=== PATIENT | male | born 1935 | race Caucasian/White ===

== ENCOUNTER 2022-02-16 07:26 | Day surgery (SDC) | payer MEDICARE, BC, SELFPAY ==
--- NOTE | 2022-02-16 07:55 | SUR.PREOP ---
HOme COVID test negative.
--- NOTE | 2022-02-16 07:55 | SUR.PREOP ---
The eye drops brought by the patient (Ketorolac and Prednisolone) are examined and I have determined they are labeled by the patient's pharmacy for this patient as prescribed by the surgeon. The bottles are intact, recently obtained and appear to be correct.
[2022-02-16] MEDS: TETRACAINE 0.5% OPHTH 1 DROP EYE-LEFT ×2 (07:57→08:04)
[2022-02-16 08:01] VITALS: BMI 24.5
[2022-02-16] MEDS: KETOROLAC OPHTH 0.5% 1 DROP EYE-LEFT ×3 (08:02→08:16)
[2022-02-16 08:10] VITALS: BP 129/87; PULSE 57; RESP 16; TEMP 36.1; O2SAT 95
[2022-02-16] MEDS: SODIUM CHLORIDE 0.9 % (FLUSH) 10 ML SYRINGE IVF (08:21)
[2022-02-16] MEDS: TETRACAINE 0.5% OPHTH 2 DROP EYE-LEFT (08:39)
[2022-02-16] MEDS: BALANCED SALT IRRIG SOLN 15 ML EYE-LEFT (08:44)
--- NOTE | 2022-02-16 08:48 | W.ANESCHARGE ---
Anesthesia Charges Start Date/Time Anesthesia Start Date: 02/16/22 Anesthesia Start Time: 08:36 Stop Date/Time Anesthesia Stop Date: 02/16/22 Anesthesia Stop Time: 09:09 Summary Emergency: No Extremes of Age: Over 70-CPT 58064
--- NOTE | 2022-02-16 09:13 | W.PM.OPTPROC ---
Procedure Note Date of procedure: 02/16/22 Will [facility] bill your pro fee for this procedure?: Yes Procedure Description: SURGEON: Betina Robertson MD PREOPERATIVE DIAGNOSIS: Nuclear sclerotic cataract, left eye. POSTOPERATIVE DIAGNOSIS: Nuclear sclerotic cataract, left eye. NAME OF OPERATION: Phacoemulsification of cataract with posterior chamber intraocular lens implantation in the left eye. ANESTHESIA: Topical. ESTIMATED BLOOD LOSS: Less than 2 cc. COMPLICATIONS: None. PATHOLOGY SPECIMEN: None. INDICATIONS: See consult note for details. The risks, benefits and alternatives of the procedure were explained to the patient, who elected to proceed and signed informed consent to do so. PROCEDURE: The patient was brought to the pre-holding area where the left eye was identified as the operative eye. I placed my initials above this eye. The patient received eye drops consisting of 0.5% tetracaine, 1% tropicamide, 10% phenylephrine, and 0.5% ketorolac. The patient was then brought to the operating room where the left eye was again identified as the operative eye. The eye was prepped with Betadine and draped in the usual sterile ophthalmic fashion. A #15 super-sharp blade was used to create a paracentesis site. 1% non-preserved intracameral lidocaine was injected into the anterior chamber. Endocoat was injected into the anterior chamber. A 2.4 mm keratome was used to create a three-plane self-sealing incision 1 mm anterior to the temporal limbus. A cystotome was used to create an anterior capsular leaflet. The Utrata forceps were used to extend this to form a continuous curvilinear capsulorrhexis. Hydrodissection was performed. The cataract was removed with phacoemulsification using the [id number] technique. The irrigation and aspiration tip was used to remove the remaining cortex. Healon was injected into the capsular bag. An VIKA ZCB00 intraocular lens of 19.0 diopters was injected into the capsular bag. The irrigation and aspiration tip was used to remove the remaining viscoelastic. Balanced salt solution on a cannula was used to hydrate the wound, and the wound was found to be watertight. The pupil was noted to be round. DISPOSITION: The patient was taken to the recovery room and discharged to home in stable condition. The patient was instructed to call me or go to the emergency department with any sudden change, including dramatic loss of vision, severe pain in the eye or eyebrow region, nausea, or vomiting. The patient will follow up in the clinic tomorrow morning. Surgeon: Betina Robertson MD
[2022-02-16 09:16] VITALS: BP 135/86; PULSE 49; RESP 16; TEMP 36.6; O2SAT 97
--- NOTE | 2022-02-16 09:21 | SUR.PHASEII ---
The eye drops brought by the patient (Ketorolac and Prednisolone and Ofloxacin) are examined and I have determined they are labeled by the patient's pharmacy for this patient as prescribed by the surgeon. The bottles are intact, recently obtained and appear to be correct.
== END 2022-02-16 09:33 | disposition home or self-care (01) ==
PROVIDERS: PCP Surgery; Visit Provider Ophthalmology
PROC: (CPT 66984; principal; 2022-02-16 07:30)
DX: H25.12 Age-related nuclear cataract, left eye (principal)
CPT/HCPCS: 66984; 00142; 99100; A9270; J2250; J3010; V2632

== ENCOUNTER 2022-04-10 11:11 | Observation (INO) | payer MEDICARE, BC, SELFPAY ==
[2022-04-10] VITALS (22 sets, daily range): BP systolic 104–200; BP diastolic 79–114; PULSE 60–139; RESP 16–20; TEMP 36.4–36.9; O2SAT 88–98; BMI 25.1
--- NOTE | 2022-04-10 11:23 | CRLHL7_ITS ---
For Patients: As a result of the Cures Act, medical imaging exams and procedure reports are released immediately into your electronic medical record. You may view this report before your referring provider. If you have questions, please contact your health care provider. HISTORY: Dizziness. TECHNIQUE: One view of the chest. COMPARISON: 02/23/2019. FINDINGS: Sternotomy. Cardiac size within normal limits. No pulmonary vascular congestion. No focal lung infiltrate. No pneumothorax or pleural effusion. There are degenerative changes of the spine and shoulders. IMPRESSION: No acute disease. Dictated by Herson Farley MD @ 04/10/2022 12:00:44 PM Dictated by: Herson Farley MD @ 04/10/2022 12:00:49 (Electronically Signed)
--- NOTE | 2022-04-10 11:25 | ED_ITS ---
HPI - General Adult General Time Seen by Provider: 11:25 Date Seen: 04/10/22 Chief complaint: Nausea/Vomiting Stated complaint: vomiting and dizzy w blood Time Seen by Provider: 04/10/22 11:12 Source: patient, family and RN notes reviewed Mode of arrival: wheelchair Limitations: no limitations History of Present Illness HPI narrative: Patient presents with his to the ER with dizziness that started while in faith. Started feeling dizzy or lightheaded and then had nausea with vomiting. There was some phlegm in the vomitus that had some reddish darker streaking. There was no claire matted emesis. Patient is on aspirin and Eliquis. He has a history of remote cardiac bypass and notes he has had 6 subsequent stents placed. He otherwise was fine prior to this event this morning. He is not having any abdominal pain with this. Had a normal bowel movement this morning. They are unaware of being exposed to anybody ill but have been out in public. They did go to a movie last night. No noted fevers. He has had no leila min cough or cold symptoms. He specifically denies any chest pain. Does have underlying atrial fibrillation which is the indication for his Eliquis use. Related Data Home Medications Medication Instructions Recorded Confirmed apixaban 2.5 mg tablet (Eliquis) 2.5 mg PO BID 02/15/22 04/10/22 aspirin 81 mg chewable tablet 81 mg PO DAILY 02/15/22 04/10/22 (Aspirin Childrens) atorvastatin 80 mg tablet 80 mg PO HS 02/15/22 04/10/22 donepezil 5 mg tablet 5 mg PO HS 02/15/22 04/10/22 isosorbide mononitrate 60 mg 60 mg PO DAILY 02/15/22 04/10/22 tablet,extended release 24 hr metoprolol succinate 50 mg 50 mg PO DAILY 02/15/22 04/10/22 tablet,extended release 24 hr Allergies Allergy/AdvReac Type Severity Reaction Status Date / Time niacin Allergy Rash and Verified 02/15/22 09:40 Itching Review of Systems Status of ROS: Reports: 10 or more systems reviewed and unremarkable except as noted in History and below [facility] Medical History ASHD (arteriosclerotic heart disease) Atrial fibrillation 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 Mixed hyperlipidemia Unspecified essential hypertension Surgical History History of coronary artery stent placement Social History Smoking Status: Never smoker How often do you have a drink containing alcohol: monthly or less How many standard drinks containing alcohol do you have on a typical day: 1 or 2 How often do you have six or more drinks on one occasion: Never AUDIT-C Alcohol total score: 1 Non-prescribed substance use: denies use Caffeine: Yes (pop) Exam Const: Vital Signs, click to edit/add: Vital Signs - 24 hr 04/10/22 11:20 04/10/22 12:11 04/10/22 12:30 Temperature 97.6 F Pulse Rate 97 98 Pulse Rate [Pulse Oximeter] 73 Respiratory Rate 18 Blood Pressure Blood Pressure [Le ft Upper Arm] 167/85 H Pulse Oximetry 97 96 96 Oxygen Delivery Me thod Room Air 04/10/22 12:32 04/10/22 12:33 04/10/22 13:00 Temperature Pulse Rate 93 90 132 H Pulse Rate [Pulse Oximeter] Respiratory Rate Blood Pressure 133/91 H Blood Pressure [Le ft Upper Arm] Pulse Oximetry 96 95 96 Oxygen Delivery Me thod 04/10/22 13:02 04/10/22 13:30 04/10/22 13:32 Temperature Pulse Rate 139 H 97 101 H Pulse Rate [Pulse Oximeter] Respiratory Rate Blood Pressure 200/114 H 116/96 H Blood Pressure [Le ft Upper Arm] Pulse Oximetry 95 96 96 Oxygen Delivery Me thod 04/10/22 13:33 04/10/22 14:00 04/10/22 14:02 Temperature Pulse Rate 102 H 93 100 Pulse Rate [Pulse Oximeter] Respiratory Rate Blood Pressure 104/85 Blood Pressure [Le ft Upper Arm] Pulse Oximetry 96 96 96 Oxygen Delivery Me thod 04/10/22 14:30 04/10/22 14:32 Temperature Pulse Rate 105 H 100 Pulse Rate [Pulse Oximeter] Respiratory Rate Blood Pressure 140/90 H Blood Pressure [Le ft Upper Arm] Pulse Oximetry 97 98 Oxygen Delivery Me thod Documenting provider has reviewed patient's vital signs: yes Common normals: no apparent distress, average body habitus, oriented x3, no limitations, healthy appearing and alert General appearance: cooperative, comfortable, well kempt, well developed and frail appearing Other: Did watch patient being wheeled back from triage, was hanging onto an emesis bag but at this time was pleasant alert. Seemed a bit overall pale to me but thought is coloration looked normal. HENMT: Common normals: normocephalic, head/scalp atraumatic, hearing grossly normal bilaterally, external ears normal, external nose normal, nasal mucous membranes and turbinates normal, moist oral mucous membranes and oropharynx normal Head and scalp: normocephalic and atraumatic Nose: external nose normal and nasal mucous membranes and turbinates normal External ear: external ears normal Eye: Common normals: PERRL, EOMs intact bilaterally (Note no nystagmus), conjunctivae normal and no scleral icterus Conjunctiva: conjunctiva(e) normal Pupil: PERRL Neck & C-Spine: Common normals: full ROM, no lymphadenopathy, supple, no meningeal signs, no JVD and thyroid normal Thyroid: thyroid normal Chest: Common normals: inspection of chest normal (Well-healed sternotomy scar noted) and palpation of chest normal Resp: Common normals: normal respiratory effort, no retractions, no use of accessory muscles and clear to auscultation bilaterally (Is able to sit up easily in bed to allow me to listen.) Effort & inspection: able to speak in complete sentences Auscultation: clear to auscultation bilaterally (Is able to sit up easily in bed to allow me to listen.) Cardio: Common normals: no JVD, regular rate, regular rhythm (Sounded quite regular when listening to him on arrival.), S1 normal heart sound, S2 normal heart sound, no gallops, no clicks and no murmurs Rate: regular rate Rhythm: regular rhythm (Sounded quite regular when listening to him on arrival.) Heart sounds: S1 normal and S2 normal GI: Common normals: Normal to inspection, nondistended, normoactive bowel sounds present, soft to palpation, non-tender, no hepatosplenomegaly, no masses and no bruits Palpation: soft and no hepatosplenomegaly Extremity: Common normals: normal to inspection, full ROM and normal capillary refill Other: No lower extremity edema, no calf tenderness. Neuro: [place] Coma Scale: document GCS findings [place] coma scale eye opening: Spontaneous (4) [place] coma scale verbal response: Orientated (5) [place] coma scale motor response: Obey commands (6) [place] coma scale total score: 15 Common normals: oriented x3, CN's II-XII intact bilaterally, moves all extremities, no focal motor deficits and no sensory deficits noted Sensorium/orientation: alert Meningeal signs: no meningeal signs Speech: speech normal Motor exam: strength 5/5 throughout, no pronator drift, no tremor noted, no asterixis and no fasciculations Psych: Appearance: well kempt Course Course Hospital Course: Patient will be on cardiac monitoring, pulse oximetry. We will stab lotion IV, obtained portable chest x-ray. Full complement of labs will be obtained, will be getting point of care troponin. He certainly could have underlying cardiac disease with ischemic disease, STEMI non STEMI and a.m. awaiting EKG. There is a current gastroenteritis that is plaguing the surrounding community and it could be the initial presentation of that as well. Will observe hemoglobin and watch closely, make sure this isn't a presentation of GI bleeding. Right now he has no abdominal pain. Infectious etiology, electrolyte issues/metabolic, cardiovascular, gastroenterology issues all are considerations. Will recheck patient shortly, did see him on arrival and will out nursing staff to obtain EKG, get initial monitoring and labs collected. Does not seem like this is vertiginous but would like to question the patient further on his symptoms. May need to consider some low-dose IV fluids and Zofran if need be. Reevaluation(s) Reevaluation #1: Nursing brought to an EKG to me obtained after I left the room. He did go up into atrial fibrillation with RVR, 121 beats per minute. I was just back in to talk to him. He is not feeling more dizzy, he is in AFib with RVR in the low 1 100s bouncing up to maybe 130. He is having no chest pain. His initial point of care troponin came back at 0.02. I will plan on doing a 90 minute to follow him a bit more closely. He indeed does not endorse vertiginous type symptoms. He and his to tell me that he was quite sweaty when he felt this dizziness or lightheadedness. He was sitting while it came on. He is not feeling worse at this time, indeed maybe a bit better. I am going to add in 2.5 mg IV metoprolol to see how he tolerates this and try to obtain a bit closer rate control. Time: 11:51 Reevaluation #2: Patient had naps and heart rate was down into the 80s. However, awoke and was feeling some more nausea. Is doing some dry heaving and spitting some saliva. When doing this, heart rate jumped back up to 130s per nursing staff. Will try just a small dose of IV Ativan 0.25 mg to help with nausea and vomiting control. Will do just another 2.5 mg IV metoprolol. His 90 minute troponin should be drawn shortly. Time: 13:05 Reevaluation #3: Patient was resting, woke easily. Heart rate was 106 to about 110 with atrial fibrillation on the monitor. He is feeling a bit better now after the Ativan. His troponin remains normal. My a leading hypothesis is that he is developing gastroenteritis which we have been seen in the surrounding community. I believe that this has triggered his atrial fibrillation. I will be talking to the hospitalist regarding admission. I do not feel at this time that he needs any abdominal imaging, he is having no abdominal pain, no pain on palpation. Time: 14:12 Consultations Consultation #1: Have reviewed the case with Dr. Seay. He agrees with acceptance and will take over management of this patient. Time: 14:47 Vital Signs Vital signs: Initial Vital Signs Temperature 97.6 F 04/10/22 11:20 Temperature Source Oral 04/10/22 11:20 Pulse Rate 73 04/10/22 11:20 Respiratory Rate 18 04/10/22 11:20 Blood Pressure 167/85 H 04/10/22 11:20 Blood Pressure Mean 112 04/10/22 11:20 Blood Pressure Position Supine 04/10/22 11:20 Pulse Oximetry 97 04/10/22 11:20 Oxygen Delivery Method 04/10/22 11:20 Vital Signs Temperature 97.6 F 04/10/22 11:20 Pulse Rate 73 04/10/22 11:20 Respiratory Rate 18 04/10/22 11:20 Blood Pressure 167/85 H 04/10/22 11:20 Pulse Oximetry 97 04/10/22 11:20 Oxygen Delivery Method 04/10/22 11:20 Temperature 97.6 F 04/10/22 11:20 Pulse Rate 100 04/10/22 14:32 Respiratory Rate 18 04/10/22 11:20 Blood Pressure 140/90 H 04/10/22 14:32 Pulse Oximetry 98 04/10/22 14:32 Oxygen Delivery Method 04/10/22 11:20 Medical Decision Making Lab Data Lab results reviewed: Yes I reviewed the patient's lab results Labs: Lab Results 04/10/22 04/10/22 04/10/22 Range/Units 11:30 11:30 11:30 WBC 25.19 H* (4.50-11.00) K/uL RBC 4.93 (4.30-5.90) m/uL Hgb 14.3 (13.5-17.5) gm/dL Hct 43.8 (37.0-53.0) % MCV 89 (80-100) fL MCH 29 (26-34) pg MCHC 33 (32-36) gm/dL RDW Coeff of Joyce 14.1 (11.5-15.5) % Plt Count 122 L (140-440) K/uL Neut % (Auto) 29.3 L (42.0-72.0) % Lymph % (Auto) 66.6 H (20-44) % Castro % (Auto) 3.2 (0.0-11.0) % Eos % (Auto) 0.7 (0.0-7.0) % Baso % (Auto) 0.0 (0.0-3.0) % Neut # (Auto) 7.40 H (1.7-7.0) K/uL Lymph # (Auto) 16.80 H (0.90-2.90) K/uL Castro # (Auto) 0.80 (0.00-0.90) K/UL Eos # (Auto) 0.20 (0.00-0.50) K/uL Baso # (Auto) 0.00 (0.00-0.30) K/uL Diff Slide Review Acceptable Review (Acceptable) Sodium 140 (135-149) mmol/L Potassium 4.3 (3.6-5.1) mmol/L Chloride 107 (96-114) mmol/L Carbon Dioxide 25 (20-32) mmol/L BUN 16 (7-30) mg/dL Creatinine 1.0 (0.5-1.5) mg/dL Estimated Creat Clear 56.48 Estimated GFR 73 ml/min Glucose 134 H (60-115) mg/dL Lactate 2.0 H (0.5-1.9) mmol/L Calcium 9.1 (8.4-10.6) mg/dL Magnesium 2.1 (1.5-2.6) mg/dL Total Bilirubin 1.8 H (0.1-1.5) mg/dL AST 33 (12-35) U/L ALT 25 (4-50) U/L Alkaline Phosphatase 68 (40-150) U/L C-Reactive Protein < 0.5 L (0.5-1.0) mg/dL NT-Pro-B Natriuret Pep 479 pg/mL Total Protein 6.7 (6.0-8.3) g/dL Albumin 4.2 (3.3-5.0) g/dL Lipase 108 (23-300) U/L SARS-CoV-2 (PCR) (Negative) Influenza Type A (PCR) (Negative) Influenza Type B (PCR) (Negative) RSV (PCR) (Negative) POC Troponin I (0.01-0.04) ng/ml 04/10/22 04/10/22 04/10/22 Range/Units 11:30 11:40 13:09 WBC (4.50-11.00) K/uL RBC (4.30-5.90) m/uL Hgb (13.5-17.5) gm/dL Hct (37.0-53.0) % MCV (80-100) fL MCH (26-34) pg MCHC (32-36) gm/dL RDW Coeff of Joyce (11.5-15.5) % Plt Count (140-440) K/uL Neut % (Auto) (42.0-72.0) % Lymph % (Auto) (20-44) % Castro % (Auto) (0.0-11.0) % Eos % (Auto) (0.0-7.0) % Baso % (Auto) (0.0-3.0) % Neut # (Auto) (1.7-7.0) K/uL Lymph # (Auto) (0.90-2.90) K/uL Castro # (Auto) (0.00-0.90) K/UL Eos # (Auto) (0.00-0.50) K/uL Baso # (Auto) (0.00-0.30) K/uL Diff Slide Review (Acceptable) Sodium (135-149) mmol/L Potassium (3.6-5.1) mmol/L Chloride (96-114) mmol/L Carbon Dioxide (20-32) mmol/L BUN (7-30) mg/dL Creatinine (0.5-1.5) mg/dL Estimated Creat Clear Estimated GFR ml/min Glucose (60-115) mg/dL Lactate (0.5-1.9) mmol/L Calcium (8.4-10.6) mg/dL Magnesium (1.5-2.6) mg/dL Total Bilirubin (0.1-1.5) mg/dL AST (12-35) U/L ALT (4-50) U/L Alkaline Phosphatase (40-150) U/L C-Reactive Protein (0.5-1.0) mg/dL NT-Pro-B Natriuret Pep pg/mL Total Protein (6.0-8.3) g/dL Albumin (3.3-5.0) g/dL Lipase (23-300) U/L SARS-CoV-2 (PCR) Negative SARS-CoV-2 (Negative) Influenza Type A (PCR) Negative PCR FLU A (Negative) Influenza Type B (PCR) Negative PCR FLU B (Negative) RSV (PCR) Negative PCR RSV (Negative) POC Troponin I 0.02 0.01 (0.01-0.04) ng/ml Imaging Data Chest x-ray: Attestation: I have reviewed the pertinent imaging results. My impression: I see no acute pathology on my preliminary read. Radiologist's impression: Patient: [facility] Facility:?[facility] Patient ID:?[id number] Site Patient ID:?[id number]. Site :?[id number] Study:?XRay Chest PORTABLE-04/10/2022 11:45:54 AM Ordering Physician:Garfield Flores Final Report: HISTORY: Dizziness. TECHNIQUE: One view of the chest. COMPARISON: 02/23/2019. FINDINGS: Sternotomy. Cardiac size within normal limits. No pulmonary vascular congestion. No focal lung infiltrate. No pneumothorax or pleural effusion. There are degenerative changes of the spine and shoulders. IMPRESSION: No acute disease. Dictated by Herson Farley MD @ 04/10/2022 12:00:44 PM Dictated by: Herson Farley MD @ 04/10/2022 12:00:49 (Electronic Signature) ECG Data Attestation: I personally reviewed and interpreted this ECG as follows: (Atrial fibrillation with rapid ventricular response, 121 beats per minute. Right bundle branch block, ST segment depression in the lateral distribution, inferior leads as well. QT corrected 559 milliseconds.) Critical Care Time Critical Care Time Critical Care Time: No Discharge Plan Discharge Clinical Impression: Dizziness, Nausea & vomiting, Atrial fibrillation with rapid ventricular response Patient Disposition: Admitted As Inpatient Condition: Stable
[2022-04-10 11:36] LABS: Eosinophils Percent Auto 0.7 % (0.0-7.0); Hematocrit 43.8 % (37.0-53.0); Hemoglobin* 14.3 gm/dL (13.5-17.5); Immature Granulocytes Pct Auto 0.2 %; Lymphocytes Percent Auto 66.6 % (20-44); Mean Corpuscular HGB Conc 33 gm/dL (32-36); Mean Corpuscular Hemoglobin 29 pg (26-34); Mean Corpuscular Volume 89 fL (80-100); Monocytes Percent Auto 3.2 % (0.0-11.0); Neutrophils Percent Auto 29.3 % (42.0-72.0); Platelet Count* 122 K/uL (140-440); RDW Coefficient of Variation % 14.1 % (11.5-15.5); Red Blood Count 4.93 m/uL (4.30-5.90)
[2022-04-10 11:51] LABS: Albumin* 4.2 g/dL (3.3-5.0); Chloride* 107 mmol/L (96-114); Sodium* 140 mmol/L (135-149)
[2022-04-10 11:52] LABS: Potassium* 4.3 mmol/L (3.6-5.1)
[2022-04-10 11:54] LABS: Carbon Dioxide* 25 mmol/L (20-32); Est. Creatinine Clearance* 56.48; Estimated Glomerular Filt Rate 73 ml/min
[2022-04-10 11:55] LABS: Alanine Aminotransferase* 25 U/L (4-50); Alkaline Phosphatase* 68 U/L (40-150); Aspartate Amino Transferase* 33 U/L (12-35); Bilirubin Total* 1.8 mg/dL (0.1-1.5); Blood Urea Nitrogen* 16 mg/dL (7-30); Calcium* 9.1 mg/dL (8.4-10.6); Glucose* 134 mg/dL (60-115); Lipase* 108 U/L (23-300); Magnesium* 2.1 mg/dL (1.5-2.6); Total Protein* 6.7 g/dL (6.0-8.3)
--- NOTE | 2022-04-10 11:55 | PC.NURSE ---
critical WBC 25,[address] Li
[2022-04-10 11:56] LABS: Slide Review Reflex Yes; White Blood Count* 25.19 K/uL (4.50-11.00)
[2022-04-10 11:57] LABS: Slide Review Acceptable Review (Acceptable)
[2022-04-10] MEDS: ONDANSETRON 2 MG/ML inj 4 MG IVP (12:01)
[2022-04-10] MEDS: 0.9 % SODIUM CHLORIDE 250 ml 250 ML IV ×2 (12:02→14:27)
[2022-04-10] MEDS: PANTOPRAZOLE SODIUM 40 MG INJ IVP (12:02)
[2022-04-10 12:04] LABS: Troponin, Point-of-Care* 0.02 ng/ml (0.01-0.04)
[2022-04-10 12:05] LABS: C Reactive Protein* < 0.5 mg/dL (0.5-1.0); NT Pro B Type NatriureticPept* 479 pg/mL
[2022-04-10] MEDS: METOPROLOL TARTRATE 1 MG/ML inj 2.5 MG IVP ×2 (12:06→13:24)
[2022-04-10 12:23] LABS: PCR FLU A Negative PCR FLU A (Negative); PCR FLU B Negative PCR FLU B (Negative); PCR RSV Negative PCR RSV (Negative)
[2022-04-10 12:29] LABS: SARS PCR* Negative SARS-CoV-2 (Negative)
[2022-04-10] MEDS: LORazepam 2 MG/ML inj 0.25 MG IVP (13:24)
[2022-04-10 13:31] LABS: Troponin, Point-of-Care* 0.01 ng/ml (0.01-0.04)
[2022-04-10] MEDS: METOPROLOL TARTRATE 25 MG TABLET 12.5 MG PO (14:27)
--- NOTE | 2022-04-10 15:06 | ED.NURSE ---
report given, pt will transfer to room 280 on heart monitor
--- NOTE | 2022-04-10 15:57 | PM.IMHP1 ---
Hospitalist- H&P: HPI History of Present Illness Date Seen: 04/10/22 Chief complaint: vomiting and dizzy w blood Narrative: Reddy Gilbert is a 86 year old male admitted through the emergency department after becoming ill in gnosticism this morning. He reports feeling well when he got up this morning. He was well until during that her service when he became diaphoretic and sweaty. As he left the gnosticism began vomiting and has had multiple emesis. He did not notice that there was blood in the emesis but his said that the emesis looked red. She is not aware of him eating any red food. He has had no diarrhea. He had a normal colored and normal consistency stool this morning. He is having no abdominal pain or chest pain. Because of the persistent vomiting she brought him to the emergency room. He has had no exposures to anybody else who has been ill in a similar fashion. He is not in any foods that he thinks may be contaminated. No recent travel. He is unaware of previous gastrointestinal illness. No previous gastrointestinal surgery. He probably had a ureteral stent placed 21 years ago possibly for an obstructing stone. He is not having any new urinary symptoms. He is anticoagulated with Eliquis and aspirin for coronary disease and atrial fibrillation. Last dose of Eliquis was this morning. Review of Systems Narrative: He reports no symptoms of illness other than his vomiting. Specifically denies headache, visual disturbance, dizziness, cold or sore throat. No trouble swallowing. No chest pain or dyspnea. He is not aware of palpitations. He does have AFib with RVR but is unaware of his heart racing at this time. Nausea and vomiting this morning as above. No abdominal pain. He does have urinary frequency and urgency which is old. Complete review of systems is otherwise unremarkable. [facility] Medical History (Updated 04/10/22 @ 22:46 by Sam Seay MD) ASHD (arteriosclerotic heart disease) Atrial fibrillation Chronic anticoagulation 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 Dementia Mixed hyperlipidemia Unspecified essential hypertension Surgical History (Updated 04/10/22 @ 16:04 by Sam Seay MD) History of coronary artery stent placement History of ureter stent Family History (Updated 04/10/22 @ 16:05 by Sam Seay MD) Brother Diabetes Heart disease High blood pressure High cholesterol Mother Stroke Father Stroke Social History Highest level of school completed/degree received: high school graduate Smoking Status: Never smoker How often do you have a drink containing alcohol: monthly or less How many standard drinks containing alcohol do you have on a typical day: 1 or 2 How often do you have six or more drinks on one occasion: Never AUDIT-C Alcohol total score: 1 Non-prescribed substance use: denies use Caffeine: Yes (pop) service: No Meds Home Medications and Allergies Home Medications Medication Instructions Recorded Confirmed Type apixaban 2.5 mg tablet (Eliquis) 2.5 mg PO BID 02/15/22 04/10/22 History aspirin 81 mg chewable tablet 81 mg PO DAILY 02/15/22 04/10/22 History (Aspirin Childrens) atorvastatin 80 mg tablet 80 mg PO HS 02/15/22 04/10/22 History donepezil 5 mg tablet 5 mg PO HS 02/15/22 04/10/22 History isosorbide mononitrate 60 mg 60 mg PO DAILY 02/15/22 04/10/22 History tablet,extended release 24 hr metoprolol succinate 50 mg 50 mg PO DAILY 02/15/22 04/10/22 History tablet,extended release 24 hr Allergies Allergy/AdvReac Type Severity Reaction Status Date / Time niacin Allergy Rash and Verified 02/15/22 09:40 Itching Exam Narrative: Exam Narrative: He is alert and appears in no distress. He gives his own history with corroboration by his . Head is without trauma. Eyes are normal. Pupils are equal round reactive to light. Oropharynx with dry mucous membranes. Otherwise normal. Neck is supple without mass or adenopathy. No tenderness. Respirations are clear to auscultation. Cardiovascular: S1, S2, irregular tachycardia. No murmur gallop or rub. Abdomen: Bowel sounds active. Abdomen is soft without tenderness or mass. No peritonitis. External genitalia normal. Extremities are somewhat cool to touch. He has absent pedal pulses in his feet. He has a sore left middle toe with some chronic deformity but no open ulceration or erythema. He moves both his lower extremities fairly well. Const: Vital Signs, click to edit/add: Vital Signs - 24 hr 04/10/22 11:20 04/10/22 12:11 04/10/22 12:30 Temperature 97.6 F Pulse Rate 97 98 Pulse Rate [Pulse Oximeter] 73 Respiratory Rate 18 Blood Pressure Blood Pressure [Le ft Upper Arm] 167/85 H Pulse Oximetry 97 96 96 Oxygen Delivery Me thod Room Air 04/10/22 12:32 04/10/22 12:33 04/10/22 13:00 Temperature Pulse Rate 93 90 132 H Pulse Rate [Pulse Oximeter] Respiratory Rate Blood Pressure 133/91 H Blood Pressure [Le ft Upper Arm] Pulse Oximetry 96 95 96 Oxygen Delivery Me thod 04/10/22 13:02 04/10/22 13:30 04/10/22 13:32 Temperature Pulse Rate 139 H 97 101 H Pulse Rate [Pulse Oximeter] Respiratory Rate Blood Pressure 200/114 H 116/96 H Blood Pressure [Le ft Upper Arm] Pulse Oximetry 95 96 96 Oxygen Delivery Me thod 04/10/22 13:33 04/10/22 14:00 04/10/22 14:02 Temperature Pulse Rate 102 H 93 100 Pulse Rate [Pulse Oximeter] Respiratory Rate Blood Pressure 104/85 Blood Pressure [Le ft Upper Arm] Pulse Oximetry 96 96 96 Oxygen Delivery Me thod 04/10/22 14:30 04/10/22 14:32 04/10/22 14:33 Temperature Pulse Rate 105 H 100 110 H Pulse Rate [Pulse Oximeter] Respiratory Rate Blood Pressure 140/90 H Blood Pressure [Le ft Upper Arm] Pulse Oximetry 97 98 96 Oxygen Delivery Me thod 04/10/22 15:00 04/10/22 15:01 Temperature Pulse Rate 131 H 94 Pulse Rate [Pulse Oximeter] Respiratory Rate Blood Pressure 135/100 H Blood Pressure [Le ft Upper Arm] Pulse Oximetry 88 94 Oxygen Delivery Me thod Documenting provider has reviewed patient's vital signs: yes Hospitalist - H&P: Result Labs Labs: Short CBC 04/10/22 Range/Units 11:30 WBC 25.19 H* (4.50-11.00) K/uL Hgb 14.3 (13.5-17.5) gm/dL Hct 43.8 (37.0-53.0) % Plt Count 122 L (140-440) K/uL BMP 04/10/22 11:30 Sodium 140 Potassium 4.3 Chloride 107 Carbon Dioxide 25 BUN 16 Creatinine 1.0 Glucose 134 H Calcium 9.1 Liver Function 04/10/22 Range/Units 11:30 Total Bilirubin 1.8 H (0.1-1.5) mg/dL AST 33 (12-35) U/L ALT 25 (4-50) U/L Alkaline Phosphatase 68 (40-150) U/L Albumin 4.2 (3.3-5.0) g/dL Assessment and Plan Assessment and plan (1) Nausea & vomiting: Problem comment: Acute onset this morning of fairly severe symptoms. Now appears better. Cause is unclear. May be self-limited illness or assign of up more serious underlying problem. Evaluate and monitor overnight in the hospital for serious complications and recurrent symptoms. Allow clear liquid diet but make NPO if ongoing problems indicating need for endoscopy Status: Acute (2) Hematemesis of unknown cause: Problem comment: Likely had some blood in his emesis. Watch serial hemoglobins and vital signs. Upper endoscopy if continued to have symptoms. Start PPI Status: Suspected (3) Atrial fibrillation with rapid ventricular response: Problem comment: Atrial fibrillation with RVR may be due to his acute illness versus poor controlled heart rate. Will give additional metoprolol now and watch his volume status and vital signs. Status: Acute (4) Chronic anticoagulation: Problem comment: On Eliquis and aspirin. Hold these pending monitoring for GI bleeding Status: Acute (5) Chronic lymphoid leukemia: Problem comment: likely cause of elevated lymphocytes Status: Acute Plan Patient be admitted to the hospital for monitoring for bleeding, recurrent vomiting, abnormal vital signs including atrial fibrillation with RVR. Further evaluation management depending on his clinical course. Total time spent today is 75 minutes, 50 minutes in coordination care discussing with patient ongoing evaluation management vomiting, bleeding, atrial fibrillation with rapid ventricular response and anticoagulation
[2022-04-10] MEDS: OMEPRAZOLE 20 MG CAPSULE DR 40 MG PO (16:40)
[2022-04-10] MEDS: METOPROLOL TARTRATE 25 MG TABLET PO (16:40)
[2022-04-10] MEDS: ATORVASTATIN CALCIUM 40 MG TABLET 80 MG PO (20:37)
[2022-04-10] MEDS: SODIUM CHLORIDE 0.9 % (FLUSH) 10 ML SYRINGE 5 ML IVF (20:37)
[2022-04-10] MEDS: DONEPEZIL 5 MG TABLET PO (20:37)
--- NOTE | 2022-04-10 21:45 | PC.NURSE ---
Nursing Care Hours: [id number] Pt this shift calm and cooperative with cares. Alert and oriented with known hx of dementia. Ambulated with minimal 1 assist. pt states feeling dizzy and upon standing needs to get my equilibrium straight. Void and sm BM on arrival, nothing abnormal noted. VSS. Denies N/V at this time.
[2022-04-10 21:56] LABS: Basophils Percent Auto 0.1 % (0.0-3.0); Eosinophils Percent Auto 0.2 % (0.0-7.0); Hematocrit 40.9 % (37.0-53.0); Hemoglobin* 13.4 gm/dL (13.5-17.5); Immature Granulocytes Pct Auto 0.2 %; Lymphocytes Percent Auto 60.1 % (20-44); Mean Corpuscular HGB Conc 33 gm/dL (32-36); Mean Corpuscular Hemoglobin 29 pg (26-34); Mean Corpuscular Volume 89 fL (80-100); Monocytes Percent Auto 4.6 % (0.0-11.0); Neutrophils Percent Auto 34.8 % (42.0-72.0); Platelet Count* 131 K/uL (140-440); RDW Coefficient of Variation % 14.1 % (11.5-15.5); Red Blood Count 4.59 m/uL (4.30-5.90); White Blood Count* 19.31 K/uL (4.50-11.00)
[2022-04-10 21:57] LABS: Slide Review Reflex No
[2022-04-10 22:23] LABS: Troponin I* < 0.01 ng/mL (0.01-0.04)
[2022-04-11 02:59] VITALS: BP 115/67; PULSE 58; RESP 16; TEMP 36.4; O2SAT 96
--- NOTE | 2022-04-11 03:18 | PC.NURSE ---
Pt reporting zero pain this night. No N/V. VSS, Up Ind in room and voiding. Stable on feet. Reports zero dizziness.
[2022-04-11] MEDS: OMEPRAZOLE 20 MG CAPSULE DR 40 MG PO (06:13)
[2022-04-11 07:18] VITALS: PULSE 60
[2022-04-11 07:30] VITALS: BP 131/68; PULSE 56; RESP 18; TEMP 37; O2SAT 97
[2022-04-11 07:49] LABS: Basophils Percent Auto 0.1 % (0.0-3.0); Eosinophils Percent Auto 0.7 % (0.0-7.0); Hematocrit 43.7 % (37.0-53.0); Hemoglobin* 14.1 gm/dL (13.5-17.5); Immature Granulocytes Pct Auto 0.1 %; Lymphocytes Percent Auto 67.5 % (20-44); Mean Corpuscular HGB Conc 32 gm/dL (32-36); Mean Corpuscular Hemoglobin 29 pg (26-34); Mean Corpuscular Volume 90 fL (80-100); Neutrophils Percent Auto 27.6 % (42.0-72.0); Platelet Count* 126 K/uL (140-440); RDW Coefficient of Variation % 14.4 % (11.5-15.5); Red Blood Count 4.86 m/uL (4.30-5.90); White Blood Count* 20.21 K/uL (4.50-11.00)
[2022-04-11 08:09] LABS: Slide Review Reflex No
[2022-04-11 08:17] LABS: Chloride* 105 mmol/L (96-114); Sodium* 140 mmol/L (135-149)
[2022-04-11 08:20] LABS: Creatinine* 1.1 mg/dL (0.5-1.5); Est. Creatinine Clearance* 51.34; Estimated Glomerular Filt Rate 65 ml/min
[2022-04-11 08:21] LABS: Blood Urea Nitrogen* 15 mg/dL (7-30); Calcium* 9.1 mg/dL (8.4-10.6); Carbon Dioxide* 30 mmol/L (20-32); Glucose* 99 mg/dL (60-115)
[2022-04-11 08:24] LABS: C Reactive Protein* 1.1 mg/dL (0.5-1.0)
[2022-04-11] MEDS: METOPROLOL SUCCINATE (XL) 50 MG TAB PO (08:28)
[2022-04-11] MEDS: ISOSORBIDE MONONITRATE ER 30 MG TAB 60 MG PO (08:29)
--- NOTE | 2022-04-11 11:05 | PC.NURSE ---
Pt eval by Dr. Mairno and myself. UAL. Pt denies nausea or any pain. Tele indicates a-fib with borderline BBB. Labs reviewed. No dysphagia with meds. Pt and verbalized understanding of home meds, new RX, bland diet, EGD on and symptoms to report urgently to physician. Pt discharged via WC to own home with personal belongings and [facility] as transportation.
--- NOTE | 2022-04-11 12:27 | P.DS_ITS ---
DS: Providers Provider Date Seen: 04/11/22 Date of admission: 04/10/22 15:10 Primary care physician: Mckinley Cheema MD Admitting Clinician: Sam Seay MD Consults: 04/10/22 21:43 Consult to Physical Therapy [CONS] Routine Comment: Reason(s) for PT Consult:: Unstable Gait Any Restrictions?:: No Restrictions Attending Physician on discharge: Oliva Marino MD DS: Diagnosis Discharge Diagnosis (1) Nausea & vomiting: Status: Acute Problem details: - acute onset on Monday, 04/10, self-resolved - no further nausea and vomiting during stay, advanced diet without difficulty (2) Hematemesis of unknown cause: Status: Suspected Problem details: - concern blood in his emesis, noted by - serial hemoglobins remained stable, vital signs remained stable - patient will d/c home on PPI, holding anticoagulation until outpatient EGD (scheduled for later this wk; will have been off Eliquis for 3 days prior to procedure) (3) Atrial fibrillation with rapid ventricular response: Status: Acute Problem details: - noted to have RVR in the emergency department, given extra dose of metoprolol and no recurrence noted - telemetry reassuring, troponin negative (4) Chronic anticoagulation: Status: Acute Problem details: - on Eliquis and aspirin for history of atrial fibrillation, held during stay and on discharge (5) Chronic lymphoid leukemia: Status: Acute Problem details: - chronic, stable; likely cause of elevated lymphocytes DS: Summary Hospital Course Hospital Course: 86-year-old male with history of AFib, admitted to the hospital after 1 episode of nausea and vomiting during mu-ism service Monday morning. He had no recurrence of his GI symptoms, no chest pain. Troponin negative x3. Noted to have an episode of RVR early during hospital stay; resolved after an extra dose of metoprolol and no recurrence noted on telemetry. Patient felt significantly better on hospital day 1, advanced diet and requesting discharge home. He lives with his , will have an outpatient EGD later this week, follow-up bland diet and continue to hold anticoagulation in the meantime. Strict return precautions discussed, patient and verbalized understanding. Status at Discharge Functional status at discharge: independent ambulation Overall status at discharge: patient is back to baseline Time Spent with Patient Time attestation: Total time spent providing and/or coordinating discharge services: Time spent: Greater than 30 minutes Specific discharge activities: Medication reconciliation, Education, EGD scheduling Exam Narrative: Exam Narrative: GEN: Alert and oriented, sitting comfortably in bedside chair and answering questions appropriately HEENT: Normal external ears, EOMIs bilaterally, no concerning pallor CV: Irregular rhythm with rate in the 60s, no concerning murmurs, rubs, or gallops R: LCTA bilaterally without concerning wheezing, rales, or rhonchi Ab: Soft, nontender, no concerning masses Skin: No concerning skin lesions or rashes on exposed skin Neuro: Nonfocal Psych: Appropriate Const: Vital Signs, click to edit/add: Vital Signs - 24 hr 04/10/22 12:30 04/10/22 12:32 04/10/22 12:33 Temperature Pulse Rate 98 93 90 Pulse Rate [Left P ulse Oximeter] Respiratory Rate Blood Pressure 133/91 H Blood Pressure [Ri ght Arm] Pulse Oximetry 96 96 95 Oxygen Delivery Me thod 04/10/22 13:00 04/10/22 13:02 04/10/22 13:30 Temperature Pulse Rate 132 H 139 H 97 Pulse Rate [Left P ulse Oximeter] Respiratory Rate Blood Pressure 200/114 H Blood Pressure [Ri ght Arm] Pulse Oximetry 96 95 96 Oxygen Delivery Me thod 04/10/22 13:32 04/10/22 13:33 04/10/22 14:00 Temperature Pulse Rate 101 H 102 H 93 Pulse Rate [Left P ulse Oximeter] Respiratory Rate Blood Pressure 116/96 H Blood Pressure [Ri ght Arm] Pulse Oximetry 96 96 96 Oxygen Delivery Me thod 04/10/22 14:02 04/10/22 14:30 04/10/22 14:32 Temperature Pulse Rate 100 105 H 100 Pulse Rate [Left P ulse Oximeter] Respiratory Rate Blood Pressure 104/85 140/90 H Blood Pressure [Ri ght Arm] Pulse Oximetry 96 97 98 Oxygen Delivery Me thod 04/10/22 14:33 04/10/22 15:00 04/10/22 15:01 Temperature Pulse Rate 110 H 131 H 94 Pulse Rate [Left P ulse Oximeter] Respiratory Rate Blood Pressure 135/100 H Blood Pressure [Ri ght Arm] Pulse Oximetry 96 88 94 Oxygen Delivery Me thod 04/10/22 19:42 04/10/22 19:56 04/10/22 15:32 Temperature 97.6 F 97.6 F Pulse Rate 73 Pulse Rate [Left P ulse Oximeter] 94 Respiratory Rate 16 20 Blood Pressure Blood Pressure [Ri ght Arm] 124/82 129/97 H Pulse Oximetry 98 92 Oxygen Delivery Me thod Room Air Room Air 04/10/22 15:32 04/10/22 22:43 04/10/22 22:44 Temperature 98.4 F Pulse Rate Pulse Rate [Left P ulse Oximeter] 60 60 Respiratory Rate 16 16 Blood Pressure Blood Pressure [Ri ght Arm] 118/79 Pulse Oximetry 92 96 Oxygen Delivery Me thod Room Air Room Air 04/11/22 02:59 04/11/22 07:18 04/11/22 07:30 Temperature 97.5 F L 98.6 F Pulse Rate 60 Pulse Rate [Left P ulse Oximeter] 58 L 56 L Respiratory Rate 16 18 Blood Pressure Blood Pressure [Ri ght Arm] 115/67 131/68 Pulse Oximetry 96 97 Oxygen Delivery Me thod Room Air Room Air DS: Data Data Completed and Pending Labs on day of discharge: Labs from last 24 hours 04/11/22 04/11/22 04/10/22 07:26 07:26 21:45 WBC 20.21 H RBC 4.86 Hgb 14.1 Hct 43.7 MCV 90 MCH 29 MCHC 32 RDW Coeff of Joyce 14.4 Plt Count 126 L Neut % (Auto) 27.6 L Lymph % (Auto) 67.5 H [place] % (Auto) 4.0 Eos % (Auto) 0.7 Baso % (Auto) 0.1 Neut # (Auto) 5.60 Lymph # (Auto) 13.60 H [place] # (Auto) 0.80 Eos # (Auto) 0.10 Baso # (Auto) 0.00 Sodium 140 Potassium 4.0 Chloride 105 Carbon Dioxide 30 BUN 15 Creatinine 1.1 Estimated Creat Clear 51.34 Estimated GFR 65 Glucose 99 Calcium 9.1 Troponin I < 0.01 L C-Reactive Protein 1.1 H SARS-CoV-2 (PCR) Influenza Type A (PCR) Influenza Type B (PCR) RSV (PCR) POC Troponin I 04/10/22 04/10/22 04/10/22 21:45 13:09 11:40 WBC 19.31 H RBC 4.59 Hgb 13.4 L Hct 40.9 MCV 89 MCH 29 MCHC 33 RDW Coeff of Joyce 14.1 Plt Count 131 L Neut % (Auto) 34.8 L Lymph % (Auto) 60.1 H [place] % (Auto) 4.6 Eos % (Auto) 0.2 Baso % (Auto) 0.1 Neut # (Auto) 6.70 Lymph # (Auto) 11.60 H [place] # (Auto) 0.90 Eos # (Auto) 0.00 Baso # (Auto) 0.00 Sodium Potassium Chloride Carbon Dioxide BUN Creatinine Estimated Creat Clear Estimated GFR Glucose Calcium Troponin I C-Reactive Protein SARS-CoV-2 (PCR) Negative SARS-CoV-2 Influenza Type A (PCR) Negative PCR FLU A Influenza Type B (PCR) Negative PCR FLU B RSV (PCR) Negative PCR RSV POC Troponin I 0.01 Discharge Plan Discharge Disposition: Home, Self-Care Date of Admission: 04/10/22 15:10 Attending Provider on Discharge: Oliva Marino Primary Care Provider: Mckinley Cheema Condition: Stable Anticipated Discharge Date/Time: 04/11/22 09:27 Discharge Medications: New omeprazole 20 mg Capsule,Delayed Release(Dr/Ec) 40 mg PO DAILY@0700 Qty: 20 0RF Rx Instructions: take every morning until EGD (Endoscopy) Continued atorvastatin 80 mg tablet 80 mg PO HS Label Comments: Take 1 Tablet (80 mg) by mouth at bedtime. donepezil 5 mg tablet 5 mg PO HS isosorbide mononitrate 60 mg tablet extended release 24 hr 60 mg PO DAILY metoprolol succinate 50 mg tablet extended release 24 hr 50 mg PO DAILY Label Comments: Take 1 Tablet (50 mg) by mouth once daily. Held Eliquis 2.5 mg tablet 2.5 mg PO BID Hold Instructions: Resume on 04/15/22. You can restart your Aspirin and Eliquis after your Endoscopy (EGD) Label Comments: TAKE ONE TABLET BY MOUTH TWICE DAILY aspirin [Aspirin Childrens] 81 mg tablet,chewable 81 mg PO DAILY Hold Instructions: Resume on 04/15/22. You can restart your Aspirin and Eliquis after your Endoscopy (EGD) Discharge Orders: Discharge Order (Routine); Ordered 04/11/22 Ordered By: Olvia Marino Patient Education: Omeprazole (By mouth), Acute Nausea and Vomiting (DC), Upper Endoscopy (GEN) Additional Instructions: Take Omeprazole daily until your Endoscopy (scope) - this is over the counter, but I sent a prescription to [facility] in case your insurance will cover it. Pickerel diet this week. HOLD Aspirin and Eliquis until your procedure. See one of Dr. Cheema's partners in followup to discuss medications after your Endoscopy. You must return to ED with any worsening or new symptoms. Activity Level: No strenuous activity Discharge Diet: Regular Follow Up Appointments: [facility] [Other] - 04/14/22 (You will receive a phone call from the hospital with a time for you EGD on ) Lidya Cardenas MD [Staff Physician] - (Outpatient EGD , 04/14) Mckinley Cheema MD [Primary Care Provider] - 04/15/22 11:15 am ( To go over EGD results and discuss anticoagulation going forward.) Forms: [email or web address] Info Instructions
== END 2022-04-11 11:00 | disposition home or self-care (01) ==
LOC: ED 14:49 → MEDSURG 15:13
PROVIDERS: Admitting Provider Family Medicine; Emergency Provider Family Medicine; PCP Surgery; Visit Provider Family Medicine
DX: I48.91 Unspecified atrial fibrillation (principal); C91.10 Chronic lymphocytic leukemia of B-cell type not having achieved remission; Z79.01 Long term (current) use of anticoagulants; Z79.82 Long term (current) use of aspirin; I25.10 Atherosclerotic heart disease of native coronary artery without angina pectoris; Z95.1 Presence of aortocoronary bypass graft; Z95.5 Presence of coronary angioplasty implant and graft; I45.10 Unspecified right bundle-branch block; R11.0 Nausea; R35.0 Frequency of micturition; R39.15 Urgency of urination; I10 Essential (primary) hypertension
CPT/HCPCS: 36415; 71045; 80048; 80053; 83605; 83690; 83735; 83880; 84484; 85025; 86140; 87502; 87634; 87635; 93005; 94761; 96361; 96374; 96375; 97116; 97161; 99284; 99285; G0378; A9270; C9113; J2060; J2405; J7050

== ENCOUNTER 2022-04-14 07:36 | Outpatient (CLI) | payer MEDICARE, BC, SELFPAY ==
--- NOTE | 2022-04-14 08:30 | W.ANESCHARGE ---
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
--- NOTE | 2022-04-14 09:21 | W.ANESCHARGE ---
Anesthesia Charges Start Date/Time Anesthesia Start Date: 04/14/22 Anesthesia Start Time: 08:08 Stop Date/Time Anesthesia Stop Date: 04/14/22 Anesthesia Stop Time: 08:30 Summary Extremes of Age - Over 70 or under 1: MDA
== END 2022-04-14 07:37 | disposition home or self-care (01) ==
LOC: OP CLINIC 07:38
PROVIDERS: PCP Surgery; Visit Provider Surgery
DX: K92.2 Gastrointestinal hemorrhage, unspecified (principal); K31.89 Other diseases of stomach and duodenum
CPT/HCPCS: 00731; 43239; 88305; 99100; J2704

== ENCOUNTER 2022-08-03 23:56 | Emergency (ER) | payer MEDICARE, BC, SELFPAY ==
[2022-08-04] VITALS (7 sets, daily range): BP systolic 149–179; BP diastolic 84–99; PULSE 63–68; RESP 16–18; TEMP 36.7–36.8; O2SAT 94–99; BMI 25.8
--- NOTE | 2022-08-04 00:27 | CRLHL7_ITS ---
For Patients: As a result of the Century Cures Act, medical imaging exams and procedure reports are released immediately into your electronic medical record. You may view this report before your referring provider. If you have questions, please contact your health care provider. INDICATION: Chest pain. TECHNIQUE: Chest 2 views. COMPARISON: 04/10/2022. FINDINGS: Cardiovascular and mediastinum: Heart size and vasculature are normal in caliber and appearance. Postsurgical changes of CABG. Lungs and pleural spaces: Minimal left basilar hazy opacities. No focal consolidation. No pleural effusions or pneumothorax. Bones and soft tissues: No significant findings. IMPRESSION: Minimal left basilar hazy opacities, favored to represent atelectasis. Otherwise no acute pulmonary process. Dictated by Fredy Prakash MD @ 08/04/2022 1:04:48 AM (Electronically Signed)
[2022-08-04 00:36] LABS: Troponin, Point-of-Care* 0.01 ng/ml (0.01-0.04)
--- NOTE | 2022-08-04 00:37 | ED_ITS ---
HPI - General Adult General Chief complaint: Chest Pain Stated complaint: Heart Attack Time Seen by Provider: 08/03/22 23:59 Source: patient and family Mode of arrival: ambulatory History of Present Illness HPI narrative: 87-year-old male with known history of dementia presents to the emergency department with 2 hours of chest pain. Notable history of coronary artery disease, bypass surgery 27 years ago and stents last placed about 3 years ago. Patient reports that the chest pain is located in the lower anterior chest, radiates to both arms. Not accompanied by shortness of breath, dizziness, lightheadedness, cough or fever. Pain is achy, was constant, nonexertional. No injury or trauma. He thinks it may be related to heartburn but was unsure. Review of the records looks as though he stopped his proton pump inhibitor about 3 weeks ago, there rationale is unclear. It looks as though he has been prescribed nitroglycerin in the past but did not try any tonight. His symptoms improved on the way to the emergency department and is very mild at this time. He does not have symptoms often but does not really have the ability to tell me any type of chronicity or frequency. He is very off on telling me dates and duration of things and family has to help fill this in. They have not noticed any abnormal behavior, appetite has been good. No nausea or vomiting. Did not try any home interventions prior to coming to the ED. no palpitations, racing heart. We can see some records through align a, I cannot see the actual picture of the EKG but it is described in medical decision making as below. He is on aspirin, statin and a beta-latha already. Has taken these today. Past medical history notable for coronary artery disease and GERD. Home medications are atorvastatin, metoprolol, aspirin, isosorbide, Aricept, aspirin and Eliquis for history of AFib. Denies any prior GI surgeries. Nonsmoker, still lives independently and has good family involvement. ROS is notable only for the chest symptoms as above, otherwise denies times 12 systems. Related Data Home Medications Medication Instructions Recorded Confirmed apixaban 2.5 mg tablet (Eliquis) 2.5 mg PO BID 02/15/22 08/04/22 aspirin 81 mg chewable tablet 81 mg PO DAILY 02/15/22 08/04/22 (Aspirin Childrens) atorvastatin 80 mg tablet 80 mg PO HS 02/15/22 08/04/22 donepezil 5 mg tablet 5 mg PO HS 02/15/22 08/04/22 isosorbide mononitrate 60 mg 60 mg PO DAILY 02/15/22 08/04/22 tablet,extended release 24 hr metoprolol succinate 50 mg 50 mg PO DAILY 02/15/22 08/04/22 tablet,extended release 24 hr Previous Rx's Medication Instructions Recorded omeprazole 20 mg capsule,delayed 40 mg (2 x 20 mg) PO DAILY@0700 04/11/22 release #20 caps Allergies Allergy/AdvReac Type Severity Reaction Status Date / Time niacin Allergy Mild Rash and Verified 08/04/22 00:13 Itching [facility] Medical History (Updated 08/04/22 @ 01:11 by Rosanne Rubio MD) Osteoarthritis ?M19.90 - Unspecified osteoarthritis, unspecified site (ICD-10) Coronary atherosclerosis of [place] coronary vessel ?I25.10 - Atherosclerotic heart disease of [place] coronary artery without angina pectoris (ICD-10) Acute pericarditis ?I30.9 - Acute pericarditis, unspecified (ICD-10) Dementia ?F03.90 - Unspecified dementia, unspecified severity, without behavioral disturbance, psychotic disturbance, mood disturbance, and anxiety (ICD-10) Chronic anticoagulation ?Z79.01 - nursing home (current) use of anticoagulants (ICD-10) Coronary artery disease involving coronary bypass graft ?I25.810 - Atherosclerosis of coronary artery bypass graft(s) without angina pectoris (ICD-10) Mixed hyperlipidemia ?E78.2 - Mixed hyperlipidemia (ICD-10) Atrial fibrillation ?I48.91 - Unspecified atrial fibrillation (ICD-10) Chronic lymphoid leukemia ?C91.10 - Chronic lymphocytic leukemia of B-cell type not having achieved remission (ICD-10) Unspecified essential hypertension ?I10 - Essential (primary) hypertension (ICD-10) ASHD (arteriosclerotic heart disease) ?I25.10 - Atherosclerotic heart disease of [place] coronary artery without angina pectoris (ICD-10) Surgical History (Updated 08/04/22 @ 00:55 by Thomas Zamudio RN) History of colonoscopy ?Z98.890 - Other specified postprocedural states (ICD-10) History of coronary artery bypass graft ?Z95.1 - Presence of aortocoronary bypass graft (ICD-10) History of vitrectomy ?Z98.890 - Other specified postprocedural states (ICD-10) History of ureter stent History of coronary artery stent placement ?Z95.5 - Presence of coronary angioplasty implant and graft (ICD-10) Family History Brother Diabetes Heart disease High blood pressure High cholesterol Mother Stroke Father Stroke Social History Highest level of school completed/degree received: high school graduate Smoking Status: Never smoker How often do you have a drink containing alcohol: monthly or less How many standard drinks containing alcohol do you have on a typical day: 1 or 2 How often do you have six or more drinks on one occasion: Never AUDIT-C Alcohol total score: 1 Non-prescribed substance use: denies use Caffeine: Yes (pop) service: No Exam Const: Vital Signs, click to edit/add: Vital Signs - 24 hr 08/04/22 00:05 08/04/22 00:09 08/04/22 00:45 Temperature 98.0 F Pulse Rate 68 65 Pulse Rate [Right Pulse Oximeter] 63 Respiratory Rate 16 18 16 Blood Pressure 179/99 H 167/89 H Blood Pressure [Ri ght Upper Arm] 179/99 H Pulse Oximetry 96 99 94 Oxygen Delivery Me thod Room Air 08/04/22 01:02 Temperature Pulse Rate 63 Pulse Rate [Right Pulse Oximeter] Respiratory Rate 16 Blood Pressure 149/84 H Blood Pressure [Ri ght Upper Arm] Pulse Oximetry 97 Oxygen Delivery Me thod Documenting provider has reviewed patient's vital signs: yes Common normals: no apparent distress and alert General appearance: cooperative, comfortable and well kempt Orientation/consciousness: Yes awake HENMT: Common normals: normocephalic Head and scalp: normocephalic Face and sinus: normal facial exam Mouth: oral and palatal mucosa normal Eye: Common normals: conjunctivae normal General eye: normal appearance of both eyes Conjunctiva: conjunctiva(e) normal Neck & C-Spine: Common normals: full ROM and no lymphadenopathy Chest: Common normals: inspection of chest normal Resp: Common normals: normal respiratory effort, no use of accessory muscles and clear to auscultation bilaterally Effort & inspection: able to speak in complete sentences Auscultation: clear to auscultation bilaterally Cardio: Common normals: regular rate, regular rhythm, S1 normal heart sound and S2 normal heart sound Rate: regular rate Rhythm: regular rhythm Heart sounds: S1 normal and S2 normal Other: Slight early systolic murmur, 2/6 with no radiation GI: Common normals: Normal to inspection, nondistended, normoactive bowel sounds present, soft to palpation, non-tender and no masses Palpation: soft Extremity: Common normals: normal to inspection, normal capillary refill and no pedal edema Neuro: Sensorium/orientation: awake and alert Speech: speech normal Motor exam: strength 5/5 throughout, no tremor noted and no movement abnormalities noted Psych: Appearance: well kempt Mood and affect: euthymic mood Other: Mild memory impairment. Insight and judgment seem fairly good for age. Skin: Common normals: no rashes or lesions noted General skin exam: no rashes or lesions noted Course Course Hospital Course: Chest pain of 2 hours duration, now mostly resolved. Suspect GI origin, as does he. Recommended basic cardiac workup including troponins, EKG, chest x-ray. Will repeat troponin at 90 minutes as well. Trial of famotidine and Maalox. Re-evaluate, will be monitored on case monitor. Reevaluation(s) Time of Reevaluation #1: 01:32 Reevaluation #1: Patient reports chest pain has resolved. Does seem to think that the Maalox and famotidine helped. No changes on case monitor. Remainder of labs are reviewed and normal. 2nd troponin is running, suspect that this will also be negative. Reviewed plan of care with family. If these events continue to happen, would recommend nightly famotidine. They will be provided with written instructions, all questions answered. Reviewed alarm symptoms. Okay to try Maalox at home for similar type of pain, nonexertional, not accompanied by shortness of breath, no insidious onset. If it improves within tender 15 minutes, you do not need to seek evaluation. If you do find that you need the medication more than once weekly, I would start the famotidine every night. Continue all other medications exactly as prescribed. Follow-up with primary care if plan above fails to alleviate symptoms. He and family verbalized understanding and agreement. Time of Reevaluation #2: 01:55 Reevaluation #2: Repeat trop 0.03, remains asymptomatic, recommend discharge Vital Signs Vital signs: Initial Vital Signs Pulse Rate 68 08/04/22 00:05 Respiratory Rate 16 08/04/22 00:05 Respiratory Effort Normal, Spontaneous, Non-Labored 08/04/22 00:05 Respiratory Depth Normal 08/04/22 00:05 Blood Pressure 179/99 H 08/04/22 00:05 Blood Pressure Mean 125 H 08/04/22 00:05 Pulse Oximetry 96 08/04/22 00:05 Vital Signs Pulse Rate 68 08/04/22 00:05 Respiratory Rate 16 08/04/22 00:05 Blood Pressure 179/99 H 08/04/22 00:05 Pulse Oximetry 96 08/04/22 00:05 Temperature 98.0 F 08/04/22 00:09 Pulse Rate 63 08/04/22 01:02 Respiratory Rate 16 08/04/22 01:02 Blood Pressure 149/84 H 08/04/22 01:02 Pulse Oximetry 97 08/04/22 01:02 Oxygen Delivery Method Room Air 08/04/22 00:09 Medical Decision Making MDM Narrative Medical decision making narrative: Differential diagnosis includes acute coronary syndrome, PE, pneumonia, GERD, aortic aneurysm, asthma, musculoskeletal etiology cover compression fracture, among others. Lab Data Lab results reviewed: Yes I reviewed the patient's lab results Lab results narrative: Leukocytosis is chronic, history of CLL Labs: Lab Results 08/04/22 08/04/22 08/04/22 Range/Units 00:05 00:27 01:45 WBC 15.35 H (4.50-11.00) K/uL RBC 4.97 (4.30-5.90) m/uL Hgb 13.9 (13.5-17.5) gm/dL Hct 43.9 (37.0-53.0) % MCV 88 (80-100) fL MCH 28 (26-34) pg MCHC 32 (32-36) gm/dL RDW Coeff of Joyce 14.4 (11.5-15.5) % Plt Count 144 (140-440) K/uL Neut % (Auto) 29.7 L (42.0-72.0) % Lymph % (Auto) 63.6 H (20-44) % [place] % (Auto) 5.0 (0.0-11.0) % Eos % (Auto) 1.4 (0.0-7.0) % Baso % (Auto) 0.1 (0.0-3.0) % Neut # (Auto) 4.60 (1.7-7.0) K/uL Lymph # (Auto) 9.80 H (0.90-2.90) K/uL [place] # (Auto) 0.80 (0.00-0.90) K/UL Eos # (Auto) 0.20 (0.00-0.50) K/uL Baso # (Auto) 0.00 (0.00-0.30) K/uL Troponin I < 0.01 L (0.01-0.04) ng/mL NT-Pro-B Natriuret Pep 288 pg/mL POC Troponin I 0.01 0.03 (0.01-0.04) ng/ml Imaging Data Chest x-ray: Attestation: I have reviewed the pertinent imaging results. My impression: Normal chest x-ray for age Radiologist's impression: IMPRESSION: Minimal left basilar hazy opacities, favored to represent atelectasis. Otherwise no acute pulmonary process ECG Data Attestation: I personally reviewed and interpreted this ECG as follows: Prior ECG tracings: not available for review (I have the written interpretation of his prior EKGs but cannot view the image through align a.) Interpretation: A rhythm appears to be sinus, rate is 74. There are several PVCs which do impair interpretation. There is a right bundle branch block which is also listed in prior interpretations. It is difficult to tell if there is any obvious ischemia. [place] is slightly leftward deviated Discharge Plan Discharge Clinical Impression: Chest pain, non-cardiac Patient Disposition: Home w/ Parent or Adult Condition: Improved Instructions: Chest Pain (DC) Additional Instructions: I am thankful that the pain is improving. I think it may be related to stomach acid. There are no signs of any complications with the heart, lungs or other vital organs today. It looks as though you have previously been on a stomach acid medicine that was stopped last month. This could be the reason why you are having this pain, but I am not sure. If you continue to have episodes, you should consider restarting that or a similar medication. My recommendation is for [id number] famotidine. Famotidine does interact better with your other long-term medications. I would recommend 20 mg at bedtime. This can be taken on an as-needed or every day basis depending on your needs. If you have similar pain to this again, it is okay to try a dose of Maalox or other antacid medication. If this improves her symptoms, I would not be overly concerned. If her chest pain is accompanied by shortness of breath, is exertional or severe, you should come back to the emergency department. Activity Level: No Restrictions Discharge Diet: Regular Prescriptions: No Action Eliquis 2.5 mg tablet 2.5 mg PO BID Hold Instructions: Resume on 04/15/22. You can restart your Aspirin and Eliquis after your Endoscopy (EGD) Patient Comments: TAKE ONE TABLET BY MOUTH TWICE DAILY aspirin [Aspirin Childrens] 81 mg tablet,chewable 81 mg PO DAILY Hold Instructions: Resume on 04/15/22. You can restart your Aspirin and Eliquis after your Endoscopy (EGD) atorvastatin 80 mg tablet 80 mg PO HS Patient Comments: Take 1 Tablet (80 mg) by mouth at bedtime. donepezil 5 mg tablet 5 mg PO HS isosorbide mononitrate 60 mg tablet extended release 24 hr 60 mg PO DAILY metoprolol succinate 50 mg tablet extended release 24 hr 50 mg PO DAILY Patient Comments: Take 1 Tablet (50 mg) by mouth once daily. omeprazole 20 mg Capsule,Delayed Release(Dr/Ec) 40 mg PO DAILY@0700 Qty: 20 0RF Rx Instructions: take every morning until EGD (Endoscopy) Follow Up/Referrals: Mckinley Cheema MD [Primary Care Provider] - Stand Alone Forms: [facility] Info Instructions
[2022-08-04] MEDS: MAG HYDROX/ALUMINUM HYD/SIMETH 30 ML ORAL.SUSP 15 ML PO (00:40)
[2022-08-04] MEDS: FAMOTIDINE 20 MG TABLET PO (00:40)
[2022-08-04 00:44] LABS: Hematocrit 43.9 % (37.0-53.0); Hemoglobin* 13.9 gm/dL (13.5-17.5); Lymphocytes Percent Auto 63.6 % (20-44); Mean Corpuscular HGB Conc 32 gm/dL (32-36); Mean Corpuscular Hemoglobin 28 pg (26-34); Mean Corpuscular Volume 88 fL (80-100); Neutrophils Percent Auto 29.7 % (42.0-72.0); Platelet Count* 144 K/uL (140-440); RDW Coefficient of Variation % 14.4 % (11.5-15.5); Red Blood Count 4.97 m/uL (4.30-5.90); White Blood Count* 15.35 K/uL (4.50-11.00)
[2022-08-04 00:45] LABS: Basophils Percent Auto 0.1 % (0.0-3.0); Eosinophils Percent Auto 1.4 % (0.0-7.0); Immature Granulocytes Pct Auto 0.2 %
[2022-08-04 00:47] LABS: Slide Review Reflex No
[2022-08-04 00:51] LABS: NT Pro B Type NatriureticPept* 288 pg/mL; Troponin I* < 0.01 ng/mL (0.01-0.04)
[2022-08-04 01:54] LABS: Troponin, Point-of-Care* 0.03 ng/ml (0.01-0.04)
== END 2022-08-04 02:04 | disposition home or self-care (01) ==
PROVIDERS: Emergency Provider Family Medicine; PCP Surgery
DX: R07.9 Chest pain, unspecified (principal)
CPT/HCPCS: 36415; 71046; 83880; 84484; 85025; 93005; 99284; A9270

== ENCOUNTER 2022-08-04 07:19 | Emergency (ER) | payer MEDICARE, BC, SELFPAY ==
[2022-08-04] VITALS (10 sets, daily range): BP systolic 118–149; BP diastolic 71–105; PULSE 59–62; RESP 20; TEMP 36.3; O2SAT 96–99; BMI 24.4
--- NOTE | 2022-08-04 08:06 | ED_ITS ---
HPI - General Adult General Chief complaint: Chest Pain <Rosanne Rubio MD - Last Filed: 08/12/22 00:00> Stated complaint: chest pains <Rosanne Rubio MD - Last Filed: 08/12/22 00:00> Time Seen by Provider: 08/04/22 07:46 <Rosanne Rubio MD - Last Filed: 08/12/22 00:00> Source: patient and family <Rosanne Rubio MD - Last Filed: 08/12/22 00:00> Mode of arrival: ambulatory <Rosanne uRbio MD - Last Filed: 08/12/22 00:00> Limitations: no limitations <Rosanne Rubio MD - Last Filed: 08/12/22 00:00> History of Present Illness HPI narrative: 87-year-old male presents to the emergency department for the 2nd time in 24 hours for evaluation of chest pain. He is not able to describe it very well with his underlying dementia. Pain radiates a little bit to both arms. There is no shortness of breath, dizziness. No new trauma or injury. Last night, he was given Maalox and Pepcid with reported significant improvement in his symptoms. No fever, no cough. He does report a little bit of mild nausea as well. No vomiting. No abdominal pain. He is accompanied by his and daughter again this morning. Chest pain is nonexertional, constant, happens at rest. His reports he was able to sleep for few hours after going home but awoke this morning at around 6:00 a.m., complaining that he was still having chest pain. To her he rated the pain is a 6/10, after it was only a 1/10 after leaving the ED overnight. He did not try any interventions at home prior to coming to the ED. denies anxiety. Past medical history is notable for coronary artery disease. 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 He has had multiple stents, last was 3 years ago. Family reports good compliance with his statin, aspirin, Eliquis and long-acting nitrate. It sounds as though he had previously been on omeprazole but it was discontinued about a month ago. It looks like he has had an outpatient GI workup as well. No other significant changes from yesterday. ROS is notable for the chest symptoms as above, otherwise denies times 12 systems. <Rosanne Rubio MD - Last Filed: 08/12/22 00:00> Related Data Home medications: Home Medications Medication Instructions Recorded Confirmed apixaban 2.5 mg tablet (Eliquis) 2.5 mg PO BID 02/15/22 08/04/22 aspirin 81 mg chewable tablet 81 mg PO DAILY 02/15/22 08/04/22 (Aspirin Childrens) atorvastatin 80 mg tablet 80 mg PO HS 02/15/22 08/04/22 donepezil 5 mg tablet 5 mg PO HS 02/15/22 08/04/22 isosorbide mononitrate 60 mg 60 mg PO DAILY 02/15/22 08/04/22 tablet,extended release 24 hr metoprolol succinate 50 mg 50 mg PO DAILY 02/15/22 08/04/22 tablet,extended release 24 hr Previous Rx's Medication Instructions Recorded omeprazole 20 mg capsule,delayed 40 mg (2 x 20 mg) PO DAILY@0700 04/11/22 release #20 caps <Rosanne Rubio MD - Last Filed: 08/12/22 00:00> Allergies/adverse reactions: Allergies Allergy/AdvReac Type Severity Reaction Status Date / Time niacin Allergy Mild Rash and Verified 08/04/22 00:13 Itching <Rosanne Rubio MD - Last Filed: 08/12/22 00:00> [facility] Medical History: Medical History (Updated 08/04/22 @ 09:05 by Spencer Hernandez MD) Osteoarthritis ?M19.90 - Unspecified osteoarthritis, unspecified site (ICD-10) Coronary atherosclerosis of [place] coronary vessel ?I25.10 - Atherosclerotic heart disease of [place] coronary artery without angina pectoris (ICD-10) Acute pericarditis ?I30.9 - Acute pericarditis, unspecified (ICD-10) Dementia ?F03.90 - Unspecified dementia, unspecified severity, without behavioral disturbance, psychotic disturbance, mood disturbance, and anxiety (ICD-10) Chronic anticoagulation ?Z79.01 - salvage determiner (current) use of anticoagulants (ICD-10) Coronary artery disease involving coronary bypass graft ?I25.810 - Atherosclerosis of coronary artery bypass graft(s) without angina pectoris (ICD-10) Mixed hyperlipidemia ?E78.2 - Mixed hyperlipidemia (ICD-10) Atrial fibrillation ?I48.91 - Unspecified atrial fibrillation (ICD-10) Chronic lymphoid leukemia ?C91.10 - Chronic lymphocytic leukemia of B-cell type not having achieved remission (ICD-10) Unspecified essential hypertension ?I10 - Essential (primary) hypertension (ICD-10) ASHD (arteriosclerotic heart disease) ?I25.10 - Atherosclerotic heart disease of [place] coronary artery without angina pectoris (ICD-10) <Rosanne Rubio MD - Last Filed: 08/12/22 00:00> Surgical History: Surgical History (Updated 08/04/22 @ 00:55 by Thomas Zamudio RN) History of colonoscopy ?Z98.890 - Other specified postprocedural states (ICD-10) History of coronary artery bypass graft ?Z95.1 - Presence of aortocoronary bypass graft (ICD-10) History of vitrectomy ?Z98.890 - Other specified postprocedural states (ICD-10) History of ureter stent History of coronary artery stent placement ?Z95.5 - Presence of coronary angioplasty implant and graft (ICD-10) <Rosanne Rubio MD - Last Filed: 08/12/22 00:00> Family History: Family History Brother Diabetes Heart disease High blood pressure High cholesterol Mother Stroke Father Stroke <Rosanne Rubio MD - Last Filed: 08/12/22 00:00> Social History: Social History Highest level of school completed/degree received: high school graduate Smoking Status: Never smoker Do you use any of these nicotine containing products: None Second hand tobacco smoke exposure: No How often do you have a drink containing alcohol: monthly or less How many standard drinks containing alcohol do you have on a typical day: 1 or 2 How often do you have six or more drinks on one occasion: Never AUDIT-C Alcohol total score: 1 Non-prescribed substance use: denies use Caffeine: Yes (pop) service: No <Rosanne Rubio MD - Last Filed: 08/12/22 00:00> Exam Const: Vital Signs, click to edit/add: Vital Signs - 24 hr 08/04/22 07:28 08/04/22 08:11 08/04/22 08:24 Temperature 97.4 F L Pulse Rate 59 L 62 Pulse Rate [Pulse Oximeter] 62 Respiratory Rate 20 Blood Pressure 126/77 Blood Pressure [Le ft Upper Arm] 137/80 Pulse Oximetry 96 97 96 Oxygen Delivery Me thod Room Air <Rosanne Rubio MD - Last Filed: 08/12/22 00:00> Vital Signs, click to edit/add: Vital Signs - 24 hr 08/04/22 07:28 08/04/22 08:11 08/04/22 08:24 Temperature 97.4 F L Pulse Rate 59 L 62 Pulse Rate [Pulse Oximeter] 62 Respiratory Rate 20 Blood Pressure 126/77 Blood Pressure [Le ft Upper Arm] 137/80 Pulse Oximetry 96 97 96 Oxygen Delivery Me thod Room Air <Spencer Hernandez MD - Last Filed: 08/04/22 09:05> Documenting provider has reviewed patient's vital signs: yes <Rosanne Rubio MD - Last Filed: 08/12/22 00:00> Common normals: no apparent distress <Rosanne Rubio MD - Last Filed: 08/12/22 00:00> General appearance: cooperative, comfortable and well kempt <Rosanne Rubio MD - Last Filed: 08/12/22 00:00> Other: Moderate historian but calm and friendly. Cooperative with exam. <Rosanne Rubio MD - Last Filed: 08/12/22 00:00> HENMT: Common normals: normocephalic <Rosanne Ruboi MD - Last Filed: 08/12/22 00:00> Head and scalp: normocephalic <Rosanne Rubio MD - Last Filed: 08/12/22 00:00> Mouth: oral and palatal mucosa normal <MD Enmanuel Soto Last Filed: 08/12/22 00:00> Throat: posterior oropharynx normal <Rosanne Rubio MD - Last Filed: 08/12/22 00:00> Eye: Common normals: conjunctivae normal <MD Enmanuel Soto Last Filed: 08/12/22 00:00> General eye: normal appearance of both eyes <MD Enmanuel Soto Last Filed: 08/12/22 00:00> Conjunctiva: conjunctiva(e) normal <MD Enmanuel Soto Last Filed: 08/12/22 00:00> Neck & C-Spine: Common normals: full ROM and no lymphadenopathy <MD Enmanuel Soto Last Filed: 08/12/22 00:00> Chest: Common normals: inspection of chest normal and palpation of chest normal (No tenderness to palpation of the sternocostal joints) <MD Enmanuel Soto Last Filed: 08/12/22 00:00> Resp: Common normals: normal respiratory effort, no use of accessory muscles and clear to auscultation bilaterally <MD Enmanuel Soto Last Filed: 08/12/22 00:00> Effort & inspection: able to speak in complete sentences <MD Enmanuel Soto Last Filed: 08/12/22 00:00> Auscultation: clear to auscultation bilaterally <MD Enmanuel Soto Last Filed: 08/12/22 00:00> Cardio: Common normals: regular rate, regular rhythm, S1 normal heart sound, S2 normal heart sound, no murmurs and peripheral pulses 2+ throughout <MD Enmanuel Soto Last Filed: 08/12/22 00:00> Rate: regular rate <MD Enmanuel Stoo Last Filed: 08/12/22 00:00> Rhythm: regular rhythm <MD Enmanuel Soto Last Filed: 08/12/22 00:00> Heart sounds: S1 normal and S2 normal <MD Enmanuel Soto Last Filed: 08/12/22 00:00> Peripheral pulses: pulses 2+ throughout <MD Enmanuel Soto Last Filed: 08/12/22 00:00> GI: Common normals: Normal to inspection, nondistended, normoactive bowel sounds present, soft to palpation, no hepatosplenomegaly and no masses <Rosanne Rubio MD - Last Filed: 08/12/22 00:00> Inspection: normal to inspection <MD Enmanuel Soto Last Filed: 08/12/22 00:00> Palpation: soft and no hepatosplenomegaly <Rosanne Rubio MD - Last Filed: 08/12/22 00:00> Other: Mild tenderness to epigastrium only, stable from yesterday. Certainly no rebo und tenderness or guarding. No right upper quadrant tenderness. <Rosanne Rubio MD - Last Filed: 08/12/22 00:00> Extremity: Common normals: normal to inspection and no pedal edema <Rosanne Rubio MD - Last Filed: 08/12/22 00:00> Neuro: Speech: speech normal <Rosanne Rubio MD - Last Filed: 08/12/22 00:00> Motor exam: no movement abnormalities noted <Rosanne Rubio MD - Last Filed: 08/12/22 00:00> Psych: Common normals: mental status grossly normal, thought process normal, cooperative and affect normal <Rosanne Rubio MD - Last Filed: 08/12/22 00:00> Appearance: well kempt <Rosanne Rubio MD - Last Filed: 08/12/22 00:00> Thought process: normal thought process <MD Enmanuel Soto Last Filed: 08/12/22 00:00> Insight: fair <MD Enmanuel Soto Last Filed: 08/12/22 00:00> Judgement: fair <MD Enmanuel Soto Last Filed: 08/12/22 00:00> Skin: Common normals: no rashes or lesions noted <MD Enmanuel Soto Last Filed: 08/12/22 00:00> General skin exam: no rashes or lesions noted <MD Enmanuel Soto Last Filed: 08/12/22 00:00> Course Course Hospital Course: Patient high risk for coronary artery disease based on past history. Vital signs are stable. Recommend repeat EKG, repeat cardiac enzymes. Chest x- ray, electrolytes, CBC, BNP all reviewed from yesterday, reassuring. He did get initial improvement after Maalox. Recommended trying the Maalox and omeprazole again. If this does not improve his symptoms, would recommend a trial of nitroglycerin. May benefit from restarting a PPI verses cardiology consult. Will be handing over care to my in coming day shift partner. <Rosanne Rubio MD - Last Filed: 08/12/22 00:00> Vital Signs Vital signs: Initial Vital Signs Temperature 97.4 F L 08/04/22 07:28 Temperature Source Temporal Artery Scan 08/04/22 07:28 Pulse Rate 62 08/04/22 07:28 Pulse Rhythm Regular 08/04/22 07:28 Respiratory Rate 20 08/04/22 07:28 Blood Pressure 137/80 08/04/22 07:28 Blood Pressure Mean 99 08/04/22 07:28 Blood Pressure Position Supine 08/04/22 07:28 Pulse Oximetry 96 08/04/22 07:28 Oxygen Delivery Method Room Air 08/04/22 07:28 Vital Signs Temperature 97.4 F L 08/04/22 07:28 Pulse Rate 62 08/04/22 07:28 Respiratory Rate 20 08/04/22 07:28 Blood Pressure 137/80 08/04/22 07:28 Pulse Oximetry 96 08/04/22 07:28 Oxygen Delivery Method Room Air 08/04/22 07:28 Temperature 97.4 F L 08/04/22 07:28 Pulse Rate 61 08/04/22 09:01 Respiratory Rate 20 08/04/22 07:28 Blood Pressure 149/105 H 08/04/22 09:33 Pulse Oximetry 97 08/04/22 09:01 Oxygen Delivery Method Room Air 08/04/22 07:28 <Rosanne Rubio MD - Last Filed: 08/12/22 00:00> Initial Vital Signs Temperature 97.4 F L 08/04/22 07:28 Temperature Source Temporal Artery Scan 08/04/22 07:28 Pulse Rate 62 08/04/22 07:28 Pulse Rhythm Regular 08/04/22 07:28 Respiratory Rate 20 08/04/22 07:28 Blood Pressure 137/80 08/04/22 07:28 Blood Pressure Mean 99 08/04/22 07:28 Blood Pressure Position Supine 08/04/22 07:28 Pulse Oximetry 96 08/04/22 07:28 Oxygen Delivery Method Room Air 08/04/22 07:28 Vital Signs Temperature 97.4 F L 08/04/22 07:28 Pulse Rate 62 08/04/22 07:28 Respiratory Rate 20 08/04/22 07:28 Blood Pressure 137/80 08/04/22 07:28 Pulse Oximetry 96 08/04/22 07:28 Oxygen Delivery Method Room Air 08/04/22 07:28 Temperature 97.4 F L 08/04/22 07:28 Pulse Rate 61 08/04/22 09:01 Respiratory Rate 20 08/04/22 07:28 Blood Pressure 149/105 H 08/04/22 09:33 Pulse Oximetry 97 08/04/22 09:01 Oxygen Delivery Method Room Air 08/04/22 07:28 <Spencer Hernandez MD - Last Filed: 08/04/22 09:05> Medical Decision Making MDM Narrative Medical decision making narrative: Patient is an 87-year-old gentleman who presents with recurrence of his epigastric pain. He has been here last night and rule out for myocardial infarction. Today is troponin is 0.41. I did call and discuss case with Cardiology. Patient is on Eliquis and baby aspirin. He is on metoprolol. Cardiology's in agreement that the patient to be transferred for catheterization. They recommended no intervention at this time as we await the 4-8 hour delay to get him to [facility]. Patient is currently asymptomatic will be transferred via ALS ambulance. <Spencer Hernandez MD - Last Filed: 08/04/22 09:05> Differential Diagnosis Differential Diagnosis: Unstable angina acute myocardial infarction dyspepsia abdominal pain aaa <Spencer Hernandez MD - Last Filed: 08/04/22 09:05> Lab Data Labs: Lab Results 08/04/22 08/04/22 Range/Units 08:00 10:02 Sodium 137 (135-149) mmol/L Potassium 4.3 (3.6-5.1) mmol/L Chloride 105 (96-114) mmol/L Carbon Dioxide 25 (20-32) mmol/L BUN 14 (7-30) mg/dL Creatinine 1.0 (0.5-1.5) mg/dL Estimated Creat Clear 57.12 Estimated GFR 73 ml/min Glucose 109 (60-115) mg/dL Calcium 9.0 (8.4-10.6) mg/dL Troponin I 0.49 H* (0.01-0.04) ng/mL POC Troponin I 0.41 H (0.01-0.04) ng/ml <Rosanne Rubio MD - Last Filed: 08/12/22 00:00> Lab Results 08/04/22 08/04/22 Range/Units 08:00 10:02 Sodium 137 (135-149) mmol/L Potassium 4.3 (3.6-5.1) mmol/L Chloride 105 (96-114) mmol/L Carbon Dioxide 25 (20-32) mmol/L BUN 14 (7-30) mg/dL Creatinine 1.0 (0.5-1.5) mg/dL Estimated Creat Clear 57.12 Estimated GFR 73 ml/min Glucose 109 (60-115) mg/dL Calcium 9.0 (8.4-10.6) mg/dL Troponin I 0.49 H* (0.01-0.04) ng/mL POC Troponin I 0.41 H (0.01-0.04) ng/ml <Spencer Hernandez MD - Last Filed: 08/04/22 09:05> ECG Data Attestation: I personally reviewed and interpreted this ECG as follows: <Rosanne Rubio MD - Last Filed: 08/12/22 00:00> Prior ECG tracings: available for review (Comparison earlier today and took April 07) <Rosanne Rubio MD - Last Filed: 08/12/22 00:00> Interpretation: Normal sinus rhythm, previously seen PVCs have disappeared. The right bundle branch block is stable, the lateral and inferior lead changes and T-wave abnormalities are stable from earlier EKG as well. Do not believe there is any acute ischemia. Slightly leftward axis. <Rosanne Rubio MD - Last Filed: 08/12/22 00:00> Discharge Plan Discharge Clinical Impression: Non-ST elevated myocardial infarction (non-STEMI) <Rosanne Rubio MD - Last Filed: 08/12/22 00:00> Patient Disposition: Xfer [facility] <Rosanne Rubio MD - Last Filed: 08/12/22 00:00> Discharge Location: [facility] <Rosanne Rubio MD - Last Filed: 08/12/22 00:00> Condition: Stable <Rosanne Rubio MD - Last Filed: 08/12/22 00:00> Activity Level: Other <Rosanne Rubio MD - Last Filed: 08/12/22 00:00> Other <Spencer Hernandez MD - Last Filed: 08/04/22 09:05> Discharge Diet: Other <Rosanne Rubio MD - Last Filed: 08/12/22 00:00> Other <Spencer Hernandez MD - Last Filed: 08/04/22 09:05> Prescriptions: No Action Eliquis 2.5 mg tablet 2.5 mg PO BID Hold Instructions: Resume on 04/15/22. You can restart your Aspirin and Eliquis after your Endoscopy (EGD) Patient Comments: TAKE ONE TABLET BY MOUTH TWICE DAILY aspirin [Aspirin Childrens] 81 mg tablet,chewable 81 mg PO DAILY Hold Instructions: Resume on 04/15/22. You can restart your Aspirin and Eliquis after your Endoscopy (EGD) atorvastatin 80 mg tablet 80 mg PO HS Patient Comments: Take 1 Tablet (80 mg) by mouth at bedtime. donepezil 5 mg tablet 5 mg PO HS isosorbide mononitrate 60 mg tablet extended release 24 hr 60 mg PO DAILY metoprolol succinate 50 mg tablet extended release 24 hr 50 mg PO DAILY Patient Comments: Take 1 Tablet (50 mg) by mouth once daily. omeprazole 20 mg Capsule,Delayed Release(Dr/Ec) 40 mg PO DAILY@0700 Qty: 20 0RF Rx Instructions: take every morning until EGD (Endoscopy) <Rosanne Rubio MD - Last Filed: 08/12/22 00:00> Stand Alone Forms: [facility] Info Instructions <Rosanne Rubio MD - Last Filed: 08/12/22 00:00>
--- NOTE | 2022-08-04 08:18 | ED.NURSE ---
dr cortés and dr lawrence aware of trop of 0.41.
[2022-08-04 08:22] LABS: Troponin, Point-of-Care* 0.41 ng/ml (0.01-0.04)
[2022-08-04 08:43] LABS: Troponin I* 0.49 ng/mL (0.01-0.04)
--- NOTE | 2022-08-04 09:42 | ED.NURSE ---
report was given to [facility] nurse. will take pt to [id number]. they want a call when he leaves. dispatch was called.
[2022-08-04 16:18] LABS: Chloride* 105 mmol/L (96-114)
[2022-08-04 16:19] LABS: Potassium* 4.3 mmol/L (3.6-5.1); Sodium* 137 mmol/L (135-149)
[2022-08-04 16:22] LABS: Blood Urea Nitrogen* 14 mg/dL (7-30); Carbon Dioxide* 25 mmol/L (20-32); Est. Creatinine Clearance* 57.12; Estimated Glomerular Filt Rate 73 ml/min; Glucose* 109 mg/dL (60-115)
== END 2022-08-04 10:05 | disposition short-term general hospital (02) ==
PROVIDERS: Internal Medicine; Emergency Provider Family Medicine; PCP Surgery
DX: I21.4 Non-ST elevation (NSTEMI) myocardial infarction (principal)
CPT/HCPCS: 36415; 71046; 80048; 83880; 84484; 85025; 93005; 94761; 99283; 99284; 99285; A9270

== ENCOUNTER 2022-08-04 09:57 | Outpatient (CLI) | payer MEDICARE, BC, SELFPAY | END 2022-08-04 09:58 | disposition home or self-care (01) | LOC: AMB 08-05 06:42 | PROVIDERS: PCP Surgery; Visit Provider Internal Medicine | DX: R07.89 Other chest pain (principal) | CPT/HCPCS: A0425; A0427; A0428 ==

== ENCOUNTER 2023-04-18 00:46 | Emergency (ER) | payer MEDICARE, BC, SELFPAY ==
[2023-04-18 00:52] VITALS: BP 136/71; PULSE 66; RESP 16; TEMP 36.4; O2SAT 94; BMI 25.5
--- NOTE | 2023-04-18 01:44 | ED.GENADULT ---
HPI - General Adult General Chief complaint: Epistaxis/Nosebleed Stated complaint: Bloody Nose Time Seen by Provider: 04/18/23 00:58 Source: patient and family Mode of arrival: ambulatory History of Present Illness HPI narrative: 87-year-old male anticoagulated on both Eliquis and Plavix for coronary artery disease and AFib presents to the emergency department for nose bleed. This started about an hour prior to arrival. Initially started as a trickle, became more brisk. No dizziness, no lightheadedness, no vomiting. No bloody stool. No recent changes in his anticoagulation. Reports that he did slip in the driveway, falling on his butt yesterday but has not hit his head, no facial trauma. No fevers or recent illness. No recent changes to medication. Did not try applying pressure or any other treatments prior to coming to the ED. has had nose bleeds in the past but it has been a couple of years. Review of his chart shows that he has had a GI bleed within the last couple of years as well. Past medical history notable for significant coronary artery disease, dementia, AFib, prior GI bleed. Medications reviewed, consistent with his report. Allergy to niacin causing a rash and itching. Nonsmoker with no pertinent travel. Does live independently with spouse but has family very close by. Son arrived shortly after patient presentation as well. Related Data Home Medications Medication Instructions Recorded Confirmed apixaban 2.5 mg tablet (Eliquis) 2.5 mg PO BID 02/15/22 04/18/23 atorvastatin 80 mg tablet 80 mg PO HS 02/15/22 04/18/23 donepezil 5 mg tablet 5 mg PO 02/15/22 04/18/23 isosorbide mononitrate 60 mg 60 mg PO DAILY 02/15/22 08/04/22 tablet,extended release 24 hr metoprolol succinate 50 mg 50 mg PO DAILY 02/15/22 04/18/23 tablet,extended release 24 hr clopidogrel 75 mg tablet 75 mg PO REPLACED BY [facility] 04/18/23 04/18/23 ezetimibe 10 mg tablet 10 mg PO DAILY 04/18/23 04/18/23 isosorbide mononitrate 30 mg 30 mg PO DAILY 04/18/23 04/18/23 tablet,extended release 24 hr ranolazine 500 mg tablet,extended 500 mg PO BID 04/18/23 04/18/23 release,12 hr Previous Rx's Medication Instructions Recorded omeprazole 20 mg capsule,delayed 40 mg (2 x 20 mg) PO DAILY@0700 04/11/22 release #20 caps Allergies Allergy/AdvReac Type Severity Reaction Status Date / Time niacin Allergy Mild Rash and Verified 04/18/23 00:56 Itching [facility] Medical History Osteoarthritis ?M19.90 - Unspecified osteoarthritis, unspecified site (ICD-10) Coronary atherosclerosis of [place] coronary vessel ?I25.10 - Atherosclerotic heart disease of [place] coronary artery without angina pectoris (ICD-10) Acute pericarditis ?I30.9 - Acute pericarditis, unspecified (ICD-10) Dementia ?F03.90 - Unspecified dementia, unspecified severity, without behavioral disturbance, psychotic disturbance, mood disturbance, and anxiety (ICD-10) Chronic anticoagulation ?Z79.01 - intermission coordinator (current) use of anticoagulants (ICD-10) Coronary artery disease involving coronary bypass graft ?I25.810 - Atherosclerosis of coronary artery bypass graft(s) without angina pectoris (ICD-10) Mixed hyperlipidemia ?E78.2 - Mixed hyperlipidemia (ICD-10) Atrial fibrillation ?I48.91 - Unspecified atrial fibrillation (ICD-10) Chronic lymphoid leukemia ?C91.10 - Chronic lymphocytic leukemia of B-cell type not having achieved remission (ICD-10) Unspecified essential hypertension ?I10 - Essential (primary) hypertension (ICD-10) ASHD (arteriosclerotic heart disease) ?I25.10 - Atherosclerotic heart disease of [place] coronary artery without angina pectoris (ICD-10) Surgical History History of colonoscopy ?Z98.890 - Other specified postprocedural states (ICD-10) History of coronary artery bypass graft ?Z95.1 - Presence of aortocoronary bypass graft (ICD-10) History of vitrectomy ?Z98.890 - Other specified postprocedural states (ICD-10) History of ureter stent History of coronary artery stent placement ?Z95.5 - Presence of coronary angioplasty implant and graft (ICD-10) Family History Brother Diabetes Heart disease High blood pressure High cholesterol Mother Stroke Father Stroke Social History Highest level of school completed/degree received: high school graduate Smoking Status: Never smoker Do you use any of these nicotine containing products: None Second hand tobacco smoke exposure: No How often do you have a drink containing alcohol: monthly or less How many standard drinks containing alcohol do you have on a typical day: 1 or 2 How often do you have six or more drinks on one occasion: Never AUDIT-C Alcohol total score: 1 Non-prescribed substance use: denies use Caffeine: Yes (pop) service: No Exam Const: Vital Signs, click to edit/add: Vital Signs - 24 hr 04/18/23 00:52 Temperature 97.5 F L Pulse Rate [Pulse Oximeter] 66 Respiratory Rate 16 Blood Pressure [Ri ght Upper Arm] 136/71 Pulse Oximetry 94 Oxygen Delivery Me thod Room Air Documenting provider has reviewed patient's vital signs: yes Other: Friendly and cooperative with mild memory impairment evident. HENMT: Common normals: normocephalic Head and scalp: normocephalic Other: No signs of facial trauma. Normal extraocular movements. Blood clot hanging down from right nostril. Left nares examined 1st with no signs of bleeding. Clot is gently wiped away from the external Hunter revealing a fairly large area, looks about 8-10 mm in size of bleeding in the anterior nasal septum consistent with typical area. No signs of posterior bleeding. Turbinates and remainder of nose do appear normal. Oropharynx with acyanotic lips, moist membranes, no heavy bleeding down the back of the throat. Nasal clamp had been applied in triage and had been in place for about 20 minutes prior to my examination. Eye: Common normals: conjunctivae normal General eye: normal appearance of both eyes Conjunctiva: conjunctiva(e) normal Neck & C-Spine: Common normals: no lymphadenopathy General: normal visual inspection Resp: Common normals: normal respiratory effort Effort & inspection: able to speak in complete sentences Cardio: Other: Irregular with 2/6 systolic murmur. Psych: Common normals: speech normal Activity/motor behavior: appropriate eye contact Speech: normal speech Insight: fair Judgement: fair Skin: Common normals: no rashes or lesions noted General skin exam: no rashes or lesions noted Course Course ED Course: Patient still having signs of persistent bleeding on dual anticoagulation, even after nasal clamping. The area of bleeding does look a little too wide for me to cauterize safely at his age. Recommended nasal packing balloon. He was agreeable to this. Smaller size balloon was placed and inflated with good control of bleeding. Repeat examination 10 minutes later shows no persistent bleeding. Patient was given a ?road test? and has no signs of dizziness, hypotension or severe weakness. He is discharged home with family. He is given a nasal clamp to have on hand if his bleeding does restart. At this time, he may continue his anticoagulants but it should continue to be re-evaluated every 6 months or so by his primary care provider. I did discuss nasal cease, and other [id number] products that may be helpful. I do not think that the patient could self manage this but family purchasing some to have on hand at the patient's home to administer with the nasal clamp is certainly something that seems to be in the family skill set. Use of this was discussed. Alarm symptoms reviewed that would warrant ED presentation including repeat bleeding, bleeding that cannot be controlled at 20 minutes with nasal clamping or any severe bleeding. They verbalized understanding and agreement and have no further questions. Referral is placed for ear nose and throat provider in 1-2 days for packing removal. Vital Signs Vital signs: Initial Vital Signs Temperature 97.5 F L 04/18/23 00:52 Temperature Source Temporal Artery Scan 04/18/23 00:52 Pulse Rate 66 04/18/23 00:52 Pulse Rhythm Regular 04/18/23 00:52 Pulse Strength 3+ Normal 04/18/23 00:52 Respiratory Rate 16 04/18/23 00:52 Blood Pressure 136/71 04/18/23 00:52 Blood Pressure Mean 92 04/18/23 00:52 Blood Pressure Position Sitting 04/18/23 00:52 Pulse Oximetry 94 04/18/23 00:52 Oxygen Delivery Method Room Air 04/18/23 00:52 Vital Signs Temperature 97.5 F L 04/18/23 00:52 Pulse Rate 66 04/18/23 00:52 Respiratory Rate 16 04/18/23 00:52 Blood Pressure 136/71 04/18/23 00:52 Pulse Oximetry 94 04/18/23 00:52 Oxygen Delivery Method Room Air 04/18/23 00:52 Temperature 97.5 F L 04/18/23 00:52 Pulse Rate 66 04/18/23 00:52 Respiratory Rate 16 04/18/23 00:52 Blood Pressure 136/71 04/18/23 00:52 Pulse Oximetry 94 04/18/23 00:52 Oxygen Delivery Method Room Air 04/18/23 00:52 Discharge Plan Discharge Clinical Impression: Epistaxis Patient Disposition: Home w/ Parent or Adult Condition: Improved Instructions: Nosebleed (ED) Additional Instructions: As we discussed, the area of bleeding inside her right nostril was a little too big for me to cauterize. Because of this, I have placed a nasal balloon. This will stay in for 1-2 days. The nose specialist will call you later today to schedule an appointment for removal of the packing and reexamination. If you have not heard anything from them by 2:00 p.m., please call back to the emergency department. That balloon will stay in your nose. It is common for the face to swell, the eye to water and for the nose to run. The runny nose may appear a little bloody just from washing out the previous blood. If you have severe bleeding around the nasal balloon, please come back to the emergency room. It is okay to eat and drink normally with the balloon in place. It can be a bit uncomfortable. It is okay for you to use Tylenol 650 mg every 4-6 hours as needed with a max of 3000 mg per day. Continue taking your blood thinners as prescribed for now. Based on your history, it looks as though you have had a stomach bleed and now a pretty brisk nose bleed while on your blood thinners. The decision to continue versus stop those is a very complicated 1 that I will defer to your primary care provider. Activity Level: Activity as Tolerated Discharge Diet: Regular Prescriptions: No Action Eliquis 2.5 mg tablet 2.5 mg PO BID Hold Instructions: Resume on 04/15/22. You can restart your Aspirin and Eliquis after your Endoscopy (EGD) Patient Comments: TAKE ONE TABLET BY MOUTH TWICE DAILY atorvastatin 80 mg tablet 80 mg PO HS Patient Comments: Take 1 Tablet (80 mg) by mouth at bedtime. donepezil 5 mg tablet 5 mg PO HS isosorbide mononitrate 60 mg tablet extended release 24 hr 60 mg PO DAILY metoprolol succinate 50 mg tablet extended release 24 hr 50 mg PO DAILY Patient Comments: Take 1 Tablet (50 mg) by mouth once daily. omeprazole 20 mg Capsule,Delayed Release(Dr/Ec) 40 mg PO DAILY@0700 Qty: 20 0RF Rx Instructions: take every morning until EGD (Endoscopy) isosorbide mononitrate 30 mg tablet extended release 24 hr 30 mg PO DAILY clopidogrel 75 mg tablet 75 mg PO QAM ezetimibe 10 mg tablet 10 mg PO DAILY ranolazine 500 mg tablet extended release 12 hr 500 mg PO BID Follow Up/Referrals: Mckinley Cheema MD [Primary Care Provider] - Juliocesar Ramos MD [Staff Physician] - 2 Days (1-2 days for nasal packing removal) Stand Alone Forms: [facility] Info Instructions
[2023-04-18 01:51] VITALS: BP 124/76; BP 136/71; PULSE 62; PULSE 66; RESP 16; TEMP 36.4; O2SAT 94
== END 2023-04-18 01:56 | disposition home or self-care (01) ==
PROVIDERS: Emergency Provider Family Medicine; PCP Surgery
DX: R04.0 Epistaxis (principal)
CPT/HCPCS: 30901; 99283

== ENCOUNTER 2023-04-19 08:16 | Emergency (ER) | payer MEDICARE, BC, SELFPAY | END 2023-04-19 08:43 | disposition left against medical advice (07) | PROVIDERS: Emergency Provider Student in an Organized Health Care Education/Training Program; PCP Surgery | DX: Z53.21 Procedure and treatment not carried out due to patient leaving prior to being seen by health care provider (principal) ==

== ENCOUNTER 2023-08-30 13:48 | Emergency (ER) | payer MEDICARE, BC, SELFPAY ==
[2023-08-30 13:55] VITALS: BP 120/69; PULSE 59; RESP 18; TEMP 36.1; O2SAT 95; BMI 22.3
--- NOTE | 2023-08-30 15:11 | ED.GENADULT ---
HPI - General Adult General Chief complaint: Skin/Abscess/Foreign Body Stated complaint: Scratched face-wont stop bleeding, blood thinners Time Seen by Provider: 08/30/23 13:52 History of Present Illness HPI narrative: Patient is 80 year white male who has a history of AFib, and non ST-elevation [place] for which she is on Plavix. He is also on Eliquis. He scratched himself couple days ago and has been bleeding ever since it will stop on his right cheek. It is a small area pinhead size. But despite pressure and gauze it has not stopped. They present to the ER for evaluation. Related Data Home Medications ?Medication ?Instructions ?Recorded ?Confirmed apixaban 2.5 mg tablet (Eliquis) 2.5 mg PO BID 02/15/22 04/19/23 atorvastatin 80 mg tablet 80 mg PO HS 02/15/22 04/19/23 donepezil 5 mg tablet 5 mg PO HS 02/15/22 04/19/23 isosorbide mononitrate 60 mg 60 mg PO DAILY 02/15/22 04/19/23 tablet,extended release 24 hr metoprolol succinate 50 mg 50 mg PO DAILY 02/15/22 04/19/23 tablet,extended release 24 hr clopidogrel 75 mg tablet 75 mg PO QAM 04/18/23 04/19/23 ezetimibe 10 mg tablet 10 mg PO DAILY 04/18/23 04/19/23 isosorbide mononitrate 30 mg 30 mg PO DAILY 04/18/23 04/19/23 tablet,extended release 24 hr ranolazine 500 mg tablet,extended 500 mg PO BID 04/18/23 04/19/23 release,12 hr Previous Rx's ?Medication ?Instructions ?Recorded omeprazole 20 mg capsule,delayed 40 mg (2 x 20 mg) PO DAILY@0700 04/11/22 release #20 caps Allergies Allergy/AdvReac Type Severity Reaction Status Date / Time niacin Allergy Mild Rash and Verified 04/19/23 10:03 Itching Review of Systems Status of ROS: Reports: 6 or more systems reviewed and unremarkable except as noted in History and below [facility] Medical History Osteoarthritis ?M19.90 - Unspecified osteoarthritis, unspecified site (ICD-10) Coronary atherosclerosis of [place] coronary vessel ?I25.10 - Atherosclerotic heart disease of [place] coronary artery without angina pectoris (ICD-10) Acute pericarditis ?I30.9 - Acute pericarditis, unspecified (ICD-10) Dementia ?F03.90 - Unspecified dementia, unspecified severity, without behavioral disturbance, psychotic disturbance, mood disturbance, and anxiety (ICD-10) Chronic anticoagulation ?Z79.01 - residential (current) use of anticoagulants (ICD-10) Coronary artery disease involving coronary bypass graft ?I25.810 - Atherosclerosis of coronary artery bypass graft(s) without angina pectoris (ICD-10) Mixed hyperlipidemia ?E78.2 - Mixed hyperlipidemia (ICD-10) Atrial fibrillation ?I48.91 - Unspecified atrial fibrillation (ICD-10) Chronic lymphoid leukemia ?C91.10 - Chronic lymphocytic leukemia of B-cell type not having achieved remission (ICD-10) Unspecified essential hypertension ?I10 - Essential (primary) hypertension (ICD-10) ASHD (arteriosclerotic heart disease) ?I25.10 - Atherosclerotic heart disease of [place] coronary artery without angina pectoris (ICD-10) Surgical History History of colonoscopy ?Z98.890 - Other specified postprocedural states (ICD-10) History of coronary artery bypass graft ?Z95.1 - Presence of aortocoronary bypass graft (ICD-10) History of vitrectomy ?Z98.890 - Other specified postprocedural states (ICD-10) History of ureter stent History of coronary artery stent placement ?Z95.5 - Presence of coronary angioplasty implant and graft (ICD-10) Family History Brother Diabetes Heart disease High blood pressure High cholesterol Mother Stroke Father Stroke Social History Highest level of school completed/degree received: high school graduate Smoking Status: Never smoker Do you use any of these nicotine containing products: None Second hand tobacco smoke exposure: No How often do you have a drink containing alcohol: monthly or less How many standard drinks containing alcohol do you have on a typical day: 1 or 2 How often do you have six or more drinks on one occasion: Never AUDIT-C Alcohol total score: 1 Non-prescribed substance use: denies use Caffeine: Yes (pop) service: No Exam Narrative: Exam Narrative: Objective vital signs look largely unremarkable He has got a right cheek maxillary area that shows a 2 mm cut that is bleeding, despite pressure it continues to bleed. No other abnormalities of the face noted. Const: Vital Signs, click to edit/add: Vital Signs - 24 hr 08/30/23 13:55 Temperature 97.0 F L Pulse Rate [Pulse Oximeter] 59 L Respiratory Rate 18 Blood Pressure [Ri ght Upper Arm] 120/69 Pulse Oximetry 95 Oxygen Delivery Me thod Room Air Course Vital Signs Vital signs: Initial Vital Signs Temperature 97.0 F L 08/30/23 13:55 Temperature Source Temporal Artery Scan 08/30/23 13:55 Pulse Rate 59 L 08/30/23 13:55 Pulse Rhythm Regular 08/30/23 13:55 Respiratory Rate 18 08/30/23 13:55 Blood Pressure 120/69 08/30/23 13:55 Blood Pressure Mean 86 08/30/23 13:55 Blood Pressure Position Sitting 08/30/23 13:55 Pulse Oximetry 95 08/30/23 13:55 Oxygen Delivery Method Room Air 08/30/23 13:55 Vital Signs Temperature 97.0 F L 08/30/23 13:55 Pulse Rate 59 L 08/30/23 13:55 Respiratory Rate 18 08/30/23 13:55 Blood Pressure 120/69 08/30/23 13:55 Pulse Oximetry 95 08/30/23 13:55 Oxygen Delivery Method Room Air 08/30/23 13:55 Temperature 97.0 F L 08/30/23 13:55 Pulse Rate 59 L 08/30/23 13:55 Respiratory Rate 18 08/30/23 13:55 Blood Pressure 120/69 08/30/23 13:55 Pulse Oximetry 95 08/30/23 13:55 Oxygen Delivery Method Room Air 08/30/23 13:55 Medical Decision Making MDM Narrative Medical decision making narrative: [age] year rim white male on Plavix and on Eliquis, albeit a lower dose of Eliquis. He continues to bleed from a facial cut that is quite small. After informed consent, sterile scrub was used and IA did 3 affluent sutures with good skin edge approximation and he did not have any oozing at that time. [place]ork safety sake I put surgery foam over it and then gauze over it and then a firm pressure dressing. Will watch the patient in the ER for period of time make sure does not bleed through this. I also think would be reasonable for him to hold his Eliquis for 2 days continue the Plavix, as he does have bleeding and I think we really need this to stop. I suspect he is on the LL Eliquis for the AFib. I think a short course of stopping this would be reasonable, and have a higher benefit risk ratio. He should get his sutures out in about a week. Will keep the pressure dressing on for 48 hours. Will watch in the ER for period of time make sure does not bleed through. Discharge Plan Discharge Clinical Impression: Dementia, Anticoagulation excessive, Face lacerations Patient Disposition: Home w/ Parent or Adult Condition: Improved Additional Instructions: Keep the dressing on for 2 days, then may take it off and cover with a bandage, suture removal in 7 days, watch for redness or infection. Would recommend use hold your Eliquis for 2 days and then restart twice a day as you are now. Continue the Plavix. Activity Level: Light activity Discharge Diet: Low Fat/Low Cholesterol Prescriptions: No Action Eliquis 2.5 mg tablet 2.5 mg PO BID Hold Instructions: Resume on 04/15/22. You can restart your Aspirin and Eliquis after your Endoscopy (EGD) Patient Comments: TAKE ONE TABLET BY MOUTH TWICE DAILY atorvastatin 80 mg tablet 80 mg PO HS Patient Comments: Take 1 Tablet (80 mg) by mouth at bedtime. donepezil 5 mg tablet 5 mg PO HS isosorbide mononitrate 60 mg tablet extended release 24 hr 60 mg PO DAILY metoprolol succinate 50 mg tablet extended release 24 hr 50 mg PO DAILY Patient Comments: Take 1 Tablet (50 mg) by mouth once daily. omeprazole 20 mg Capsule,Delayed Release(Dr/Ec) 40 mg PO DAILY@0700 Qty: 20 0RF Rx Instructions: take every morning until EGD (Endoscopy) isosorbide mononitrate 30 mg tablet extended release 24 hr 30 mg PO DAILY clopidogrel 75 mg tablet 75 mg PO QAM ezetimibe 10 mg tablet 10 mg PO DAILY ranolazine 500 mg tablet extended release 12 hr 500 mg PO BID Follow Up/Referrals: Mckinley Cheema MD [Primary Care Provider] - Stand Alone Forms: [facility] Info Instructions
--- OUTSIDE RECORDS SUMMARY | 2023-08-30 15:26 | XMS_ITS | Clinical Summary ---
Author Organization [facility] Address [place], [place] [address] Care Team Providers Care Security Strategist Name Role Phone Margaret Jung MD Unavailable + Lucio Duggan MD Unavailable [phone] Meño Marshall Unavailable Unavailable Narinder Wen MD Unavailable Rubi vailable Meño Hendricks Unavailable [phone] Mckinley Cheema MD Primary Care Provider [phone] Allergies Active Allergy Reactions Criticality Noted Date Comments Niacin Rash,Itching 06/01/2009 Large doses. Tolerates 500mg Medications Medication Sig Dispensed Refills Start Date End Date Status nitroglycerin (NITROSTAT) 0.4 mg sublingual tabletIndications:Ches t pain, unspecified type,NSTEMI (non-ST elevated myocardial infarction) (HC),ASHD (arteriosclerotic heart disease),Hx of CABG Place 1 Tablet (0.4 mg) under the tongue every 5 minutes if needed for Chest Pain. 25 Tablet 1 08/08/2022 Active isosorbide mononitrate (IMDUR) 30 mg extended release tablet 24 HourIndications:NSTEMI (non-ST elevated myocardial infarction) (HC) Take 1 Tablet (30 mg) by mouth once daily. 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 90 Tablet 3 11/09/2022 Active atorvastatin (LIPITOR) 80 mg tabletIndications:Athe rosclerosis of [place] coronary artery of [place] heart with angina pectoris (HC) Take 1 Tablet (80 mg) by mouth at bedtime. 90 Tablet 3 11/09/2022 Active apixaban (ELIQUIS) 2.5 mg tabletIndications:Paro xysmal atrial fibrillation (HC) Take 1 Tablet (2.5 mg) by mouth two times daily. 180 Tablet 3 12/08/2022 Active ezetimibe (ZETIA) 10 mg tabletIndications:NSTE NE (non-ST elevated myocardial infarction) (HC),ASHD (arteriosclerotic heart disease),Hx of CABG,Mixed hyperlipidemia Take 1 Tablet (10 mg) by mouth once daily. 90 Tablet 3 12/08/2022 Active metoprolol succinate (TOPROL XL) 50 mg sustained-release tabletIndications:Hype rtension, unspecified type Take 1 Tablet (50 mg) by mouth once daily. 90 Tablet 3 12/08/2022 Active ranolazine (RANEXA) 500 mg Controlled-Release tabletIndications:NSTE NE (non-ST elevated myocardial infarction) (HC),ASHD (arteriosclerotic heart disease),Hx of CABG,Chest pain, unspecified type TAKE ONE TABLET BY MOUTH TWICE DAILY 180 Tablet 07/01/2023 Active clopidogreL (PLAVIX) 75 mg tabletIndications:Ches t pain, unspecified type,NSTEMI (non-ST elevated myocardial infarction) (HC),ASHD (arteriosclerotic heart disease),Hx of CABG TAKE ONE TABLET BY MOUTH IN THE MORNING 90 Tablet 07/28/2023 Active Active Problems Problem Noted Date Diagnosed Date Dementia 08/04/2022 NSTEMI (non-ST elevated myocardial infarction) 0 08/04/2022 Mild dementia without behavi oral disturbance, psychotic disturbance, mood disturbance, or anxiety 07/08/2022 Mixed hyperlipidemia 07/30/2019 Hyperbilirubinemia 06/25/2019 Atrial fibrillation 08/16/2018 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 ACP (advance care planning) 03/25/2011 Overview: Patient has identified Health Care Agent(s): Yes Add Health Care Agents: Yes Health Care Agent(s): Primary Health Care Agent: Valerie Gilbert Relationship: Secondary Health Care Agent: Roddy Johnson Relationship: daughter [phone] cell Patient has Advance Care Plan Documents (Health Care Directive, POLST): Yes Advance Care Plan Documents: Health Care Directive Patient has identified Specific Treatment Preferences: Yes Specific Treatment Preferences: a.) Code Status: CPR/Attempt Resuscitation b.) Goals of Treatment: Limited Interventions and treat reversible conditions. Provide interventions aimed at treatment of new or reversible illness/injury or non-life threatening chronic conditions. Duration of invasive or uncomfortable interventions should generally be limited. Colon polyp 03/25/2011 Overview: colonoscopy 07/2006; recheck 5 yrs Colonoscopy 04/2011 normal repeat in 5 years Colonoscopy 08/2016 normal repeat in 5 years OA (osteoarthritis) of knee 11/22/2010 Impotence of organic origin 03/22/2010 Chronic lymphoid leukemia, w ithout mention of having achieved remission 04/16/2007 Overview: Per Dr Marshall: check CBC every 3 months 11/2007 Unspecified essential hypertension 04/26/2006 ASHD (arteriosclerotic heart disease) 06/11/1996 Overview: -CABG 06/11/[address] Albrecht Sequential SVBG to PDA and RCA, SVG to Diagonal and Ramus, and GARCIA to LAD -Stenting of SVBG to the RCA 12/2008 -Stress Myoview 11/17/2010 Medium sized partially reversible defect in the inferior wall EF 66% with mild inferior hypokinesis -Coronary CTA 12/16/2010 Occluded proximal LAD Severe proximal LAD Occluded LAD Widely patent GARCIA to LAD Widely patent SVBG to OM Severe stenosis at the distal most stenting portion of the SVBG to PLB -s/p PTCA and stenting in-stent stenosis of SVG to PLB 12/20/2010 -s/p PTCA and stenting to diag 12/20/2010 - 01/17/14 Cor angio: Patent GARCIA to LAD, The SVG to the diagonal has a 99% stenosis in proximal stent with RAMIRO 1 flow. The jump graft to the Ramus is known to be occluded The SVG to RCA is patent but has 80% restenosis in mid-stent and 70% restenosis in proximal stent. There is moderate diffuse disease distally; s/p BLAIR x 2 to SVG to RCA, BLAIR x 1 to SVG to D1 - Cor angio 07/11/18: BLAIR x1 to the left main, BLAIR x1 to the OM, and BLAIR x1 to the SVG to the intermediate branch. The prior brachytherapy site in the intermediate SVG was widely patent.?? - Cor angio 06/26/19: BLAIR x2 to aorta graft to RPDA Resolved Problems Problem Noted Date Diagnosed Date Resolved Date CLL (chronic lymphocytic leukemia) 08/04/2022 08/04/2022 Atherosclerosis of coronary artery 09/08/2020 12/07/2021 History of pseudohyperkalemia 06/25/2019 12/07/2021 Overview: See discharge summary from 07/10-07/12/18 Leukemia 08/16/2018 12/07/2021 Tachycardia 08/14/2018 12/07/2021 Chest pain 07/10/2018 12/07/2021 Hyperkalemia 07/10/2018 12/07/2021 Accelerating Exertional angina 07/09/2015 07/29/2016 Exertional angina 01/17/2014 12/07/2021 Insomnia, unspecified 03/25/20112021 Angina pectoris 12/20/2010 07/19/2012 Cardiovascular stress test abnormal 12/14/2010 12/20/2010 OA (osteoarthritis) of knee 11/22/2010 12/20/2010 Other seborrheic keratosis 12/10/2009 0 03/25/2013 Overview: Involves both ears. 03/18/2010 Knee pain, bilateral 06/01/2009 017 Overview: Suspect osteoarthritis - he reports XRays were done year a few years ago Left > right 08/02/2010 Left knee cortisone December 2012, May 2013, May 2014. Right knee: Euflexxa May 2013, Cortisone May 2014; significant improvement, not 100%. LFT's abnormal 03/03/2009 06/01/2009 Thrombocytopenia, unspecified 03/03/2009 11/10/2010 Overview: Noted 03/03/2009 Will review CBC every 2 months. Scrotal mass 12/29/2008 07/29/2016 Overview: Painless Nodular mass right > left Epididymis Special screening for malign ant neoplasm of prostate 03/26/2007 03/25/2013 Routine general medical exam ination at a health care facility 03/26/2007 12/20/2010 Overview: colonoscopy 07/2006 Recheck 5 yrs Other and unspecified hyperlipidemia 04/26/2006 12/07/2021 Encounters Date Type Department Care Team Description 08/30/2023 Telephone [facility] [address] [place] [address] Mckinley Cheema MD Laceration 07/26/2023 Refill [facility] [address] [place] [address] Mckinley Cheema MD Refill Request (Clopidogrel) 06/30/2023 Refill [facility] [address] [place] [address] Mckinley Cheema MD Refill Request (Ranolazine) from Last 3 Months Immunizations Name Administration Dates Next Due AMB INFLUENZA IIV3 (AGE 65+ YRS) PF (Flu Clinic Only) 11/23/2018,11/24/2017 Amb Influenza, Inact (High-d ose) (Flu Clinic Only) 12/06/2013 Amb Influenza, Inactivated A IIV4 (Age 65+ Years) Preserv Free 11/12/2019 COVID-19 Vaccine Spikevax (M oderna 50mcg/0.5mL) 12YO+ [id number] Formula PF 12/08/2022 COVID-19 vaccine ([employer] NTech 30mcg/0.3mL) 12YO+ BIVALENT PF, MDV 12/07/2021 COVID-19 vaccine ([employer]-Bio NTech 30mcg/0.3mL) PF, MDV 11/27/2020,04/18/2020,03/28/2020 Influenza, High-dose Inactivated 11/24/2015,1010/2014 Influenza, IIV3 (Age >=3 years) 11/02/19 13,11/16/2011,11/10/2010,2009,11/07/2008,12/05/2007,12/19/2006,1 Influenza, Inactivated AIIV4 (Age 65+ Years) Preserv Free 12/08/2022,11/05/2021,10/26/2020 Influenza, Inactivated IIV3 (Age 65+ Years) Preserv Free 11/01/2016 Pneumococcal Poly,23-Valent (Pneumovax) 12/05/2007 Pneumococcal conj 13-Valent (Prevnar 13) 02/02/2015 Td (Age >=7 Years) 11/24/2003 Tdap 03/25/2011 Zoster (Zostavax-ZVL, live) 04/13/2007 Family History Medical History Relation Name Comments Diabetes Brother Christian Heart Disease Brother Christian Hyperlipidemia Brother Christian Hypertension Brother Christian Arthritis Father Don Stroke Father Don Stroke Mother Alina Other Sister Valerie partial stroke: poor equilibium Alcohol/Drug No Family History Anesthesia Problem No Family History Blood Disease No Family History Cancer-breast No Family History Cancer-colon No Family History Cancer-prostate No Family History Psychiatric illness No Family History Seizures No Family History Thyroid Disease No Family History Relation Name Status Comments Brother Christian (Age 75) Father Dario (Age 79) Mother Alina (Age 89) Sister Valerie (Age 83) Social History Tobacco Use Types Packs/Day Years Used Date Smoking Tobacco: Never Smokeless Tobacco: Never Tobacco Cessation:Counseling Given: Yes Alcohol Use Standard Drinks/Week Comments Not Currently 0 (1 standard drink = 0.6 oz pur e alcohol) maybe one a month PHQ-2 Answer Date Recorded PHQ-2 TOTAL SCORE 0 12/08/2022 Social Connections Answer Date Recorded Frequency of Communication with Friends and Fami ly 0 12/08/2022 Financial Resource Strain Answer Date R ecorded Difficulty of Paying Living Expenses 3 12/08/2022 Difficulty of Paying Living Expenses Not on file 12/08/2022 Food Insecurity Answer Date Recorded Worried About Running Out of Food in the Last Ye ar 1 12/08/2022 Transportation Needs Answer Date Record ed Lack of Transportation (Medical) 1 12/08/2022 Housing Stability Answer Date Recorded Unable to Pay for Housing in the Last Year 1 12/08/2022 Sex and Gender Information Value Date Recorded Sex Assigned at Not on file Gender Identity Not on file Sexual Orientation Lesbian or [place] 10/08/2021 8: 11 PM CDT Obstetrics History Last Filed Vital Signs Vital Sign Reading Time Taken Comments Blood Pressure 127/76 04/25/2023 3:42 PM CDT Pulse 60 04/25/2023 3:42 PM CDT Temperature 36.3 ??C (97.4 ??F) 08/11/2022 10:28 AM C DT Respiratory Rate 18 08/08/2022 8:38 AM CDT Oxygen Saturation 97% 04/25/2023 3:42 PM CDT Inhaled Oxygen Concentration - - Weight 80.9 kg (178 lb 4.8 oz) 04/25/2023 3:42 P M CDT Height 173.2 cm (5' 8.19) 12/08/2022 9:06 AM CD T Body Mass Index 26.96 12/08/2022 9:06 AM CDT Plan of Treatment Health Maintenance Due Date Last Done Comments Zoster (shingles) series for age 50+ (1 of 2) 06/08/2007 04/13/2007 Tetanus booster 03/25/2021 03/25/2011, 11/24/2003 COVID-19 vaccine series ( season) 2023 12/08/2022, 12/07/2021, 06/02/2021, Additional history exists Influenza for age 65+ 10/15/2023 12/08/2022 , 11/05/2021, 10/26/2020, Additional history exists BMI (ht and wt on same day) for age 18+ 12/09/2023 12/08/2022, 09/29/2022, 12/07/2021, Additional history exists Medicare Wellness for age 65+ 12/09/2023, 12/07/2021, 11/27/2020, Additional history exists Depression screening for age 12+ 12/13/2023 12/12/2022, 12/08/2022, 12/07/2021, Additional history exists Tdap Completed 03/25/2011 Pneumococcal series for age 65+ Completed 5, 12/05/2007 Insurance Payer Benefit Plan / Group Subscriber ID Effective Dates Phone Address Type MEDICARE PART B - HB USE ONLY MEDICARE PART B HB ONLY [id number] [address] t ATTN: CLAIMS [address] [place] [address] MEDICARE PART A - HB USE ONLY MEDICARE PART A HB ONLY [id number] 2000-Presen t ATTN: CLAIMS [address] [place] [address] MEDICARE - PB USE ONLY MEDICARE PB ONLY [id number] 2000-Presen t ATTN: CLAIMS [address] [place] [address] BLUE CROSS BLUE [employer]OSS [facility] [id number] 2016-Presen t [address] [place] [address] Advance Directives Documents on File Type Date Recorded 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 Healthcare Directive 07/13/2011 10:15 AM H CD * Full Code (Latest Code Status on File) Date Activated Date Inactivated Comments 08/04/2022 12:19 PM 08/08/2022 3:49 PM Per [facility] are directive on file Question Answer Comments Code Status Discussion: Reviewed Preferences * Full Code Date Activated Date Inactivated Comments 06/24/2019 3:42 PM 06/27/2019 4:48 PM Question Answer Comments Code Status Discussion: Not Discussed * Full Code Date Activated Date Inactivated Comments 08/22/2018 1:25 PM 08/22/2018 5:28 PM * Full Code Date Activated Date Inactivated Comments 07/10/2018 9:36 AM 07/12/2018 2:56 PM * Full Code Date Activated Date Inactivated Comments 07/29/2015 8:26 AM 07/30/2015 12:14 PM Care Teams Security Strategist Relationship Specialty Start Date End Date Mckinley Cheema MD [address] [place] [address] PCP - General Family Practice 11/26/12 Margaret Jung MD [address] [place] [id number] Dermatology 01/13/11 Lucio Duggan MD [address] [place] [id number] Cardiovascular Disease 03/25/11 Meño Marshall [address] [place] [phone] Hematology and Oncology 03/25/11 Narinder Wen MD [address] [place] [id number] Cardiology Cardiovascular Disease 03/21/12 Meño Hendricks [address] [place] [id number] Cyber Systems Administrator 07/19/12
== END 2023-08-30 15:44 | disposition home or self-care (01) ==
LOC: ED 15:24
PROVIDERS: Emergency Provider Family Medicine; PCP Surgery
DX: S01.411A Laceration without foreign body of right cheek and temporomandibular area, initial encounter (principal); F03.90 Unspecified dementia, unspecified severity, without behavioral disturbance, psychotic disturbance, mood disturbance, and anxiety; Z79.01 Long term (current) use of anticoagulants
CPT/HCPCS: 12011; 99283; 99284

== ENCOUNTER 2023-10-08 20:31 | Emergency (ER) | payer MEDICARE, BC, SELFPAY ==
[2023-10-08 20:38] VITALS: BP 124/68; PULSE 66; RESP 16; TEMP 36.6; O2SAT 96
--- NOTE | 2023-10-08 21:29 | ED_ITS ---
HPI - General Adult General Chief complaint: Epistaxis/Nosebleed Stated complaint: Nose bleed Time Seen by Provider: 10/08/23 20:32 History of Present Illness HPI narrative: Patient is a pleasant 80 year white male who is on Eliquis for heart disease, he has had a nosebleed at the last nostril for the last couple of days. He has got a plug in it now and does CV bleeding through. He was picking his nose when this started. Related Data Home Medications ?Medication ?Instructions ?Recorded ?Confirmed apixaban 2.5 mg tablet (Eliquis) 2.5 mg PO BID 02/15/22 04/19/23 atorvastatin 80 mg tablet 80 mg PO HS 02/15/22 04/19/23 donepezil 5 mg tablet 5 mg PO HS 02/15/22 04/19/23 isosorbide mononitrate 60 mg 60 mg PO DAILY 02/15/22 04/19/23 tablet,extended release 24 hr metoprolol succinate 50 mg 50 mg PO DAILY 02/15/22 04/19/23 tablet,extended release 24 hr clopidogrel 75 mg tablet 75 mg PO QAM 04/18/23 04/19/23 ezetimibe 10 mg tablet 10 mg PO DAILY 04/18/23 04/19/23 isosorbide mononitrate 30 mg 30 mg PO DAILY 04/18/23 04/19/23 tablet,extended release 24 hr ranolazine 500 mg tablet,extended 500 mg PO BID 04/18/23 04/19/23 release,12 hr Previous Rx's ?Medication ?Instructions ?Recorded omeprazole 20 mg capsule,delayed 40 mg (2 x 20 mg) PO DAILY@0700 04/11/22 release #20 caps Allergies Allergy/AdvReac Type Severity Reaction Status Date / Time niacin Allergy Mild Rash and Verified 04/19/23 10:03 Itching Review of Systems Status of ROS: Reports: 6 or more systems reviewed and unremarkable except as noted in History and below [facility] Medical History Osteoarthritis ?M19.90 - Unspecified osteoarthritis, unspecified site (ICD-10) Coronary atherosclerosis of [place] coronary vessel ?I25.10 - Atherosclerotic heart disease of [place] coronary artery without angina pectoris (ICD-10) Acute pericarditis ?I30.9 - Acute pericarditis, unspecified (ICD-10) Dementia ?F03.90 - Unspecified dementia, unspecified severity, without behavioral disturbance, psychotic disturbance, mood disturbance, and anxiety (ICD-10) Chronic anticoagulation ?Z79.01 - lens matcher (current) use of anticoagulants (ICD-10) Coronary artery disease involving coronary bypass graft ?I25.810 - Atherosclerosis of coronary artery bypass graft(s) without angina pectoris (ICD-10) Mixed hyperlipidemia ?E78.2 - Mixed hyperlipidemia (ICD-10) Atrial fibrillation ?I48.91 - Unspecified atrial fibrillation (ICD-10) Chronic lymphoid leukemia ?C91.10 - Chronic lymphocytic leukemia of B-cell type not having achieved remission (ICD-10) Unspecified essential hypertension ?I10 - Essential (primary) hypertension (ICD-10) ASHD (arteriosclerotic heart disease) ?I25.10 - Atherosclerotic heart disease of [place] coronary artery without angina pectoris (ICD-10) Surgical History History of colonoscopy ?Z98.890 - Other specified postprocedural states (ICD-10) History of coronary artery bypass graft ?Z95.1 - Presence of aortocoronary bypass graft (ICD-10) History of vitrectomy ?Z98.890 - Other specified postprocedural states (ICD-10) History of ureter stent History of coronary artery stent placement ?Z95.5 - Presence of coronary angioplasty implant and graft (ICD-10) Family History Brother Diabetes Heart disease High blood pressure High cholesterol Mother Stroke Father Stroke Social History Highest level of school completed/degree received: high school graduate Smoking Status: Never smoker Do you use any of these nicotine containing products: None Second hand tobacco smoke exposure: No How often do you have a drink containing alcohol: monthly or less How many standard drinks containing alcohol do you have on a typical day: 1 or 2 How often do you have six or more drinks on one occasion: Never AUDIT-C Alcohol total score: 1 Non-prescribed substance use: denies use Caffeine: Yes (pop) service: No Exam Narrative: Exam Narrative: Objective: Vital signs as above His clinic's plug was removed from his left nostril is got very friable nasal mucosa on the septum on the left Procedure silver nitrate applied x3 in good hemostasis, he did still have a little bit oozing through the silver nitrate So a rhino rocket was placed with these in the left nostril. Rest of HEENT unremarkable He seemed to have no further bleeding noted he will be observed in the ED for a period of time. Const: Vital Signs, click to edit/add: Vital Signs - 24 hr 10/08/23 20:38 Temperature 98 F Pulse Rate [Right Radial] 66 Respiratory Rate 16 Blood Pressure [Ri ght Upper Arm] 124/68 Pulse Oximetry 96 Oxygen Delivery Me thod Room Air Course Vital Signs Vital signs: Initial Vital Signs Temperature 98 F 10/08/23 20:38 Temperature Source Temporal Artery Scan 10/08/23 20:38 Pulse Rate 66 10/08/23 20:38 Pulse Rhythm Regular 10/08/23 20:38 Respiratory Rate 16 10/08/23 20:38 Blood Pressure 124/68 10/08/23 20:38 Blood Pressure Mean 86 10/08/23 20:38 Pulse Oximetry 96 10/08/23 20:38 Oxygen Delivery Method Room Air 10/08/23 20:38 Vital Signs Temperature 98 F 10/08/23 20:38 Pulse Rate 66 10/08/23 20:38 Respiratory Rate 16 10/08/23 20:38 Blood Pressure 124/68 10/08/23 20:38 Pulse Oximetry 96 10/08/23 20:38 Oxygen Delivery Method Room Air 10/08/23 20:38 Temperature 98 F 10/08/23 20:38 Pulse Rate 66 10/08/23 20:38 Respiratory Rate 16 10/08/23 20:38 Blood Pressure 124/68 10/08/23 20:38 Pulse Oximetry 96 10/08/23 20:38 Oxygen Delivery Method Room Air 10/08/23 20:38 Medications Administered Medications: Discontinued Medications Generic Name Dose Route Start Last Admin Trade Name Freq PRN Reason Stop Dose Admin Cephalexin HCl 500 mg 10/08/23 21:30 10/08/23 22:07 Cephalexin 500 Mg Capsule PO 10/08/23 21:31 500 mg ONCE ONE Administration Medical Decision Making [facility] Narrative Medical decision making narrative: Left nasal epistaxis on Eliquis, the patient also has listed clopidogrel, would have him hold his Eliquis x1 dose and then restart. I think it be reasonable to start Keflex 500 q.i.d. x5 days, reflux check with regular doctor in 2 days for removal the pack. Light activity avoid nasal trauma. Any concerns or questions he should recheck. Discharge Plan Discharge Clinical Impression: Epistaxis Patient Disposition: Home w/ Parent or Adult Condition: Improved Instructions: Nosebleed (ED) Additional Instructions: Keflex 4 times a day for 5 days, get the pack removed in 2 days with primary care. Return to the ED sooner problems or concerns. Avoid nasal trauma picking or blowing. Activity Level: Light activity Discharge Diet: Regular Prescriptions: No Action Eliquis 2.5 mg tablet 2.5 mg PO BID Hold Instructions: Resume on 04/15/22. You can restart your Aspirin and Eliquis after your Endoscopy (EGD) Patient Comments: TAKE ONE TABLET BY MOUTH TWICE DAILY atorvastatin 80 mg tablet 80 mg PO HS Patient Comments: Take 1 Tablet (80 mg) by mouth at bedtime. donepezil 5 mg tablet 5 mg PO HS isosorbide mononitrate 60 mg tablet extended release 24 hr 60 mg PO DAILY metoprolol succinate 50 mg tablet extended release 24 hr 50 mg PO DAILY Patient Comments: Take 1 Tablet (50 mg) by mouth once daily. omeprazole 20 mg Capsule,Delayed Release(Dr/Ec) 40 mg PO DAILY@0700 Qty: 20 0RF Rx Instructions: take every morning until EGD (Endoscopy) isosorbide mononitrate 30 mg tablet extended release 24 hr 30 mg PO DAILY clopidogrel 75 mg tablet 75 mg PO QAM ezetimibe 10 mg tablet 10 mg PO DAILY ranolazine 500 mg tablet extended release 12 hr 500 mg PO BID Follow Up/Referrals: Mckinley Cheema MD [Primary Care Provider] - Stand Alone Forms: Traction Info Instructions
--- OUTSIDE RECORDS SUMMARY | 2023-10-08 21:39 | XMS_ITS | Clinical Summary ---
Author Organization [facility] Address [place], [place] [address] Care Team Providers Care Protohistorian Name Role Phone Margaret Jung MD Unavailable + Lucio Duggan MD Unavailable [phone] Meño Marshall Unavailable Unavailable Narinder Wen MD Unavailable Rubi vailable Meño Hendricks Unavailable [phone] Mckinley Cheema MD Primary Care Provider [phone] Allergies Active Allergy Reactions Criticality Noted Date Comments Niacin Rash,Itching 06/01/2009 Large doses. Tolerates 500mg Medications Medication Sig Dispensed Refills Start Date End Date Status nitroglycerin (NITROSTAT) 0.4 mg sublingual tabletIndications:Ch est pain, unspecified type,NSTEMI (non-ST elevated myocardial infarction) (HC),ASHD (arteriosclerotic heart disease),Hx of CABG Place 1 Tablet (0.4 mg) under the tongue every 5 minutes if needed for Chest Pain. 25 Tablet 1 08/08/2022 Active isosorbide mononitrate (IMDUR) 30 mg extended release tablet 24 HourIndications:NSTE AR (non-ST elevated myocardial infarction) (HC) Take 1 Tablet (30 mg) by mouth once daily. 90 Tablet 3 11/09/2022 Active donepeziL (ARICEPT) 5 mg tabletIndications:Mo derate dementia without behavioral disturbance (HC) Take 1 Tablet (5 mg) by mouth at bedtime. 90 Tablet 3 11/09/2022 Active atorvastatin (LIPITOR) 80 mg tabletIndications:At herosclerosis of [place] coronary artery of [place] heart with angina pectoris (HC) Take 1 Tablet (80 mg) by mouth at bedtime. 90 Tablet 3 11/09/2022 Active apixaban (ELIQUIS) 2.5 mg tabletIndications:Pa roxysmal atrial fibrillation (HC) Take 1 Tablet (2.5 mg) by mouth two times daily. 180 Tablet 3 12/08/2022 Active ezetimibe (ZETIA) 10 mg tabletIndications:NS BARON (non-ST elevated myocardial infarction) (HC),ASHD (arteriosclerotic heart disease),Hx of CABG,Mixed hyperlipidemia Take 1 Tablet (10 mg) by mouth once daily. 90 Tablet 3 12/08/2022 Active metoprolol succinate (TOPROL XL) 50 mg sustained-release tabletIndications:Hy pertension, unspecified type Take 1 Tablet (50 mg) by mouth once daily. 90 Tablet 3 12/08/2022 Active clopidogreL (PLAVIX) 75 mg tabletIndications:Ch est pain, unspecified type,NSTEMI (non-ST elevated myocardial infarction) (HC),ASHD (arteriosclerotic heart disease),Hx of CABG TAKE ONE TABLET BY MOUTH IN THE MORNING 90 Tablet 07/28/2023 Active ranolazine (RANEXA) 500 mg Controlled-Release tabletIndications:NS BARON (non-ST elevated myocardial infarction) (HC),ASHD (arteriosclerotic heart disease),Hx of CABG,Chest pain, unspecified type TAKE ONE TABLET BY MOUTH TWICE DAILY 180 Tablet 09/30/2023 Active ranolazine (RANEXA) 500 mg Controlled-Release tabletIndications:NS BARON (non-ST elevated myocardial infarction) (HC),ASHD (arteriosclerotic heart disease),Hx of CABG,Chest pain, unspecified type TAKE ONE TABLET BY MOUTH TWICE DAILY 180 Tablet 07/01/2023 4 Discontinued Active Problems Problem Noted Date Diagnosed Date [...] Health Care Agent: Roddy Johnson Relationship: daughter [phone] cell Patient has Advance Care Plan Documents [...] Encounters Date Type Department Care Team Description 09/27/2023 Refill [facility] [address] [place] [address] Mckinley Cheema MD Refill Request (Ranolazine) 09/06/2023 2:30 PM CDT Office Visit [facility] [address] [place] [address] VoteBakari merritt MD ER Follow up ([place], 08/30/23, scratch on face, would not stop bleeding) 09/06/2023 Travel 08/30/2023 Telephone [facility] [address] [place] [address] Mckinley Cheema MD Laceration 07/26/2023 Refill [facility] [address] [place] [address] Mckinley Cheema MD Refill Request (Clopidogrel) from Last 3 Months Immunizations Name Administration Dates Next Due AMB INFLUENZA IIV3 (AGE 65+ YRS) PF (Flu Clinic Only) 11/23/2018,11/24/2017 Amb Influenza, Inact (High-d ose) (Flu Clinic Only) 12/06/2013 Amb Influenza, Inactivated A IIV4 (Age 65+ Years) Preserv Free 11/12/2019 COVID-19 Vaccine Spikevax (M oderna 50mcg/0.5mL) 12YO+ [id number] Formula PF 12/08/2022 COVID-19 vaccine ([employer]-Bio NTech 30mcg/0.3mL) 12YO+ BIVALENT PF, MDV 12/07/2021 COVID-19 vaccine (Pfizer-Bio NTech 30mcg/0.3mL) PF, MDV 11/27/2020,04/18/2020,03/28/2020 Influenza, High-dose Inactivated 11/24/2015,10/2014 Influenza, IIV3 (Age >=3 years) 11/02/19 13,11/16/2011,11/10/2010,2009,11/07/2008,12/05/2007,12/19/2006,1 [...] Status Comments Brother Christian (Age 75) Father Don (Age 79) Mother Alina (Age 89) Sister [...] Sign Reading Time Taken Comments Blood Pressure 121/72 09/06/2023 2:29 PM CDT Pulse 56 09/06/2023 2:29 PM CDT Temperature 36.6 ??C (97.8 ??F) 09/06/2023 2:29 PM CD T Respiratory Rate 18 08/08/2022 8:38 AM CDT Oxygen Saturation 97% 09/06/2023 2:29 PM CDT Inhaled Oxygen Concentration - - Weight 82.5 kg (181 lb 12.8 oz) 09/06/2023 2:29 PM CDT Height 173 cm (5' 8.1) 09/06/2023 2:29 PM CDT Body Mass Index 27.56 09/06/2023 2:29 PM CDT Plan of Treatment Health Maintenance Due Date Last Done Comments Zoster (shingles) series for age 50+ (1 of 2) 06/08/2007 04/13/2007 Tetanus booster 03/25/2021 03/25/2011, 11/24/2003 COVID-19 vaccine series ( season) 2023 12/08/2022, 12/07/2021, 06/02/2021, Additional history exists Influenza for age 65+ 10/15/2023 12/08/2022 , 11/05/2021, 10/26/2020, Additional history exists Medicare Wellness for age 65+ 12/09/2023, 12/07/2021, 11/27/2020, Additional history exists Depression screening for age 12+ 12/13/2023 12/12/2022, 12/08/2022, 12/07/2021, Additional history exists BMI (ht and wt on same day) for age 18+ 09/05/2024 09/06/2023, 12/08/2022, 09/29/2022, Additional history exists Tdap Completed 03/25/2011 Pneumococcal series for age 65+ Completed 5, 12/05/2007 Advance Directives Documents on File Type Date Recorded 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 Healthcare Directive 07/13/2011 10:15 AM H CD * Full Code (Latest Code Status on File) Date Activated Date Inactivated Comments 08/04/2022 12:19 PM 08/08/2022 3:49 PM Per [facility] are directive on file Question Answer Comments [...] 8:26 AM 07/30/2015 12:14 PM Care Teams Protohistorian Relationship Specialty Start Date End Date Mckinley Cheema MD [address] [place] [address] PCP - General Family Practice 11/26/12 Margaret Jung MD [address] [place] [phone] Dermatology 01/13/11 Lucio Duggan MD [address] [place] [address] Cardiovascular Disease 03/25/11 Meño Marshall [address] [place] [address] Hematology and Oncology 03/25/11 Narinder Wen MD [address] [place] [address] Cardiology Cardiovascular Disease 03/21/12 Meño Hendricks [address] [place] [address] Management Lead 07/19/12
[2023-10-08] MEDS: cephALEXin 500 MG CAPSULE PO (22:07)
== END 2023-10-08 22:24 | disposition home or self-care (01) ==
LOC: ED 21:37
PROVIDERS: Emergency Provider Family Medicine; PCP Surgery
DX: R04.0 Epistaxis (principal)
CPT/HCPCS: 99283; 99284; A9270

== ENCOUNTER 2024-01-10 14:00 | Outpatient (RCR) | payer MEDICARE, BC, SELFPAY | END 2024-04-01 08:37 | disposition home or self-care (01) | PROVIDERS: PCP Surgery; Visit Provider Surgery | DX: R29.898 Other symptoms and signs involving the musculoskeletal system (principal); Z51.89 Encounter for other specified aftercare | CPT/HCPCS: 97110; 97161 ==

== ENCOUNTER 2024-05-20 17:56 | Outpatient (CLI) | payer MEDICARE, BC, SELFPAY | END 2024-05-20 17:57 | disposition home or self-care (01) | LOC: AMB 05-21 14:51 | PROVIDERS: PCP Surgery; Visit Provider Student in an Organized Health Care Education/Training Program | DX: R41.82 Altered mental status, unspecified (principal); R47.81 Slurred speech | CPT/HCPCS: A0425; A0427 ==

== ENCOUNTER 2024-05-20 18:14 | Inpatient (IN) | payer MEDICARE, BC, SELFPAY ==
[2024-05-20] VITALS (26 sets, daily range): BP systolic 106–154; BP diastolic 60–84; PULSE 66–96; RESP 12–24; TEMP 36.5–38.2; O2SAT 91–97; BMI 24.4; BMI 24.7
--- OUTSIDE RECORDS SUMMARY | 2024-05-20 18:16 | XMS_ITS | Clinical Summary ---
Author Organization [facility] Address [address] [place] [address] Care Team Providers Care Elderly Companion Name Role Phone Margaret Jung MD Unavailable + Lucio Duggan MD Unavailable [phone] Meño Marshall Unavailable Unavailable JosegenNarinder mayers MD Unavailable Rubi vailable Meño Hendricks Unavailable [phone] Mckinley Cheema MD Primary Care Provider [phone] Allergies Active Allergy Reactions Criticality Noted Date Comments Niacin Rash,Itching 06/01/2009 Large doses. Tolerates 500mg Medications nitroglycerin (NITROSTAT) 0.4 mg sublingual tabletIndications:C hest pain, unspecified type,NSTEMI (non-ST elevated myocardial infarction) (HC),ASHD (arteriosclerotic heart disease),Hx of CABG Place 1 Tablet (0.4 mg) under the tongue every 5 minutes if needed for Chest Pain. 25 Tablet 1 08/08/2022 12:06 PM CDT 3 Active atorvastatin (LIPITOR) 80 mg tabletIndications:A therosclerosis of [place] coronary artery of [place] heart with angina pectoris TAKE ONE TABLET BY MOUTH AT BEDTIME 90 Tablet 3 4 Active isosorbide mononitrate (IMDUR) 30 mg extended release tablet 24 HourIndications:NST MARY (non-ST elevated myocardial infarction) (HC) TAKE ONE TABLET BY MOUTH ONE TIME DAILY 90 Tablet 3 4 Active apixaban (Eliquis) 2.5 mg tabletIndications:P aroxysmal atrial fibrillation (HC) TAKE ONE TABLET BY MOUTH TWICE DAILY 180 Tablet 3 4 Active ezetimibe (ZETIA) 10 mg tabletIndications:N STEMI (non-ST elevated myocardial infarction) (HC),ASHD (arteriosclerotic heart disease),Hx of CABG,Mixed hyperlipidemia Take 1 Tablet (10 mg) by mouth once daily. 90 Tablet 3 4 Active metoprolol succinate (TOPROL XL) 50 mg sustained-release tabletIndications:H ypertension, unspecified type Take 1 Tablet (50 mg) by mouth once daily. 90 Tablet 3 4 Active clopidogreL (PLAVIX) 75 mg tabletIndications:N STEMI (non-ST elevated myocardial infarction) (HC),ASHD (arteriosclerotic heart disease),Hx of CABG,Chest pain, unspecified type Take 1 Tablet (75 mg) by mouth once daily in the morning. 90 Tablet 3 4 Active ranolazine (RANEXA) 500 mg Controlled-Release tabletIndications:N STEMI (non-ST elevated myocardial infarction) (HC),ASHD (arteriosclerotic heart disease),Hx of CABG,Chest pain, unspecified type Take 1 Tablet (500 mg) by mouth two times daily. 180 Tablet 3 4 Active donepeziL (ARICEPT) 5 mg tabletIndications:M oderate dementia without behavioral disturbance (HC) Take 1 Tablet (5 mg) by mouth at bedtime. 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 Colon polyp 03/25/2011 Overview (08/22/2016): colonoscopy 07/2006; recheck 5 yrs Colonoscopy 04/2011 normal repeat in 5 years Colonoscopy 08/2016 normal repeat in 5 years OA (osteoarthritis) of knee 11/22/2010 Impotence of organic origin 03/22/2010 Chronic lymphoid leukemia, w ithout mention of having achieved remission 04/16/2007 Overview (03/03/2009): Per Dr Marshall: check CBC every 3 months 11/2007 Unspecified essential hypertension 04/26/2006 ASHD (arteriosclerotic heart disease) 06/11/1996 Overview (06/26/2019): -CABG 06/11/[address] Albrecht Sequential SVBG [...] site in the intermediate SVG was widely patent. - Cor angio 06/26/19: BLAIR x2 to aorta graft to RPDA Resolved Problems Problem Noted Date Diagnosed Date Resolved Date CLL (chronic lymphocytic leukemia) 08/04/2022 08/04/2022 Atherosclerosis of coronary artery 09/08/2020 12/07/2021 History of pseudohyperkalemia 06/25/2019 12/07/2021 Overview (06/25/2019): See discharge summary from 07/10-07/12/18 Leukemia 08/16/2018 12/07/2021 Tachycardia 08/14/2018 12/07/2021 Chest pain 07/10/2018 12/07/2021 Hyperkalemia 07/10/2018 12/07/2021 Accelerating Exertional angina 07/09/2015 07/29/2016 Exertional angina 01/17/2014 12/07/2021 Insomnia, unspecified 03/25/20112021 Angina pectoris 12/20/2010 07/19/2012 Cardiovascular stress test abnormal 12/14/2010 12/20/2010 OA (osteoarthritis) of knee 11/22/2010 12/20/2010 Other seborrheic keratosis 12/10/2009 0 03/25/2013 Overview (03/18/2010): Involves both ears. 03/18/2010 Knee pain, bilateral 06/01/2009 017 Overview (06/16/2014): Suspect osteoarthritis - he reports XRays were done year a few years ago Left > right 08/02/2010 Left knee cortisone December 2012, May 2013, May 2014. Right knee: Euflexxa May 2013, Cortisone May 2014; significant improvement, not 100%. LFT's abnormal 03/03/2009 06/01/2009 Thrombocytopenia, unspecified 03/03/2009 11/10/2010 Overview (03/03/2009): Noted 03/03/2009 Will review CBC every 2 months. Scrotal mass 12/29/2008 07/29/2016 Overview (12/29/2008): Painless Nodular mass right > left Epididymis Special screening for malign ant neoplasm of prostate 03/26/2007 03/25/2013 Routine general medical exam ination at a health care facility 03/26/2007 12/20/2010 Overview (03/26/2007): colonoscopy 07/2006 Recheck 5 yrs Other and unspecified hyperlipidemia 04/26/2006 12/07/2021 Immunizations Immunization Administration Dates Next Due AMB INFLUENZA IIV3 (AGE 65+ YRS) PF (Flu Clinic Only) 11/23/2018,11/24/2017 Amb Influenza, Inact (High-d ose) (Flu Clinic Only) 12/06/2013 Amb Influenza, Inactivated A IIV4 (Age 65+ Years) Preserv Free 11/12/2019 COVID-19 VACCINE SPIKEVAX (M ODERNA 50MCG/0.5ML) 12YO+ PFS 12/08/2022 COVID-19 vaccine (Axial HealthcareBio NTech 30mcg/0.3mL) 12YO+ BIVALENT PF, MDV 12/07/2021 COVID-19 vaccine (Qlue-Bio NTech 30mcg/0.3mL) PF, MDV 11/27/2020,04/18/2020,03/28/2020 Influenza, High-dose Inactivated 11/24/2015,10/2014 Influenza, IIV3 (Age >=3 years) 11/02/19 13,11/16/2011,11/10/2010,2009,11/07/2008,12/05/2007,12/19/2006,1 Influenza, Inactivated AIIV4 (Age 65+ Years) Preserv Free 12/08/2022,11/05/2021,10/26/2020 Influenza, Inactivated IIV3 (Age 65+ Years) Preserv Free 12/26/2023,11/01/2016 Pneumococcal Poly,23-Valent (Pneumovax) 12/05/2007 Pneumococcal conj 13-Valent [...] PHQ-2 Answer Date Recorded PHQ-2 TOTAL SCORE 1 12/26/2023 Social Connections Answer Date Recorded Frequency of Communication with Friends and Fami ly 0 12/08/2022 Financial Resource Strain Answer Date R ecorded Difficulty of Paying Living Expenses 3 12/08/2022 Difficulty of Paying Living Expenses Not on file 12/08/2022 Food Insecurity Answer Date Recorded Do you worry your food will run out before you are able to buy more? 1 12/08/2022 Transportation Needs Answer Date Record ed Lack of Transportation (Medical) 1 12/08/2022 Housing Stability Answer Date Recorded What is your housing situation today? 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 on file Not on file Not on paulo e Obstetrics History Last Filed Vital Signs Vital Sign Reading Time Taken Comments Blood Pressure 143/75 12/26/2023 2:13 PM [employer] Pulse 55 12/26/2023 2:13 PM [employer] Temperature 36.6 C (97.8 F) 09/06/2023 2:29 PM CDT Respiratory Rate 18 08/08/2022 8:38 AM CDT Oxygen Saturation 98% 12/26/2023 2:08 PM [employer]ER Inhaled Oxygen Concentration - - Weight 83.8 kg (184 lb 12.8 oz) 12/26/2023 2:08 PM [employer] Height 175 cm (5' 8.9) 12/26/2023 2:08 PM [employer] Body Mass Index 27.37 12/26/2023 2:08 PM [employer] Plan of Treatment Health Maintenance Due Date Last Done Comments Zoster (shingles) series for age 50+ (1 of 2) 06/08/2007 04/13/2007 RSV vaccine for adults or (1 - 1-dose 75+ series) 06/12/2010 Tetanus booster 03/25/2021 03/25/2011, 11/24/2003 COVID-19 vaccine series ( season) 2023 12/08/2022, 12/07/2021, 06/02/2021, Additional history exists BMI (ht and wt on same day) for age 18+ 12/25/2024 12/26/2023, 09/06/2023, 12/08/2022, Additional history exists Depression screening for age 12+ 12/25/2024 12/26/2023, 12/12/2022, 12/08/2022, Additional history exists Medicare Wellness for age 65+ 12/26/2024, 12/08/2022, 12/07/2021, Additional history exists Tdap Completed 03/25/2011 Pneumococcal series for age 50+ Completed 5, 12/05/2007 Influenza Vaccine Completed 12/26/2023, , 11/05/2021, Additional history exists Insurance MEDICARE PB ONLY MEDICARE PART B HB ONLY MEDICARE PART A HB ONLY Member Subscriber Plan / Payer (Ef fective 2000-Present) Name:Reddy Gilbert Member ID:[id number] Relation to Subscriber:Self Name:Rock Reddy Jadyn Subscriber ID:[id number] Payer ID:Not on file Group ID:Not on file Type:Not on file Address: ATTN: CLAIMS [address] [facility] Advance Directives Documents on File Type Date Recorded 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 Healthcare Directive 07/13/2011 10:15 AM [...] 8:26 AM 07/30/2015 12:14 PM Care Teams Elderly Companion Relationship Specialty Start Date End Date Mckinley Cheema MD [address] [place] [id number] PCP - General Family Practice 11/26/12 Margaret Jnug MD [address] [place] [address] Dermatology 01/13/11 Lucio Duggan MD [address] [place] [id number] Cardiovascular Disease 03/25/11 Meño Marshall [address] [place] [address] Hematology and Oncology 03/25/11 Narinder Wen MD [address] [place] [address] Cardiology Cardiovascular Disease 03/21/12 Meño Hendricks [address] [place] [address] Supervisor Blood 07/19/12
--- NOTE | 2024-05-20 18:23 | CRLHL7_ITS ---
For Patients: As a result of the Century Cures Act, medical imaging exams and procedure reports are released immediately into your electronic medical record. You may view this report before your referring provider. If you have questions, please contact your health care provider. INDICATION: Transient alteration of awareness TECHNIQUE: CT Head without i.v. contrast. Coronal and sagittal reformats were obtained. COMPARISON: 08/24/2017 FINDINGS: CSF space: Symmetric ventriculomegaly is present and slightly progressed from prior exam. It may be due to central cortical atrophy. Brain: No evidence of mass, acute infarction or hemorrhage is seen. No mass-effect or midline shift is seen. Calvarium: The visualized paranasal sinuses are well aerated. The mastoid air cells are clear. The patient is status post prior bilateral cataract removal. The visualized orbits are grossly unremarkable. The calvarium is unremarkable in appearance with no fractures identified. IMPRESSION: 1. No evidence of acute infarction, intracranial hemorrhage, or mass-effect seen. The findings were discussed with Dr. Valles at 6:43 PM. Dictated by Silvio Carroll MD @ 05/20/2024 6:38:04 PM Please note that all CT scans at this facility use dose modulation, iterative reconstruction, and/or weight-based dosing when appropriate to reduce radiation dose to as low as reasonably achievable. Dictated by: Silvio Carroll MD @ 05/20/2024 18:43:37 (Electronically Signed)
--- NOTE | 2024-05-20 18:34 | ED_ITS ---
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 Code stroke was called based off EMS report. According to EMS they were called when the daughter called the patient insists she states he was slurring his speech. Last known well was 12:00. We miss arrived he was noted to have weakness and was confused. Does have a temperature of 100.7?F. Patient has difficulty following commands and answering questions Related Data Home Medications ?Medication ?Instructions ?Recorded ?Confirmed apixaban 2.5 mg tablet (Eliquis) 2.5 mg PO BID 02/15/22 03/13/24 atorvastatin 80 mg tablet 80 mg PO HS 02/15/22 03/13/24 donepezil 5 mg tablet 5 mg PO HS 02/15/22 03/13/24 isosorbide mononitrate 60 mg 60 mg PO DAILY 02/15/22 03/13/24 tablet,extended release 24 hr metoprolol succinate 50 mg 50 mg PO DAILY 02/15/22 03/13/24 tablet,extended release 24 hr clopidogrel 75 mg tablet 75 mg PO QAM 04/18/23 03/13/24 ezetimibe 10 mg tablet 10 mg PO DAILY 04/18/23 03/13/24 isosorbide mononitrate 30 mg 30 mg PO DAILY 04/18/23 03/13/24 tablet,extended release 24 hr ranolazine 500 mg tablet,extended 500 mg PO BID 04/18/23 03/13/24 release,12 hr Previous Rx's ?Medication ?Instructions ?Recorded omeprazole 20 mg capsule,delayed 40 mg (2 x 20 mg) PO DAILY@0700 04/11/22 release #20 caps Allergies Allergy/AdvReac Type Severity Reaction Status Date / Time niacin Allergy Mild Rash and Verified 03/13/24 17:30 Itching Review of Systems Status of ROS: Reports: unobtainable due to mental status PFSH PFSH Medical History Osteoarthritis ?M19.90 - Unspecified osteoarthritis, unspecified site (ICD-10) Coronary atherosclerosis of [place] coronary vessel ?I25.10 - Atherosclerotic heart disease of [place] coronary artery without angina pectoris (ICD-10) Acute pericarditis ?I30.9 - Acute pericarditis, unspecified (ICD-10) Dementia ?F03.90 - Unspecified dementia, unspecified severity, without behavioral disturbance, psychotic disturbance, mood disturbance, and anxiety (ICD-10) Chronic anticoagulation ?Z79.01 - MCFP (current) use of anticoagulants (ICD-10) Coronary artery disease involving coronary bypass graft ?I25.810 - Atherosclerosis of coronary artery bypass graft(s) without angina pectoris (ICD-10) Mixed hyperlipidemia ?E78.2 - Mixed hyperlipidemia (ICD-10) Atrial fibrillation ?I48.91 - Unspecified atrial fibrillation (ICD-10) Chronic lymphoid leukemia ?C91.10 - Chronic lymphocytic leukemia of B-cell type not having achieved remission (ICD-10) Unspecified essential hypertension ?I10 - Essential (primary) hypertension (ICD-10) ASHD (arteriosclerotic heart disease) ?I25.10 - Atherosclerotic heart disease of [place] coronary artery without angina pectoris (ICD-10) Surgical History History of colonoscopy ?Z98.890 - Other specified postprocedural states (ICD-10) History of coronary artery bypass graft ?Z95.1 - Presence of aortocoronary bypass graft (ICD-10) History of vitrectomy ?Z98.890 - Other specified postprocedural states (ICD-10) History of ureter stent History of coronary artery stent placement ?Z95.5 - Presence of coronary angioplasty implant and graft (ICD-10) Family History Brother Diabetes Heart disease High blood pressure High cholesterol Mother Stroke Father Stroke Social History Highest level of school completed/degree received: high school graduate Smoking Status: Never smoker Do you use any of these nicotine containing products: None Second hand tobacco smoke exposure: No How often do you have a drink containing alcohol: monthly or less How many standard drinks containing alcohol do you have on a typical day: 1 or 2 How often do you have six or more drinks on one occasion: Never AUDIT-C Alcohol total score: 1 Non-prescribed substance use: denies use Caffeine: Yes (pop) service: No Exam Narrative: Exam Narrative: Const: Well-nourished, Well-developed, in mild distress Eyes: PERRL, no conjunctival injection, and symmetrical lids HENT: Atraumatic external nose and ears. Moist mucous membranes. Neck: Symmetric, trachea midline, No thyromegaly. CVS: RRR, No murmurs or gallops. Peripheral pulses 2+ and equal in all extremities RESP: Unlabored respiratory effort. Clear to auscultation bilaterally. GI: Nontender/Nondistended, No rebound or guarding. MSK:Extremities w/o deformity, Normal Active ROM Skin: Warm, Dry. No rashes or lesions. Neuro: Difficult to do neuro exam is he has difficulty following commands and answering questions. Initially seemed of right lower extremity weakness with normal strength left lower extremity. On repeat due to the difficulty and fully evaluating his weakness and now seems like the left is weaker than the right. Check 3rd time and again it switched no other right seems weaker. Does seem to have normal upper extremity strength. Psych: Awake, Alert, but is confused. Does not know where he is or what is going on. Const: Vital Signs, click to edit/add: Vital Signs - 24 hr 05/20/24 18:24 05/20/24 18:30 05/20/24 18:38 Temperature 100.7 F H Pulse Rate 84 89 Pulse Rate [Pulse Oximeter] 82 Respiratory Rate 18 13 Blood Pressure 153/80 H Blood Pressure [Ri ght Upper Arm] 154/79 H Pulse Oximetry 94 93 97 Oxygen Delivery Me thod Room Air 05/20/24 18:45 05/20/24 19:00 05/20/24 19:02 Temperature Pulse Rate 85 83 85 Pulse Rate [Pulse Oximeter] Respiratory Rate 12 14 Blood Pressure 142/80 H Blood Pressure [Ri ght Upper Arm] Pulse Oximetry 96 95 95 Oxygen Delivery Me thod 05/20/24 19:03 05/20/24 19:15 05/20/24 19:30 Temperature Pulse Rate 85 84 Pulse Rate [Pulse Oximeter] Respiratory Rate 14 22 Blood Pressure Blood Pressure [Ri ght Upper Arm] Pulse Oximetry 95 95 Oxygen Delivery Me thod 05/20/24 19:32 05/20/24 19:45 05/20/24 20:00 Temperature Pulse Rate 83 85 85 Pulse Rate [Pulse Oximeter] Respiratory Rate 20 19 Blood Pressure 138/84 Blood Pressure [Ri ght Upper Arm] Pulse Oximetry 94 93 94 Oxygen Delivery Me thod 05/20/24 20:02 05/20/24 20:31 05/20/24 20:32 Temperature Pulse Rate Pulse Rate [Pulse Oximeter] Respiratory Rate 21 20 23 Blood Pressure 133/79 140/64 H Blood Pressure [Ri ght Upper Arm] Pulse Oximetry Oxygen Delivery Me thod 05/20/24 21:00 05/20/24 21:02 Temperature 99.8 F H Pulse Rate 88 Pulse Rate [Pulse Oximeter] Respiratory Rate 16 22 Blood Pressure 128/64 Blood Pressure [Ri ght Upper Arm] Pulse Oximetry 93 Oxygen Delivery Me thod Room Air Course Vital Signs Vital signs: Initial Vital Signs Temperature 100.7 F H 05/20/24 18:24 Temperature Source Temporal Artery Scan 05/20/24 18:24 Pulse Rate 82 05/20/24 18:24 Respiratory Rate 18 05/20/24 18:24 Blood Pressure 154/79 H 05/20/24 18:24 Blood Pressure Mean 104 05/20/24 18:24 Pulse Oximetry 94 05/20/24 18:24 Oxygen Delivery Method Room Air 05/20/24 18:24 Vital Signs Temperature 100.7 F H 05/20/24 18:24 Pulse Rate 82 05/20/24 18:24 Respiratory Rate 18 05/20/24 18:24 Blood Pressure 154/79 H 05/20/24 18:24 Pulse Oximetry 94 05/20/24 18:24 Oxygen Delivery Method Room Air 05/20/24 18:24 Temperature 99.8 F H 05/20/24 21:02 Pulse Rate 88 05/20/24 21:02 Respiratory Rate 22 05/20/24 21:02 Blood Pressure 128/64 05/20/24 21:02 Pulse Oximetry 93 05/20/24 21:02 Oxygen Delivery Method Room Air 05/20/24 21:02 MDM - Altered Mental Status MDM Narrative Medical decision making narrative: Patient is an 88-year-old male who initially presented as a code stroke via EMS. While evaluating the patient he does not appear to be a code stroke at this time especially concerning his last known well was over 6 hours ago by time he arrived to the emergency department. He has no clear focal neurological issues and does have a fever. His symptoms seem more consistent with an infection. I did cancel the code stroke but did send him straight to get a head CT. CBC, CMP, lactate, blood cultures, troponin, EKG, magnesium, COVID/flu/RSV, urinalysis all ordered. Patient's lab work shows no concerning abnormalities. 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 Same with his platelet level. Does have a mildly elevated total bilirubin but no other abnormalities on his liver function panel. Urinalysis shows no signs of UTI. He is positive for COVID. Is likely the cause of all of his symptoms. Do not believe any a CTA head and neck. Did do a CT scan of his head. Reviewed by myself the radiologist shows no concerning abnormalities. With the COVID did chest x-ray this shows cardiomegaly with diffuse prominence of interstitial markings. This could represent some pulmonary edema and or viral pneumonia. Most likely viral pneumonia. No signs of CHF on my exam. On my review vital signs are stable throughout time in in the emergency department. Oximetry stayed in the mid to high 90s. panel monitor showed no concerning arrhythmias. Patient will be admitted to the hospitalist service. Lab Data Labs: Lab Results 05/20/24 05/20/24 05/20/24 Range/Units 18:30 18:35 20:10 WBC 20.62 H (4.50-11.00) K/uL RBC 4.40 (4.30-5.90) m/uL Hgb 13.1 L (13.5-17.5) gm/dL Hct 40.8 (37.0-53.0) % MCV 93 (80-100) fL MCH 30 (26-34) pg MCHC 32 (32-36) gm/dL RDW Coeff of Joyce 14.1 (11.5-15.5) % Plt Count 120 L (140-440) K/uL Neut % (Auto) 43.9 (42.0-72.0) % Lymph % (Auto) 51.1 H (20-44) % Lawrence % (Auto) 4.6 (0.0-11.0) % Eos % (Auto) 0.2 (0.0-7.0) % Baso % (Auto) 0.0 (0.0-3.0) % Neut # (Auto) 9.10 H (1.7-7.0) K/uL Lymph # (Auto) 10.50 H (0.90-2.90) K/uL Lawrence # (Auto) 0.90 (0.00-0.90) K/UL Eos # (Auto) 0.00 (0.00-0.50) K/uL Baso # (Auto) 0.00 (0.00-0.30) K/uL Abs Immat Gran (auto) 0.00 (0.00-0.30) K/uL Imm/Tot Granulo (auto) 0.2 % Diff Slide Review Acceptable Review (Acceptable) Sodium 137 (135-149) mmol/L Potassium 4.8 (3.6-5.1) mmol/L Chloride 103 (96-114) mmol/L Carbon Dioxide 28 (20-32) mmol/L Anion Gap 6 L (7-15) mEq/L BUN 16 (7-30) mg/dL Creatinine 1.2 (0.5-1.5) mg/dL Estimated Creat Clear 43.94 Estimated GFR 58 ml/min Glucose 109 (60-115) mg/dL Lactate 1.2 (0.5-1.9) mmol/L Calcium 9.2 (8.4-10.6) mg/dL Magnesium 2.0 (1.5-2.6) mg/dL Total Bilirubin 2.4 H (0.1-1.5) mg/dL AST 23 (12-35) U/L ALT 16 (4-50) U/L Alkaline Phosphatase 80 (40-150) U/L Troponin I < 0.01 (0.01-0.04) ng/mL Total Protein 6.6 (6.0-8.3) g/dL Albumin 4.4 (3.3-5.0) g/dL Urine Color Yellow (Yellow) Urine Appearance Cloudy A (Clear) Urine pH 7.0 (5.0-8.5) Ur Specific Lyman 1.020 (1.000-1.030) Urine Protein Negative (Negative) Urine Glucose (UA) Negative (Negative) Urine Ketones Negative (Negative) Urine Blood 2+ A (Negative) Urine Nitrite Negative (Negative) Urine Bilirubin Negative (Negative) Urine Urobilinogen 2.0 A (0.2-1.0) Ur Leukocyte Esterase Negative (Negative) Urine RBC 2-5 A (0-2) Urine WBC 2-5 (0-5) Urine WBC Clumps None (None) Ur Squamous Epith Cells Few (None-Few) Urine Bacteria Few A (None) SARS-CoV-2 (PCR) POSITIVE SARS-CoV-2 A (Negative) Influenza Type A (PCR) Negative PCR FLU A (Negative) Influenza Type B (PCR) Negative PCR FLU B (Negative) RSV (PCR) Negative PCR RSV (Negative) Imaging Data CT scan - head: Attestation: I have reviewed the pertinent imaging results. Radiologist's impression: 1. No evidence of acute infarction, intracranial hemorrhage, or mass-effect seen. The findings were discussed with Dr. Valles at 6:43 PM. Dictated by Silvio Carroll MD @ 05/20/2024 6:38:04 PM Please note that all CT scans at this facility use dose modulation, iterative reconstruction, and/or weight-based dosing when appropriate to reduce radiation dose to as low as reasonably achievable. Dictated by: Silvio Carroll MD @ 05/20/2024 18:43:37 Chest x-ray: Attestation: I have reviewed the pertinent imaging results. Radiologist's impression: Cardiomegaly and diffuse prominence of interstitial markings, may represent volume overload/pulmonary edema and/or viral pneumonia given history. Dictated by Carter Monet MD @ 05/20/2024 9:16:06 PM ECG Data Attestation: I personally reviewed and interpreted this ECG as follows: Prior ECG tracings: available for review Interpretation: Normal sinus rhythm with a rate of 85 beats per minute, right bundle branch block, normal AR interval, normal QT interval. No ST or T-wave abnormalities. Appears similar previous EKGs on file Discharge Plan Discharge Clinical Impression: COVID Altered mental status Qualifiers: Altered mental status type: unspecified Qualified Code(s): R41.82 - Altered mental status, unspecified Patient Disposition: Admitted As Observation Condition: Stable Prescriptions: No Action Eliquis 2.5 mg tablet 2.5 mg PO BID Patient Comments: TAKE ONE TABLET BY MOUTH TWICE DAILY atorvastatin 80 mg tablet 80 mg PO HS Patient Comments: Take 1 Tablet (80 mg) by mouth at bedtime. donepezil 5 mg tablet 5 mg PO HS isosorbide mononitrate 60 mg tablet extended release 24 hr 60 mg PO DAILY metoprolol succinate 50 mg tablet extended release 24 hr 50 mg PO DAILY Patient Comments: Take 1 Tablet (50 mg) by mouth once daily. omeprazole 20 mg Capsule,Delayed Release(Dr/Ec) 40 mg PO DAILY@0700 Qty: 20 0RF Rx Instructions: take every morning until EGD (Endoscopy) isosorbide mononitrate 30 mg tablet extended release 24 hr 30 mg PO DAILY clopidogrel 75 mg tablet 75 mg PO QAM ezetimibe 10 mg tablet 10 mg PO DAILY ranolazine 500 mg tablet extended release 12 hr 500 mg PO BID Follow Up/Referrals: Mckinley Cheema MD [Primary Care Provider] -
--- OUTSIDE RECORDS SUMMARY | 2024-05-20 18:46 | XMS_ITS | Clinical Summary ---
Author Organization [facility] Address [address] [place] [id number] Care Team Providers Care [employer] Name Role Phone Margaret Jung MD Unavailable + Lucio Duggan MD Unavailable [phone] Meño Marshall Unavailable Unavailable JosegenNarinder mayers MD Unavailable Rubi vailable Meño Hendricks Unavailable [phone] Mckinley Cheema MD Primary Care Provider [phone] Allergies Active Allergy Reactions Criticality Noted Date [...] atorvastatin (LIPITOR) 80 mg tabletIndications:A therosclerosis of [place] coronary artery of [place] heart with angina pectoris TAKE ONE TABLET [...] Health Care Agent: Roddy Johnson Relationship: daughter [phone] cell Patient has Advance Care Plan Documents [...] ODERNA 50MCG/0.5ML) 12YO+ PFS 12/08/2022 COVID-19 vaccine ([employer] NTech 30mcg/0.3mL) 12YO+ BIVALENT PF, MDV 12/07/2021 COVID-19 vaccine ([employer] NTech 30mcg/0.3mL) PF, MDV 11/27/2020,04/18/2020,03/28/2020 Influenza, High-dose [...] on file Legal Sex Male 5:46 AM [employer] Gender Identity Not on file Sexual Orientation Lesbian or [place] 10/08/2021 8: 11 PM CDT Occupation Industry Job Start Date Job End Date [employer] Not on file Not on file Not on paulo e Obstetrics History Last Filed Vital Signs Vital Sign Reading Time Taken Comments Blood Pressure 143/75 12/26/2023 2:13 PM [employer] Pulse 55 12/26/2023 2:13 PM [employer] Temperature 36.6 C (97.8 F) 09/06/2023 2:29 PM CDT Respiratory Rate 18 08/08/2022 8:38 AM CDT Oxygen Saturation 98% 12/26/2023 2:08 PM [employer] Inhaled Oxygen Concentration - - Weight 83.8 kg (184 lb 12.8 oz) 12/26/2023 2:08 PM [employer] Height 175 cm (5' 8.9) 12/26/2023 2:08 PM [employer] Body Mass Index 27.37 12/26/2023 2:08 PM [employer] Plan of Treatment Health Maintenance Due Date [...] Payer (Ef fective 2000-Present) Name:Reddy Gilbert Member ID:[id number] Relation to Subscriber:Self Name:Rock Reddy Jadyn Subscriber ID:[id number] Payer ID:Not on file Group ID:Not on file Type:Not on file Address: ATTN: CLAIMS [id number] [facility] Advance Directives Documents on File Type Date Recorded Patient [employer] Healthcare Directive 07/13/2011 10:15 AM [...] 8:26 AM 07/30/2015 12:14 PM Care Teams [employer] Relationship Specialty Start Date End Date Mckinley Cheema MD [address] [place] [id number] PCP - General Family Practice 11/26/12 Margaret Jung MD [address] [place] [id number] Dermatology 01/13/11 Lucio Duggan MD [address] [place] [phone] Cardiovascular Disease 03/25/11 Meño Marshall [address] [place] [phone] Hematology and Oncology 03/25/11 Narinder Wen MD [address] [place] [phone] Cardiology Cardiovascular Disease 03/21/12 Meño Hendricks [address] [place] [id number] Clin Nurse Spec 07/19/12
[2024-05-20 19:02] LABS: Lactate Sepsis w/Reflex* 1.2 mmol/L (0.5-1.9)
[2024-05-20 19:25] LABS: Albumin* 4.4 g/dL (3.3-5.0); Chloride* 103 mmol/L (96-114); Sodium* 137 mmol/L (135-149)
[2024-05-20 19:26] LABS: Potassium* 4.8 mmol/L (3.6-5.1)
[2024-05-20 19:28] LABS: Alanine Aminotransferase* 16 U/L (4-50); Alkaline Phosphatase* 80 U/L (40-150); Anion Gap 6 mEq/L (7-15); Aspartate Amino Transferase* 23 U/L (12-35); Bilirubin Total* 2.4 mg/dL (0.1-1.5); Blood Urea Nitrogen* 16 mg/dL (7-30); Carbon Dioxide* 28 mmol/L (20-32); Creatinine* 1.2 mg/dL (0.5-1.5); Est. Creatinine Clearance* 43.94; Estimated Glomerular Filt Rate 58 ml/min; Total Protein* 6.6 g/dL (6.0-8.3)
[2024-05-20 19:29] LABS: Calcium* 9.2 mg/dL (8.4-10.6); Glucose* 109 mg/dL (60-115)
[2024-05-20 19:32] LABS: PCR FLU A Negative PCR FLU A (Negative); PCR FLU B Negative PCR FLU B (Negative); PCR RSV Negative PCR RSV (Negative); SARS PCR* POSITIVE SARS-CoV-2 (Negative)
[2024-05-20 19:41] LABS: Troponin I* < 0.01 ng/mL (0.01-0.04)
[2024-05-20 19:42] LABS: Eosinophils Percent Auto 0.2 % (0.0-7.0); Hematocrit 40.8 % (37.0-53.0); Hemoglobin* 13.1 gm/dL (13.5-17.5); Immature Granulocytes Pct Auto 0.2 %; Lymphocytes Percent Auto 51.1 % (20-44); Mean Corpuscular HGB Conc 32 gm/dL (32-36); Mean Corpuscular Hemoglobin 30 pg (26-34); Mean Corpuscular Volume 93 fL (80-100); Monocytes Percent Auto 4.6 % (0.0-11.0); Neutrophils Percent Auto 43.9 % (42.0-72.0); Platelet Count* 120 K/uL (140-440); RDW Coefficient of Variation % 14.1 % (11.5-15.5); White Blood Count* 20.62 K/uL (4.50-11.00)
[2024-05-20 19:46] LABS: Slide Review Reflex Yes
[2024-05-20 20:14] LABS: Slide Review Acceptable Review (Acceptable)
[2024-05-20 20:24] LABS: Appearance Urine Cloudy (Clear); Bilirubin Urine Negative (Negative); Blood Urine 2+ (Negative); Color Urine Yellow (Yellow); Glucose Urine Negative (Negative); Ketones Urine Negative (Negative); Leukocyte Esterase Urine Negative (Negative); Nitrite Urine Negative (Negative); Protein Urine Negative (Negative)
--- NOTE | 2024-05-20 20:39 | CRLHL7_ITS ---
For Patients: As a result of the Cures Act, medical imaging exams and procedure reports are released immediately into your electronic medical record. You may view this report before your referring provider. If you have questions, please contact your health care provider. Indication: COVID, shortness of breath Technique: Single view of the chest Comparison: Chest radiograph performed 08/04/2022 Findings/Impression: Cardiomegaly and diffuse prominence of interstitial markings, may represent volume overload/pulmonary edema and/or viral pneumonia given history. Dictated by Carter Monet MD @ 05/20/2024 9:16:06 PM (Electronically Signed)
[2024-05-20 20:53] LABS: Bacteria Urine Few; Squamous Epithelial Cell Urine Few (None-Few)
[2024-05-20] MEDS: ACETAMINOPHEN 325 MG TABLET 650 MG PO (22:22)
--- NOTE | 2024-05-20 23:25 | PM.IMHP1 ---
Assessment and Plan Assessment and plan (1) Altered mental status: Problem comment: Suspect in setting of fever, COVID. H/o dementia UA unremarkable. Leukocytosis, essentially baseline with history of CLL, lactate 1.2 CT head without acute abnormalities Monitor Status: Acute (2) COVID: Problem comment: Symptomatic with fever, acutely worsened AMS No hypoxia, not requiring oxygen supplementation CXR diffuse prominence of interstitial markings, likely viral Symptomatic cares, Tylenol p.r.n. Encourage oral intake, hydration Status: Acute (3) Chronic lymphoid leukemia: Problem comment: Chronic, stable, baseline WBC 13-35; likely cause of elevated lymphocytes Followed by hematology Status: Acute (4) Dementia: Problem comment: Acutely worsened mental status, monitor Continue donepezil Status: Acute (5) Atrial fibrillation: Problem comment: On chronic anticoagulation Continue metoprolol and Eliquis Status: Acute (6) Elevated bilirubin: Problem comment: Total bili 2.4, previously 1.8 Status: Acute (7) Thrombocytopenia: Problem comment: Chronic. Plt 120, baseline 120-144 Status: Acute Total Time Spent Total Time Spent: Today I spent 75 minutes seeing the patient, reviewing Expanse and EPIC notes/diagnostics, discussing the care plan with our care time that includes social work, PT/OT, pharmacy, RT, [place] [facility] and documenting my impressions and plan in the medical record. Hospitalist- H&P: CATERINA History of Present Illness Date Seen: 05/20/24 Chief complaint: Stroke Narrative: Reddy Gilbert is a 88 year old male past medical history significant for dementia, atrial fibrillation on chronic anticoagulation, history of NSTEMI, ASHD, hypertension, hyperlipidemia, CLL, squamous cell carcinoma is admitted to medical floor from the ED with worsened confusion and fever in setting of acute COVID infection. Patient arrives to the floor without family at bedside. Poor historian. History obtained from ED provider and records. Daughter had reported that patient was slurring his speech. Was last known to be well at noon. In the ED, patient was noted to be weak and confused without slurring of speech. Temperature on arrival noted to be 100.7?. Patient was not able to follow commands or answer questions in the ED. On my exam, patient is sleeping, sonorous. Awakens easily. When asked if he is in any pain, he replies no. Fever has resolved following Tylenol administration. Otherwise, not able to gather useful or accurate information. Limited exam as unable to follow commands. Report is that he lives with his . Review of Systems Narrative: REVIEW OF SYSTEMS: Complete review of systems performed and negative unless otherwise stated in HPI or below. [facility] Medical History (Updated 05/20/24 @ 23:46 by Manda Vickers PA-C) Thrombocytopenia ?D69.6 - Thrombocytopenia, unspecified (ICD-10) Elevated bilirubin ?R17 - Unspecified jaundice (ICD-10) Non-ST elevated myocardial infarction (non-STEMI) ?I21.4 - Non-ST elevation (NSTEMI) myocardial infarction (ICD-10) Osteoarthritis ?M19.90 - Unspecified osteoarthritis, unspecified site (ICD-10) Coronary atherosclerosis of [place] coronary vessel ?I25.10 - Atherosclerotic heart disease of [place] coronary artery without angina pectoris (ICD-10) Acute pericarditis ?I30.9 - Acute pericarditis, unspecified (ICD-10) Dementia ?F03.90 - Unspecified dementia, unspecified severity, without behavioral disturbance, psychotic disturbance, mood disturbance, and anxiety (ICD-10) Chronic anticoagulation ?Z79.01 - MCFP (current) use of anticoagulants (ICD-10) Coronary artery disease involving coronary bypass graft ?I25.810 - Atherosclerosis of coronary artery bypass graft(s) without angina pectoris (ICD-10) Mixed hyperlipidemia ?E78.2 - Mixed hyperlipidemia (ICD-10) Atrial fibrillation ?I48.91 - Unspecified atrial fibrillation (ICD-10) Chronic lymphoid leukemia ?C91.10 - Chronic lymphocytic leukemia of B-cell type not having achieved remission (ICD-10) Unspecified essential hypertension ?I10 - Essential (primary) hypertension (ICD-10) ASHD (arteriosclerotic heart disease) ?I25.10 - Atherosclerotic heart disease of [place] coronary artery without angina pectoris (ICD-10) Surgical History History of colonoscopy ?Z98.890 - Other specified postprocedural states (ICD-10) History of coronary artery bypass graft ?Z95.1 - Presence of aortocoronary bypass graft (ICD-10) History of vitrectomy ?Z98.890 - Other specified postprocedural states (ICD-10) History of ureter stent History of coronary artery stent placement ?Z95.5 - Presence of coronary angioplasty implant and graft (ICD-10) Family History Brother Diabetes Heart disease High blood pressure High cholesterol Mother Stroke Father Stroke Social History What is your current living situation?: I presently have a place to live Problems where you live: unable to answer Problems where you live details: NA In the past 12 months, utilities in danger of being shut off: unable to answer In past 12 months, lack of transportation kept you from medical appts, meetings, work, or getting things needed for daily living: unable to answer In the past 12 mos, have been you worried that your food would run out before you had money to buy more?: unable to answer In the past 12 mos, the food you bought just didn't last and you didn't have money to buy more?: unable to answer Highest level of school completed/degree received: high school graduate Smoking Status: Never smoker Do you use any of these nicotine containing products: None Second hand tobacco smoke exposure: No How often do you have a drink containing alcohol: monthly or less How many standard drinks containing alcohol do you have on a typical day: 1 or 2 How often do you have six or more drinks on one occasion: Never AUDIT-C Alcohol total score: 1 Non-prescribed substance use: denies use Caffeine: Yes (pop) How often does anyone, including family, friends and others, physically hurt you: unable to answer How often does anyone, including family, friends and others, insult or talk down to you: unable to answer How often does anyone, including family, friends and others, threaten you with harm: unable to answer How often does anyone, including family, friends and others, scream or curse at you: unable to answer service: No Meds Home Medications and Allergies Home Medications ?Medication ?Instructions ?Recorded ?Confirmed ?Type apixaban 2.5 mg tablet (Eliquis) 2.5 mg PO BID 02/15/22 03/13/24 History atorvastatin 80 mg tablet 80 mg PO HS 02/15/22 03/13/24 History donepezil 5 mg tablet 5 mg PO HS 02/15/22 03/13/24 History isosorbide mononitrate 60 mg 60 mg PO DAILY 02/15/22 03/13/24 History tablet,extended release 24 hr metoprolol succinate 50 mg 50 mg PO DAILY 02/15/22 03/13/24 History tablet,extended release 24 hr clopidogrel 75 mg tablet 75 mg PO QAM 04/18/23 03/13/24 History ezetimibe 10 mg tablet 10 mg PO DAILY 04/18/23 03/13/24 History isosorbide mononitrate 30 mg 30 mg PO DAILY 04/18/23 03/13/24 History tablet,extended release 24 hr ranolazine 500 mg tablet,extended 500 mg PO BID 04/18/23 03/13/24 History release,12 hr Allergies Allergy/AdvReac Type Severity Reaction Status Date / Time niacin Allergy Mild Rash and Verified 03/13/24 17:30 Itching Exam Narrative: Exam Narrative: PHYSICAL EXAM General: Sleeping, awakens easily, appears in NAD HEENT: Normocephalic, atraumatic, sclera white, EOMI, oral mucosa moist Cardiovascular: IRRR. No pitting edema Pulmonary: CTA bilaterally without rhonchi, rales, expiratory wheezes. No dyspnea on room air Abdominal: Soft, nondistended, NTTP Neurological: Sleepy, confused, unable to follow commands Extremities: No gross joint deformity or swelling. AROMI. Neurovascularly intact Skin: Warm, dry. Const: Vital Signs, click to edit/add: Vital Signs - 24 hr 05/20/24 18:24 05/20/24 18:30 05/20/24 18:38 Temperature 100.7 F H Pulse Rate 84 89 Pulse Rate [Left R adial] Pulse Rate [Pulse Oximeter] 82 Respiratory Rate 18 13 Blood Pressure 153/80 H Blood Pressure [Ri ght Arm] Blood Pressure [Ri ght Upper Arm] 154/79 H Pulse Oximetry 94 93 97 Oxygen Delivery Me thod Room Air 05/20/24 18:45 05/20/24 19:00 05/20/24 19:02 Temperature Pulse Rate 85 83 85 Pulse Rate [Left R adial] Pulse Rate [Pulse Oximeter] Respiratory Rate 12 14 Blood Pressure 142/80 H Blood Pressure [Ri ght Arm] Blood Pressure [Ri ght Upper Arm] Pulse Oximetry 96 95 95 Oxygen Delivery Me thod 05/20/24 19:03 05/20/24 19:15 05/20/24 19:30 Temperature Pulse Rate 85 84 Pulse Rate [Left R adial] Pulse Rate [Pulse Oximeter] Respiratory Rate 14 22 Blood Pressure Blood Pressure [Ri ght Arm] Blood Pressure [Ri ght Upper Arm] Pulse Oximetry 95 95 [facility] 19:32 05/20/24 19:45 05/20/24 20:00 Temperature Pulse Rate 83 85 85 Pulse Rate [Left R adial] Pulse Rate [Pulse Oximeter] Respiratory Rate 20 19 Blood Pressure 138/84 Blood Pressure [Ri ght Arm] Blood Pressure [Ri ght Upper Arm] Pulse Oximetry 94 93 94 [facility] 05/[facility] 20:02 05/20/24 20:31 05/20/24 20:32 Temperature Pulse Rate Pulse Rate [Left R adial] Pulse Rate [Pulse Oximeter] Respiratory Rate 21 20 23 Blood Pressure 133/79 140/64 H Blood Pressure [Ri ght Arm] Blood Pressure [Ri ght Upper Arm] Pulse Oximetry [facility] 05/[facility] 21:00 05/20/24 21:02 05/20/24 21:30 Temperature 99.8 F H Pulse Rate 88 96 Pulse Rate [Left R adial] Pulse Rate [Pulse Oximeter] Respiratory Rate 16 22 24 Blood Pressure 128/64 Blood Pressure [Ri ght Arm] Blood Pressure [Ri ght Upper Arm] Pulse Oximetry 93 94 [facility] 05/20/24 21:32 05/20/24 21:45 05/20/24 22:00 Temperature Pulse Rate 81 70 Pulse Rate [Left R adial] Pulse Rate [Pulse Oximeter] Respiratory Rate 16 15 14 Blood Pressure 130/64 Blood Pressure [Ri ght Arm] Blood Pressure [Ri ght Upper Arm] Pulse Oximetry 92 91 92 Oxygen Delivery [place] thod 05/20/24 22:02 05/20/24 22:15 05/20/24 22:45 Temperature 97.7 F Pulse Rate 76 78 Pulse Rate [Left R adial] 66 Pulse Rate [Pulse Oximeter] Respiratory Rate 12 18 Blood Pressure 106/60 Blood Pressure [Ri ght Arm] 122/64 Blood Pressure [Ri ght Upper Arm] Pulse Oximetry 92 91 94 [facility] 05/20/24 22:45 05/20/24 23:08 05/20/24 23:13 Temperature 97.7 F Pulse Rate Pulse Rate [Left R adial] 66 66 Pulse Rate [Pulse Oximeter] Respiratory Rate 18 18 Blood Pressure Blood Pressure [Ri ght Arm] 122/64 Blood Pressure [Ri ght Upper Arm] Pulse Oximetry 94 94 Oxygen Delivery [place] thod Room Air Hospitalist - H&P: Result Labs Labs: Short CBC 05/20/24 Range/Units 18:30 WBC 20.62 H (4.50-11.00) K/uL Hgb 13.1 L (13.5-17.5) gm/dL Hct 40.8 (37.0-53.0) % Plt Count 120 L (140-440) K/uL BMP 05/20/24 18:30 Sodium 137 Potassium 4.8 Chloride 103 Carbon Dioxide 28 BUN 16 Creatinine 1.2 Glucose 109 Calcium 9.2 Cardiac Enzymes 05/20/24 Range/Units 18:30 Troponin I < 0.01 (0.01-0.04) ng/mL Liver Function 05/20/24 Range/Units 18:30 Total Bilirubin 2.4 H (0.1-1.5) mg/dL AST 23 (12-35) U/L ALT 16 (4-50) U/L Alkaline Phosphatase 80 (40-150) U/L Albumin 4.4 (3.3-5.0) g/dL Urine 05/20/24 Range/Units 20:10 Urine Color Yellow (Yellow) Urine Appearance Cloudy A (Clear) Urine pH 7.0 (5.0-8.5) Ur Specific [place] 1.020 (1.000-1.030) Urine Protein Negative (Negative) Urine Glucose (UA) Negative (Negative) ECG Attestation: I personally reviewed and interpreted this ECG as follows: ECG interpretation date: 05/20/24 Interpretation: Sinus rhythm, PACs, RBBB, rate [address] scan - head: Attestation: I have reviewed the pertinent imaging results. Radiologist's impression: CSF space: Symmetric ventriculomegaly is present and slightly progressed from prior exam. It may be due to central cortical atrophy. Brain: No evidence of mass, acute infarction or hemorrhage is seen. No mass-effect or midline shift is seen. Calvarium: The visualized paranasal sinuses are well aerated. The mastoid air cells are clear. The patient is status post prior bilateral cataract removal. The visualized orbits are grossly unremarkable. The calvarium is unremarkable in appearance with no fractures identified. IMPRESSION: 1. No evidence of acute infarction, intracranial hemorrhage, or mass-effect seen. Chest x-ray: Attestation: I have reviewed the pertinent imaging results. Radiologist's impression: Cardiomegaly and diffuse prominence of interstitial markings, may represent volume overload/pulmonary edema and/or viral pneumonia given history.
[2024-05-21] VITALS (11 sets, daily range): BP systolic 79–126; BP diastolic 48–65; PULSE 22–80; RESP 14–24; TEMP 36.3–37.1; O2SAT 85–97
[2024-05-21 06:56] LABS: Hematocrit 41.6 % (37.0-53.0); Hemoglobin* 13.8 gm/dL (13.5-17.5); Mean Corpuscular HGB Conc 33 gm/dL (32-36); Mean Corpuscular Hemoglobin 30 pg (26-34); Mean Corpuscular Volume 91 fL (80-100); Platelet Count* 123 K/uL (140-440); Red Blood Count 4.58 m/uL (4.30-5.90); White Blood Count* 21.92 K/uL (4.50-11.00)
[2024-05-21 07:00] LABS: Slide Review Reflex No
[2024-05-21 07:03] LABS: Albumin* 4.2 g/dL (3.3-5.0); Chloride* 103 mmol/L (96-114); Potassium* 4.3 mmol/L (3.6-5.1); Sodium* 137 mmol/L (135-149)
[2024-05-21 07:05] LABS: Blood Urea Nitrogen* 19 mg/dL (7-30); Creatinine* 1.1 mg/dL (0.5-1.5); Est. Creatinine Clearance* 49.44; Estimated Glomerular Filt Rate 65 ml/min
[2024-05-21 07:06] LABS: Alanine Aminotransferase* 18 U/L (4-50); Alkaline Phosphatase* 74 U/L (40-150); Anion Gap 8 mEq/L (7-15); Aspartate Amino Transferase* 24 U/L (12-35); Bilirubin Direct* 0.2 mg/dL (0.0-0.5); Bilirubin Total* 3.1 mg/dL (0.1-1.5); Calcium* 9.2 mg/dL (8.4-10.6); Carbon Dioxide* 26 mmol/L (20-32); Glucose* 135 mg/dL (60-115); Total Protein* 6.4 g/dL (6.0-8.3)
--- NOTE | 2024-05-21 07:42 | PC.NURSE ---
[id number]: Pt alert, oriented to self and vitally stable. Pt has weak, nonproductive cough. Dementia at baseline, delayed speech and trouble finding words. Pt denied nausea though on final rounds at 0650 staff found pt with dark emesis on face and gown. notified (Seay), see orders. ?
[2024-05-21] MEDS: PANTOPRAZOLE SODIUM 40 MG INJ IVP ×2 (08:03→21:53)
[2024-05-21] MEDS: LACTATED RINGERS 1000 ML 1,000 ML 125 ML IV (08:04)
--- NOTE | 2024-05-21 09:02 | PM.IMPN1 ---
Assessment and Plan Assessment and plan (1) Altered mental status: Problem comment: - most likely 2/2 COVID encephalopathy (h/o MCI), head CT in ER 05/20 reassuring - urine culture pending Status: Acute (2) COVID: Problem comment: - symptoms: fever (Tmax 100.7), encephalopathy, fatigue - not requiring oxygen supplementation or any COVID specific therapies at this time Status: Acute (3) Vomiting: Problem comment: - vomited x1 morning of 05/21/24, dark in color - HOLDING Eliquis and Plavix (05/21), Hemoccult stool - reviewed with Dr. Cardenas and Dr. Gonzales of General Surgery/Endoscopy - given Hgb stability and recent Eliquis (last dose 05/20 pm), defer scope for now as they wouldn't be able to perform biopsies - NPO 05/21, consider advancing to clears 05/22/24 Status: Acute (4) Elevated troponin: Problem comment: - obtained during episode of vomiting, elevated at 0.17 - no chest pain - follow to peak, telemetry Status: Acute (5) Swallowing difficulty: Problem comment: - noted to have some choking with swallowing water on 05/21 - will give pills with applesauce, thicken liquids, speech therapy evaluation ordered Status: Acute (6) Elevated bilirubin: Problem comment: - noted intermittently since 2018 per chart review, rest of LFTs wnl - presumably Gilbert's, asymptomatic. 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, stable, baseline WBC 13-35; likely cause of elevated lymphocytes and thrombocytopenia - Followed by hematology Status: Acute (8) Dementia: Problem comment: - on Donepezil as an outpatient - 05/18 on MiniCog with PCP fall 2023 Status: Acute (9) Atrial fibrillation: Problem comment: - rate controlled on Metoprolol, anticoagulated on Eliquis as outpatient - HOLDING Eliquis as of 05/21/24 given possible hematemesis Status: Acute (10) Thrombocytopenia: Problem comment: - chronic, likely related to CLL history (baseline 120-140s) Status: Acute Plan - per above - Valerie and daughter Janine updated at bedside, questions answered - they endorse Full Code status for patient, would transfer for higher level of care if needed Subjective Date Seen: 05/21/24 Interval history: Reddy was admitted to the hospital last night for weakness and AMS in the setting of + COVID and fever. Nursing staff has noting difficulty with swallowing (particularly thin liquids) and persistent weakness. Since last night, has had 2 episodes of emesis that were dark in color. CT obtained which exhibited nonspecific thickening of distal esophagus, esophagitis vs mass. 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 Reddy notes feeling tired this morning, no complaints of pain Specifically denies abdominal pain, endorses flatus. Exam Narrative: Exam Narrative: GEN: Sleepy, awakens to voice HEENT: Normal external ears, no scleral icterus CV: Rate 70s, rhythm irregular, no concerning murmurs R: LCTA bilaterally without concerning wheezing Ab: Soft, mild distention but no discomfort with palpation, normal bowel sounds Ext: wwp, no concerning edema Skin: Scattered bruising of extremities, no open wounds on exposed skin Neuro: Nonfocal Psych: Appears to have cognitive impairment, no agitation Const: Vital Signs, click to edit/add: Vital Signs - 24 hr 05/20/24 18:24 05/20/24 18:30 05/20/24 18:38 Temperature 100.7 F H Pulse Rate 84 89 Pulse Rate [Left R adial] Pulse Rate [Pulse Oximeter] 82 Respiratory Rate 18 13 Blood Pressure 153/80 H Blood Pressure [Ri ght Arm] Blood Pressure [Ri ght Upper Arm] 154/79 H Pulse Oximetry 94 93 97 Oxygen Delivery Me thod Room Air 05/20/24 18:45 05/20/24 19:00 05/20/24 19:02 Temperature Pulse Rate 85 83 85 Pulse Rate [Left R adial] Pulse Rate [Pulse Oximeter] Respiratory Rate 12 14 Blood Pressure 142/80 H Blood Pressure [Ri ght Arm] Blood Pressure [Ri ght Upper Arm] Pulse Oximetry 96 95 95 Oxygen Delivery Me thod 05/20/24 19:03 05/20/24 19:15 05/20/24 19:30 Temperature Pulse Rate 85 84 Pulse Rate [Left R adial] Pulse Rate [Pulse Oximeter] Respiratory Rate 14 22 Blood Pressure Blood Pressure [Ri ght Arm] Blood Pressure [Ri ght Upper Arm] Pulse Oximetry 95 95 Oxygen Delivery Me thod 05/20/24 19:32 05/20/24 19:45 05/20/24 20:00 Temperature Pulse Rate 83 85 85 Pulse Rate [Left R adial] Pulse Rate [Pulse Oximeter] Respiratory Rate 20 19 Blood Pressure 138/84 Blood Pressure [Ri ght Arm] Blood Pressure [Ri ght Upper Arm] Pulse Oximetry 94 93 94 Oxygen Delivery Ca thod 05/20/24 20:02 05/20/24 20:31 05/20/24 20:32 Temperature Pulse Rate Pulse Rate [Left R adial] Pulse Rate [Pulse Oximeter] Respiratory Rate 21 20 23 Blood Pressure 133/79 140/64 H Blood Pressure [Ri ght Arm] Blood Pressure [Ri ght Upper Arm] [facility]ulse Oximetry [facility] 21[facility]00 05/20/24 21:02 05/20/24 21:30 Temperature 99.8 F H Pulse Rate 88 96 Pulse Rate [Left R adial] Pulse Rate [Pulse Oximeter] Respiratory Rate 16 22 24 Blood Pressure 128/64 Blood Pressure [Ri ght Arm] Blood Pressure [Ri ght Upper Arm] Pulse Oximetry 93 94 [facility] 05/20/24 21:32 05/20/24 21:45 05/20/24 22:00 Temperature Pulse Rate 81 70 Pulse Rate [Left R adial] Pulse Rate [Pulse Oximeter] Respiratory Rate 16 15 14 Blood Pressure 130/64 Blood Pressure [Ri ght Arm] Blood Pressure [Ri ght Upper Arm] Pulse Oximetry 92 91 92 [facility] 05/20/24 22:02 05/20/24 22:15 05/20/24 22:45 Temperature 97.7 F Pulse Rate 76 78 Pulse Rate [Left R adial] 66 Pulse Rate [Pulse Oximeter] Respiratory Rate 12 18 Blood Pressure 106/60 Blood Pressure [Ri ght Arm] 122/64 Blood Pressure [Ri ght Upper Arm] Pulse Oximetry 92 91 94 [facility] 05/20/24 22:45 05/20/24 23:08 05/20/24 23:13 Temperature 97.7 F Pulse Rate Pulse Rate [Left R adial] 66 66 Pulse Rate [Pulse Oximeter] Respiratory Rate 18 18 Blood Pressure Blood Pressure [Ri ght Arm] 122/64 Blood Pressure [Ri ght Upper Arm] Pulse Oximetry 94 94 [facility] 05/21/24 00:04 05/21/24 03:00 05/21/24 07:00 Temperature 97.9 F Pulse Rate Pulse Rate [Left R adial] 74 Pulse Rate [Pulse Oximeter] 66 67 Respiratory Rate 18 14 22 Blood Pressure Blood Pressure [Ri ght Arm] 110/65 114/62 Blood Pressure [Ri ght Upper Arm] Pulse Oximetry 95 97 Oxygen Delivery Me thod Room Air Room Air 05/21/24 07:00 Temperature 97.4 F L Pulse Rate Pulse Rate [Left R adial] 22 L Pulse Rate [Pulse Oximeter] 67 Respiratory Rate 22 Blood Pressure Blood Pressure [Ri ght Arm] 112/64 Blood Pressure [Ri ght Upper Arm] Pulse Oximetry 93 Oxygen Delivery Me thod Room Air Labs Labs: Laboratory Results - last 24 hr 05/20/24 05/20/24 05/20/24 18:30 18:35 20:10 WBC 20.62 H RBC 4.40 Hgb 13.1 L Hct 40.8 MCV 93 MCH 30 MCHC 32 RDW Coeff of Joyce 14.1 Plt Count 120 L Neut % (Auto) 43.9 Lymph % (Auto) 51.1 H [place] % (Auto) 4.6 Eos % (Auto) 0.2 Baso % (Auto) 0.0 Neut # (Auto) 9.10 H Lymph # (Auto) 10.50 H [place] # (Auto) 0.90 Eos # (Auto) 0.00 Baso # (Auto) 0.00 Abs Immat Gran (auto) 0.00 Imm/Tot Granulo (auto) 0.2 Diff Slide Review Acceptable Review Sodium 137 Potassium 4.8 Chloride 103 Carbon Dioxide 28 Anion Gap 6 L BUN 16 Creatinine 1.2 Estimated Creat Clear 43.94 Estimated GFR 58 Glucose 109 Lactate 1.2 Calcium 9.2 Magnesium 2.0 Total Bilirubin 2.4 H Direct Bilirubin AST 23 ALT 16 Alkaline Phosphatase 80 Troponin I < 0.01 Total Protein 6.6 Albumin 4.4 Urine Color Yellow Urine Appearance Cloudy A Urine pH 7.0 Ur Specific [place] 1.020 Urine Protein Negative Urine Glucose (UA) Negative Urine Ketones Negative Urine Blood 2+ A Urine Nitrite Negative Urine Bilirubin Negative Urine Urobilinogen 2.0 A Ur Leukocyte Esterase Negative Urine RBC 2-5 A Urine WBC 2-5 Urine WBC Clumps None Ur Squamous Epith Cells Few Urine Bacteria Few A SARS-CoV-2 (PCR) POSITIVE SARS-CoV-2 A Influenza Type A (PCR) Negative PCR FLU A Influenza Type B (PCR) Negative PCR FLU B RSV (PCR) Negative PCR RSV 05/21/24 06:25 WBC 21.92 H RBC 4.58 Hgb 13.8 Hct 41.6 MCV 91 MCH 30 MCHC 33 RDW Coeff of [place] Plt Count 123 L Neut % (Auto) Lymph % (Auto) [place] % (Auto) Eos % (Auto) Baso % (Auto) Neut # (Auto) Lymph # (Auto) [place] # (Auto) Eos # (Auto) Baso # (Auto) Abs Immat Gran (auto) Imm/Tot Granulo (auto) Diff Slide Review Sodium 137 Potassium 4.3 Chloride 103 Carbon Dioxide 26 Anion Gap 8 BUN 19 Creatinine 1.1 Estimated Creat Clear 49.44 Estimated GFR 65 Glucose 135 H Lactate Calcium 9.2 Magnesium Total Bilirubin 3.1 H Direct Bilirubin 0.2 AST 24 ALT 18 Alkaline Phosphatase 74 Troponin I Total Protein 6.4 Albumin 4.2 Urine Color Urine Appearance Urine pH Ur Specific [place] Urine Protein Urine Glucose (UA) Urine Ketones Urine Blood Urine Nitrite Urine Bilirubin Urine Urobilinogen Ur Leukocyte Esterase Urine RBC Urine WBC Urine WBC Clumps Ur Squamous Epith Cells Urine Bacteria SARS-CoV-2 (PCR) Influenza Type A (PCR) Influenza Type B (PCR) RSV (PCR)
[2024-05-21] MEDS: EZETIMIBE 10 MG TABLET PO (10:15)
[2024-05-21] MEDS: ISOSORBIDE MONONITRATE ER 30 MG TAB PO (10:15)
[2024-05-21] MEDS: METOPROLOL SUCCINATE (XL) 50 MG TAB PO (10:15)
[2024-05-21] MEDS: SODIUM CHLORIDE 0.9 % (FLUSH) 10 ML SYRINGE 5 ML IVF ×2 (11:05→21:54)
--- NOTE | 2024-05-21 12:06 | CRLHL7_ITS ---
For Patients: As a result of the 21st Century Cures Act, medical imaging exams and procedure reports are released immediately into your electronic medical record. You may view this report before your referring provider. If you have questions, please contact your health care provider. INDICATION: Hematemesis and abdominal distention. COMPARISON: None. TECHNIQUE: CT of the abdomen and pelvis with intravenous contrast. Multiplanar axial, coronal, and sagittal reformats were reconstructed. Contrast: 86 mL Isovue 370. FINDINGS: Lung bases: There is some respiratory motion artifact. There is bibasilar atelectasis. There is an area of nonspecific ground-glass opacification in the posterior left lower lobe. There is bilateral pleural thickening. Very heavy coronary artery calcifications. No pneumomediastinum seen inferiorly. Liver: Normal. No mass. Gallbladder and bile ducts: Normal gallbladder. No bile duct dilation. Pancreas: Normal. Spleen: Normal. Adrenal glands: Normal. Kidneys: Normal parenchyma. No cyst or solid mass. No calculi. No urinary tract dilation. Urinary bladder: Normal. Pelvis: No cyst or mass. Vessels: Very heavy atherosclerotic vascular calcifications. There is some high-grade focal stenosis at the celiac origin there appears to be due to compression by the diaphragmatic crura and not atherosclerosis. There is distal celiac artery dilatation up to 1.3 centimeters. There is about 50 percent narrowing of the proximal superior mesenteric artery due to calcified and noncalcified atherosclerotic plaque. The superior mesenteric artery and its branches are patent well into the mesentery. Likely bilateral renal artery stenosis at least moderate. No aortic aneurysm. Both external iliac and common femoral arteries are patent. No mesenteric or portal vein thrombus. The IVC and its tributaries are normal. Bowel: There is some mild thickening of the distal esophagus. Normal CT appearance of the stomach. No dilated or inflamed small bowel or colon. The appendix is not definitely discretely seen. Mild stool burden. Lymph nodes: No adenopathy. Peritoneum: No ascites or free air. Abdominal wall: No bowel containing hernia. Bones: Multilevel disc and facet degeneration. No acute or healing fractures. No focally destructive bone lesions. IMPRESSION: 1. There is some nonspecific thickening of the distal esophagus. Could be esophagitis. Consider endoscopy if there is any concern for a distal esophageal mass. 2. Nonspecific bilateral pleural thickening. Area of ground-glass opacification in the left lower lobe could be infectious or inflammatory. 3. There is about 50 percent stenosis at the SMA origin due to atherosclerosis but no findings of acute or chronic mesenteric ischemia. 4. 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 Please note that all CT scans at this facility use dose modulation, iterative reconstruction, and/or weight-based dosing when appropriate to reduce radiation dose to as low as reasonably achievable. Dictated by Concetta Tinsley MD @ 05/21/2024 1:00:22 PM (Electronically Signed)
[2024-05-21 13:00] LABS: Hematocrit 38.4 % (37.0-53.0); Hemoglobin* 12.5 gm/dL (13.5-17.5); Immature Granulocytes Pct Auto 0.2 %; Lymphocytes Percent Auto 48.2 % (20-44); Mean Corpuscular HGB Conc 33 gm/dL (32-36); Mean Corpuscular Hemoglobin 30 pg (26-34); Mean Corpuscular Volume 93 fL (80-100); Monocytes Percent Auto 4.7 % (0.0-11.0); Neutrophils Percent Auto 46.9 % (42.0-72.0); Platelet Count* 123 K/uL (140-440); RDW Coefficient of Variation % 14.3 % (11.5-15.5); Red Blood Count 4.12 m/uL (4.30-5.90); White Blood Count* 21.88 K/uL (4.50-11.00)
--- NOTE | 2024-05-21 13:02 | PC.SOCIAL ---
Discharge Planning: SW called patient's and left a voicemail with contact information to call back.
[2024-05-21 13:05] LABS: Slide Review Reflex No
[2024-05-21 13:11] LABS: Albumin* 3.7 g/dL (3.3-5.0); Chloride* 102 mmol/L (96-114)
[2024-05-21 13:12] LABS: Potassium* 4.5 mmol/L (3.6-5.1); Sodium* 134 mmol/L (135-149)
[2024-05-21 13:14] LABS: Alanine Aminotransferase* 22 U/L (4-50); Anion Gap 7 mEq/L (7-15); Aspartate Amino Transferase* 28 U/L (12-35); Blood Urea Nitrogen* 21 mg/dL (7-30); Carbon Dioxide* 25 mmol/L (20-32); Creatinine* 1.1 mg/dL (0.5-1.5); Est. Creatinine Clearance* 49.44; Estimated Glomerular Filt Rate 65 ml/min
[2024-05-21 13:15] LABS: Alkaline Phosphatase* 61 U/L (40-150); Bilirubin Total* 2.8 mg/dL (0.1-1.5); Calcium* 8.7 mg/dL (8.4-10.6); Glucose* 141 mg/dL (60-115); Total Protein* 5.8 g/dL (6.0-8.3)
[2024-05-21 13:30] LABS: Troponin I* 0.17 ng/mL (0.01-0.04)
--- NOTE | 2024-05-21 15:17 | REH.OT ---
OT/PT order received. Pt. not alert enough for evaluations today. Therapy will attempt when pt. is medically appropriate for therapy.
[2024-05-21] MEDS: 0.9 % SODIUM CHLORIDE 1000 ml 1,000 ML 75 ML IV (16:11)
[2024-05-21 18:49] LABS: Hemoglobin* 12.3 gm/dL (13.5-17.5)
[2024-05-21 19:23] LABS: Troponin I* 0.17 ng/mL (0.01-0.04)
--- NOTE | 2024-05-21 19:41 | PC.NURSE ---
Nursing Care Hours: [id number] Pt this shift very lethargic. Slept all shift but does wake up to verbal stimuli, however falls asleep during conversation. Speech slow and mumbled. Stable spo2 on RA. Difficulty swallowing thin liquids. Pt slowed swallow and cough noted. Able to take pills cut with applesauce without issue. Hospitalist made aware. Did have episode of hypoxia after emesis. Stabilized on RA after return from CT scan. HOB elevated semi fowlers. Repo every 3 hours. Incontinent void brief changed x2, barrier cream applied to groin creases and glutes for slight redness. Adventitious LS, tight dry cough. Afebrile. Tele shows Sinus arrhythmia with R BBB. EMS start IV removed, 2 new IV's placed per hospitalist request. One episode of hypotension. Manager [facility] started IV fluids and checked BP QH x2 and BP stabilized. Pt refused oral cares. Face washed by advertising writer.
[2024-05-21] MEDS: DONEPEZIL 5 MG TABLET PO (21:51)
[2024-05-21] MEDS: ATORVASTATIN CALCIUM 40 MG TABLET 80 MG PO (21:52)
--- NOTE | 2024-05-21 23:54 | PC.NURSE ---
End of shift note ([id number]): Patient pleasant, alert and cooperative with cares. No coughing on thickened water. Had difficulty taking pills cut in half in applesauce. Kept moving pills to cheek. Needed a lot of cuing and encouragement. Denied pain.
[2024-05-22] VITALS (8 sets, daily range): BP systolic 112–127; BP diastolic 58–80; PULSE 62–103; RESP 16–20; TEMP 36.3–36.7; O2SAT 92–93
[2024-05-22] MEDS: 0.9 % SODIUM CHLORIDE 1000 ml 1,000 ML 75 ML IV ×2 (05:57→20:48)
[2024-05-22 07:10] LABS: Basophils Percent Auto 0.1 % (0.0-3.0); Eosinophils Percent Auto 0.1 % (0.0-7.0); Hematocrit 39.4 % (37.0-53.0); Hemoglobin* 12.6 gm/dL (13.5-17.5); Immature Granulocytes Pct Auto 0.1 %; Lymphocytes Percent Auto 51.3 % (20-44); Mean Corpuscular HGB Conc 32 gm/dL (32-36); Mean Corpuscular Hemoglobin 30 pg (26-34); Mean Corpuscular Volume 93 fL (80-100); Neutrophils Percent Auto 43.4 % (42.0-72.0); Platelet Count* 101 K/uL (140-440); RDW Coefficient of Variation % 14.4 % (11.5-15.5); Red Blood Count 4.24 m/uL (4.30-5.90); White Blood Count* 19.15 K/uL (4.50-11.00)
[2024-05-22 07:15] LABS: Slide Review Reflex Yes
[2024-05-22 07:34] LABS: Albumin* 3.7 g/dL (3.3-5.0); Chloride* 106 mmol/L (96-114); Sodium* 138 mmol/L (135-149)
[2024-05-22 07:35] LABS: Potassium* 4.1 mmol/L (3.6-5.1)
[2024-05-22 07:37] LABS: Anion Gap 9 mEq/L (7-15); Blood Urea Nitrogen* 22 mg/dL (7-30); Carbon Dioxide* 23 mmol/L (20-32); Est. Creatinine Clearance* 54.38; Estimated Glomerular Filt Rate 72 ml/min
[2024-05-22 07:38] LABS: Alanine Aminotransferase* 18 U/L (4-50); Alkaline Phosphatase* 61 U/L (40-150); Aspartate Amino Transferase* 32 U/L (12-35); Bilirubin Direct* 0.3 mg/dL (0.0-0.5); Bilirubin Total* 2.5 mg/dL (0.1-1.5); Calcium* 8.8 mg/dL (8.4-10.6); Glucose* 115 mg/dL (60-115)
[2024-05-22 07:43] LABS: Slide Review Acceptable Review (Acceptable)
[2024-05-22 07:52] LABS: Troponin I* 0.06 ng/mL (0.01-0.04)
[2024-05-22] MEDS: METOPROLOL SUCCINATE (XL) 50 MG TAB PO (09:15)
[2024-05-22] MEDS: PANTOPRAZOLE SODIUM 40 MG INJ IVP ×2 (09:15→20:48)
[2024-05-22] MEDS: ISOSORBIDE MONONITRATE ER 30 MG TAB PO (09:15)
[2024-05-22] MEDS: SODIUM CHLORIDE 0.9 % (FLUSH) 10 ML SYRINGE 5 ML IVF ×2 (09:15→20:50)
--- NOTE | 2024-05-22 10:48 | PM.IMPN1 ---
Assessment and Plan Assessment and plan (1) Altered mental status: Problem comment: - most likely 2/2 COVID encephalopathy (h/o MCI), head CT in ER 05/20 reassuring - MRI ordered 05/22/24 - urine culture negative - improved 05/22, still has profound fatigue Status: Acute (2) COVID: Problem comment: - symptoms: fever (Tmax 100.7), encephalopathy, fatigue - not requiring oxygen supplementation or any COVID specific therapies at this time Status: Acute (3) Vomiting: Problem comment: - vomited x2 on 05/21/24, dark in color - HOLDING Eliquis and Plavix (05/21), Hemoccult stool P - reviewed with Dr. Cardenas and Dr. Gonzales of General Surgery/Endoscopy - given Hgb stability and recent Eliquis (last dose 05/20 pm), plan for EGD 05/23/24 - NPO, trial of clears difficult given dysphagia Status: Acute (4) Elevated troponin: Problem comment: - obtained during episode of vomiting, elevated at 0.17 - no chest pain or abnormalities on telemetry - peak 0.17, TTE ordered 05/22 Status: Acute (5) Swallowing difficulty: Problem comment: - noted to have some choking with swallowing water on 05/21 - TELEGRAPH PLANT MAINTAINER evaluation 05/22: + dysphagia, obtaining MRI to evaluate for CVA - on IV PPI and Endoscopy ordered for 05/23 Status: Acute (6) Elevated bilirubin: Problem comment: - noted intermittently since 2017 per chart review, rest of LFTs wnl - presumably Gilbert's, asymptomatic. 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, stable, baseline WBC 13-35; likely cause of elevated lymphocytes and thrombocytopenia - Followed by hematology Status: Acute (8) Dementia: Problem comment: - on Donepezil as an outpatient - 05/18 on MiniCog with PCP fall 2023 Status: Acute (9) Atrial fibrillation: Problem comment: - rate controlled on Metoprolol, anticoagulated on Eliquis as outpatient - HOLDING Eliquis as of 05/21/24 given possible hematemesis Status: Acute (10) Thrombocytopenia: Problem comment: - chronic, likely related to CLL history (baseline 120-140s) Status: Acute Plan - per above - family updated at bedside, questions answered, plan of care reviewed - patient continues to require inpatient management for NPO status, need for IVFs, cardiovascular and neurological evaluations Subjective Date Seen: 05/22/24 Interval history: Reddy was admitted to the hospital last on 05/20/24 for weakness and AMS in the setting of + COVID and fever. ER: negative head CT, no acute abnormalities on CXR (possible volume overload) Nursing staff has noting difficulty with swallowing (particularly thin liquids) and persistent weakness. Notable findings during admission: - on 05/21, had 2 episodes of dark emesis. CT A/P: nonspecific thickening of distal esophagus, esophagitis vs mass (Incidentally noted: atherosclerosis, possible median arcuate ligament syndrome) - Plan for EGD on 05/23 (deferred upon admission as patient takes Eliquis in the outpatient setting for atrial fibrillation, this has been ON HOLD since 05/21) - TELEGRAPH PLANT MAINTAINER visit 05/22: concern with swallowing, possible CVA given symptoms. MRI brain recommended This morning, Reddy notes a mild sore throat, no other concerns for hospitalist team. He remains fatigued but was able to get into bedside chair with ANNEALING FURNACE OPERATOR/RN assistance this morning. Therapies following. Exam Narrative: Exam Narrative: GEN: Awake and sitting in bedside chair, nontoxic HEENT: Normal external ears, no scleral icterus CV: RRR, no concerning murmurs R: LCTA bilaterally without concerning wheezing Ab: Soft, tolerates palpation Ext: wwp, no concerning edema of BLE Skin: Scattered bruising and hyperpigmentation of bilateral upper extremities, no open wounds on exposed skin Neuro: Limited exam reveals no focal deficit or resting tremor, gait not observed Psych: + psychomotor slowing, no agitation Const: Vital Signs, click to edit/add: Vital Signs - 24 hr 05/21/24 11:00 05/21/24 15:00 05/21/24 15:00 Temperature 98.7 F Pulse Rate Pulse Rate [Pulse Oximeter] 76 80 69 Respiratory Rate 22 24 Blood Pressure [Le ft Arm] Blood Pressure [Ri ght Arm] 126/63 79/48 L Pulse Oximetry 85 L 94 Oxygen Delivery Me thod Room Air 05/21/24 15:55 05/21/24 16:17 05/21/24 16:20 Temperature 97.6 F Pulse Rate 70 68 Pulse Rate [Pulse Oximeter] 77 Respiratory Rate 24 Blood Pressure [Le ft Arm] 99/57 L Blood Pressure [Ri ght Arm] 103/52 L Pulse Oximetry 91 Oxygen Delivery Me thod Room Air 05/21/24 19:00 05/21/24 23:48 05/22/24 04:00 Temperature 97.5 F L 98.1 F Pulse Rate 72 Pulse Rate [Pulse Oximeter] 72 71 Respiratory Rate 21 20 Blood Pressure [Le ft Arm] 107/49 L 127/72 Blood Pressure [Ri ght Arm] Pulse Oximetry 93 92 Oxygen Delivery Me thod Room Air Room Air 05/22/24 07:00 05/22/24 08:19 05/22/24 08:21 Temperature 97.4 F L Pulse Rate 70 Pulse Rate [Pulse Oximeter] 66 66 Respiratory Rate 20 20 Blood Pressure [Le ft Arm] 123/62 Blood Pressure [Ri ght Arm] Pulse Oximetry 92 Oxygen Delivery Me thod Room Air Labs Labs: Laboratory Results - last 24 hr 05/21/24 05/21/24 05/21/24 06:25 12:19 12:47 WBC 21.88 H RBC 4.12 L Hgb 12.5 L Hct 38.4 MCV 93 MCH 30 MCHC 33 RDW Coeff of Joyce 14.3 Plt Count 123 L Neut % (Auto) 46.9 Lymph % (Auto) 48.2 H Hodgeman % (Auto) 4.7 Eos % (Auto) 0.0 Baso % (Auto) 0.0 Neut # (Auto) 10.30 H Lymph # (Auto) 10.50 H Hodgeman # (Auto) 1.00 H Eos # (Auto) 0.00 Baso # (Auto) 0.00 Abs Immat Gran (auto) 0.00 Imm/Tot Granulo (auto) 0.2 Diff Slide Review Sodium 134 L Potassium 4.5 Chloride 102 Carbon Dioxide 25 Anion Gap 7 BUN 21 Creatinine 1.1 Estimated Creat Clear 49.44 Estimated GFR 65 Glucose 141 H Calcium 8.7 Total Bilirubin 2.8 H Direct Bilirubin AST 28 ALT 22 Alkaline Phosphatase 61 Troponin I 0.17 H* Total Protein 5.8 L Albumin 3.7 Lab Acknowledgement Test Added Blood Type A Positive Antibody Screen NEGATIVE 05/21/24 05/22/24 05/22/24 18:41 07:03 07:03 WBC 19.15 H RBC 4.24 L Hgb 12.3 L 12.6 L Hct 39.4 MCV 93 MCH 30 MCHC 32 RDW Coeff of Joyce 14.4 Plt Count 101 L Neut % (Auto) 43.4 Lymph % (Auto) 51.3 H Hodgeman % (Auto) 5.0 Eos % (Auto) 0.1 Baso % (Auto) 0.1 Neut # (Auto) 8.30 H Lymph # (Auto) 9.80 H Hodgeman # (Auto) 1.00 H Eos # (Auto) 0.00 Baso # (Auto) 0.00 Abs Immat Gran (auto) 0.00 Imm/Tot Granulo (auto) 0.1 Diff Slide Review Acceptable Review Sodium 138 Potassium 4.1 Chloride 106 Carbon Dioxide 23 Anion Gap 9 BUN 22 Creatinine 1.0 Estimated Creat Clear 54.38 Estimated GFR 72 Glucose 115 Calcium 8.8 Total Bilirubin 2.5 H Cancelled Direct Bilirubin 0.3 AST ALT Alkaline Phosphatase Troponin I 0.17 H* Total Protein Albumin Lab Acknowledgement Blood Type Antibody Screen 05/22/24 05/22/24 05/22/24 07:03 07:03 07:03 WBC RBC Hgb Hct MCV MCH MCHC RDW Coeff of Joyce Plt Count Neut % (Auto) Lymph % (Auto) Hodgeman % (Auto) Eos % (Auto) Baso % (Auto) Neut # (Auto) Lymph # (Auto) Hodgeman # (Auto) Eos # (Auto) Baso # (Auto) Abs Immat Gran (auto) Imm/Tot Granulo (auto) Diff Slide Review Sodium Potassium Chloride Carbon Dioxide Anion Gap BUN Creatinine Estimated Creat Clear Estimated GFR Glucose Calcium Total Bilirubin Direct Bilirubin Cancelled AST 32 Cancelled ALT 18 Cancelled Alkaline Phosphatase 61 Troponin I Total Protein Albumin Lab Acknowledgement Blood Type Antibody Screen 05/22/24 05/22/24 05/22/24 07:03 07:03 07:03 WBC RBC Hgb Hct MCV MCH MCHC RDW Coeff of Joyce Plt Count Neut % (Auto) Lymph % (Auto) Hodgeman % (Auto) Eos % (Auto) Baso % (Auto) Neut # (Auto) Lymph # (Auto) Hodgeman # (Auto) Eos # (Auto) Baso # (Auto) Abs Immat Gran (auto) Imm/Tot Granulo (auto) Diff Slide Review Sodium Potassium Chloride Carbon Dioxide Anion Gap BUN Creatinine Estimated Creat Clear Estimated GFR Glucose Calcium Total Bilirubin Direct Bilirubin AST ALT Alkaline Phosphatase Cancelled Troponin I 0.06 H* Total Protein 6.0 Cancelled Albumin 3.7 Cancelled Lab Acknowledgement Blood Type Antibody Screen
--- NOTE | 2024-05-22 11:30 | CRLHL7_ITS ---
For Patients: As a result of the Century Cures Act, medical imaging exams and procedure reports are released immediately into your electronic medical record. You may view this report before your referring provider. If you have questions, please contact your health care provider. Indication: Altered mental status. Fatigue. Technique: Multiplanar, multisequence MRI of the brain was performed without intravenous contrast. Comparison: CT head 05/20/2024. Findings: Mild to moderate patient motion related artifact. Mild thinning of the corpus callosum. The pituitary gland clivus appear intact. Moderate degenerative change visualized upper cervical spine. There is no restricted diffusion. Punctate chronic microhemorrhage left centrum semiovale. The ventricles are proportionate to the cerebral sulci. The 4th ventricle appears midline. The basal cisterns appear patent. No abnormal extra-axial fluid collection identified. Moderate parenchymal volume loss. Moderate T2 FLAIR hyperintense foci within the subcortical and periventricular white matter, favored to represent chronic ischemic microvascular disease. There is no intracranial mass, abnormal mass-effect or midline shift identified. Major intracranial vascular flow voids appear grossly intact. Thinning of the ocular lenses. Mild paranasal sinus mucosal disease. Impression: 1. No acute/subacute infarct. 2. Moderate chronic ischemic microvascular disease. Dictated by Josias Mora MD @ 05/22/2024 5:47:40 PM (Electronically Signed)
--- NOTE | 2024-05-22 14:58 | PC.NURSE ---
end of shift. pt has been pleasant and confused. he is alert to self. he has dementia. he is up with 1 assist walker and GB. Iv is patent. swallow eval was done. he needs thicket. and supervised swallowing. Pt has weak, nonproductive cough. he is coughing on thickened liquids. he had a echo today and is getting a MRI today. no nausea. family is here.
[2024-05-22] MEDS: DONEPEZIL 5 MG TABLET PO (20:48)
[2024-05-22] MEDS: ATORVASTATIN CALCIUM 40 MG TABLET 80 MG PO (20:48)
--- NOTE | 2024-05-22 22:38 | PC.NURSE ---
Pt pleasant and cooperative. A&Ox3, intermittently forgetful, easily redirectable. Pt requires full assistance with food and beverage, needs multiple cues to successfully swallow. VSS. Denies pain. Tolerating ambulation with one assist and walker, no SOB with activity. Cough is still present. No emesis this shift.
[2024-05-23] VITALS (10 sets, daily range): BP systolic 105–125; BP diastolic 63–81; PULSE 74–100; RESP 16–20; TEMP 36.2–36.6; O2SAT 94–96
[2024-05-23 06:37] LABS: Basophils Percent Auto 0.1 % (0.0-3.0); Eosinophils Percent Auto 0.2 % (0.0-7.0); Hematocrit 37.1 % (37.0-53.0); Hemoglobin* 11.9 gm/dL (13.5-17.5); Immature Granulocytes Pct Auto 0.4 %; Lymphocytes Percent Auto 54.1 % (20-44); Mean Corpuscular HGB Conc 32 gm/dL (32-36); Mean Corpuscular Hemoglobin 30 pg (26-34); Mean Corpuscular Volume 93 fL (80-100); Monocytes Percent Auto 6.1 % (0.0-11.0); Neutrophils Percent Auto 39.1 % (42.0-72.0); Platelet Count* 106 K/uL (140-440); RDW Coefficient of Variation % 14.4 % (11.5-15.5); Red Blood Count 4.01 m/uL (4.30-5.90); White Blood Count* 15.06 K/uL (4.50-11.00)
--- NOTE | 2024-05-23 06:39 | NUTR.NU ---
23-: pleasant and cooperative. incont. no BM since admission, senna ordered prn. moist productive cough, thick sputum - suction and yankauer used to assist in sputum clearance. thickened liquids, tolerated well. pt appears stronger from previous night, able to assist with repositions and brief changes.
[2024-05-23 06:57] LABS: Chloride* 108 mmol/L (96-114)
[2024-05-23 06:58] LABS: Albumin* 3.3 g/dL (3.3-5.0); Potassium* 4.1 mmol/L (3.6-5.1); Sodium* 138 mmol/L (135-149)
[2024-05-23 07:00] LABS: Alanine Aminotransferase* 17 U/L (4-50); Anion Gap 5 mEq/L (7-15); Aspartate Amino Transferase* 35 U/L (12-35); Blood Urea Nitrogen* 23 mg/dL (7-30); Carbon Dioxide* 25 mmol/L (20-32); Est. Creatinine Clearance* 54.38; Estimated Glomerular Filt Rate 72 ml/min
[2024-05-23 07:01] LABS: Alkaline Phosphatase* 58 U/L (40-150); Bilirubin Total* 2.3 mg/dL (0.1-1.5); Calcium* 8.5 mg/dL (8.4-10.6); Glucose* 100 mg/dL (60-115); Total Protein* 5.6 g/dL (6.0-8.3)
[2024-05-23 07:41] LABS: Slide Review Reflex Yes
[2024-05-23 07:43] LABS: Slide Review Acceptable Review (Acceptable)
--- NOTE | 2024-05-23 07:50 | P.IMPN_ITS ---
Assessment and Plan Assessment and plan (1) Altered mental status: Problem comment: - most likely 2/2 COVID encephalopathy (h/o MCI), head CT in ER 05/20 reassuring - MRI 05/22/24: negative - urine culture negative - improved 05/22, still fatigued Status: Acute (2) COVID: Problem comment: - symptoms: fever (Tmax 100.7), encephalopathy, fatigue - not requiring oxygen supplementation or any COVID specific therapies at this time Status: Acute (3) Vomiting: Problem comment: - vomited x2 on 05/21/24, dark in color - HOLDING Eliquis and Plavix (05/21) - Hgb stable (11-12) - EGD 05/23: esophagitis, biopsies obtained and pending Status: Acute (4) Elevated troponin: Problem comment: - obtained during episode of vomiting, elevated at 0.17 - no chest pain or abnormalities on telemetry - peak 0.17, TTE ordered 05/22 Final Impressions: 1. Normal LV size, borderline wall thickness, estimated EF of 50 - 55%. 2. Mild RV enlargement, mildly reduced systolic function. 3. No significant valve disease detected. 4. Dilated sinus of Valsalva, diameter of 4.2 cm (upper limt of normal for age, sex, and BSA is 4.1 cm*), Height Index 2.49 cm/m. Status: Acute (5) Swallowing difficulty: Problem comment: - noted to have some choking with swallowing water on 05/21 - MARKETING COMMUNICATIONS COORDINATOR evaluation 05/22: + dysphagia, MRI negative for CVA - on IV PPI, + esophagitis on EGD 05/23/24 Status: Acute (6) Elevated bilirubin: Problem comment: - noted intermittently since 2018 per chart review, rest of LFTs wnl - presumably Gilbert's, asymptomatic. 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, stable, baseline WBC 13-35; likely cause of elevated lymphocytes and thrombocytopenia - Followed by hematology Status: Acute (8) Dementia: Problem comment: - on Donepezil as an outpatient - 05/18 on MiniCog with PCP fall 2023 Status: Acute (9) Atrial fibrillation: Problem comment: - rate controlled on Metoprolol, anticoagulated on Eliquis as outpatient - HOLDING Eliquis as of 05/21/24 given possible hematemesis, plan to restart 05/24 post EGD Status: Acute (10) Thrombocytopenia: Problem comment: - chronic, likely related to CLL history (baseline 120-140s, currently 106) Status: Acute Plan - per above - continues to require inpatient stay given dysphagia, UGIB workup, therapy evaluations - family updated at bedside, questions answered Subjective Date Seen: 05/23/24 Interval history: Reddy was admitted to the hospital last on 05/20/24 for weakness and AMS in the setting of + COVID and fever. ER: negative head CT, no acute abnormalities on CXR (possible volume overload) Since admission: - on 05/21, had 2 episodes of dark emesis. 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 No chest pain - MARKETING COMMUNICATIONS COORDINATOR visit 05/22: concern with swallowing, possible CVA given symptoms. MRI brain obtained to r/o CVA: negative for acute/subacute infarct - 05/23: EGD exhibited esophagitis of lower 1/3 of esophagus, biopsies obtained - therapies following, currently SNF stay recommended given weakness This morning, Reddy has no concerns for the hospitalist team. He is hungry. No complaints of pain. Exam Narrative: Exam Narrative: GEN: Awake and alert, sitting comfortably in bedside chair HEENT: EOMIs bilaterally, no scleral icterus CV: RRR, No concerning murmurs R: LCTA bilaterally without concerning wheezing Ab: Soft, tolerates palpation Ext: wwp, no concerning edema Skin: Hyperpigmentation/bruising of bilateral upper extremities, stable/chronic Neuro: No focal deficits, no resting tremor Psych: MCI without agitation Const: Vital Signs, click to edit/add: Vital Signs - 24 hr 05/22/24 08:19 05/22/24 08:21 05/22/24 13:20 Temperature 97.4 F L 98.0 F Pulse Rate Pulse Rate [Pulse Oximeter] 66 66 62 Respiratory Rate 20 20 20 Blood Pressure [Le ft Arm] 123/62 118/58 L Pulse Oximetry 92 92 Oxygen Delivery Me thod Room Air Room Air 05/22/24 15:00 04/09/25 15:00 05/22/24 15:00 Temperature 97.8 F Pulse Rate 96 Pulse Rate [Pulse Oximeter] 95 Respiratory Rate 16 16 Blood Pressure [Le ft Arm] 126/58 L Pulse Oximetry 93 Oxygen Delivery Me thod 05/22/24 20:01 05/22/24 23:00 05/23/24 00:26 Temperature 97.7 F Pulse Rate 81 Pulse Rate [Pulse Oximeter] 103 H 86 Respiratory Rate 16 16 Blood Pressure [Le ft Arm] 112/80 Pulse Oximetry 93 Oxygen Delivery Me thod Room Air 05/23/24 03:00 Temperature 97.7 F Pulse Rate Pulse Rate [Pulse Oximeter] 87 Respiratory Rate 18 Blood Pressure [Le ft Arm] 109/77 Pulse Oximetry 94 Oxygen Delivery Me thod Room Air Labs Labs: Laboratory Results - last 24 hr 05/22/24 05/22/24 05/23/24 07:03 12:05 06:25 WBC 15.06 H RBC 4.01 L Hgb 11.9 L Hct 37.1 MCV 93 MCH 30 MCHC 32 RDW Coeff of Joyce 14.4 Plt Count 106 L Neut % (Auto) 39.1 L Lymph % (Auto) 54.1 H [place]verse % (Auto) 6.1 Eos % (Auto) 0.2 Baso % (Auto) 0.1 Neut # (Auto) 5.90 Lymph # (Auto) 8.10 H [place]verse # (Auto) 0.90 Eos # (Auto) 0.00 Baso # (Auto) 0.00 Abs Immat Gran (auto) 0.10 Imm/Tot Granulo (auto) 0.4 Diff Slide Review Acceptable Review Sodium 138 Potassium 4.1 Chloride 108 Carbon Dioxide 25 Anion Gap 5 L BUN 23 Creatinine 1.0 Estimated Creat Clear 54.38 Estimated GFR 72 Glucose 100 Calcium 8.5 Total Bilirubin 2.3 H AST 35 ALT 17 Alkaline Phosphatase 58 Troponin I 0.06 H* Total Protein 5.6 L Albumin 3.3 TSH 2.280 Lab Acknowledgement Test Added
--- NOTE | 2024-05-23 11:00 | P.ANES_ITS ---
Anesthesia Charges Start Date/Time Anesthesia Start Date: 05/23/24 Anesthesia Start Time: 10:41 Stop Date/Time Anesthesia Stop Date: 05/23/24 Anesthesia Stop Time: 10:56 Summary Extremes of Age - Over 70 or under 1: DYE BLENDER Coding CPT Codes CPT Codes: ANES UPR GI NDSC PX NOS - 48627 ([id number]) P3 - PATIENT W/SEVERE SYS DISEASE, QZ - DYE BLENDER SVC W/O COTTON BUYER BY Additional Codes: Summary - Extremes of Age - Over 70 or under 1: DYE BLENDER ([id number])
--- NOTE | 2024-05-23 11:00 | W.ANESCHARGE ---
Anesthesia Charges Start Date/Time Anesthesia Start Date: 05/23/24 Anesthesia Start Time: 10:41 Stop Date/Time Anesthesia Stop Date: 05/23/24 Anesthesia Stop Time: 10:56 Summary Extremes of Age - Over 70 or under 1: BUTADIENE COMPRESSOR OPERATOR Coding CPT Codes CPT Codes: ANES UPR GI NDSC PX NOS - 46793 ([id number]) P3 - PATIENT W/SEVERE SYS DISEASE, QZ - BUTADIENE COMPRESSOR OPERATOR SVC W/O CABLE MECHANIC BY Additional Codes: Summary - Extremes of Age - Over 70 or under 1: BUTADIENE COMPRESSOR OPERATOR ([id number])
[2024-05-23] MEDS: PANTOPRAZOLE SODIUM 40 MG INJ IVP ×2 (11:44→20:33)
[2024-05-23] MEDS: ISOSORBIDE MONONITRATE ER 30 MG TAB PO (11:45)
[2024-05-23] MEDS: SODIUM CHLORIDE 0.9 % (FLUSH) 10 ML SYRINGE 5 ML IVF ×2 (11:45→20:33)
[2024-05-23] MEDS: METOPROLOL SUCCINATE (XL) 50 MG TAB PO (11:45)
--- NOTE | 2024-05-23 18:11 | PC.NURSE ---
End of Shift: Patient pleasant and cooperative. Patient vitally stable, lungs course/rhonchi, BS WNL, IV SL and intact. Patient oriented to self only, and slow to respond to questions, aphasic. Patient denies pain, tolerating pureed diet with moderately thick liquids. When feeding, only giving patient about half a spoonful of food. Patient has not urinated, bladder scan most was 175cc. Patient has been up in chair all shift. Tele=A.fib w/ BBB.
[2024-05-23] MEDS: DONEPEZIL 5 MG TABLET PO (20:33)
[2024-05-23] MEDS: ATORVASTATIN CALCIUM 40 MG TABLET 80 MG PO (20:33)
[2024-05-24] VITALS (7 sets, daily range): BP systolic 101–121; BP diastolic 61–82; PULSE 72–100; RESP 18–23; TEMP 36.4–36.6; O2SAT 95–96
--- NOTE | 2024-05-24 06:13 | PC.NURSE ---
19-07: pleasant and cooperative. A x 1 with gb and walker to BR, pt needed frequent direction. tolerating thickened fluids. productive moist cough, encouraging deep breathing exercises.
[2024-05-24 06:35] LABS: Basophils Percent Auto 0.1 % (0.0-3.0); Eosinophils Percent Auto 0.9 % (0.0-7.0); Hematocrit 36.4 % (37.0-53.0); Hemoglobin* 11.9 gm/dL (13.5-17.5); Immature Granulocytes Pct Auto 0.2 %; Lymphocytes Percent Auto 57.9 % (20-44); Mean Corpuscular HGB Conc 33 gm/dL (32-36); Mean Corpuscular Hemoglobin 30 pg (26-34); Mean Corpuscular Volume 92 fL (80-100); Monocytes Percent Auto 5.6 % (0.0-11.0); Neutrophils Percent Auto 35.3 % (42.0-72.0); Platelet Count* 113 K/uL (140-440); RDW Coefficient of Variation % 14.3 % (11.5-15.5); Red Blood Count 3.94 m/uL (4.30-5.90); White Blood Count* 12.57 K/uL (4.50-11.00)
[2024-05-24 06:47] LABS: Slide Review Reflex Yes
[2024-05-24 06:48] LABS: Albumin* 3.3 g/dL (3.3-5.0); Chloride* 107 mmol/L (96-114); Potassium* 3.8 mmol/L (3.6-5.1); Sodium* 138 mmol/L (135-149)
[2024-05-24 06:51] LABS: Alanine Aminotransferase* 19 U/L (4-50); Alkaline Phosphatase* 54 U/L (40-150); Anion Gap 4 mEq/L (7-15); Aspartate Amino Transferase* 43 U/L (12-35); Bilirubin Total* 2.3 mg/dL (0.1-1.5); Blood Urea Nitrogen* 23 mg/dL (7-30); Carbon Dioxide* 27 mmol/L (20-32); Creatinine* 1.1 mg/dL (0.5-1.5); Est. Creatinine Clearance* 49.44; Estimated Glomerular Filt Rate 65 ml/min; Total Protein* 5.7 g/dL (6.0-8.3)
[2024-05-24 06:52] LABS: Calcium* 8.6 mg/dL (8.4-10.6); Glucose* 100 mg/dL (60-115)
[2024-05-24 08:40] LABS: Slide Review Acceptable Review (Acceptable)
[2024-05-24] MEDS: PANTOPRAZOLE SODIUM 40 MG INJ IVP (08:45)
[2024-05-24] MEDS: METOPROLOL SUCCINATE (XL) 50 MG TAB PO (08:46)
[2024-05-24] MEDS: ISOSORBIDE MONONITRATE ER 30 MG TAB PO (08:46)
[2024-05-24] MEDS: SODIUM CHLORIDE 0.9 % (FLUSH) 10 ML SYRINGE 5 ML IVF ×2 (08:47→21:47)
--- NOTE | 2024-05-24 11:52 | PM.IMPN1 ---
Assessment and Plan Assessment and plan (1) COVID: Problem comment: - symptoms: fever (Tmax 100.7), encephalopathy, fatigue - not requiring oxygen supplementation or any COVID specific therapies at this time Status: Acute (2) Altered mental status: Problem comment: - most likely 2/2 COVID encephalopathy (h/o MCI), head CT in ER 05/20 reassuring - MRI 05/22/24: negative - urine culture negative - continuing to improve daily Status: Acute (3) Vomiting: Problem comment: - vomited x2 on 05/21/24, dark in color - HOLDING Eliquis and Plavix (05/21) - Hgb stable (11-12) - EGD 05/23: esophagitis, biopsies obtained and pending - on PPI Status: Acute (4) Elevated troponin: Problem comment: - obtained during episode of vomiting, elevated at 0.17 - no chest pain or abnormalities on telemetry - peak 0.17, TTE ordered 05/22 Final Impressions: 1. Normal LV size, borderline wall thickness, estimated EF of 50 - 55%. 2. Mild RV enlargement, mildly reduced systolic function. 3. No significant valve disease detected. 4. Dilated sinus of Valsalva, diameter of 4.2 cm (upper limt of normal for age, sex, and BSA is 4.1 cm*), Height Index 2.49 cm/m. 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, stable, baseline WBC 13-35; likely cause of elevated lymphocytes and thrombocytopenia - Followed by hematology Status: Acute (8) Dementia: Problem comment: - on Donepezil as an outpatient - 05/18 on MiniCog with PCP fall 2023 Status: Acute (9) Atrial fibrillation: Problem comment: - rate controlled on Metoprolol, anticoagulated on Eliquis as outpatient - HELD Eliquis starting 05/21/24 for EGD, restarting 05/24 Status: Acute (10) Thrombocytopenia: Problem comment: - chronic, 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 ER: negative head CT, no acute abnormalities on CXR (possible volume overload) Since admission: - on 05/21, had 2 episodes of dark emesis. 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 No chest pain - COTTON SEED CULLER visit 05/22: concern with swallowing, possible CVA given symptoms. MRI brain obtained to r/o CVA: negative for acute/subacute infarct - 05/23: EGD exhibited esophagitis of lower 1/3 of esophagus, biopsies obtained - therapies following for weakness This morning, Reddy has no concerns for the hospitalist team. He is tolerating a moist/minced diet and thickened liquids. He is slowly regaining strength. + BM overnight Exam Narrative: Exam Narrative: GEN: Alert and sitting comfortably in bedside chair, playing cards when I see hi HEENT: EOMIs bilaterally, no scleral icterus CV: RRR, No concerning murmurs R: LCTA bilaterally without concerning wheezing Ext: wwp, no concerning edema Skin: Scattered bruising and hyperpigmentation of BUEs Neuro: No focal deficits or resting tremor Psych: MCI apparent, no agitation Const: Vital Signs, click to edit/add: Vital Signs - 24 hr 05/23/24 15:43 05/23/24 15:43 05/23/24 16:55 Temperature 97.2 F L Pulse Rate 89 Pulse Rate [Pulse Oximeter] 93 93 Respiratory Rate 16 16 Blood Pressure [Le ft Arm] 108/63 Pulse Oximetry 94 Oxygen Delivery Me thod Room Air 05/23/24 19:30 05/23/24 22:35 05/23/24 22:35 Temperature 97.5 F L 97.3 F L Pulse Rate Pulse Rate [Pulse Oximeter] 74 85 Respiratory Rate 16 16 16 Blood Pressure [Le ft Arm] 105/72 115/73 Pulse Oximetry 96 95 Oxygen Delivery [facility] Room Air Room Air 05/23/24 23:37 05/24/24 03:00 05/24/24 07:25 Temperature Pulse Rate 90 96 Pulse Rate [Pulse Oximeter] 82 Respiratory Rate Blood Pressure [Le ft Arm] Pulse Oximetry [facility] 05/24/[facility] 07:43 Temperature 97.8 F Pulse Rate Pulse Rate [Pulse Oximeter] 100 Respiratory Rate 18 Blood Pressure [Le ft Arm] 118/68 Pulse Oximetry 95 Oxygen Delivery [facility] Room Air Labs Labs: Laboratory Results - last 24 hr 05/24/24 06:10 WBC 12.57 H RBC 3.94 L Hgb 11.9 L Hct 36.4 L MCV 92 MCH 30 MCHC 33 RDW Coeff of Joyce 14.3 Plt Count 113 L Neut % (Auto) 35.3 L Lymph % (Auto) 57.9 H [place] % (Auto) 5.6 Eos % (Auto) 0.9 Baso % (Auto) 0.1 Neut # (Auto) 4.40 Lymph # (Auto) 7.30 H [place] # (Auto) 0.70 Eos # (Auto) 0.10 Baso # (Auto) 0.00 Abs Immat Gran (auto) 0.00 Imm/Tot Granulo (auto) 0.2 Diff Slide Review Acceptable Review Sodium 138 Potassium 3.8 Chloride 107 Carbon Dioxide 27 Anion Gap 4 L BUN 23 Creatinine 1.1 Estimated Creat Clear 49.44 Estimated GFR 65 Glucose 100 Calcium 8.6 Total Bilirubin 2.3 H AST 43 H ALT 19 Alkaline Phosphatase 54 Total Protein 5.7 L Albumin 3.3
--- NOTE | 2024-05-24 18:23 | PC.NURSE ---
Pt pleasant to care for. VSS. Denied pain. Poor appetite this shift. Ambulating well with A1/walker in room. Pt is noted to have reddened hive-like patches on bilateral flanks, provider notified, no new orders. Will continue to monitor.
[2024-05-24] MEDS: ATORVASTATIN CALCIUM 40 MG TABLET 80 MG PO (21:42)
[2024-05-24] MEDS: APIXABAN 5 MG TABLET 2.5 MG PO (21:43)
[2024-05-24] MEDS: DONEPEZIL 5 MG TABLET PO (21:44)
[2024-05-24] MEDS: OMEPRAZOLE 20 MG CAPSULE DR PO (21:44)
[2024-05-25] VITALS (7 sets, daily range): BP systolic 95–131; BP diastolic 61–79; PULSE 75–98; RESP 16–19; TEMP 36.3–36.7; O2SAT 94–96
--- NOTE | 2024-05-25 06:46 | PC.NURSE ---
Shift note ([id number]): Patient pleasant and alert. Tolerated moderately thickened liquids. Ambulated with walker, gait belt and assist of one. Denied pain. ?IV in right antecubital d/c due to redness at site. IV in right wrist intact and patent. ?
[2024-05-25 08:20] LABS: Basophils Percent Auto 0.1 % (0.0-3.0); Eosinophils Percent Auto 1.7 % (0.0-7.0); Hematocrit 36.6 % (37.0-53.0); Hemoglobin* 11.9 gm/dL (13.5-17.5); Immature Granulocytes Pct Auto 0.1 %; Lymphocytes Percent Auto 60.8 % (20-44); Mean Corpuscular HGB Conc 33 gm/dL (32-36); Mean Corpuscular Hemoglobin 30 pg (26-34); Mean Corpuscular Volume 92 fL (80-100); Monocytes Percent Auto 4.9 % (0.0-11.0); Neutrophils Percent Auto 32.4 % (42.0-72.0); Platelet Count* 127 K/uL (140-440); RDW Coefficient of Variation % 14.3 % (11.5-15.5); Red Blood Count 3.98 m/uL (4.30-5.90)
[2024-05-25 08:26] LABS: Slide Review Reflex No
[2024-05-25 08:31] LABS: Albumin* 3.5 g/dL (3.3-5.0); Chloride* 106 mmol/L (96-114); Sodium* 139 mmol/L (135-149)
[2024-05-25 08:32] LABS: Potassium* 3.8 mmol/L (3.6-5.1)
[2024-05-25 08:34] LABS: Alanine Aminotransferase* 21 U/L (4-50); Alkaline Phosphatase* 58 U/L (40-150); Anion Gap 8 mEq/L (7-15); Aspartate Amino Transferase* 38 U/L (12-35); Bilirubin Total* 1.7 mg/dL (0.1-1.5); Blood Urea Nitrogen* 21 mg/dL (7-30); Carbon Dioxide* 25 mmol/L (20-32); Creatinine* 1.1 mg/dL (0.5-1.5); Est. Creatinine Clearance* 49.44; Estimated Glomerular Filt Rate 65 ml/min; Total Protein* 5.8 g/dL (6.0-8.3)
[2024-05-25 08:35] LABS: Calcium* 8.7 mg/dL (8.4-10.6); Glucose* 102 mg/dL (60-115)
[2024-05-25] MEDS: EZETIMIBE 10 MG TABLET PO (08:40)
[2024-05-25] MEDS: METOPROLOL SUCCINATE (XL) 50 MG TAB PO (08:40)
[2024-05-25] MEDS: OMEPRAZOLE 20 MG CAPSULE DR PO ×2 (08:40→20:31)
[2024-05-25] MEDS: SODIUM CHLORIDE 0.9 % (FLUSH) 10 ML SYRINGE 5 ML IVF ×2 (08:40→20:34)
[2024-05-25] MEDS: ISOSORBIDE MONONITRATE ER 30 MG TAB PO (08:40)
[2024-05-25] MEDS: CLOPIDOGREL 75 MG TABLET PO (08:40)
[2024-05-25] MEDS: APIXABAN 5 MG TABLET 2.5 MG PO ×2 (08:40→20:32)
--- NOTE | 2024-05-25 09:34 | P.IMPN_ITS ---
Assessment and Plan Assessment and plan (1) COVID: Problem comment: - symptoms: fever (Tmax 100.7), encephalopathy, fatigue - not requiring oxygen supplementation or any COVID specific therapies at this time Status: Acute (2) Altered mental status: Problem comment: - most likely 2/2 COVID encephalopathy (h/o MCI), head CT in ER 05/20 reassuring - MRI 05/22/24: negative - urine culture negative - continuing to improve daily Status: Acute (3) Vomiting: Problem comment: - vomited x2 on 05/21/24, dark in color - HOLDING Eliquis and Plavix (05/21) - Hgb stable (11-12) - EGD 05/23: esophagitis, biopsies obtained and pending - on PPI Status: Acute (4) Elevated troponin: Problem comment: - obtained during episode of vomiting, elevated at 0.17 - no chest pain or abnormalities on telemetry - peak 0.17, TTE ordered 05/22 Final Impressions: 1. Normal LV size, borderline wall thickness, estimated EF of 50 - 55%. 2. Mild RV enlargement, mildly reduced systolic function. 3. No significant valve disease detected. 4. Dilated sinus of Valsalva, diameter of 4.2 cm (upper limt of normal for age, sex, and BSA is 4.1 cm*), Height Index 2.49 cm/m. 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, stable, baseline WBC 13-35; likely cause of elevated lymphocytes and thrombocytopenia - Followed by hematology Status: Acute (8) Dementia: Problem comment: - on Donepezil as an outpatient - 05/18 on MiniCog with PCP fall 2023 Status: Acute (9) Atrial fibrillation: Problem comment: - rate controlled on Metoprolol, anticoagulated on Eliquis as outpatient - HELD Eliquis starting 05/21/24 for EGD - restarted Eliquis 05/24 Status: Acute (10) Thrombocytopenia: Problem comment: - chronic, likely related to CLL history (baseline 120-140s, currently 106) Status: Acute (11) Rash: Problem comment: - noted 05/24 on back, not pruritic or painful, no other symptoms of allergies - does not appear infectious or vasculitic in nature, continue to follow Status: Acute Plan - per above - continue therapies in the hospital, may need SNF pending course/improvement - and sons updated bedside, questions answered Subjective Date Seen: 05/25/24 Interval history: Reddy was admitted to the hospital on 05/20/24 for weakness and AMS in the setting of + COVID and fever. ER: negative head CT, no acute abnormalities on CXR (possible volume overload) Since admission: - on 05/21, had 2 episodes of dark emesis. 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 No chest pain - MONOGRAM MACHINE OPERATOR visit 05/22: concern with swallowing, possible CVA given symptoms. MRI brain obtained to r/o CVA: negative for acute/subacute infarct - 05/23: EGD exhibited esophagitis of lower 1/3 of esophagus, biopsies obtained and pending - therapies following for weakness, may require SNF stay Reddy is tolerating a moist/minced diet and thickened liquids. + bowel function He is slowly regaining strength. Nursing staff has noted a rash on back, patient has no pruritus or pain. Exam Narrative: Exam Narrative: GEN: Alert and oriented, sitting comfortably in bedside chair HEENT: EOMIs bilaterally, no scleral icterus CV: RRR, No concerning murmurs, rubs, or gallops R: LCTA bilaterally without concerning wheezing Ab: soft and nontender to palpation Ext: wwp, no concerning edema Skin: Flat, blanching dark pink reticular rash on lower back without vesicular features, no ttp Neuro: No focal deficits Psych: Appropriate Const: Vital Signs, click to edit/add: Vital Signs - 24 hr 05/24/24 11:00 05/24/24 15:00 05/24/24 15:00 Temperature 97.8 F Pulse Rate [Pulse Oximeter] 72 72 82 Respiratory Rate 18 18 18 Blood Pressure [Le ft Arm] 101/64 112/71 Blood Pressure [Ri ght Arm] Pulse Oximetry 95 96 Oxygen Delivery Me thod Room Air Room Air 05/24/24 19:00 05/24/24 23:00 05/25/24 03:00 Temperature 97.9 F 97.5 F L 98.1 F Pulse Rate [Pulse Oximeter] 81 83 75 Respiratory Rate 23 18 19 Blood Pressure [Le ft Arm] 110/61 121/82 95/62 Blood Pressure [Ri ght Arm] Pulse Oximetry 96 96 95 Oxygen Delivery Me thod Room Air Room Air Room Air 05/25/24 08:30 Temperature 97.7 F Pulse Rate [Pulse Oximeter] 78 Respiratory Rate 18 Blood Pressure [Le ft Arm] Blood Pressure [Ri ght Arm] 121/79 Pulse Oximetry 94 Oxygen Delivery Me thod Room Air Labs Labs: Laboratory Results - last 24 hr 05/25/24 08:00 WBC 13.20 H RBC 3.98 L Hgb 11.9 L Hct 36.6 L MCV 92 MCH 30 MCHC 33 RDW Coeff of Joyce 14.3 Plt Count 127 L Neut % (Auto) 32.4 L Lymph % (Auto) 60.8 H [place] % (Auto) 4.9 Eos % (Auto) 1.7 Baso % (Auto) 0.1 Neut # (Auto) 4.30 Lymph # (Auto) 8.00 H [place] # (Auto) 0.60 Eos # (Auto) 0.20 Baso # (Auto) 0.00 Abs Immat Gran (auto) 0.00 Imm/Tot Granulo (auto) 0.1 Sodium 139 Potassium 3.8 Chloride 106 Carbon Dioxide 25 Anion Gap 8 BUN 21 Creatinine 1.1 Estimated Creat Clear 49.44 Estimated GFR 65 Glucose 102 Calcium 8.7 Total Bilirubin 1.7 H AST 38 H ALT 21 Alkaline Phosphatase 58 Total Protein 5.8 L Albumin 3.5
--- NOTE | 2024-05-25 19:02 | PC.NURSE ---
The patient is alert and orientated although very forgetful.. Moves well Ax1 w/ RW and Gb although quite impulsive. Appetite is ok, Poor PO intake, needs encouragement. Thickened liquids and takes 1 pill at a time well. The patients family visited this afternoon. Call light within reach and the alarms are on. Moni WITT BSN
[2024-05-25] MEDS: DONEPEZIL 5 MG TABLET PO (20:31)
[2024-05-25] MEDS: ATORVASTATIN CALCIUM 40 MG TABLET 80 MG PO (20:32)
[2024-05-26] VITALS (7 sets, daily range): BP systolic 90–131; BP diastolic 62–76; PULSE 78–98; RESP 16–19; TEMP 36.3–36.6; O2SAT 95–98
--- NOTE | 2024-05-26 05:55 | PC.NURSE ---
Shift note: Patient continue to be confuse, had difficulty remembering to use the call light. Attempted to Self transfer herself several times to the Bathroom tonight. Ambulated with A, walker and GB. Takes pills with thickened water one at a time. Vitally stable.
[2024-05-26] MEDS: ISOSORBIDE MONONITRATE ER 30 MG TAB PO (09:40)
[2024-05-26] MEDS: APIXABAN 5 MG TABLET 2.5 MG PO ×2 (09:41→20:31)
[2024-05-26] MEDS: EZETIMIBE 10 MG TABLET PO (09:41)
[2024-05-26] MEDS: METOPROLOL SUCCINATE (XL) 50 MG TAB PO (09:41)
[2024-05-26] MEDS: CLOPIDOGREL 75 MG TABLET PO (09:41)
[2024-05-26] MEDS: OMEPRAZOLE 20 MG CAPSULE DR PO ×2 (09:41→20:31)
[2024-05-26] MEDS: SODIUM CHLORIDE 0.9 % (FLUSH) 10 ML SYRINGE 5 ML IVF ×2 (09:44→20:32)
--- NOTE | 2024-05-26 11:56 | PM.IMPN1 ---
Assessment and Plan Assessment and plan (1) COVID: Problem comment: - symptoms: fever (Tmax 100.7), encephalopathy, fatigue - not requiring oxygen supplementation or any COVID specific therapies at this time Status: Acute (2) Altered mental status: Problem comment: - most likely 2/2 COVID encephalopathy (h/o MCI), head CT in ER 05/20 reassuring, known MCI - MRI 05/22/24: negative - urine culture negative - improving during stay with persistent short term memory loss, continue PCP f/u Status: Acute (3) Elevated troponin: Problem comment: - obtained during episode of vomiting, elevated at 0.17 - no chest pain or abnormalities on telemetry - peak 0.17, TTE ordered 05/22 Final Impressions: 1. Normal LV size, borderline wall thickness, estimated EF of 50 - 55%. 2. Mild RV enlargement, mildly reduced systolic function. 3. No significant valve disease detected. 4. Dilated sinus of Valsalva, diameter of 4.2 cm (upper limt of normal for age, sex, and BSA is 4.1 cm*), Height Index 2.49 cm/m. 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, stable, baseline WBC 13-35; likely cause of elevated lymphocytes and thrombocytopenia - Followed by hematology Status: Acute (6) Dementia: Problem comment: - on Donepezil as an outpatient - 05/18 on MiniCog with PCP fall 2023 Status: Acute (7) Elevated bilirubin: Problem comment: - chronic noted intermittently since 2018 per chart review, rest of LFTs wnl - presumably Gilbert's, asymptomatic, stable - consider further outpatient workup if within goals of care - unlikely related to rash Status: Acute (8) Atrial fibrillation: Problem comment: - rate controlled on Metoprolol, anticoagulated on Eliquis as outpatient - HELD Eliquis starting 05/21/24 for EGD - restarted Eliquis 05/24 Status: Acute (9) Thrombocytopenia: Problem comment: - chronic, likely related to CLL history (baseline 120-140s, currently 106) Status: Acute (10) Vomiting: Problem comment: - RESOLVED - vomited x2 on 05/21/24, dark in color - HOLDING Eliquis and Plavix (05/21) - Hgb stable (11-12) - EGD 05/23: esophagitis, biopsies obtained and pending - on PPI Status: Acute (11) Rash: Problem comment: - noted 05/24 on back, not pruritic or painful, no other symptoms of allergies - does not appear infectious, no concerns for vasculitis, continue to follow - improved 05/26 Status: Acute Plan - per above - currently medically stable, awaiting SNF placement vs home with HH - and daughter updated bedside, questions answered Subjective Date Seen: 05/26/24 Interval history: Reddy was admitted to the hospital on 05/20/24 for weakness and AMS in the setting of + COVID and fever. ER: negative head CT, no acute abnormalities on CXR Since admission: - on 05/21, had 2 episodes of dark emesis. CT A/P: nonspecific thickening of distal esophagus, esophagitis vs mass (Incidentally noted: atherosclerosis, possible median arcuate ligament syndrome) - HELD Eliquis and Clopidogrel on admission for EGD, RESTARTED 05/23 - NSTEMI: troponin peak at 0.17, TTE obtained 05/22: EF 50-55%, mildly reduced RV systolic function. No chest pain during stay - SYSTEMS DESIGN ENGINEER visit 05/22: concern with swallowing, possible CVA given symptoms. MRI brain obtained to r/o CVA: negative for acute/subacute infarct - 05/23: EGD exhibited esophagitis of lower 1/3 of esophagus, biopsies obtained and pending - therapies following for weakness and swallowing, at this point SNF is recommended Reddy is tolerating a moist/minced diet and thickened liquids with + bowel function and no recurrence of vomiting. Continues to slowly regain strength, currently requiring SNF level care. Exam Narrative: Exam Narrative: GEN: Alert and oriented, sitting comfortably in bedside chair HEENT: EOMIs bilaterally, no scleral icterus CV: RRR, No concerning murmurs, rubs, or gallops R: LCTA bilaterally without concerning wheezing, fine bibasilar crackles, clears with cough Ext: wwp, 1+ edema B feet, no ankle edema Skin: Rash on back appears better today Neuro: No focal deficits Psych: + psychomotor slowing and cognitive impairment with short term memory loss, no agitation Const: Vital Signs, click to edit/add: Vital Signs - 24 hr 05/25/24 16:30 05/25/24 19:00 05/25/24 21:39 Temperature 97.5 F L 97.7 F 97.7 F Pulse Rate [Pulse Oximeter] 77 96 98 Respiratory Rate 16 16 16 Blood Pressure [Le ft Arm] 116/67 117/73 Blood Pressure [Ri ght Arm] 131/76 Pulse Oximetry 95 96 96 Oxygen Delivery Me thod Room Air Room Air Room Air 05/25/24 22:47 05/26/24 03:00 05/26/24 07:34 Temperature Pulse Rate [Pulse Oximeter] 98 98 78 Respiratory Rate 16 16 16 Blood Pressure [Le ft Arm] Blood Pressure [Ri ght Arm] Pulse Oximetry 97 Oxygen Delivery Me thod Room Air 05/26/24 07:34 Temperature 97.9 F Pulse Rate [Pulse Oximeter] 79 Respiratory Rate 18 Blood Pressure [Le ft Arm] 115/76 Blood Pressure [Ri ght Arm] Pulse Oximetry 98 Oxygen Delivery Me thod Room Air
[2024-05-26] MEDS: guaiFENesin 100 MG/ML CUP PO (11:59)
--- NOTE | 2024-05-26 14:27 | PC.NURSE ---
Nursing Care Hours: [id number] Pt this shift calm and cooperative, alert and oriented to self. Ax1 with walker and gait belt tolerated well. Pt moves slow but steady. VSS. Tight dry cough noted, guaifenesin given. No c/o pain. Encouraged to drink more fluids as pt has been dry since 2300 last night. Bladder scan shows only about 100ml. Tolerating diet and thickened liquids. Bilat pitting edema 2+ of feet up to ankles.
--- NOTE | 2024-05-26 19:46 | PC.NURSE ---
Patient alert and oriented to self. He was able to have an unmeasured large urine output this shift. Remains on covid precautions. Needs encouragement to drink. Denies pain. Vital signs stable. Family at bedside this shift with the patient.
[2024-05-26] MEDS: ATORVASTATIN CALCIUM 40 MG TABLET 80 MG PO (20:31)
[2024-05-26] MEDS: DONEPEZIL 5 MG TABLET PO (20:32)
[2024-05-27] VITALS (7 sets, daily range): BP systolic 84–119; BP diastolic 61–83; PULSE 78–87; RESP 16–20; TEMP 36.3–36.6; O2SAT 94–96; BMI 25.2
--- NOTE | 2024-05-27 05:14 | PC.NURSE ---
Shift note: Patient is alert baseline dementia. He does not do well remembering to use the call light. However, no self transfer attempt noted. Doing well on room air. Patient had intermittent dry cough. Takes pill whole, 1 by 1 with thickened water. Patient has been bed throughout the night. Vitally stable. 3 AM Bp was not check because patient was allowed to sleep.
[2024-05-27 06:30] LABS: Basophils Percent Auto 0.1 % (0.0-3.0); Eosinophils Percent Auto 2.2 % (0.0-7.0); Hematocrit 35.8 % (37.0-53.0); Hemoglobin* 11.6 gm/dL (13.5-17.5); Immature Granulocytes Pct Auto 0.8 %; Lymphocytes Percent Auto 50.4 % (20-44); Mean Corpuscular HGB Conc 32 gm/dL (32-36); Mean Corpuscular Hemoglobin 30 pg (26-34); Mean Corpuscular Volume 91 fL (80-100); Monocytes Percent Auto 7.4 % (0.0-11.0); Neutrophils Percent Auto 39.1 % (42.0-72.0); Platelet Count* 135 K/uL (140-440); RDW Coefficient of Variation % 14.2 % (11.5-15.5); Red Blood Count 3.93 m/uL (4.30-5.90); White Blood Count* 13.04 K/uL (4.50-11.00)
[2024-05-27 06:36] LABS: Slide Review Reflex No
[2024-05-27 06:43] LABS: Albumin* 3.4 g/dL (3.3-5.0); Chloride* 106 mmol/L (96-114); Potassium* 3.8 mmol/L (3.6-5.1); Sodium* 138 mmol/L (135-149)
[2024-05-27 06:46] LABS: Alanine Aminotransferase* 20 U/L (4-50); Alkaline Phosphatase* 58 U/L (40-150); Anion Gap 4 mEq/L (7-15); Aspartate Amino Transferase* 33 U/L (12-35); Bilirubin Total* 1.8 mg/dL (0.1-1.5); Blood Urea Nitrogen* 19 mg/dL (7-30); Calcium* 8.7 mg/dL (8.4-10.6); Carbon Dioxide* 28 mmol/L (20-32); Est. Creatinine Clearance* 54.38; Estimated Glomerular Filt Rate 72 ml/min; Glucose* 99 mg/dL (60-115)
[2024-05-27 07:04] LABS: Total Protein* 5.8 g/dL (6.0-8.3)
[2024-05-27] MEDS: CLOPIDOGREL 75 MG TABLET PO (08:55)
[2024-05-27] MEDS: APIXABAN 5 MG TABLET 2.5 MG PO ×2 (08:55→21:16)
[2024-05-27] MEDS: OMEPRAZOLE 20 MG CAPSULE DR PO ×2 (08:56→21:17)
[2024-05-27] MEDS: EZETIMIBE 10 MG TABLET PO (08:57)
[2024-05-27] MEDS: SODIUM CHLORIDE 0.9 % (FLUSH) 10 ML SYRINGE 5 ML IVF ×2 (08:57→21:17)
[2024-05-27] MEDS: METOPROLOL SUCCINATE (XL) 50 MG TAB PO (09:03)
[2024-05-27] MEDS: guaiFENesin 100 MG/ML CUP PO ×2 (11:37→21:31)
--- NOTE | 2024-05-27 15:56 | PC.SOCIAL ---
Discharge planning: sprinkler worker spoke to pt's , Valerie, via phone this afternoon to discuss discharge planning for the pt. Pt's seemed to be very set on the thought that her would be in the hospital until the end of the week after he hits his ten day post positive COVID diagnosis date(05/30/24). sprinkler worker explained that pt was medically ready for discharge and did not need to stay in the hospital, as he is only getting rehab services at this time and those services can be given in a group home facility. sprinkler worker explained that right now the pt was being recommended for short-term rehab after his hospital stay and that there are nursing facilities in towns that are nearby to [place] that will take COVID positive pt's before their ten day post positive COVID diagnosis date and that we should be looking into those facilities for the pt to discharge too. Pt's stated that she would only allow for her to go to [facility] for short-term rehab because it is in [place]([facility] does have the 10 day post positive COVID diagnosis admission rule). sprinkler worker had checked with [facility] who said that they could take a pt with COVID as long as they had a private room with a private bathroom available to keep the pt in isolation while they continue to have COVID symptoms. [facility] did have two private rooms available this morning. sprinkler worker talked to pt's about [facility] and asked if this worker could send a referral to them on behalf of the pt. Pt's stated that there was no way that she would have her go to [facility] because it was too far for family to drive to and go and visit him everyday. Pt's continued to say that if when the pt hits his 10 days post COVID diagnosis(05/30/24-) and he still needs short-term rehab, she would like him to go to [facility] only otherwise she would then like to take him home at that point. sprinkler worker explained that the pt was medically ready for discharge as of today and that we cannot let him stay in the hospital and that we needed to work on finding a facility for the pt to go to as soon as possible. sprinkler worker had to ask the provider on duty to call the pt's to talk to her about the pt being medically stable and ready for discharge. sprinkler worker spoke to the provider on duty after she talked to pt's and SW will move forward with looking for placement at group home facilities outside of [place]. sprinkler worker checked in with Denise again at [facility] who is the liaison for [facility] and she shared that the private rooms that were available at [facility] this morning are now slotted to be filled tomorrow. sprinkler worker also asked Denise about [facility] and [facility] which is a [facility], as well, and Denise shared that they currently do not have any private room/private bathrooms available as of today. sprinkler worker did also talk to Tianna with with [facility] who said that [facility] will take a pt that is positive for COVID if they have an isolation room available, as well. sprinkler worker asked Tianna if they have and private bedroom/private bathroom/isolations room available at [facility] in [place] right now. Social work is waiting to hear back from Tianna at [facility]. Social work to follow-up as needed.
--- NOTE | 2024-05-27 16:16 | P.IMPN_ITS ---
Assessment and Plan Assessment and plan (1) COVID: Problem comment: - symptoms: fever (Tmax 100.7), encephalopathy, fatigue - not requiring oxygen supplementation or any COVID specific therapies at this time Status: Acute (2) Dementia: Problem comment: - on Donepezil as an outpatient - 05/18 on MiniCog with PCP fall 2023 Status: Acute (3) Swallowing difficulty: Problem comment: - noted to have some choking with swallowing water on 05/21 - LIFE SKILLS CONSULTANT evaluation 05/22: + dysphagia, MRI negative for CVA - on IV PPI, + esophagitis on EGD 05/23/24 - tolerating minced and moist 05/24/24 Status: Acute (4) Thrombocytopenia: Problem comment: - chronic, back to baseline. Status: Acute (5) Elevated bilirubin: Problem comment: - chronic noted intermittently since 2017 per chart review, rest of LFTs wnl - presumably Gilbert's, asymptomatic, stable - consider further outpatient workup if within goals of care - unlikely related to rash Status: Acute (6) Non-ST elevated myocardial infarction (non-STEMI): Problem comment: Continue Plavix, Imdur, Ranexa, Eliquis for AFib Status: Acute (7) Atrial fibrillation: Problem comment: - rate controlled on Metoprolol, anticoagulated on Eliquis as outpatient - HELD Eliquis starting 05/21/24 for EGD - restarted Eliquis 05/24 Status: Acute (8) Altered mental status: Problem comment: - most likely 2/2 COVID encephalopathy (h/o MCI), head CT in ER 05/20 reassuring, known MCI - MRI 05/22/24: negative - urine culture negative - improving during stay with persistent short term memory loss, continue PCP f/u Status: Acute (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 Day 7. CC: Covid weakness, Encephalopathy 24 HOUR UPDATE: quiet night. However when occupational therapy worked with the patient this morning he lacked insight to his incontinence. In fact he stepped in his own bowel movement and was seemed unaware. He attempted to set at least twice with nothing behind him. This would of most certainly been a fall if OT had not had a gait belt on and was protecting him. His movements are measured and slow not sure-footed. Spoke to his for >30 minutes explaining how transitional care works and why he needs to move to the next lower level of care (which is a good thing) Notable Labs, Micro, Rads, Interventions: Afebrile. Blood pressure has been soft 100-106/66-70. Pulse rate 80s. Respiratory rate unlabored, 16, pulse ox 96% on room air. Chemistries are all improving. Mild total hyperbilirubinemia at 1.8. Brain MRI, abdominal pelvic CT, all reviewed. echo reviewed. Unremarkable microbiology these reviewed. Objective: makes 2-3 word sentences. Can answer simple questions. Very slow to initiate movements. Vitals: see above Lungs: Scattered rhonchi bilaterally. Cardiac: S1S2. Disposition/Potential discharge - Awaiting shelter/ Transitional care Today I spent 50minutes seeing the patient, reviewing Expanse and EPIC notes/diagnostics, discussing the care plan with our care time that includes social work, PT/OT, pharmacy, RT, shelter and documenting my impressions and plan in the medical record. Exam Const: Vital Signs, click to edit/add: Vital Signs - 24 hr 05/26/24 16:33 05/26/24 19:00 05/26/24 22:52 Temperature 97.6 F 97.3 F L Pulse Rate [Pulse Oximeter] 81 84 94 Respiratory Rate 19 19 18 Blood Pressure [Le ft Arm] 90/62 110/66 Blood Pressure [Ri ght Arm] Pulse Oximetry 96 95 Oxygen Delivery Me thod Room Air Room Air 05/26/24 22:52 05/27/24 03:00 05/27/24 07:00 Temperature 97.3 F L 97.4 F L Pulse Rate [Pulse Oximeter] 91 87 84 Respiratory Rate 18 18 16 Blood Pressure [Le ft Arm] 110/66 111/74 Blood Pressure [Ri ght Arm] 131/76 Pulse Oximetry 95 95 95 Oxygen Delivery Or thod Room Air Room Air Room Air 05/27/24 11:00 05/27/24 12:44 05/27/24 15:00 Temperature 97.8 F 97.3 F L Pulse Rate [Pulse Oximeter] 78 83 Respiratory Rate 16 16 Blood Pressure [Le ft Arm] 84/68 L 100/70 106/61 Blood Pressure [Ri ght Arm] 106/66 Pulse Oximetry 95 96 Oxygen Delivery Me thod Room Air Room Air Labs Labs: Laboratory Results - last 24 hr 05/27/24 06:06 WBC 13.04 H RBC 3.93 L Hgb 11.6 L Hct 35.8 L MCV 91 MCH 30 MCHC 32 RDW Coeff of Joyce 14.2 Plt Count 135 L Neut % (Auto) 39.1 L Lymph % (Auto) 50.4 H Rankin % (Auto) 7.4 Eos % (Auto) 2.2 Baso % (Auto) 0.1 Neut # (Auto) 5.10 Lymph # (Auto) 6.60 H Rankin # (Auto) 1.00 H Eos # (Auto) 0.30 Baso # (Auto) 0.00 Abs Immat Gran (auto) 0.10 Imm/Tot Granulo (auto) 0.8 Sodium 138 Potassium 3.8 Chloride 106 Carbon Dioxide 28 Anion Gap 4 L BUN 19 Creatinine 1.0 Estimated Creat Clear 54.38 Estimated GFR 72 Glucose 99 Calcium 8.7 Total Bilirubin 1.8 H AST 33 ALT 20 Alkaline Phosphatase 58 Total Protein 5.8 L Albumin 3.4
--- NOTE | 2024-05-27 16:27 | CRLHL7_ITS ---
For Patients: As a result of the Century Cures Act, medical imaging exams and procedure reports are released immediately into your electronic medical record. You may view this report before your referring provider. If you have questions, please contact your health care provider. Indication: : COVID cough TECHNIQUE: Single-view chest. Comparison chest x-ray 05/20/2024 FINDINGS: Enlarged cardiac silhouette median sternotomy bibasilar reticular opacities probably reflect fibrotic changes. No effusion. No consolidation. Dictated by Yoselin Shepard MD @ 05/27/2024 5:47:23 PM (Electronically Signed)
--- NOTE | 2024-05-27 19:07 | PC.NURSE ---
End of shift [id number]: Patient is oriented to self, , and family members. baseline dementia. Bed/chair alarms set in place at all times. intermittent dry cough during the shift. Speech assessed patient in the AM. Pills whole. A1 GB W. Pt appears resting with call light in reach.
[2024-05-27] MEDS: ATORVASTATIN CALCIUM 40 MG TABLET 80 MG PO (21:16)
[2024-05-27] MEDS: DONEPEZIL 5 MG TABLET PO (21:16)
[2024-05-28 03:00] VITALS: BP 126/86; PULSE 75; RESP 16; TEMP 36.6; O2SAT 94
[2024-05-28 07:00] VITALS: BP 105/58; PULSE 76; RESP 18; TEMP 36.4; O2SAT 94
[2024-05-28] MEDS: METOPROLOL SUCCINATE (XL) 50 MG TAB PO (09:09)
[2024-05-28] MEDS: OMEPRAZOLE 20 MG CAPSULE DR PO ×2 (09:09→20:58)
[2024-05-28] MEDS: CLOPIDOGREL 75 MG TABLET PO (09:10)
[2024-05-28] MEDS: APIXABAN 5 MG TABLET 2.5 MG PO ×2 (09:10→20:57)
[2024-05-28] MEDS: EZETIMIBE 10 MG TABLET PO (09:10)
[2024-05-28] MEDS: SODIUM CHLORIDE 0.9 % (FLUSH) 10 ML SYRINGE 5 ML IVF ×2 (09:10→20:58)
--- NOTE | 2024-05-28 10:38 | PC.SOCIAL ---
Addendum entered by JI Davis 05/28/24 13:11: Discharge planning: home economics extension worker met with pt's daughter, Janine, after Janine and her mother and the pt had an extensive conversation with the provider on duty about the pt's need to short-term rehab after the hospital. Pt's and daughter are in agreement with this worker looking for placement outside of [facility]. home economics extension worker then spoke to Denise at [facility] again who shared that the DON at [facility] told her that they would be willing to review a referral for a COVID recovered pt. [facility] would consider the pt COVID recovered on 05/31/24 which would be Monday of this week. They would not be able to accept him sooner than that due to acuity at their facility. home economics extension worker secure emailed the referral for the pt to Denise at [facility]. Social work to follow-up as needed. Original Note: Discharge planning: Eddie Garsia from [facility] for [facility]ara [facility] stated that they do not have a private male room/private male bathroom right now so they are not able to review the pt's referral. home economics extension worker then received an email from Denise with [facility] for [facility] and [facility] and [facility]. In the email that Denise sent out it has a listing of all of the facilities that she is a liaison for and the list stated that [facility] and [facility] both have private rooms available, so this worker asked her to clarify room availability, as yesterday at the end of the day, both facilities were stating that they didn't have private room/private bathrooms available for COVID patients. Denise wrote back to this worker sharing that [facility] was not willing to review a referral for a COVID pt because of current acuity at their facility and she was waiting to hear back from [facility] and [facility] on if they would review a COVID positive pt referral. home economics extension worker also talked to Ashley Chawla in Admissions at [facility] and she shared that they could review the pt's referral for possible admission later this week after the pt has met his 10 day post positive COVID diagnosis. home economics extension worker secure emailed a referral to Ashley on behalf of the pt. Social work to follow-up as needed.
[2024-05-28 12:12] VITALS: BP 100/67; PULSE 73; RESP 18; TEMP 36.5; O2SAT 96
[2024-05-28 15:00] VITALS: BP 106/79; PULSE 75; RESP 16; TEMP 36.4; O2SAT 91
--- NOTE | 2024-05-28 15:11 | PM.IMPN1 ---
Assessment and Plan Assessment and plan (1) COVID: Problem comment: - symptoms: fever (Tmax 100.7), encephalopathy, fatigue - not requiring oxygen supplementation or any COVID specific therapies at this time Status: Acute (2) Dementia: Problem comment: - on Donepezil as an outpatient - 05/18 on MiniCog with PCP fall 2023 - 02/11 on MoCA (Stevo Cognitive Assessment) 05/28 with OT Status: Acute (3) Swallowing difficulty: Problem comment: - noted to have some choking with swallowing water on 05/21 - CARTON FOLDER evaluation 05/22: + dysphagia, MRI negative for CVA - on IV PPI, + esophagitis on EGD 05/23/24 - tolerating minced and moist 05/24/24 Status: Acute (4) Thrombocytopenia: Problem comment: - chronic, back to baseline. Status: Acute (5) Elevated bilirubin: Problem comment: - chronic noted intermittently since 2017 per chart review, rest of LFTs wnl - presumably Gilbert's, asymptomatic, stable - consider further outpatient workup if within goals of care - unlikely related to rash Status: Acute (6) Non-ST elevated myocardial infarction (non-STEMI): Problem comment: Continue Plavix, Imdur, Ranexa, Eliquis for AFib Status: Acute (7) Atrial fibrillation: Problem comment: - rate controlled on Metoprolol, anticoagulated on Eliquis as outpatient - HELD Eliquis starting 05/21/24 for EGD - restarted Eliquis 05/24 Status: Acute (8) Altered mental status: Problem comment: - most likely 2/2 COVID encephalopathy (h/o MCI), head CT in ER 05/20 reassuring, known MCI - MRI 05/22/24: negative - urine culture negative - improving during stay with persistent short term memory loss, continue PCP f/u Status: Acute (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 Day 8. CC: Covid weakness, Encephalopathy 24 HOUR UPDATE: Reddy had a quiet night. However when occupational therapy worked with the patient this morning and a lack of initiation of motor with lacking. We did note increasing humor and personality.. In fact he stepped in his own bowel movement and was seemed unaware. His speech continues to be slurred and slowed. Notable Labs, Micro, Rads, Interventions: Afebrile. Blood pressure has been soft 100-106/66-70. Pulse rate 80s. Respiratory rate unlabored, 16, pulse ox 96% on room air. no new labs today. CXR last evening: unremarkable for acute change. Brain MRI, abdominal pelvic CT, all reviewed. echo reviewed. Unremarkable microbiology these reviewed. Objective: makes 2-3 word sentences. Can answer simple questions. Very slow to initiate movements. Vitals: see above Lungs: Scattered rhonchi bilaterally. Cardiac: S1S2. Disposition/Potential discharge - Awaiting retirement/ Transitional care Today I spent 50minutes seeing the patient, reviewing Expanse and EPIC notes/diagnostics, discussing the care plan with our care time that includes social work, PT/OT, pharmacy, RT, retirement and documenting my impressions and plan in the medical record. Exam Const: Vital Signs, click to edit/add: Vital Signs - 24 hr 05/27/24 21:24 05/27/24 23:00 05/27/24 23:00 Temperature 97.4 F L 97.5 F L Pulse Rate [Pulse Oximeter] 82 81 81 Respiratory Rate 20 18 18 Blood Pressure [Le ft Arm] Blood Pressure [Ri ght Arm] 107/83 119/75 Pulse Oximetry 94 95 Oxygen Delivery Me thod Room Air Room Air 05/28/24 03:00 05/28/24 07:00 05/28/24 07:00 Temperature 97.8 F 97.5 F L Pulse Rate [Pulse Oximeter] 75 76 76 Respiratory Rate 16 18 18 Blood Pressure [Le ft Arm] 126/86 105/58 L Blood Pressure [Ri ght Arm] Pulse Oximetry 94 94 Oxygen Delivery Me thod Room Air Room Air 05/28/24 12:12 Temperature 97.7 F Pulse Rate [Pulse Oximeter] 73 Respiratory Rate 18 Blood Pressure [Le ft Arm] 100/67 Blood Pressure [Ri ght Arm] Pulse Oximetry 96 Oxygen Delivery Me thod Room Air
[2024-05-28 19:00] VITALS: BP 128/68; PULSE 71; RESP 20; O2SAT 97
--- NOTE | 2024-05-28 19:22 | PC.NURSE ---
End of shift: Patient pleasant and cooperative. VSS, afebrile. SpO2 maintained above 90% on RA. Patient denies pain this shift. Walked in the priest 3x this shift. Tolerating regular diet. 1A with walker and gaitbelt.
[2024-05-28] MEDS: ATORVASTATIN CALCIUM 40 MG TABLET 80 MG PO (20:57)
[2024-05-28] MEDS: DONEPEZIL 5 MG TABLET PO (20:58)
[2024-05-28 23:40] VITALS: BP 113/88; PULSE 83; RESP 20; TEMP 36.6; O2SAT 98
[2024-05-29 02:12] VITALS: BP 117/77; PULSE 88; RESP 18; TEMP 36.7; O2SAT 94
--- NOTE | 2024-05-29 06:12 | PC.NURSE ---
Pt is alert and oriented to self only. Afebrile. Room air. Pt denies pain, SOB and N/V. Pt continues to have dry intermittent cough. Lung sounds have some course crackles at the bases. Pt is up A1 with walker and gait belt and voiding. Pt slept throughout most of night. ?
[2024-05-29 07:00] VITALS: BP 125/71; PULSE 85; RESP 20; TEMP 36.5; O2SAT 94
[2024-05-29] MEDS: APIXABAN 5 MG TABLET 2.5 MG PO ×2 (08:04→20:19)
[2024-05-29] MEDS: OMEPRAZOLE 20 MG CAPSULE DR PO ×2 (08:05→20:19)
[2024-05-29] MEDS: METOPROLOL SUCCINATE (XL) 50 MG TAB PO (08:05)
[2024-05-29] MEDS: EZETIMIBE 10 MG TABLET PO (08:05)
[2024-05-29] MEDS: CLOPIDOGREL 75 MG TABLET PO (08:06)
[2024-05-29] MEDS: SODIUM CHLORIDE 0.9 % (FLUSH) 10 ML SYRINGE 5 ML IVF ×2 (08:06→20:20)
--- NOTE | 2024-05-29 08:45 | P.IMPN_ITS ---
Assessment and Plan Assessment and plan (1) COVID: Problem comment: - symptoms: fever (Tmax 100.7), encephalopathy, fatigue - not requiring oxygen supplementation or any COVID specific therapies at this time Status: Acute (2) Dementia: Problem comment: - on Donepezil as an outpatient - 05/18 on MiniCog with PCP fall 2023 - 02/11 on MoCA (Stevo Cognitive Assessment) 05/28 with OT Status: Acute (3) Swallowing difficulty: Problem comment: - noted to have some choking with swallowing water on 05/21 - MOBILE SECURITY ARCHITECT evaluation 05/22: + dysphagia, MRI negative for CVA - on IV PPI, + esophagitis on EGD 05/23/24 - tolerating minced and moist 05/24/24 Status: Acute (4) Thrombocytopenia: Problem comment: - chronic, back to baseline. Status: Acute (5) Elevated bilirubin: Problem comment: - chronic noted intermittently since 2017 per chart review, rest of LFTs wnl - presumably Gilbert's, asymptomatic, stable - consider further outpatient workup if within goals of care - unlikely related to rash Status: Acute (6) Non-ST elevated myocardial infarction (non-STEMI): Problem comment: Continue Plavix, Imdur, Ranexa, Eliquis for AFib Status: Acute (7) Atrial fibrillation: Problem comment: - rate controlled on Metoprolol, anticoagulated on Eliquis as outpatient - HELD Eliquis starting 05/21/24 for EGD - restarted Eliquis 05/24 Status: Acute (8) Altered mental status: Problem comment: - most likely 2/2 COVID encephalopathy (h/o MCI), head CT in ER 05/20 reassuring, known MCI - MRI 05/22/24: negative - urine culture negative - improving during stay with persistent short term memory loss, continue PCP f/u Status: Acute (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 Day 9. CC: Covid weakness, Encephalopathy 24 HOUR UPDATE: Reddy had a quiet night. He is more impulsive and getting up from his chair without a walker. His speech continues to be slurred and slowed. Notable Labs, Micro, Rads, Interventions: Afebrile. Blood pressure has been soft 100-106/66-70. Pulse rate 80s. Respiratory rate unlabored, 16, pulse ox 96% on room air. Covid antigen positive as of 05/29/24 no new labs today. CXR last evening: unremarkable for acute change. Brain MRI, abdominal pelvic CT, all reviewed. echo reviewed. Unremarkable microbiology these reviewed. Objective: makes 2-3 word sentences. Can answer simple questions. Very slow to initiate movements. Vitals: see above Lungs: Scattered rhonchi bilaterally. Cardiac: S1S2. Disposition/Potential discharge - Awaiting transitional care placement Today I spent 50minutes seeing the patient, reviewing Expanse and EPIC notes/diagnostics, discussing the care plan with our care time that includes social work, PT/OT, pharmacy, RT, assisted and documenting my impressions and plan in the medical record. Exam Const: Vital Signs, click to edit/add: Vital Signs - 24 hr 05/28/24 12:12 05/28/24 15:00 05/28/24 15:00 Temperature 97.7 F 97.5 F L Pulse Rate [Pulse Oximeter] 73 75 75 Respiratory Rate 18 16 16 Blood Pressure [Le ft Arm] 100/67 106/79 Blood Pressure [Ri ght Arm] Pulse Oximetry 96 91 Oxygen Delivery Me thod Room Air Room Air 05/28/24 19:00 05/28/24 23:40 05/28/24 23:40 Temperature 97.9 F Pulse Rate [Pulse Oximeter] 71 83 Respiratory Rate 20 20 20 Blood Pressure [Le ft Arm] 128/68 Blood Pressure [Ri ght Arm] 113/88 Pulse Oximetry 97 98 Oxygen Delivery Me thod Room Air Room Air 05/29/24 02:12 05/29/24 07:00 Temperature 98.0 F 97.7 F Pulse Rate [Pulse Oximeter] 88 85 Respiratory Rate 18 20 Blood Pressure [Le ft Arm] 125/71 Blood Pressure [Ri ght Arm] 117/77 Pulse Oximetry 94 94 Oxygen Delivery Me thod Room Air Room Air
[2024-05-29 08:51] LABS: SARS Antigen* POSITIVE
[2024-05-29 09:15] VITALS: BP 90/63
[2024-05-29 11:52] VITALS: BP 95/55; PULSE 87; RESP 28; TEMP 36.3; O2SAT 97
--- NOTE | 2024-05-29 13:50 | PC.NURSE ---
End of Shift Note: Patient has been pleasant and cooperative today. He has worked with PT and OT today. He appears to be tolerating his soft and bite size diet. Chair and bed alarm on will continue to monitor until next shift arrives still awaiting placement at a [facility]
--- NOTE | 2024-05-29 15:02 | PC.SOCIAL ---
Discharge Planning: SULAIMAN secure emailed Ashley at [facility] to see if there is an update on availability to take patient. SW awaiting response. SULAIMAN received confirmation from Denise with [facility] that [facility] can accept patient on Monday. SULAIMAN called Ashley at [facility] to see if there are any updates about admission. SULAIMAN did not discuss acceptance to [facility] with patient's family yet as there is still a chance that [facility] could take him Monday. SW to discuss this with family on 05/30. SW to continue to assist with discharge planning.
[2024-05-29 20:15] VITALS: BP 116/55; PULSE 78; RESP 20; TEMP 36.4; O2SAT 96
[2024-05-29] MEDS: ATORVASTATIN CALCIUM 40 MG TABLET 80 MG PO (20:19)
[2024-05-29] MEDS: DONEPEZIL 5 MG TABLET PO (20:20)
--- NOTE | 2024-05-30 05:39 | PC.NURSE ---
Pt alert to self. Pt had no complaints of pain. Pt up with assist of one with gait belt and walker. Pt slept well during the shift.?
[2024-05-30 07:00] VITALS: RESP 18
[2024-05-30 08:46] VITALS: BP 115/75; PULSE 85; RESP 18; TEMP 36.3; O2SAT 96
[2024-05-30] MEDS: METOPROLOL SUCCINATE (XL) 50 MG TAB PO (08:48)
[2024-05-30] MEDS: EZETIMIBE 10 MG TABLET PO (08:49)
[2024-05-30] MEDS: CLOPIDOGREL 75 MG TABLET PO (08:49)
[2024-05-30] MEDS: OMEPRAZOLE 20 MG CAPSULE DR PO ×2 (08:49→20:09)
[2024-05-30] MEDS: APIXABAN 5 MG TABLET 2.5 MG PO ×2 (08:50→20:09)
[2024-05-30] MEDS: SODIUM CHLORIDE 0.9 % (FLUSH) 10 ML SYRINGE 5 ML IVF ×2 (08:53→20:08)
--- NOTE | 2024-05-30 10:15 | P.IMPN_ITS ---
Assessment and Plan Assessment and plan (1) COVID: Problem comment: - symptoms: fever early in presentation (Tmax 100.7), ongoing encephalopathy, weakness, slurred/delayed speech, fatigue. - not requiring oxygen supplementation or any COVID specific therapies at this time - TCU stay planned for 05/31 Status: Acute (2) Dementia: Problem comment: - on Donepezil as an outpatient - 05/18 on MiniCog with PCP fall 2023 - 02/11 on MoCA (Burt Cognitive Assessment); 05/28 with OT Status: Acute (3) Swallowing difficulty: Problem comment: - noted to have some choking with swallowing water on 05/21 - CORPORATE INTERN evaluation 05/22: + dysphagia, MRI negative for CVA - on IV PPI, + esophagitis on EGD 05/23/24 - tolerating minced and moist 05/24/24 Status: Acute (4) Thrombocytopenia: Problem comment: - chronic, back to baseline. Status: Acute (5) Elevated bilirubin: Problem comment: - chronic noted intermittently since 2017 per chart review, rest of LFTs wnl - presumably Gilbert's, asymptomatic, stable - consider further outpatient workup if within goals of care - unlikely related to rash Status: Acute (6) Non-ST elevated myocardial infarction (non-STEMI): Problem comment: Trop 0.49 on admission, 0.06 at last check on 05/22 Echo completed on 05/22/2024 revealed normal LV size, borderline wall thickness, EF 50-55%. Mild RV enlargement, mild reduced systolic function. No significant valve disease. 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 Day 10. CC: Covid weakness, Encephalopathy 24 HOUR UPDATE: Reddy had a quiet night. He is more impulsive and getting up from his chair without a walker. His speech continues to be slurred and slowed. Notable Labs, Micro, Rads, Interventions: Afebrile. Blood pressure has been soft 100-106/66-70. Pulse rate 80s. Respiratory rate unlabored, 16, pulse ox 96% on room air. Covid antigen positive as of 05/29/24 no new labs today. Brain MRI, abdominal pelvic CT, all reviewed. echo reviewed. Unremarkable microbiology these reviewed. Objective: makes 2-3 word sentences. Can answer simple questions. Very slow to initiate movements. Vitals: see above Lungs: Scattered rhonchi bilaterally. Cardiac: S1S2. Disposition/Potential discharge - Awaiting transitional care placement Today I spent 50minutes seeing the patient, reviewing Expanse and EPIC notes/diagnostics, discussing the care plan with our care time that includes social work, PT/OT, pharmacy, RT, retirement and documenting my impressions and plan in the medical record. Exam Const: Vital Signs, click to edit/add: Vital Signs - 24 hr 05/29/24 11:52 05/29/24 20:15 05/30/24 08:46 Temperature 97.3 F L 97.6 F 97.4 F L Pulse Rate [Pulse Oximeter] 87 78 85 Respiratory Rate 28 H 20 18 Blood Pressure [Le ft Arm] 95/55 L 116/55 L 115/75 Pulse Oximetry 97 96 96 Oxygen Delivery Me thod Room Air Room Air Room Air
--- NOTE | 2024-05-30 16:04 | PC.SOCIAL ---
Discharge planning: Pt has been accepted to [facility] for short-term rehab starting tomorrow(Monday05/31/24). Pt will have a private room, but Ashley from Admissions at [facility] was not sure if the bathroom would be private or shared yet. leather production worker notified pt's daughter, Janine, who was thrilled to hear this news and stated that she would let her mother and brother know the update. Pt's daughter, Janine, will transport the pt to [facility] at 10:30am tomorrow. leather production worker notified the charge nurse on duty and also notified Ashley in Admissions at [facility] that the family will accept the bed for the pt and that the transport time was planned for 10:30am. Social work to follow-up as needed.
[2024-05-30 19:00] VITALS: BP 119/68; PULSE 79; RESP 18; TEMP 36.5; O2SAT 98
--- NOTE | 2024-05-30 19:31 | PC.NURSE ---
End of shift [id number]: Pt alert and oriented to self. Denies pain during shift. Up with therapies. A1 GB W. BM today, incontinent. Tolerating soft diet/mildly thick liquid diet well. Bed/chair alarm on at all times. Call light within reach.
[2024-05-30] MEDS: ATORVASTATIN CALCIUM 40 MG TABLET 80 MG PO (20:07)
[2024-05-30] MEDS: DONEPEZIL 5 MG TABLET PO (20:09)
[2024-05-30 23:00] VITALS: PULSE 79; RESP 18
--- NOTE | 2024-05-31 06:57 | PC.NURSE ---
End of shift report : VS WNL. Afebrile. Denies pain.?Speech continues to be slowed/slurred. Ambulates A1, GB, W. Took meds one by one with thickened water this shift, tolerated well. Continent of bladder this shift. Call light within reach, bed alarm on.?
[2024-05-31 08:05] VITALS: BP 111/65; PULSE 94; RESP 18; TEMP 36.2; O2SAT 97
[2024-05-31] MEDS: METOPROLOL SUCCINATE (XL) 50 MG TAB PO (08:58)
[2024-05-31] MEDS: OMEPRAZOLE 20 MG CAPSULE DR PO (08:58)
[2024-05-31] MEDS: CLOPIDOGREL 75 MG TABLET PO (08:58)
[2024-05-31] MEDS: APIXABAN 5 MG TABLET 2.5 MG PO (08:58)
[2024-05-31] MEDS: EZETIMIBE 10 MG TABLET PO (08:59)
[2024-05-31] MEDS: SODIUM CHLORIDE 0.9 % (FLUSH) 10 ML SYRINGE 5 ML IVF (09:00)
[2024-05-31 09:10] VITALS: BP 117/73
--- NOTE | 2024-05-31 10:01 | PC.SOCIAL ---
Discharge planning: Spoke with Ashley at [facility] who is expecting pt to arrive today by family transport. Family to pick pt up at 10:30. PAS completed and copy sent to Ashley MINER#[id number]. greenhouse worker to send discharge orders when completed.
--- NOTE | 2024-05-31 11:09 | PC.NURSE ---
Pt doing well this morning. VSS. Denies pain. Ambulating well with one assist and walker. Nurse to nurse report given to Makenna at [facility] at 0930. Pt discharge information reviewed and signed. Pt discharged to [facility] via son and at 1100.
--- NOTE | 2024-05-31 16:21 | P.DS_ITS ---
DS: Providers Provider Date Seen: 05/31/24 Date of admission: 05/21/24 09:03 Primary care physician: Mckinley Cheema MD Admitting Clinician: Doris Mandel MD Consults: 05/21/24 00:04 Consult to Occupational Therapy [CONS] Routine Comment: Reason(s) for OT Consult:: Evaluate and Treat Any Restrictions?:: No Restrictions Consult to Physical Therapy [CONS] Routine Comment: Reason(s) for PT Consult:: Evaluate and Treat Any Restrictions?:: No Restrictions Consult to Foreclosure Field Inspector [CONS] Routine Comment: Reason for Consult:: Social Service Consult 05/21/24 10:32 Consult to Speech Therapy [CONS] Routine Comment: Reason(s) for Speech Consult:: Speech/Swallowing Eval Attending Physician on discharge: Lenny Vásquez MD Date of Discharge: 05/31/24 DS: Diagnosis Discharge Diagnosis (1) COVID: Status: Acute Problem details: - symptoms: fever early in presentation (Tmax 100.7), ongoing encephalopathy, weakness, slurred/delayed speech, fatigue. - not requiring oxygen supplementation or any COVID specific therapies at this time - TCU stay planned for 05/31 (2) Altered mental status: Status: Acute Problem details: - most likely 2/2 COVID encephalopathy (h/o MCI), head CT in ER 05/20 reassuring, known MCI - MRI 05/22/24: negative - urine culture negative - improving during stay with persistent short term memory loss, continue PCP f/u (3) Dementia: Status: Acute Problem details: - on Donepezil as an outpatient - 05/18 on MiniCog with PCP fall 2023 - 02/11 on MoCA (Stevo Cognitive Assessment); 05/28 with OT (4) Non-ST elevated myocardial infarction (non-STEMI): Status: Acute Problem details: Trop 0.49 on admission, 0.06 at last check on 05/22 Echo completed on 05/22/2024 revealed normal LV size, borderline wall thickness, EF 50-55%. Mild RV enlargement, mild reduced systolic function. No significant valve disease. Continue Plavix, Imdur, Ranexa, Lipitor, metoprolol, ezetimibe Eliquis for AFib (5) Atrial fibrillation: Status: Acute Problem details: - rate controlled on Metoprolol, anticoagulated on Eliquis as outpatient - HELD Eliquis starting 05/21/24 for EGD - restarted Eliquis 05/24 (6) Elevated bilirubin: Status: Acute Problem details: - chronic noted intermittently since 2018 per chart review, rest of LFTs wnl - presumably Gilbert's, asymptomatic, stable - consider further outpatient workup if within goals of care - unlikely related to rash (7) Thrombocytopenia: Status: Acute Problem details: - chronic, back to baseline. 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 ?Patient arrives to the floor without family at bedside. Poor historian. History obtained from ED provider and records. Daughter had reported that patient was slurring his speech. Was last known to be well at noon. In the ED, patient was noted to be weak and confused without slurring of speech. Temperature on arrival noted to be 100.7?. Patient was not able to follow commands or answer questions in the ED. On my exam, patient is sleeping, sonorous. Awakens easily. When asked if he is in any pain, he replies no. Fever has resolved following Tylenol administration. Otherwise, not able to gather useful or accurate information. Limited exam as unable to follow commands. ?Report is that he lives with his .? Hospital course as briefly outlined above for H specific problem. In time his condition stabilized. Eventually we were able to find a [place] [facility] facility that accepted him and he was discharged as specified below. Status at Discharge Cognitive/behavioral status at discharge: Back to baseline at time of discharge. Functional status at discharge: uses cane/walker Time Spent with Patient Time attestation: Total time spent providing and/or coordinating discharge services: Time spent: Greater than 30 minutes Exam Narrative: Exam Narrative: Objective: makes 2-3 word sentences. Can answer simple questions. Very slow to initiate movements. Vitals: see above Lungs: Scattered rhonchi bilaterally. Cardiac: S1S2. Ambulates in room with walker. Able to feed self after food prep and setup. Const: Vital Signs, click to edit/add: Vital Signs - 24 hr 05/30/24 19:00 05/30/24 23:00 05/31/24 08:05 Temperature 97.7 F 97.1 F L Pulse Rate [Pulse Oximeter] 79 79 94 Respiratory Rate 18 18 18 Blood Pressure [Le ft Arm] 119/68 111/65 Pulse Oximetry 98 97 Oxygen Delivery Me thod Room Air Room Air 05/31/24 09:10 Temperature Pulse Rate [Pulse Oximeter] Respiratory Rate Blood Pressure [Le ft Arm] 117/73 Pulse Oximetry Oxygen Delivery Me thod DS: Data Imaging CT scan - head: Radiologist's impression: No acute intracranial abnormality. MR Brain: Radiologist's impression: Impression: 1. No acute/subacute infarct. 2. Moderate chronic ischemic microvascular disease. Chest x-ray: Radiologist's impression: Findings/Impression from chest x-ray on admission: Cardiomegaly and diffuse prominence of interstitial markings, may represent volume overload/pulmonary edema and/or viral pneumonia given history. FINDINGS from chest x-ray 1 week after admission: Enlarged cardiac silhouette median sternotomy bibasilar reticular opacities probably reflect fibrotic changes. No effusion. No consolidation. CT scan of abdomen and pelvis: Radiologist's impression: IMPRESSION: 1. There is some nonspecific thickening of the distal esophagus. Could be esophagitis. Consider endoscopy if there is any concern for a distal esophageal mass. 2. Nonspecific bilateral pleural thickening. Area of ground-glass opacification in the left lower lobe could be infectious or inflammatory. 3. There is about 50 percent stenosis at the SMA origin due to atherosclerosis but no findings of acute or chronic mesenteric ischemia. 4. 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 Discharge Plan Discharge Disposition: Xfer [facility] Date of Admission: 05/21/24 09:03 Attending Provider on Discharge: Lenny Vásquez Primary Care Provider: Mckinley Cheema Condition: Stable Anticipated Discharge Date/Time: 05/31/24 10:30 Discharge Medications: New guaifenesin 100 mg/5 mL Liquid 100 - 200 mg PO Q4H PRN (Reason: Cough) Qty: 473 0RF omeprazole 20 mg Capsule,Delayed Release(Dr/Ec) 20 mg PO BID 30 Days Qty: 60 0RF Continued Eliquis 2.5 mg tablet 2.5 mg PO BID atorvastatin 80 mg tablet 80 mg PO HS donepezil 5 mg tablet 5 mg PO HS metoprolol succinate 50 mg tablet extended release 24 hr 50 mg PO DAILY nitroglycerin 0.4 mg tablet, sublingual 0.4 mg sublingual Q5M PRN Rx Instructions: Place 1 Tablet (0.4 mg) under the tongue every 5 minutes if needed for Chest Pain. isosorbide mononitrate 30 mg tablet extended release 24 hr 30 mg PO DAILY clopidogrel 75 mg tablet 75 mg PO QAM ezetimibe 10 mg tablet 10 mg PO DAILY ranolazine 500 mg tablet extended release 12 hr 500 mg PO BID Discharge Orders: Discharge Order (Routine); Ordered 05/31/24 Ordered By: Lenny Vásquez Activity Level: Activity as Tolerated Discharge Diet: Regular Diet Detail: Diet: 6 soft and bite sized; Liquid: 2 mildly thick, NO STRAW. Dysphagia Food: Level 6- Soft & Bite size Dysphagia Liquid: Level 2-Mildly Thick ([place]) Follow Up Appointments: Mckinley Cheema MD [Primary Care Provider] - Forms: [facility] Info Instructions Admit to: SNF Discharge Potential: Fair Length of Stay: <30 days Code Status: Full Code Rehab Potential: Fair Therapy: Physical Therapy and Occupational Therapy Therapy Orders: Evaluate and Treat Oxygen: No Urinary Catheter: No Orders are good >30 days: Yes Signature: Lenny Vásquez
== END 2024-05-31 11:00 | DRG 177 ==
LOC: ED 21:52 → MEDSURG 22:29
PROVIDERS: Family Medicine; Physician Assistant; Admitting Provider Family Medicine; Emergency Provider Student in an Organized Health Care Education/Training Program; PCP Surgery; Visit Provider Family Medicine
DX: U07.1 COVID-19 (principal); I21.4 Non-ST elevation (NSTEMI) myocardial infarction; K20.91 Esophagitis, unspecified with bleeding; C91.10 Chronic lymphocytic leukemia of B-cell type not having achieved remission; G93.49 Other encephalopathy; R17 Unspecified jaundice; F03.90 Unspecified dementia, unspecified severity, without behavioral disturbance, psychotic disturbance, mood disturbance, and anxiety; I48.91 Unspecified atrial fibrillation; Z79.01 Long term (current) use of anticoagulants; D69.6 Thrombocytopenia, unspecified; I10 Essential (primary) hypertension; E78.5 Hyperlipidemia, unspecified; I25.10 Atherosclerotic heart disease of native coronary artery without angina pectoris; R11.10 Vomiting, unspecified; R79.89 Other specified abnormal findings of blood chemistry; R13.10 Dysphagia, unspecified; R50.9 Fever, unspecified; R21 Rash and other nonspecific skin eruption; Z95.1 Presence of aortocoronary bypass graft; Z95.5 Presence of coronary angioplasty implant and graft
CPT/HCPCS: 00731; 36415; 43239; 51798; 70450; 70551; 71045; 74177; 80048; 80053; 80076; 81001; 82270; 83605; 83735; 84443; 84484; 85018; 85025; 85027; 86850; 86900; 86901; 87040; 87086; 87426; 87631; 88305; 88312; 88341; 88342; 92526; 92610; 93005; 93306; 97110; 97112; 97116; 97161; 97165; 97530; 97535; 99100; 99285; A9270; G0378; J2470; J2704; J7030; J7120; Q9967

== ENCOUNTER 2024-09-07 13:25 | Outpatient (CLI) | payer MEDICARE, BC, SELFPAY | END 2024-09-07 13:26 | disposition home or self-care (01) | LOC: AMB 09-08 10:33 | PROVIDERS: PCP Surgery; Visit Provider Internal Medicine | DX: R41.82 Altered mental status, unspecified (principal) | CPT/HCPCS: A0425; A0427 ==

== ENCOUNTER 2024-09-07 14:00 | Emergency (ER) | payer MEDICARE, BC, SELFPAY ==
[2024-09-07] VITALS (32 sets, daily range): BP systolic 115–165; BP diastolic 84–109; PULSE 82–114; RESP 14–25; TEMP 37.3; O2SAT 90–97; BMI 22.3
--- OUTSIDE RECORDS SUMMARY | 2024-09-07 14:02 | XMS_ITS | Clinical Summary ---
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 90 Tablet 3 4 Active omeprazole 20 mg tablet Take 1 Tablet (20 mg) by mouth once daily before a meal. 5 Active Active Problems Problem Noted Date Diagnosed [...] Valerie Gilbert Relationship: Secondary Health Care Agent: Janine Johnson Relationship: daughter [phone] cell Patient has Advance Care Plan Documents [...] Encounters Date Type Department Care Team Description 07/05/2024 Telephone [facility] [address] [place] [address] Mckinley Cheema MD FYI (Returned call) 06/24/2024 12:35 PM CDT Office Visit [facility] [address] [place] [address] Mckinley Cheema MD Hospital F/U 06/24/2024 Travel 06/21/2024 Telephone [facility] [address] [place] [address] Mckinley Cheema MD Questions (Home Care Services) from Last 3 Months Immunizations Immunization Administration Dates Next Due AMB INFLUENZA IIV3 (AGE 65+ YRS) PF (Flu Clinic Only) 11/23/2018,11/24/2017 Amb Influenza, Inact (High-d ose) (Flu Clinic Only) 12/06/2013 Amb Influenza, Inactivated A IIV4 (Age 65+ Years) Preserv Free 11/12/2019 COVID-19 VACCINE SPIKEVAX (M ODERNA 50MCG/0.5ML) 12YO+ PFS 12/08/2022 COVID-19 vaccine (Oneloudr Productions[employer] NTech 30mcg/0.3mL) 12YO+ BIVALENT PF, MDV 12/07/2021 COVID-19 vaccine (Probki Iz okna-Bio NTech 30mcg/0.3mL) PF, MDV 11/27/2020,04/18/2020,03/28/2020 Influenza Virus, Unspecified 12/26/2023, 12/08/2022,11/05/2021,2020,11/12/2019,11/23/2018,11/24/2017,0 11/01/2016,11/01/2012,11/16/2011, 010,12/05/2007,12/19/2006,11/24/2003, Influenza, High-dose Inactivated 12/26/2023,11/13,11/21/2014 Influenza, IIV3 (Age >=3 years) 11/02/19 13,11/16/2011,11/10/2010,2009,11/07/2008,12/05/2007,12/19/2006,1 Influenza, Inactivated AIIV4 (Age 65+ Years) Preserv Free 12/08/2022,11/05/2021,10/26/2020 Influenza, Inactivated IIV3 (Age 65+ Years) Preserv Free 12/26/2023,11/01/2016 Pneumococcal Poly,23-Valent (Pneumovax) 12/05/2007 Pneumococcal conj 13-Valent (Prevnar 13) 02/02/2015 Td (Age >=7 Years) 11/24/2003 Tdap 03/25/2011 Tuberculin Skin Test, Unspecified 06/14/2024, Zoster (Zostavax-ZVL, live) 04/13/2007 Family History Medical [...] 1 12/26/2023 Social Connections Answer Date Recorded Do you often feel lonely or isolated from those around you? 0 06/24/2024 Financial Resource Strain Answer Date R ecorded Difficulty of Paying Living Expenses 3 06/24/2024 Difficulty of Paying Living Expenses Not on file 06/24/2024 Food Insecurity Answer Date Recorded Do you worry your food will run out before you are able to buy more? 1 06/24/2024 Transportation Needs Answer Date Record ed Does lack of transportation keep you from medica l appointments? 1 06/24/2024 Does lack of transportation keep you from work, meetings or getting things that you need? 1 06/24/2024 Housing Stability Answer Date Recorded What is your housing situation today? 1 06/24/2024 Utilities Answer Date Recorded Do you have trouble paying f or utilities (for example, heat, electricity, water, phone)? 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 Not on file Not on file Not on paulo e Obstetrics History Last Filed Vital Signs Vital Sign Reading Time Taken Comments Blood Pressure 117/67 06/24/2024 12:39 PM CDT Pulse 63 06/24/2024 12:39 PM CDT Temperature 36.6 C (97.8 F) 09/06/2023 2:29 PM CDT Respiratory Rate 18 08/08/2022 8:38 AM CDT Oxygen Saturation 100% 06/24/2024 12: 39 PM CDT Inhaled Oxygen Concentration - - Weight 79.2 kg (174 lb 11.2 oz) 025 12:39 PM CDT Height 175 cm (5' 8.9) 12/26/2023 2:08 PM SIGNS AND DISPLAYS SALES REPRESENTATIVE Body Mass Index 25.88 12/26/2023 2:08 PM SIGNS AND DISPLAYS SALES REPRESENTATIVE Plan of Treatment Upcoming Encounters Date Type Department Care Team (Late st Contact Info) Description 09/11/2024 1:00 PM CDT Office Visit [facility] [address] [place] [address] Alex Holliday DPM [address] [place] [address] Health Maintenance Due Date Last Done Comments Zoster (shingles) series for age 50+ (1 of 2) 06/08/2007 04/13/2007 RSV vaccine for adults or (1 - 1-dose 75+ series) 06/12/2010 Tetanus booster 03/25/2021 03/25/2011, 11/24/2003 COVID-19 vaccine series ( season) 2023 12/08/2022, 12/07/2021, 06/02/2021, Additional history exists Influenza Vaccine (#1) 2024 , 12/26/2023, 12/26/2023, Additional history exists BMI (ht and wt on same day) for age 18+ 12/25/2024 12/26/2023, 09/06/2023, 12/08/2022, Additional history exists Depression screening for age 12+ 12/25/2024 12/26/2023, 12/12/2022, 12/08/2022, Additional history exists Medicare Wellness for age 65+ 12/26/2024 12/26/2023, 12/08/2022, 12/07/2021, Additional history exists Pneumococcal series for age 50+ Completed 02/02/2015, 12/05/2007 Hepatitis B series for 19+ Aged Out N o longer eligible based on patient's age to complete this topic Insurance MEDICARE PB ONLY MEDICARE PART B HB ONLY MEDICARE PART A HB ONLY [facility] Advance Directives Documents on File Type Date Recorded Patient Frame Tender Expl anation Healthcare Directive 07/13/2011 10:15 AM [...] 8:26 AM 07/30/2015 12:14 PM Care Teams Glove Cutter Relationship Specialty Start Date End Date Mckinley Cheema MD [address] [place] [id number] PCP - General Family Practice 11/26/12 Margaret Jung MD [address] [place] [id number] Dermatology 01/13/11 Lucio Duggan MD [address] [place] [phone] Cardiovascular Disease 03/25/11 Meño Marshall [address] [place] [id number] Hematology and Oncology 03/25/11 Nairnder Wen MD [address] [place] [id number] Cardiology Cardiovascular Disease 03/21/12 Meoñ Hendricks [address] [place] [id number] Outside Residential Sales Professional 07/19/12
--- NOTE | 2024-09-07 14:11 | CRLHL7_ITS ---
For Patients: As a result of the Century Cures Act, medical imaging exams and procedure reports are released immediately into your electronic medical record. You may view this report before your referring provider. If you have questions, please contact your health care provider. INDICATION: Weakness. TECHNIQUE: Noncontrast CT of the head with multiplanar reconstruction utilizing bone and soft tissue algorithms. COMPARISON: None available. FINDINGS: No acute intracranial hemorrhage. Scattered hypoattenuation within the supratentorial white matter, nonspecific, but commonly reflecting moderate chronic small-vessel ischemic changes. Liu-white matter differentiation is preserved. Moderate diffuse parenchymal volume loss. The ventricles are proportional to the sulci. No abnormal extra-axial fluid collection is identified. Intact skull base and calvarium. Bilateral pseudophakia. The imaged paranasal sinuses and mastoid air cells are predominantly clear. IMPRESSION: 1. No acute intracranial hemorrhage or mass effect. 2. Moderate diffuse parenchymal volume loss and presumed chronic small vessel ischemic changes. Findings were discussed with Dr. Shine on 09/07/2024 at 2:40 p.m.. Please note that all CT scans at this facility use dose modulation, iterative reconstruction, and/or weight-based dosing when appropriate to reduce radiation dose to as low as reasonably achievable. Dictated by Luis Joiner MD @ 09/07/2024 2:40:47 PM (Electronically Signed)
--- NOTE | 2024-09-07 14:11 | CRLHL7_ITS ---
For Patients: As a result of the Century Cures Act, medical imaging exams and procedure reports are released immediately into your electronic medical record. You may view this report before your referring provider. If you have questions, please contact your health care provider. INDICATION: Acute stroke. TECHNIQUE: CTA neck with contrast bolus tracking, 3D angiographic rendering using maximum intensity projection (MIP) and images permanently archived. FINDINGS: There is carotid atherosclerosis bilaterally. There is atherosclerotic plaque in the proximal left ICA resulting in a mild stenosis, less than 50% by NASCET. There is no significant right carotid artery stenosis or dissection. The right vertebral artery is occluded. There is a severe left vertebral artery origin stenosis. The soft tissues of the neck are within normal limits. Degenerative changes are noted in the cervical spine. IMPRESSION: Mild proximal left ICA stenosis, less than 50% by NASCET. Severe left vertebral artery origin stenosis. Right vertebral artery occlusion. Per preliminary report: There is a partially visualized opacity in the posterior left upper lobe. See series 15, image 201. May be pleural effusion along the fissure based on position and Hounsfield attenuation. Consider dedicated chest CT when clinically appropriate. Extensive air within the venous system, probably related to IV placement. CTA findings discussed with Dr. Shine at 3:13 pm on 09/07/2024. Please note that all CT scans at this facility use dose modulation, iterative reconstruction, and/or weight-based dosing when appropriate to reduce radiation dose to as low as reasonably achievable. Dictated by Floyd Meng MD @ 09/07/2024 4:34:04 PM (Electronically Signed)
--- NOTE | 2024-09-07 14:11 | CRLHL7_ITS ---
For Patients: As a result of the Century Cures Act, medical imaging exams and procedure reports are released immediately into your electronic medical record. You may view this report before your referring provider. If you have questions, please contact your health care provider. INDICATION: Acute stroke. TECHNIQUE: CTA head with contrast bolus tracking, 3D angiographic rendering using maximum intensity projection (MIP) and images permanently archived. FINDINGS: There is scattered intracranial atherosclerotic disease. There is a right vertebral artery occlusion. There is no large vessel occlusion. No aneurysm is identified. 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 Please note that all CT scans at this facility use dose modulation, iterative reconstruction, and/or weight-based dosing when appropriate to reduce radiation dose to as low as reasonably achievable. Dictated by Floyd Meng MD @ 09/07/2024 4:29:36 PM (Electronically Signed)
--- NOTE | 2024-09-07 14:17 | CRLHL7_ITS ---
For Patients: As a result of the Century Cures Act, medical imaging exams and procedure reports are released immediately into your electronic medical record. You may view this report before your referring provider. If you have questions, please contact your health care provider. INDICATION: Confusion. Weakness. COMPARISON: 27 May 2024. TECHNIQUE: One view chest. IMPRESSION: [place] airspace opacity in the retrocardiac left lower lobe partially obscuring the heart border and to some degree the hemidiaphragm. Query atelectasis versus aspiration or may be pneumonia. Pulmonary vascular caliber appears normal. Right lung is clear. Heart size unchanged. Sternotomy. Dictated by Wagner Ramos MD @ 09/07/2024 3:18:53 PM (Electronically Signed)
--- NOTE | 2024-09-07 14:18 | ED.AMS ---
HPI - Altered Mental Status General Chief Complaint: Altered Mental Status Stated Complaint: Altered State Time Seen by Provider: 09/07/24 14:01 History of Present Illness HPI narrative: Patient is a 9-year-old gentleman who has significant dementia. Lives with his of many years and normally sleeps in the chair. Patient was able to get himself to a different chair this morning and took his breakfast that his prepared. He had an episode of vomiting and then fell back asleep. 3 hours later his noted him to be difficult to arouse. He also had some slurred speech and questionable right-sided facial droop. Patient has had progressive weakness of his lower extremities no gets around with a cane but is felt to be a significant fall risk. Patient's called for an ambulance the patient was transferred to the [facility]. He is noted to be in atrial fibrillation on EKG and is on Eliquis and Plavix. Patient is really unable to answer questions oriented only to himself. states that he has been getting progressively weaker but today was a major drop in his mental status. Patient has similar presentationin May of this year and was subsequently admitted and had COVID-19. Patient was treated symptomatically and improved. Related Data Home Medications ?Medication ?Instructions ?Recorded ?Confirmed apixaban 2.5 mg tablet (Eliquis) 2.5 mg PO BID 02/15/22 07/16/24 atorvastatin 80 mg tablet 80 mg PO HS 02/15/22 07/16/24 donepezil 5 mg tablet 5 mg PO HS 02/15/22 07/16/24 metoprolol succinate 50 mg 50 mg PO DAILY 02/15/22 07/16/24 tablet,extended release 24 hr clopidogrel 75 mg tablet 75 mg PO QAM 04/18/23 07/16/24 ezetimibe 10 mg tablet 10 mg PO DAILY 04/18/23 07/16/24 isosorbide mononitrate 30 mg 30 mg PO DAILY 04/18/23 07/16/24 tablet,extended release 24 hr ranolazine 500 mg tablet,extended 500 mg PO BID 04/18/23 07/16/24 release,12 hr nitroglycerin 0.4 mg sublingual 0.4 mg sublingual Q5M PRN 05/21/24 07/16/24 tablet Previous Rx's ?Medication ?Instructions ?Recorded omeprazole 20 mg capsule,delayed 20 mg PO BID 30 days #60 caps 05/31/24 release Allergies Allergy/AdvReac Type Severity Reaction Status Date / Time niacin Allergy Mild Rash and Verified 07/16/24 10:53 Itching Review of Systems Status of ROS: Reports: 10 or more systems reviewed and unremarkable except as noted in History and below [facility] Medical History Thrombocytopenia ?D69.6 - Thrombocytopenia, unspecified (ICD-10) Elevated bilirubin ?R17 - Unspecified jaundice (ICD-10) Non-ST elevated myocardial infarction (non-STEMI) ?I21.4 - Non-ST elevation (NSTEMI) myocardial infarction (ICD-10) Osteoarthritis ?M19.90 - Unspecified osteoarthritis, unspecified site (ICD-10) Coronary atherosclerosis of [place] coronary vessel ?I25.10 - Atherosclerotic heart disease of [place] coronary artery without angina pectoris (ICD-10) Acute pericarditis ?I30.9 - Acute pericarditis, unspecified (ICD-10) Dementia ?F03.90 - Unspecified dementia, unspecified severity, without behavioral disturbance, psychotic disturbance, mood disturbance, and anxiety (ICD-10) Chronic anticoagulation ?Z79.01 - joint terminal attack controller (current) use of anticoagulants (ICD-10) Coronary artery disease involving coronary bypass graft ?I25.810 - Atherosclerosis of coronary artery bypass graft(s) without angina pectoris (ICD-10) Mixed hyperlipidemia ?E78.2 - Mixed hyperlipidemia (ICD-10) Atrial fibrillation ?I48.91 - Unspecified atrial fibrillation (ICD-10) Chronic lymphoid leukemia ?C91.10 - Chronic lymphocytic leukemia of B-cell type not having achieved remission (ICD-10) Unspecified essential hypertension ?I10 - Essential (primary) hypertension (ICD-10) ASHD (arteriosclerotic heart disease) ?I25.10 - Atherosclerotic heart disease of [place] coronary artery without angina pectoris (ICD-10) Surgical History History of colonoscopy ?Z98.890 - Other specified postprocedural states (ICD-10) History of coronary artery bypass graft ?Z95.1 - Presence of aortocoronary bypass graft (ICD-10) History of vitrectomy ?Z98.890 - Other specified postprocedural states (ICD-10) History of ureter stent History of coronary artery stent placement ?Z95.5 - Presence of coronary angioplasty implant and graft (ICD-10) Family History Brother Diabetes Heart disease High blood pressure High cholesterol Mother Stroke Father Stroke Social History What is your current living situation?: unable to answer Problems where you live: unable to answer Problems where you live details: NA In the past 12 months, utilities in danger of being shut off: unable to answer In past 12 months, lack of transportation kept you from medical appts, meetings, work, or getting things needed for daily living: unable to answer In the past 12 mos, have been you worried that your food would run out before you had money to buy more?: unable to answer In the past 12 mos, the food you bought just didn't last and you didn't have money to buy more?: unable to answer Highest level of school completed/degree received: high school graduate Smoking Status: Never smoker Do you use any of these nicotine containing products: None Second hand tobacco smoke exposure: No How often do you have a drink containing alcohol: monthly or less How many standard drinks containing alcohol do you have on a typical day: 1 or 2 How often do you have six or more drinks on one occasion: Never AUDIT-C Alcohol total score: 1 Non-prescribed substance use: denies use Caffeine: Yes (pop) How often does anyone, including family, friends and others, physically hurt you: unable to answer How often does anyone, including family, friends and others, insult or talk down to you: unable to answer How often does anyone, including family, friends and others, threaten you with harm: unable to answer How often does anyone, including family, friends and others, scream or curse at you: unable to answer service: No Exam Narrative: Exam Narrative: EXAM GENERAL: Patient appears lethargic and ill. EYES: No scleral icterus. ENT: Tympanic membranes and oropharynx normal. THYROID: no thyroid nodules or thyromegaly. LYMPH: No supraclavicular or cervical lymphadenopathy. SKIN: Visible skin seen during exam normal or with benign process only. EXT: No dependent lower extremity pedal edema. HEART: Regular rate and rhythm with no murmurs, rubs, or gallops. LUNGS: Clear to auscultation bilaterally with no crackles or wheezes. ABD: Soft, non tender, non distended. PSYCH: Good eye contact, speech is not pressured. I would estimate his NIH stroke score at 6. Neurologic exam patient is oriented only to himself. He has no pronator drift. His reflexes are intact. He has no purposeful statements other than 1 sentence. He has no other focal neurologic defects. Const: Vital Signs, click to edit/add: Vital Signs - 24 hr 09/07/24 14:03 09/07/24 14:04 09/07/24 14:05 Temperature 99.1 F Pulse Rate 105 H 105 H Pulse Rate [Left P ulse Oximeter] 105 H Respiratory Rate 18 Blood Pressure 138/104 H Blood Pressure [Le ft Upper Arm] 138/104 H Pulse Oximetry 97 96 96 Oxygen Delivery Me thod Room Air 09/07/24 14:11 09/07/24 14:11 09/07/24 14:15 Temperature Pulse Rate 107 H Pulse Rate [Left P ulse Oximeter] Respiratory Rate 24 Blood Pressure Blood Pressure [Le ft Upper Arm] Pulse Oximetry 96 96 90 Oxygen Delivery Me thod Room Air 09/07/24 14:36 09/07/24 14:38 Temperature Pulse Rate Pulse Rate [Left P ulse Oximeter] Respiratory Rate 21 14 Blood Pressure 142/91 H Blood Pressure [Le ft Upper Arm] Pulse Oximetry Oxygen Delivery Me thod Course Course ED Course: Patient seen and immediately stroke code called. I have ordered the standard the workup plus chest x-ray UA blood cultures and viral swab. I have discussed case with Neurology as well. Vital Signs Vital signs: Initial Vital Signs Pulse Rate 105 H 09/07/24 14:03 Blood Pressure 138/104 H 09/07/24 14:03 Blood Pressure Mean 115 H 09/07/24 14:03 Pulse Oximetry 97 09/07/24 14:03 Vital Signs Pulse Rate 105 H 09/07/24 14:03 Blood Pressure 138/104 H 09/07/24 14:03 Pulse Oximetry 97 09/07/24 14:03 Temperature 99.1 F 09/07/24 14:05 Pulse Rate 107 H 09/07/24 14:15 Respiratory Rate 14 09/07/24 14:38 Blood Pressure 142/91 H 09/07/24 14:38 Pulse Oximetry 90 09/07/24 14:15 Oxygen Delivery Method Room Air 09/07/24 14:11 MDM - Altered Mental Status MDM Narrative Medical decision making narrative: Patient is an 89-year-old gentleman who has baseline dementia. He is brought in today as his found him to be less alert the normal. I initially gave him a NIH stroke score of 4. Patient initially underwent stroke code. He had had a negative CTA head neck and negative CT of the head. With an albumin that is pending. We begun replacement of his calcium as well as his potassium which is come back low. No obvious infection to this point. I have discussed the case with our local hospitalist at as the troponin is 0.33 which we have elected to begin transfer to tertiary care while we continue to treat his metabolic abnormalities and look for causes of his encephalopathy.. Critical care time 1.5 hours. Lab Data Labs: Lab Results 09/07/24 09/07/24 09/07/24 Range/Units 14:16 14:25 14:42 WBC 20.11 H (4.50-11.00) K/uL RBC 4.77 (4.30-5.90) m/uL Hgb 14.0 (13.5-17.5) gm/dL Hct 42.5 (37.0-53.0) % MCV 89 (80-100) fL MCH 29 (26-34) pg MCHC 33 (32-36) gm/dL RDW Coeff of Joyce 14.1 (11.5-15.5) % Plt Count 124 L (140-440) K/uL Neut % (Auto) 58.3 (42.0-72.0) % Lymph % (Auto) 33.8 (20-44) % [place] % (Auto) 7.2 (0.0-11.0) % Eos % (Auto) 0.0 (0.0-7.0) % Baso % (Auto) 0.0 (0.0-3.0) % Neut # (Auto) 11.70 H (1.7-7.0) K/uL Lymph # (Auto) 6.80 H (0.90-2.90) K/uL [place] # (Auto) 1.40 H (0.00-0.90) K/UL Eos # (Auto) 0.00 (0.00-0.50) K/uL Baso # (Auto) 0.00 (0.00-0.30) K/uL Abs Immat Gran (auto) 0.10 (0.00-0.30) K/uL Imm/Tot Granulo (auto) 0.7 % INR 1.10 (0.91-1.10) APTT 30 (23-33) Seconds Sodium 140 (135-149) mmol/L Potassium 2.6 L* (3.6-5.1) mmol/L Chloride 121 H (96-114) mmol/L Carbon Dioxide 17 L (20-32) mmol/L Anion Gap 2 L (7-15) mEq/L BUN 8 (7-30) mg/dL Creatinine 0.5 (0.5-1.5) mg/dL Estimated Creat Clear 51.41 Estimated GFR 98 ml/min Glucose 74 (60-115) mg/dL Lactate 2.3 H (0.5-1.9) mmol/L Calcium 5.0 L* (8.4-10.6) mg/dL POC Creatinine 1.1 (0.6-1.3) mg/dl Discharge Plan Discharge Clinical Impression: Encephalopathy Patient Disposition: [facility] Condition: Stable Instructions: Encephalopathy (DC) Activity Level: Other Discharge Diet: Other Prescriptions: No Action Eliquis 2.5 mg tablet 2.5 mg PO BID atorvastatin 80 mg tablet 80 mg PO HS donepezil 5 mg tablet 5 mg PO HS metoprolol succinate 50 mg tablet extended release 24 hr 50 mg PO DAILY nitroglycerin 0.4 mg tablet, sublingual 0.4 mg sublingual Q5M PRN Rx Instructions: Place 1 Tablet (0.4 mg) under the tongue every 5 minutes if needed for Chest Pain. omeprazole 20 mg Capsule,Delayed Release(Dr/Ec) 20 mg PO BID 30 Days Qty: 60 0RF isosorbide mononitrate 30 mg tablet extended release 24 hr 30 mg PO DAILY clopidogrel 75 mg tablet 75 mg PO QAM ezetimibe 10 mg tablet 10 mg PO DAILY ranolazine 500 mg tablet extended release 12 hr 500 mg PO BID Stand Alone Forms: [facility] Info Instructions
[2024-09-07 14:29] LABS: Creatinine, Point-of-Care* 1.1 mg/dl (0.6-1.3)
[2024-09-07 14:30] LABS: Hematocrit 42.5 % (37.0-53.0); Hemoglobin* 14.0 gm/dL (13.5-17.5); Immature Granulocytes Pct Auto 0.7 %; Mean Corpuscular HGB Conc 33 gm/dL (32-36); Mean Corpuscular Hemoglobin 29 pg (26-34); Mean Corpuscular Volume 89 fL (80-100); RDW Coefficient of Variation % 14.1 % (11.5-15.5); Red Blood Count 4.77 m/uL (4.30-5.90); White Blood Count* 20.11 K/uL (4.50-11.00)
[2024-09-07 14:41] LABS: Immature Granulocytes Abs Auto 0.10 K/uL (0.00-0.30); Lymphocytes Absolute Auto 6.80 K/uL (0.90-2.90); Slide Review Reflex Yes
[2024-09-07 14:42] LABS: Chloride* 121 mmol/L (96-114); Sodium* 140 mmol/L (135-149)
[2024-09-07 14:44] LABS: INR 1.10 (0.91-1.10); Prothrombin Time 15.0 Seconds
[2024-09-07 14:45] LABS: Anion Gap 2 mEq/L (7-15); Blood Urea Nitrogen* 8 mg/dL (7-30); Carbon Dioxide* 17 mmol/L (20-32); Creatinine* 0.5 mg/dL (0.5-1.5); Est. Creatinine Clearance* 51.41; Estimated Glomerular Filt Rate 98 ml/min
[2024-09-07 14:46] LABS: Glucose* 74 mg/dL (60-115)
[2024-09-07 14:46] LABS: Lactate Sepsis w/Reflex* 2.3 mmol/L (0.5-1.9)
[2024-09-07 14:48] LABS: Calcium* 5.0 mg/dL (8.4-10.6); Potassium* 2.6 mmol/L (3.6-5.1)
[2024-09-07] MEDS: POTASSIUM BICARB 25 MEQ EFFERVESCENT TAB PO (15:12)
[2024-09-07 15:14] LABS: Slide Review Acceptable Review (Acceptable)
[2024-09-07] MEDS: CALCIUM GLUC 1,000MG/50 ML 1,000 MG/50 ML BAG 100 MG IVPB ×2 (15:15→15:46)
[2024-09-07 15:21] LABS: PCR FLU A Negative PCR FLU A (Negative); PCR FLU B Negative PCR FLU B (Negative); PCR RSV Negative PCR RSV (Negative); SARS PCR* Negative SARS-CoV-2 (Negative)
[2024-09-07 15:37] LABS: Albumin* 2.0 g/dL (3.3-5.0)
[2024-09-07] MEDS: AZITHROMYCIN 500 MG in 0.9 % SODIUM CHLORIDE 250 ml 250 ML 255 MG IVPB (15:46)
--- NOTE | 2024-09-07 16:01 | CRLHL7_ITS ---
For Patients: As a result of the Century Cures Act, medical imaging exams and procedure reports are released immediately into your electronic medical record. You may view this report before your referring provider. If you have questions, please contact your health care provider. INDICATION: Possible sepsis TECHNIQUE: CT chest, abdomen and pelvis acquired with 79 cc Isovue 370 IV contrast. Multiplanar axial, coronal, and sagittal reformats are included. MIP images. 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 Mediastinum and [place]: No mass or adenopathy. Lungs and pleura: Bilateral loculated pleural effusions which extend into the left major fissure. Basilar atelectasis. Chest wall and axilla: No mass or adenopathy. ABDOMEN AND PELVIS: Motion limits evaluation. Liver: Unremarkable. Gallbladder and bile ducts: Distended gallbladder some possible wall thickening and pericystic inflammatory change. Pancreas: Unremarkable. Spleen: Unremarkable. Adrenal glands: Unremarkable. Kidneys: Too small to characterize low-attenuation lesion left kidney GI tract: Unremarkable. Vascular structures: Diffuse atherosclerotic vascular calcification of the abdominal aorta. 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 There is similar moderate narrowing of the proximal SMA due to calcified and noncalcified atherosclerotic plaque. Lymph nodes: Unremarkable. Miscellaneous: Small fat containing inguinal hernias Pelvic Organs: Enlarged prostate gland trabeculated urinary bladder Bones: No suspicious bone lesions. IMPRESSION: 1. Loculated bilateral pleural effusions. Basilar atelectasis. 2. Distended gallbladder possible wall thickening and mild pericystic stranding correlate for right upper quadrant pain right upper quadrant ultrasound could be performed. 3. 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 There is similar moderate narrowing of the proximal SMA due to calcified and noncalcified atherosclerotic plaque. Please note that all CT scans at this facility use dose modulation, iterative reconstruction, and/or weight-based dosing when appropriate to reduce radiation dose to as low as reasonably achievable. Dictated by Yoselin Shepard MD @ 09/07/2024 6:01:38 PM (Electronically Signed)
[2024-09-07] MEDS: PIPERACILLIN/TAZOBACTAM 3.375 GM in 0.9 % SODIUM CHLORIDE Mini-bag 100 ML IVPB (16:20)
[2024-09-07 16:35] LABS: Ionized Calcium* 1.21 mmol/L (1.11-1.30)
[2024-09-07 16:37] LABS: Lactate Sepsis 2 Hour 2.6 mmol/L (0.5-1.9)
[2024-09-07 17:11] LABS: PTH Intact* 40.4 pg/mL (14.2-75.2)
[2024-09-07] MEDS: POTASSIUM CHLORIDE 10 MEQ/100 ML PIGGYBACK 100 MEQ IVPB (17:26)
[2024-09-07] MEDS: MAGNESIUM IV 2 GM/50 ML PIGGYBACK IVPB (17:29)
[2024-09-07 18:04] LABS: Albumin* 1.9 g/dL (3.3-5.0)
[2024-09-07 18:07] LABS: Alanine Aminotransferase* 8 U/L (4-50); Alkaline Phosphatase* 43 U/L (40-150); Aspartate Amino Transferase* 16 U/L (12-35); Bilirubin Direct* 0.1 mg/dL (0.0-0.5); Bilirubin Total* 1.8 mg/dL (0.1-1.5); Total Protein* 3.7 g/dL (6.0-8.3)
[2024-09-07 18:34] LABS: Troponin, Point-of-Care* 0.34 ng/ml (0.01-0.04)
== END 2024-09-07 18:47 | disposition short-term general hospital (02) ==
PROVIDERS: Internal Medicine; Emergency Provider Emergency Medicine; PCP Surgery
DX: G93.40 Encephalopathy, unspecified (principal)
CPT/HCPCS: 36415; 70450; 70496; 70498; 71045; 71260; 74177; 80048; 80076; 81003; 82040; 82330; 82565; 83605; 83735; 83970; 84100; 84484; 85025; 85610; 85730; 87040; 87631; 93005; 94761; 96365; 96366; 99284; 99285; 99291; 99292; A9270; J0456; J0613; J2543; J3475; J3480; J7030; J7050; Q9967

== ENCOUNTER 2024-09-07 18:15 | Outpatient (CLI) | payer MEDICARE, BC, SELFPAY | END 2024-09-07 18:16 | disposition home or self-care (01) | LOC: AMB 09-08 10:43 | PROVIDERS: PCP Surgery; Visit Provider Emergency Medicine | DX: G93.40 Encephalopathy, unspecified (principal); R53.1 Weakness | CPT/HCPCS: A0425; A0434 ==

== ENCOUNTER 2024-09-18 12:04 | Outpatient (CLI) | payer MEDICARE, BC, SELFPAY | END 2024-09-18 12:05 | disposition home or self-care (01) | PROVIDERS: PCP Surgery; Visit Provider Family Medicine | DX: R04.0 Epistaxis (principal) | CPT/HCPCS: A0425; A0429 ==

== ENCOUNTER 2024-09-18 12:20 | Emergency (ER) | payer MEDICARE, BC, SELFPAY ==
--- OUTSIDE RECORDS SUMMARY | 2024-09-18 12:22 | XMS_ITS | Clinical Summary ---
Author Organization [facility] Address [address] [place] [id number] Care Team Providers Care Pv Design And Installation Technician Name Role Phone Margaret Jung MD Unavailable + Lucio Duggan MD Unavailable [phone] Meño Marshall Unavailable Unavailable Narinder Wen MD Unavailable Rubi vailable Meño Hendricks Unavailable [phone] Mckinley Cheema MD Primary Care Provider [phone] Allergies Active Allergy Reactions Criticality Noted Date Comments Niacin Rash,Itching 06/01/2009 Large doses. Tolerates 500mg Medications nitroglycerin (NITROSTAT) 0.4 mg sublingual tabletIndications: Chest pain, unspecified type,NSTEMI (non-ST elevated myocardial infarction) (HC),ASHD (arteriosclerotic heart disease),Hx of CABG Place 1 Tablet (0.4 mg) under the tongue every 5 minutes if needed for Chest Pain. 25 Tablet 1 3 12:06 PM CDT 08/09/19 23 Active atorvastatin (LIPITOR) 80 mg tabletIndications: Atherosclerosis of [place] coronary artery of [place] heart with angina pectoris TAKE ONE TABLET BY MOUTH AT BEDTIME 90 Tablet 3 11/19/19 24 Active isosorbide mononitrate (IMDUR) 30 mg extended release tablet 24 HourIndications:NS BARON (non-ST elevated myocardial infarction) (HC) TAKE ONE TABLET BY MOUTH ONE TIME DAILY 90 Tablet 3 12/08/19 24 Active apixaban (Eliquis) 2.5 mg tabletIndications: Paroxysmal atrial fibrillation (HC) TAKE ONE TABLET BY MOUTH TWICE DAILY 180 Tablet 3 12/21/19 24 Active ezetimibe (ZETIA) 10 mg tabletIndications: NSTEMI (non-ST elevated myocardial infarction) (HC),ASHD (arteriosclerotic heart disease),Hx of CABG,Mixed hyperlipidemia Take 1 Tablet (10 mg) by mouth once daily. 90 Tablet 3 12/26/19 24 Active metoprolol succinate (TOPROL XL) 50 mg sustained-release tabletIndications: Hypertension, unspecified type Take 1 Tablet (50 mg) by mouth once daily. 90 Tablet 3 12/26/19 24 Active clopidogreL (PLAVIX) 75 mg tabletIndications: NSTEMI (non-ST elevated myocardial infarction) (HC),ASHD (arteriosclerotic heart disease),Hx of CABG,Chest pain, unspecified type Take 1 Tablet (75 mg) by mouth once daily in the morning. 90 Tablet 3 12/26/19 24 Active ranolazine (RANEXA) 500 mg Controlled-Release tabletIndications: NSTEMI (non-ST elevated myocardial infarction) (HC),ASHD (arteriosclerotic heart disease),Hx of CABG,Chest pain, unspecified type Take 1 Tablet (500 mg) by mouth two times daily. 180 Tablet 3 12/26/19 24 Active donepeziL (ARICEPT) 5 mg tabletIndications: Moderate dementia without behavioral disturbance (HC) Take 1 Tablet (5 mg) by mouth at bedtime. 90 Tablet 3 12/26/19 24 Active omeprazole 20 mg tablet Take 1 Tablet (20 mg) by mouth once daily before a meal. 06/25/19 25 025 Discontinued( Pharmacist change per medication history (E-cancel not sent)) amoxicillin-clavul anate (AUGMENTIN) 875-125 mg tabletIndications: lower respiratory infection Take 1 Tablet by mouth two times daily with meals for 7 doses. 7 Tablet 09/12/19 25 025 Active Problems Problem Noted Date Diagnosed Date Aspiration pneumonia of right lower lobe 025 Severe sepsis 09/07/2024 Metabolic encephalopathy 09/07/2024 Leukocytosis 09/07/2024 Hypocalcemia 09/07/2024 Loculated bilateral pleural effusions 09/07/2024 Pneumonia 09/07/2024 Hypokalemia 09/07/2024 Hypomagnesemia 09/07/2024 Gastroesophageal reflux disease without esophagi tis 05/31/2024 Dementia 08/04/2022 NSTEMI (non-ST elevated myocardial infarction) [...] Health Care Agent: Janine Johnson Relationship: daughter [phone] cell Patient has Advance Care Plan Documents [...] Encounters Date Type Department Care Team Description 09/16/2024 Lab Requisition [facility] [phone] Edilson Lau MD 09/10/2024 Travel 09/07/2024 7:43 PM CDT - 09/11/2024 10:04 AM CDT Hospital Encounter [facility] [address] [place] [address] [facility], [facility], MD Adelaide Neff, MD Adrian Gardner, JARETH Mirza Aspiration pneumonia of right lower lobe, unspecified aspiration pneumonia type (HC) (Primary Dx); Dementia, unspecified dementia severity, unspecified dementia type, unspecified whether behavioral, psychotic, or mood disturbance or anxiety (HC) [facility]charge Disposition[facility] 09/07/2024 Orders Only [facility] Scanner 1 scan: (1-Ord) [place], CHEST ABDOMEN PELVIS W CONTRAST, 09/07/2024 09/07/2024 Orders Only [facility] Scanner 1 scan: (1-Ord) [place], ANGIO NECK, 09/07/2024 09/07/2024 Orders Only [facility] Scanner 1 scan: (1-Ord) [facility], ANIGO HEAD, 09/07/2024 09/07/2024 Orders Only [facility] Scanner 1 scan: (1-Ord) [facility] , CHEST 1V PORTABLE, 09/07/2024 09/07/2024 Orders Only [facility] Scanner 1 scan: (1-Ord) [facility], CT HEAD/BRAIN W/ CONTRAST, 09/07/2024 07/05/[address] [address] Mckinley Cheema MD FYI (Returned call) 06/24/2024 12:35 PM CDT Office Visit [address] [address] Mckinley Cheema MD Hospital F/U 06/24/2024 Travel 06/21/2024 Telephone [facility] [address] [place] [address] Mckinley Cheema MD Questions (Home Care Services) from Last 3 Months Immunizations Immunization Administration Dates Next Due AMB INFLUENZA IIV3 (AGE 65+ YRS) PF (Flu Clinic Only) 11/23/2018,11/24/2017 Amb Influenza, Inact (High-d ose) (Flu Clinic Only) 12/06/2013 Amb Influenza, Inactivated A IIV4 (Age 65+ Years) Preserv Free 11/12/2019 COVID-19 VACCINE SPIKEVAX (M ODERNA 50MCG/0.5ML) 12YO+ PFS 12/08/2022 COVID-19 vaccine ([employer] NTech 30mcg/0.3mL) 12YO+ BIVALENT PF, MDV 12/07/2021 COVID-19 vaccine (Better[employer]-Bio NTech 30mcg/0.3mL) PF, MDV 11/27/2020,04/18/2020,03/28/2020 Influenza Virus, [...] or isolated from those around you? 0 09/10/2024 Financial Resource Strain Answer Date R ecorded Difficulty of Paying Living Expenses 3 06/24/2024 Difficulty of Paying Living Expenses Not on file 06/24/2024 Food Insecurity Answer Date Recorded Do you worry your food will run out before you are able to buy more? 1 09/10/2024 Transportation Needs Answer Date Record ed Does lack of transportation keep you from medica l appointments? 1 09/10/2024 Does lack of transportation keep you from work, meetings or getting things that you need? 1 09/10/2024 Housing Stability Answer Date Recorded What is your housing situation today? 1 09/10/2024 Interpersonal Safety Answer Date Record ed Are you being hit, kicked, p ushed or yelled at (see row info)? No 09/08/2024 Interpersonal Safety Abuse 12 - 18 Not on file 09/08/2024 Interpersonal Safety Ambulatory Vulnerability No t on file 09/08/2024 Utilities Answer Date Recorded Do you have trouble paying f or utilities (for example, heat, electricity, water, phone)? 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 on file Not on file Not on paulo e Obstetrics History Last Filed Vital Signs Vital Sign Reading Time Taken Comments Blood Pressure 134/79 09/11/2024 7:48 AM CDT Pulse 77 09/11/2024 7:48 AM CDT Temperature 36.4 C (97.6 F) 09/11/2024 7:48 AM CDT Respiratory Rate 16 09/11/2024 7:48 AM CDT Oxygen Saturation 95% 09/11/2024 7:48 AM CDT Inhaled Oxygen Concentration - - Weight 79.2 kg (174 lb 11.2 oz) 025 12:39 PM CDT Height 175 cm (5' 8.9) 12/26/2023 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 Body Mass Index 25.88 12/26/2023 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 Plan of Treatment Health Maintenance Due Date [...] on patient's age to complete this topic Procedures Procedure Name Priority Date/Time Associated Diagnosis Comments RED CELL MORPHOLOGY Routine 09/17/2024 7 :52 AM CDT Encounter for other specified surgical aftercare Pneumonitis due to inhalation of food and vomit (HC) PLATELET ESTIMATE Routine 09/17/2024 7:5 2 AM CDT Encounter for other specified surgical aftercare Pneumonitis due to inhalation of food and vomit (HC) CBC WITH AUTO DIFFERENTIAL Routine 09/17/2024 7:52 AM CDT Encounter for other specified surgical aftercare Pneumonitis due to inhalation of food and vomit (HC) CBC WITH AUTO DIFFERENTIAL Routine 09/17/2024 7:52 AM CDT Encounter for other specified surgical aftercare Pneumonitis due to inhalation of food and vomit (HC) BASIC METABOLIC PANEL Routine 09/17/2024 7:52 AM CDT Encounter for other specified surgical aftercare Pneumonitis due to inhalation of food and vomit (HC) XR VIDEO SWALLOW W SPEECH Routine 09/10/2024 11:23 AM CDT WHITE BLOOD COUNT Early AM 09/10/2024 7:3 6 AM CDT CREATININE Early AM 09/10/2024 7:36 AM CDT POTASSIUM Early AM 09/10/2024 7:36 AM CDT SCAN CORRESP-EKG RESULTS 09/09/2024 12:31 PM CDT SCAN CORRESP-IMAGING 09/09/2024 12:31 PM CDT SCAN CORRESP-IMAGING 09/09/2024 12:31 PM CDT SCAN CORRESP-IMAGING 09/09/2024 12:31 PM CDT MAGNESIUM Early AM 09/09/2024 11:00 AM CDT BASIC METABOLIC PANEL Early AM 09/09/2024 11:00 AM CDT SCAN-CARDIAC STRIP 09/09/2024 2: 34 AM CDT EKG 12 LEAD STAT 09/09/2024 1:34 AM CDT MAGNESIUM Timed 09/08/2024 6:34 PM CDT NM HEPATOBILIARY IMAGING WITH EF STAT 09/08/2024 3:57 PM CDT HEPATIC FUNCTION PANEL Early AM 7:31 AM CDT BASIC METABOLIC PANEL Early AM 09/08/2024 7:31 AM CDT MAGNESIUM Early AM 09/08/2024 7:31 AM CDT CBC W PLT NO DIFF Early AM 09/08/2024 7:3 1 AM CDT US ABDOMEN LIMITED RUQ PORTABLE Routine 09/08/2024 6:55 AM CDT SCAN-CARDIAC STRIP 09/08/2024 1: 29 AM CDT SCAN-CARDIAC STRIP 09/07/2024 10 :18 PM CDT MAGNESIUM EZEKIEL 09/07/2024 9:23 PM CDT CREATININE EZEKIEL 09/07/2024 9:23 PM CDT PRO-BNP Today 09/07/2024 9:23 PM CDT ELECTROLYTE PANEL STAT 09/07/2024 9:2 3 PM CDT SCAN-CT INTERPRETATION 12:00 AM CDT SCAN-CT INTERPRETATION 12:00 AM CDT SCAN-CT INTERPRETATION 12:00 AM CDT SCAN-RADIOLOGY REPORT 09/07/2024 12:00 AM CDT SCAN-CT INTERPRETATION 12:00 AM CDT from Last 3 Months Results * (ABNORMAL) CBC WITH AUTO DIFFERENTIAL (09/17/2024 7:52 AM CDT) WHITE BLOOD COUNT 13.1(H) 4.5 - 11.0 thou/cu mm 09/17/2024 10:17 AM [facility] RED BLOOD COUNT 4.59 4.30 - 5.90 mil/cu mm 09/17/2024 10:17 AM [facility] HEMOGLOBIN 13.2(L) 13.5 - 17.5 g/dL 09/17/2024 10:17 AM [facility] HEMATOCRIT 40.6 37.0 - 53.0 % 09/17/2024 10:17 AM [facility] MCV 89 80 - 100 fL 09/17/2024 10:17 AM [facility] MCH 28.8 26.0 - 34.0 pg 09/17/2024 10:17 AM [facility] MCHC 32.5 32.0 - 36.0 g/dL 09/17/2024 10:17 AM [facility] RDW 14.4 11.5 - 15.5 % 09/17/2024 10:17 AM [facility] PLATELET COUNT 186 140 - 440 thou/cu mm 09/17/2024 10:17 AM [facility] MPV 9.6 6.5 - 11.0 fL 09/17/2024 10:17 AM [facility] % NEUT 37.9 % 09/17/2024 10:17 AM [facility] % LYMPH 55.4 % 09/17/2024 10:17 AM [facility] % MONO 5.3 % 09/17/2024 10:17 AM [facility] % EOS 1.3 % 09/17/2024 10:17 AM [facility] % BASO 0.1 % 09/17/2024 10:17 AM [facility] ABSOLUTE NEUTROPHILS 5.0 1.7 - 7.0 thou/cu mm 09/17/2024 10:17 AM [facility] ABSOLUTE LYMPHOCYTES 7.3(H) 0.9 - 2.9 thou/cu mm 09/17/2024 10:[address] [facility] ABSOLUTE MONOCYTES 0.7 <0.9 thou/cu mm 09/17/2024 10:[address] [facility] ABSOLUTE EOSINOPHILS 0.2 <0.5 thou/cu mm 09/17/2024 10:[address] [facility] ABSOLUTE BASOPHILS 0.0 <0.3 thou/cu mm 09/17/2024 10:[address] [facility] Blood BLOOD SPECIMEN / Unknown Venipuncture / Unknown 09/17/2024 7:52 AM CDT 09/17/2024 9:10 AM CDT us Edilson Lau MD HEMATOLOGY Final Result Performing Organization Address [facility] Co de Phone Number [facility] [address] [place] [address] * (ABNORMAL) RED CELL MORPHOLOGY (09/17/2024 7:52 AM CDT) ACANTHOCYTES Many 09/17/2024 10:[address] [facility] ELLIPTOCYTES Few 09/17/2024 10:[address] [facility] RBC COMMENT Present(A) RBC morphology appears normal, RBC morphology within normal limits for newborns. 09/17/2024 10:[address] [facility] WBC SMUDGE CELLS Present 09/17/2024 10:[address] [facility] Blood BLOOD SPECIMEN / Unknown Venipuncture / Unknown 09/17/2024 7:52 AM CDT 09/17/2024 9:10 AM CDT us Edislon Lau MD HEMATOLOGY Final Result Performing Organization Address [facility]/ZIP Co de Phone Number [facility] [address] [place] [address] * PLATELET ESTIMATE (09/17/2024 7:52 AM CDT) PLATELET ESTIMATE Adequate Adequate, No estimate 09/17/2024 10:16 AM [facility] Blood BLOOD SPECIMEN / Unknown Venipuncture / Unknown 09/17/2024 7:52 AM CDT 09/17/2024 9:10 AM CDT us Edilson Lau MD HEMATOLOGY Final Result [facility] [address] [place] [address] * (ABNORMAL) BASIC METABOLIC PANEL (09/17/2024 7:52 AM CDT) Only the most recent of3 resultswithin the time period is included. SODIUM 139 136 - 145 mmol/L 09/17/2024 9:33 AM [facility] POTASSIUM 4.2 3.5 - 5.1 mmol/L 09/17/2024 9:33 AM [facility] CHLORIDE 105 98 - 107 mmol/L 09/17/2024 9:33 AM [facility] CO2,TOTAL 24 22 - 29 mmol/L 09/17/2024 9:33 AM [facility] ANION GAP 10 5 - 18 09/17/2024 9:33 AM [facility] GLUCOSE 94 70 - 99 mg/dL 09/17/2024 9:33 AM [facility] CALCIUM 9.4 8.8 - 10.4 mg/dL 09/17/2024 9:33 AM [facility] Comment: Reference ranges for this test were updated on 12/19/2023 to reflect our healthy population more accurately. Reference range changes are not retroactively applied to results, but previous results using the same methodology can be interpreted in the context of the new reference range. BUN 12 8 - 23 mg/dL 09/17/2024 9:33 AM [facility] CREATININE 1.00 0.70 - 1.20 mg/dL 09/17/2024 9:33 AM [facility] BUN/CREAT RATIO 12 10 - 20 9:33 AM [facility] eGFR 72(L) >90 mL/min/1.7 3m2 09/17/2024 9:[address] [facility] Comment:As of 2021, eG FR is calculated by the CKD-EPI creatinine equation without race adjustment. eGFR can be influenced by muscle mass, exercise, and diet. The reported eGFR is an estimation only and is only applicable if the renal function is stable. Blood BLOOD SPECIMEN / Unknown Venipuncture / Unknown 09/17/2024 7:52 AM CDT 09/17/2024 9:10 AM CDT us Edilson Lau MD CHEMISTRY Final Result [facility] [address] [place] [address] * XR VIDEO SWALLOW AND TREATMENT W SPEECH (09/10/2024 11:23 AM CDT) Anatomical Region Laterality Modality Esophagus Digital Radiogra phy Narrative 09/10/2024 12:43 PM CDT EXAM: XR VIDEO SWALLOW W SPEECH DATE OF EXAM: 09/10/2024 Patient: Reddy Gilbert (1935), CLINICAL HISTORY: Assess swallow for aspiration. TECHNIQUE: Fluoroscopy was provided for speech pathologist during video swallow study. FINDINGS: Patient was given barium of varying consistencies to ingest.There was laryngeal penetration with aspiration during ingestion of thin barium liquids. There was no laryngeal penetration or aspiration during ingestion of nectar thick barium, honey thick barium, pudding thick barium, and barium coated cracker. Vallecular sinus residue present throughout exam. Please see the report by the speech pathologist for further details and recommendations. FLUOROSCOPY TIME: 2 minute(s), 48 seconds Monica Chamorro PA-C [employer] us Mariana Bryson MD FLUOROSCOPY Final Result * WBC AM (09/10/2024 7:36 AM CDT) WHITE BLOOD COUNT 9.4 4.5 - 11.0 thou/cu mm 09/10/2024 8:16 AM CDT [facility] NRBC 0.0 % 09/10/2024 8:16 AM CDT [facility] ABS NRBC 0.0 thou /cu mm 09/10/2024 8:16 AM CDT [facility] Blood BLOOD SPECIMEN / Unknown Butterfly / Unknown 09/10/2024 7:36 AM CDT 09/10/2024 8:03 AM CDT us [facility] Amanda l Result Performing Organization Address City/[facility]/ZIP Co de Phone Number [facility] [address] [place] [address], [place] * POTASSIUM (09/10/2024 7:36 AM CDT) POTASSIUM 4.5 3.5 - 5.1 mmol/L 09/10/2024 8:37 AM CDT [facility] Blood BLOOD SPECIMEN / Unknown Butterfly / Unknown 09/10/2024 7:36 AM CDT 09/10/2024 8:04 AM CDT [facility] Amanda l Result Performing Organization Address City/[facility] Co de Phone Number [facility] [address] [place] [address], [place] * (ABNORMAL) Creatinine AM (09/10/2024 7:36 AM CDT) Only the most recent of2 resultswithin the time period is included. eGFR 64(L) >90 mL/min/1.7 3m2 09/10/2024 8:37 AM CDT [facility] Comment:As of 2021, eG FR is calculated by the CKD-EPI creatinine equation without race adjustment. eGFR can be influenced by muscle mass, exercise, and diet. The reported eGFR is an estimation only and is only applicable if the renal function is stable. CREATININE 1.10 0.70 - 1.20 mg/dL 09/10/2024 8:37 AM CDT [facility] Blood BLOOD SPECIMEN / Unknown Butterfly / Unknown 09/10/2024 7:36 AM CDT 09/10/2024 8:04 AM CDT [facility] Amanda l Result Performing Organization Address City/[facility] Co de Phone Number [facility] [address] [address], [place] * SCAN CORRESP-EKG RESULTS (09/09/2024 12:31 PM CDT) Narrative 09/09/2024 12:31 PM CDT Ordered by an unspecified provider. us Other Clinical Staff OTHER Final Resul t * SCAN CORRESP-IMAGING (09/09/2024 12:31 PM CDT) Only the most recent of3 resultswithin the time period is included. Anatomical Region Laterality Modality Other Narrative 09/09/2024 12:31 PM CDT Ordered by an unspecified provider. us Other Clinical Staff OTHER Final Resul t * MAGNESIUM (09/09/2024 11:00 AM CDT) Only the most recent of4 resultswithin the time period is included. [facility] MAGNESIUM 2.3 1.6 - 2.4 mg/dL 09/09/2024 11:45 AM CDT [facility] Blood BLOOD SPECIMEN / Unknown Butterfly / Unknown 09/09/2024 11:00 AM CDT 09/09/2024 11:09 AM CDT us Mariana Bryson MD CHEMISTRY Final Result Performing Organization Address [facility] Co de Phone Number [facility] [address] [address], [place] * SCAN-CARDIAC STRIP (09/09/2024 2:34 AM CDT) us Scanner OTHER Final Result * ECG STAT (09/09/2024 1:34 AM CDT) Interpretation Atrial fibrillation Right bundle branch block Abnormal ECG When compared with ECG of 29-Sep-2022 07:58, Atrial fibrillation has replaced Sinus rhythm Vent. rate has increased by 30 bpm Nonspecific T wave abnormality now evident in Inferior leads T wave inversion no longer evident in Lateral leads BEYOND NOW Ventricular Rate 87 BPM BEYOND NOW Atrial Rate BPM BEYOND NOW P-R Interval ms BEYOND NOW QRS Duration 144 ms BEYOND NOW QT 428 ms BEYOND NOW QTc 515 ms BEYOND NOW P [place] degrees BEYOND NOW R [place] -2 degrees BEYOND NOW T [place] -30 degrees BEYOND NOW 09/09/2024 1:34 AM CDT 09/09/2024 11:03 PM CDT Mariana Luu DO EKG ORD Final Result BEYOND NOW [place], [place] * NM HEPATOBILIARY IMAGING WITH EF (09/08/2024 3:57 PM CDT) Anatomical Region Laterality Modality LIVER Nuclear Medicine 09/08/2024 4:35 PM CDT Impressions 09/08/2024 4:35 PM CDT Normal exam. No cholecystitis. Dictated by Wagner Ramos MD @ 09/08/2024 4:35:44 PM (Electronically Signed) Narrative 09/08/2024 4:35 PM CDT For Patients: As a result of the Cures Act, medical imaging exams and procedure reports are released immediately into your electronic medical record. You may view this report before your referring provider. If you have questions, please contact your health care provider. INDICATION: Abdomen pain. Rule out cholecystitis. TECHNIQUE: 5.5 millicuries technetium Mebrofenin injected with 1.58 mcg CCK. Gamma camera Planar imaging for an hour at 2 minute intervals. Normal uptake of tracer by the liver and excretion into the gallbladder and bile duct into the bowel. No leak. Procedure Note Wagner Ramos MD - 09/08/2024 For Patients: As a result of the 21st Century Cures Act, medical imagingexams and procedure reports are released immediately into your electronicmedical record. You may view this report before your referring provider.If you have questions, please contact your health care provider. INDICATION: Abdomen pain. Rule out cholecystitis. TECHNIQUE: 5.5 millicuries technetium Mebrofenin injected with 1.58 mcg CCK. Gammacamera Planar imaging for an hour at 2 minute intervals. Normal uptake oftracer by the liver and excretion into the gallbladder and bile duct intothe bowel. No leak. IMPRESSION: Normal exam. No cholecystitis. Dictated by Wagner Ramos MD @ 09/08/2024 4:35:44 PM (Electronically Signed) us Fadi Hopson MD [place] Final Resu lt * (ABNORMAL) CBC W PLT NO DIFF (09/08/2024 7:31 AM CDT) WHITE BLOOD COUNT 14.7(H) 4.5 - 11.0 thou/cu mm 09/08/2024 7:58 AM CDT [facility] RED BLOOD COUNT 4.65 4.30 - 5.90 mil/cu mm 09/08/2024 7:58 AM CDT [facility] HEMOGLOBIN 13.3(L) 13.5 - 17.5 g/dL 09/08/2024 7:58 AM CDT [facility] HEMATOCRIT 41.4 37.0 - 53.0 % 09/08/2024 7:58 AM CDT [facility] MCV 89 80 - 100 fL 09/08/2024 7:58 AM CDT [facility] MCH 28.6 26.0 - 34.0 pg 09/08/2024 7:58 AM CDT [facility] MCHC 32.1 32.0 - 36.0 g/dL 09/08/2024 7:58 AM CDT [facility] RDW 14.4 11.5 - 15.5 % 09/08/2024 7:58 AM CDT [facility] PLATELET COUNT 109(L) 140 - 440 thou/cu mm 09/08/2024 7:58 AM CDT [facility] MPV 9.7 6.5 - 11.0 fL 09/08/2024 7:58 AM CDT [facility] NRBC 0.0 % 09/08/2024 7:58 AM CDT [facility] ABS NRBC 0.0 thou /cu mm 09/08/2024 7:58 AM CDT [facility] Blood BLOOD SPECIMEN / Unknown Butterfly / Unknown 09/08/2024 7:31 AM CDT 09/08/2024 7:47 AM CDT us Mariana Luu DO HEMATOLOGY Final Result [facility] [address] [place] [address], [place] * (ABNORMAL) Hepatic function panel AM (09/08/2024 7:31 AM CDT) ALBUMIN 3.9(L) 4.0 - 4.9 g/dL 09/08/2024 8:17 AM CDT [facility] PROTEIN,TOTAL 5.9(L) 6.0 - 8.0 g/dL 09/08/2024 8:17 AM CDT [facility] BILIRUBIN,TOTAL 3.0(H) 0.0 - 1.2 mg/dL 09/08/2024 8:17 AM CDT [facility] BILIRUBIN,DIRECT 0.6(H) 0.0 - 0.2 mg/dL 09/08/2024 8:17 AM CDT [facility] BILIRUBIN,INDIRE CT 2.4(H) 0.2 - 0.8 mg/dL 09/08/2024 8:17 AM CDT [facility] ALK PHOSPHATASE 76 40 - 129 IU/L 09/08/2024 8:17 AM CDT [facility] ALT (SGPT) 13 10 - 50 IU/L 09/08/2024 8:17 AM CDT [facility] AST (SGOT) 25 10 - 50 IU/L 09/08/2024 8:17 AM CDT [facility] Blood BLOOD SPECIMEN / Unknown Butterfly / Unknown 09/08/2024 7:31 AM CDT 09/08/2024 7:47 AM CDT Mariana Luu DO CHEMISTRY Final Result [facility] [address] [place] [address], [place] * US ABDOMEN LIMITED RUQ PORTABLE (09/08/2024 6:55 AM CDT) Anatomical Region Laterality Modality Abdomen, LIVER, PANCREAS, GALLBLADDER, SPLEEN Ultrasound 09/08/2024 7:41 AM CDT Impressions 09/08/2024 7:41 AM CDT Gallbladder hydrops with marked wall thickening but no stones. Findings could indicate acalculous cholecystitis. Remainder of the exam is unremarkable. Dictated by Alex San MD @ 09/08/2024 7:41:17 AM (Electronically Signed) Narrative 09/08/2024 7:41 AM CDT For Patients: As a result of the Cures Act, medical imaging exams and procedure reports are released immediately into your electronic medical record. You may view this report before your referring provider. If you have questions, please contact your health care provider. INDICATION: Right upper quadrant pain. TECHNIQUE: Ultrasound abdomen limited. Sonographic images of the right upper quadrant were obtained using campbell-scale and color Doppler images. COMPARISON: CT chest abdomen pelvis September 07, 2024. FINDINGS: Liver: Normal in size and echotexture. No suspicious masses. No intrahepatic biliary dilatation. Gallbladder: Sludge is present. No stones. Marked wall thickening measuring 8 mm. Common bile duct: 7 mm. No ductal stone visualized. Pancreas: Unremarkable. Right kidney: Normal in size. Normal echotexture and cortex. No suspicious masses, stones, or hydronephrosis. Proximal abdominal aorta: Normal in caliber. IVC: Patent. Main portal vein: Patent. Ascites: None visualized. Procedure Note San, Alex Meño, MD - 09/08/2024 For Patients: As a result of the Century Cures Act, medical imagingexams and procedure reports are released immediately into your electronicmedical record. You may view this report before your referring provider.If you have questions, please contact your health care provider. INDICATION: Right upper quadrant pain. TECHNIQUE: Ultrasound abdomen limited. Sonographic images of the right upperquadrant were obtained using campbell-scale and color Doppler images. COMPARISON: CT chest abdomen pelvis September 07, 2024. FINDINGS: Liver: Normal in size and echotexture. No suspicious masses. Nointrahepatic biliary dilatation. Gallbladder: Sludge is present. No stones. Marked wall thickeningmeasuring 8 mm. Common bile duct: 7 mm. No ductal stone visualized. Pancreas: Unremarkable. Right kidney: Normal in size. Normal echotexture and cortex. Nosuspicious masses, stones, or hydronephrosis. Proximal abdominal aorta: Normal in caliber. IVC: Patent. Main portal vein: Patent. Ascites: None visualized. IMPRESSION: Gallbladder hydrops with marked wall thickening but no stones. Findingscould indicate acalculous cholecystitis. Remainder of the exam isunremarkable. Dictated by Alex San MD @ 09/08/2024 7:41:17 AM (Electronically Signed) us Mariana Luu DO US Final Result * SCAN-CARDIAC STRIP (09/08/2024 1:29 AM CDT) us Scanner OTHER Final Result * SCAN-CARDIAC STRIP (09/07/2024 10:18 PM CDT) us Scanner OTHER Final Result * (ABNORMAL) Pro Brain natriuretic peptide AM (09/07/2024 9:23 PM CDT) PRO-BNP 3,439(H) <450 pg/mL 09/07/2024 10:10 PM CDT [facility] Blood BLOOD SPECIMEN / Unknown Butterfly / Unknown 09/07/2024 9:23 PM CDT 09/07/2024 9:33 PM CDT Narrative [facility] - 09/07/2024 10:10 PM CDT The following cut-points have been suggested for the use of proBNP for the diagnostic evaluation of heart failure (HF) in patient with acute dyspnea. Patients with eGFR >= 60 Diagnosis (rule in CHF) <50 Years Old 450 pg/mL 50 - 75 Years Old 900 pg/mL >75 Years Old 1800 pg/mL Exclusion (rule out CHF) Age Independent 300 pg/mL A cutoff of 1200 pg/mL for patients with an eGFR <60 yields a diagnostic sensitivity of 89% and specificity of 72% for acute congestive heart failure. us Mariana Luu DO SEND OUTS Final Result [facility] [address] [place] [id number], * (ABNORMAL) Electrolyte panel AM (09/07/2024 9:23 PM CDT) SODIUM 135(L) 136 - 145 mmol/L 09/07/2024 10:08 PM CDT [facility] POTASSIUM 5.3(H) 3.5 - 5.1 mmol/L 09/07/2024 10:08 PM CDT [facility] CHLORIDE 102 98 - 107 mmol/L 09/07/2024 10:08 PM CDT [facility] CO2,TOTAL 23 22 - 29 mmol/L 09/07/2024 10:08 PM CDT [facility] ANION GAP 10 5 - 18 09/07/2024 10:08 PM CDT [facility] Blood BLOOD SPECIMEN / Unknown Butterfly / Unknown 09/07/2024 9:23 PM CDT 09/07/2024 9:33 PM CDT us Mariana Luu DO CHEMISTRY Final Result [facility] [address] [place] [address], [place] * SCAN-RADIOLOGY REPORT (09/07/2024 12:00 AM CDT) Anatomical Region Laterality Modality Other us Scanner OTHER Final Result * SCAN-CT INTERPRETATION (09/07/2024 12:00 AM CDT) Only the most recent of4 resultswithin the time period is included. Anatomical Region Laterality Modality Other us Scanner OTHER Final Result from Last 3 Months Insurance MEDICARE PB ONLY MEDICARE PART B HB ONLY MEDICARE PART A HB ONLY [facility] Advance Directives Documents on File Type Date Recorded Patient Stem Frazer Expl anation Healthcare Directive 07/13/2011 10:15 AM H CD * DNR (Latest Code Status on File) Date Activated Date Inactivated Comments 09/08/2024 12:22 PM 09/11/2024 12:06 PM Question Answer Comments Code Status Discussion: Reviewed Preferences * Full Code Date Activated Date Inactivated Comments 09/07/2024 8:23 PM 09/08/2024 12:22 PM Question Answer Comments Code Status Discussion: Unable to Assess Preferences, Provider to review later * Full Code Date Activated Date Inactivated Comments 08/04/2022 12:19 PM 08/08/2022 3:49 PM Per health are directive on file Question Answer Comments Code Status Discussion: Reviewed Preferences * Full Code Date Activated Date Inactivated Comments 06/24/2019 3:42 PM 06/27/2019 4:48 PM Question Answer Comments Code Status Discussion: Not Discussed * Full Code Date Activated Date Inactivated Comments 08/22/2018 1:25 PM 08/22/2018 5:28 PM Care Teams Pv Design And Installation Technician Relationship Specialty Start Date End Date Mckinley Cheema MD [facility] [place] [id number] PCP - General Family Practice 11/26/12 Margaret Jung MD [address] [place] [id number] Dermatology 01/13/11 Lucio Duggan MD [address] [place] [id number] Cardiovascular Disease 03/25/11 Meño Marshall [address] [place] [phone] Hematology and Oncology 03/25/11 Narinder Wen MD [address] [place] [id number] Cardiology Cardiovascular Disease 03/21/12 Meño Hendricks [address] [place] [id number] Open Source Developer 07/19/12
[2024-09-18 12:31] VITALS: BP 115/67; PULSE 78; RESP 16; TEMP 36.2; O2SAT 99; BMI 22.3
--- NOTE | 2024-09-18 12:40 | ED.GENADULT ---
HPI - General Adult General Chief complaint: Epistaxis/Nosebleed Stated complaint: nose bleed Time Seen by Provider: 09/18/24 12:37 Source: patient Mode of arrival: ambulatory Limitations: no limitations History of Present Illness HPI narrative: 89-year-old male presenting today with a nosebleed. Patient had nosebleed yesterday that was controlled then started again this morning. Patient lives at [facility], ambulance was called because staff stated that they could not get the nosebleed under control. According to nursing by the time EMS arrived they stated that it was controlled. Patient arrives for evaluation. Patient is on Plavix and Eliquis. Related Data Home Medications ?Medication ?Instructions ?Recorded ?Confirmed apixaban 2.5 mg tablet (Eliquis) 2.5 mg PO BID 02/15/22 07/16/24 atorvastatin 80 mg tablet 80 mg PO HS 02/15/22 07/16/24 donepezil 5 mg tablet 5 mg PO HS 02/15/22 07/16/24 metoprolol succinate 50 mg 50 mg PO DAILY 02/15/22 07/16/24 tablet,extended release 24 hr clopidogrel 75 mg tablet 75 mg PO QAM 04/18/23 07/16/24 ezetimibe 10 mg tablet 10 mg PO DAILY 04/18/23 07/16/24 isosorbide mononitrate 30 mg 30 mg PO DAILY 04/18/23 07/16/24 tablet,extended release 24 hr ranolazine 500 mg tablet,extended 500 mg PO BID 04/18/23 07/16/24 release,12 hr nitroglycerin 0.4 mg sublingual 0.4 mg sublingual Q5M PRN 05/21/24 07/16/24 tablet Previous Rx's ?Medication ?Instructions ?Recorded omeprazole 20 mg capsule,delayed 20 mg PO BID 30 days #60 caps 05/31/24 release Allergies Allergy/AdvReac Type Severity Reaction Status Date / Time niacin Allergy Mild Rash and Verified 07/16/24 10:53 Itching Review of Systems Status of ROS: Reports: unobtainable due to mental status [facility] Medical History Thrombocytopenia ?D69.6 - Thrombocytopenia, unspecified (ICD-10) Elevated bilirubin ?R17 - Unspecified jaundice (ICD-10) Non-ST elevated myocardial infarction (non-STEMI) ?I21.4 - Non-ST elevation (NSTEMI) myocardial infarction (ICD-10) Osteoarthritis ?M19.90 - Unspecified osteoarthritis, unspecified site (ICD-10) Coronary atherosclerosis of [place] coronary vessel ?I25.10 - Atherosclerotic heart disease of [place] coronary artery without angina pectoris (ICD-10) Acute pericarditis ?I30.9 - Acute pericarditis, unspecified (ICD-10) Dementia ?F03.90 - Unspecified dementia, unspecified severity, without behavioral disturbance, psychotic disturbance, mood disturbance, and anxiety (ICD-10) Chronic anticoagulation ?Z79.01 - intermediate teacher (current) use of anticoagulants (ICD-10) Coronary artery disease involving coronary bypass graft ?I25.810 - Atherosclerosis of coronary artery bypass graft(s) without angina pectoris (ICD-10) Mixed hyperlipidemia ?E78.2 - Mixed hyperlipidemia (ICD-10) Atrial fibrillation ?I48.91 - Unspecified atrial fibrillation (ICD-10) Chronic lymphoid leukemia ?C91.10 - Chronic lymphocytic leukemia of B-cell type not having achieved remission (ICD-10) Unspecified essential hypertension ?I10 - Essential (primary) hypertension (ICD-10) ASHD (arteriosclerotic heart disease) ?I25.10 - Atherosclerotic heart disease of [place] coronary artery without angina pectoris (ICD-10) Surgical History History of colonoscopy ?Z98.890 - Other specified postprocedural states (ICD-10) History of coronary artery bypass graft ?Z95.1 - Presence of aortocoronary bypass graft (ICD-10) History of vitrectomy ?Z98.890 - Other specified postprocedural states (ICD-10) History of ureter stent History of coronary artery stent placement ?Z95.5 - Presence of coronary angioplasty implant and graft (ICD-10) Family History Brother Diabetes Heart disease High blood pressure High cholesterol Mother Stroke Father Stroke Social History What is your current living situation?: unable to answer Problems where you live: unable to answer Problems where you live details: NA In the past 12 months, utilities in danger of being shut off: unable to answer In past 12 months, lack of transportation kept you from medical appts, meetings, work, or getting things needed for daily living: unable to answer In the past 12 mos, have been you worried that your food would run out before you had money to buy more?: unable to answer In the past 12 mos, the food you bought just didn't last and you didn't have money to buy more?: unable to answer Highest level of school completed/degree received: high school graduate Smoking Status: Never smoker Do you use any of these nicotine containing products: None Second hand tobacco smoke exposure: No How often do you have a drink containing alcohol: monthly or less How many standard drinks containing alcohol do you have on a typical day: 1 or 2 How often do you have six or more drinks on one occasion: Never AUDIT-C Alcohol total score: 1 Non-prescribed substance use: denies use Caffeine: Yes (pop) How often does anyone, including family, friends and others, physically hurt you: unable to answer How often does anyone, including family, friends and others, insult or talk down to you: unable to answer How often does anyone, including family, friends and others, threaten you with harm: unable to answer How often does anyone, including family, friends and others, scream or curse at you: unable to answer service: No Exam Narrative: Exam Narrative: Well-nourished well-developed patient in no acute distress. Patient has significant dementia. Does not know why he is here. HEENT: Normocephalic atraumatic. Pupils are equally round reactive to light. Extraocular muscles are intact. Conjunctivae are moist without any icterus noted. Moist mucous membranes. Posterior pharynx is normal. Left nares is normal. Right septum appears irritated and has a scab a. Likely source of bleeding. At this time no active bleeding noted. Const: Vital Signs, click to edit/add: Vital Signs - 24 hr 09/18/24 12:31 Temperature 97.2 F L Pulse Rate [Pulse Oximeter] 78 Respiratory Rate 16 Blood Pressure [Ri ght Upper Arm] 115/67 Pulse Oximetry 99 Oxygen Delivery Me thod Room Air Course Vital Signs Vital signs: Initial Vital Signs Temperature 97.2 F L 09/18/24 12:31 Temperature Source Temporal Artery Scan 09/18/24 12:31 Pulse Rate 78 09/18/24 12:31 Respiratory Rate 16 09/18/24 12:31 Blood Pressure 115/67 09/18/24 12:31 Blood Pressure Mean 83 09/18/24 12:31 Blood Pressure Position Sitting 09/18/24 12:31 Pulse Oximetry 99 09/18/24 12:31 Oxygen Delivery Method Room Air 09/18/24 12:31 Vital Signs Temperature 97.2 F L 09/18/24 12:31 Pulse Rate 78 09/18/24 12:31 Respiratory Rate 16 09/18/24 12:31 Blood Pressure 115/67 09/18/24 12:31 Pulse Oximetry 99 09/18/24 12:31 Oxygen Delivery Method Room Air 09/18/24 12:31 Temperature 97.2 F L 09/18/24 12:31 Pulse Rate 78 09/18/24 12:31 Respiratory Rate 16 09/18/24 12:31 Blood Pressure 115/67 09/18/24 12:31 Pulse Oximetry 99 09/18/24 12:31 Oxygen Delivery Method Room Air 09/18/24 12:31 Medical Decision Making MDM Narrative Medical decision making narrative: 89-year-old male with epistaxis. Currently controlled. Will send patient back to [facility] with a nose clamp to use for 15 minutes should this occur again. Vaseline applied to the inside of the nose. Discharge Plan Discharge Clinical Impression: Epistaxis Patient Disposition: Home w/ Parent or Adult Condition: Stable Instructions: Nosebleed (ED) Additional Instructions: If this occurs again, apply nose clamp for 15 minutes. Recommend patient follow up with ENT if this occurs again for possible cautery. Prescriptions: No Action Eliquis 2.5 mg tablet 2.5 mg PO BID atorvastatin 80 mg tablet 80 mg PO HS donepezil 5 mg tablet 5 mg PO HS metoprolol succinate 50 mg tablet extended release 24 hr 50 mg PO DAILY nitroglycerin 0.4 mg tablet, sublingual 0.4 mg sublingual Q5M PRN Rx Instructions: Place 1 Tablet (0.4 mg) under the tongue every 5 minutes if needed for Chest Pain. omeprazole 20 mg Capsule,Delayed Release(Dr/Ec) 20 mg PO BID 30 Days Qty: 60 0RF isosorbide mononitrate 30 mg tablet extended release 24 hr 30 mg PO DAILY clopidogrel 75 mg tablet 75 mg PO QAM ezetimibe 10 mg tablet 10 mg PO DAILY ranolazine 500 mg tablet extended release 12 hr 500 mg PO BID Follow Up/Referrals: Mckinley Cheema MD [Primary Care Provider, Family Practice] Stand Alone Forms: [facility] Info Instructions
--- NOTE | 2024-09-18 12:50 | PC.NURSE ---
Spoke with patients daughter, Janine. She stated to send him back to [facility] by non-emergent EMS.
--- NOTE | 2024-09-18 13:12 | PC.NURSE ---
Report given to EDUAR Mondragon at [facility]
--- NOTE | 2024-09-18 13:49 | PC.NURSE ---
Patient was incontinent of urine. Changed. Offered food/drink. Patient refused. left via non-emergent EMS.
== END 2024-09-18 13:50 | disposition home or self-care (01) ==
LOC: ED 12:56
PROVIDERS: Emergency Provider Family Medicine; PCP Surgery
DX: R04.0 Epistaxis (principal)
CPT/HCPCS: 99282; 99283

== ENCOUNTER 2024-09-18 13:45 | Outpatient (CLI) | payer MEDICARE, BC, SELFPAY | END 2024-09-18 13:46 | disposition home or self-care (01) | PROVIDERS: PCP Surgery; Visit Provider Family Medicine | DX: R04.0 Epistaxis (principal) | CPT/HCPCS: A0425; A0428 ==

== ENCOUNTER 2024-10-20 22:34 | Inpatient (IN) | payer MEDICARE, BC, SELFPAY ==
[2024-10-20 22:39] VITALS: BP 135/83; PULSE 104; RESP 18; TEMP 36.6; O2SAT 96; BMI 23.3
--- OUTSIDE RECORDS SUMMARY | 2024-10-20 22:39 | XMS_ITS | Clinical Summary ---
Author Organization [employer] [facility] Address [address] [place] [address] Care Team Providers Care Boat Builder Name Role Phone Margaret Jung MD Unavailable + Lucio Duggan MD Unavailable [phone] Meoñ Marshall Unavailable Unavailable Narinder Wen MD Unavailable Rubi vailable Meño Hendricks Unavailable [phone] Mckinley Cheema MD Primary Care Provider [phone] Allergies Active Allergy Reactions Criticality Noted Date Comments Niacin Rash,Itching 06/01/2009 Large doses. Tolerates 500mg Medications nitroglycerin (NITROSTAT) 0.4 mg sublingual tabletIndications: Chest pain, unspecified type,NSTEMI (non-ST elevated myocardial infarction) (HC),ASHD (arteriosclerotic heart disease),Hx of CABG Place 1 Tablet (0.4 mg) under the tongue every 5 minutes if needed for Chest Pain. 25 Tablet 1 08/08/2022 12:06 PM CDT 3 Active metoprolol tartrate (LOPRESSOR) 25 mg tabletIndications: ASHD (arteriosclerotic heart disease) Take 1 Tablet (25 mg) by mouth two times daily. 180 Tablet 3 5 Active apixaban (Eliquis) 2.5 mg tabletIndications: Paroxysmal atrial fibrillation (HC) Take 1 Tablet (2.5 mg) by mouth two times daily. 180 Tablet 3 5 Active atorvastatin (LIPITOR) 80 mg tabletIndications: Atherosclerosis of [place] coronary artery of [place] heart with angina pectoris Take 1 Tablet (80 mg) by mouth at bedtime. 90 Tablet 3 5 Active clopidogreL (PLAVIX) 75 mg tabletIndications: NSTEMI (non-ST elevated myocardial infarction) (HC),ASHD (arteriosclerotic heart disease),Hx of CABG,Chest pain, unspecified type Take 1 Tablet (75 mg) by mouth once daily in the morning. 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 90 Tablet 3 5 Active ezetimibe (ZETIA) 10 mg tabletIndications: NSTEMI (non-ST elevated myocardial infarction) (HC),ASHD (arteriosclerotic heart disease),Hx of CABG,Mixed hyperlipidemia Take 1 Tablet (10 mg) by mouth once daily. 90 Tablet 3 5 Active isosorbide mononitrate (IMDUR) 30 mg extended release tablet 24 HourIndications:NS BARON (non-ST elevated myocardial infarction) (HC) Take 1 Tablet (30 mg) by mouth once daily. 90 Tablet 3 5 Active ranolazine (RANEXA) 500 mg Controlled-Release tabletIndications: NSTEMI (non-ST elevated myocardial infarction) (HC),ASHD (arteriosclerotic heart disease),Hx of CABG,Chest pain, unspecified type Take 1 Tablet (500 mg) by mouth two times daily. 180 Tablet 3 5 Active atorvastatin (LIPITOR) 80 mg tabletIndications: Atherosclerosis of [place] coronary artery of [place] heart with angina pectoris TAKE ONE TABLET BY MOUTH AT BEDTIME 90 Tablet 3 4 025 Discontinu ed(Reorder (E-cancel not sent)) isosorbide mononitrate (IMDUR) 30 mg extended release tablet 24 HourIndications:NS BARON (non-ST elevated myocardial infarction) (HC) TAKE ONE TABLET BY MOUTH ONE TIME DAILY 90 Tablet 3 4 025 Discontinu ed(Reorder (E-cancel not sent)) apixaban (Eliquis) 2.5 mg tabletIndications: Paroxysmal atrial fibrillation (HC) TAKE ONE TABLET BY MOUTH TWICE DAILY 180 Tablet 3 4 025 Discontinu ed(Reorder (E-cancel not sent)) ezetimibe (ZETIA) 10 mg tabletIndications: NSTEMI (non-ST elevated myocardial infarction) (HC),ASHD (arteriosclerotic heart disease),Hx of CABG,Mixed hyperlipidemia Take 1 Tablet (10 mg) by mouth once daily. 90 Tablet 3 4 025 Discontinu ed(Reorder (E-cancel not sent)) metoprolol succinate (TOPROL XL) 50 mg sustained-release tabletIndications: Hypertension, unspecified type Take 1 Tablet (50 mg) by mouth once daily. 90 Tablet 3 4 025 Discontinu ed(*Discon tinued by another clinician) clopidogreL (PLAVIX) 75 mg tabletIndications: NSTEMI (non-ST elevated myocardial infarction) (HC),ASHD (arteriosclerotic heart disease),Hx of CABG,Chest pain, unspecified type Take 1 Tablet (75 mg) by mouth once daily in the morning. 90 Tablet 3 4 025 Discontinu ed(Reorder (E-cancel not sent)) ranolazine (RANEXA) 500 mg Controlled-Release tabletIndications: NSTEMI (non-ST elevated myocardial infarction) (HC),ASHD (arteriosclerotic heart disease),Hx of CABG,Chest pain, unspecified type Take 1 Tablet (500 mg) by mouth two times daily. 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 90 Tablet 3 4 025 Discontinu ed(Reorder (E-cancel not sent)) Active Problems Problem Noted Date Diagnosed Date [...] Health Care Agent: Janine Johnson Relationship: daughter [phone] cell Patient has Advance Care Plan Documents [...] Encounters Date Type Department Care Team Description 10/18/2024 Telephone [facility] [address] [place] [address] Mckinley Cheema MD Results 10/16/2024 1:30 PM CDT Office Visit [facility] [address] [place] [address] Alex Holliday DPM Consult (Toenail issues ) 10/16/2024 11:30 AM CDT Orders Only [facility] [address] [place] [address] [place], [place] <No scans attached> 10/15/2024 2:25 PM CDT Office Visit [facility] [address] [place] [address] Mckinley Cheema MD Transitional Care Visit (Discharged from 3 [facility]) 10/15/2024 Travel 10/08/2024 Telephone [facility] [address] [place] [address] Mckinley Cheema MD Urinary Problem 09/16/2024 Lab Requisition [facility] [phone] Edilson Lau MD 09/10/2024 Travel 09/07/2024 7:43 PM CDT - 09/11/2024 10:04 AM CDT Hospital Encounter [facility] [address] [place] [address] [facility] [place] Hospitalists Of [facility] [place], MD Adelaide Neff, MD Adrian Gardner, JARETH Mirza Aspiration pneumonia of right lower lobe, unspecified aspiration pneumonia type (HC) (Primary Dx); Dementia, unspecified dementia severity, unspecified dementia type, unspecified whether behavioral, psychotic, or mood disturbance or anxiety (HC) Discharge Disposition: Usp Facility 09/07/2024 Orders Only [facility] Scanner 1 scan: (1-Ord) [place], CHEST ABDOMEN PELVIS W CONTRAST, 09/07/2024 09/07/2024 Orders Only [facility] Scanner 1 scan: (1-Ord) [place], ANGIO NECK, 09/07/2024 09/07/2024 Orders Only [facility] Scanner 1 scan: (1-Ord) [facility], ANIGO HEAD, 09/07/2024 09/07/2024 Orders Only [facility] Scanner 1 scan: (1-Ord) [facility] , CHEST 1V PORTABLE, 09/07/2024 09/07/2024 Orders Only [facility] Scanner 1 scan: (1-Ord) [facility], CT HEAD/BRAIN W/ CONTRAST, 09/07/2024 from Last 3 Months Immunizations Immunization Administration Dates Next Due AMB INFLUENZA IIV3 (AGE 65+ YRS) PF (Flu Clinic Only) 11/23/2018,11/24/2017 Amb Influenza, Inact (High-d ose) (Flu Clinic Only) 12/06/2013 Amb Influenza, Inactivated A IIV4 (Age 65+ Years) Preserv Free 11/12/2019 COVID-19 VACCINE SPIKEVAX (M ODERNA 50MCG/0.5ML) 12YO+ PFS 12/08/2022 COVID-19 vaccine (Pfizer-Bio NTech 30mcg/0.3mL) 12YO+ BIVALENT PF, MDV 12/07/2021 COVID-19 vaccine (Pfizer-Bio NTech 30mcg/0.3mL) PF, MDV 11/27/2020,04/18/2020,03/28/2020 Influenza Virus, [...] on file Legal Sex Male 5:46 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 DISPATCHER Gender Identity Not on file Sexual Orientation Lesbian or [place] 10/08/2021 8: 11 PM CDT 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 file Not on file Not on paulo e Obstetrics History Last Filed Vital Signs Vital Sign Reading Time Taken Comments Blood Pressure 147/91 10/16/2024 1:29 PM CDT Pulse 92 10/16/2024 1:29 PM CDT Temperature 36.4 C (97.6 F) 09/11/2024 7:48 AM CDT Respiratory Rate 16 09/11/2024 7:48 AM CDT Oxygen Saturation 97% 10/16/2024 1:29 PM CDT Inhaled Oxygen Concentration - - Weight 78 kg (172 lb) 10/15/2024 2:24 PM CDT Height 175 cm (5' 8.9) 12/26/2023 2:08 PM AIRLINE DISPATCHER Body Mass Index 25.48 12/26/2023 2:08 PM AIRLINE DISPATCHER Plan of Treatment Upcoming Encounters Date Type Department Care Team (Late st Contact Info) Description 12/17/2024 10:55 AM AIRLINE DISPATCHER Office Visit [facility] [address] [place] [address] Mckinley Cheema MD [address] [place] [address] Health Maintenance Due Date Last Done Comments Zoster (shingles) series for age 50+ (1 of 2) 06/08/2007 04/13/2007 RSV vaccine for adults or (1 - 1-dose 75+ series) 06/12/2010 Tetanus booster 03/25/2021 03/25/2011, 11/24/2003 COVID-19 vaccine series ( season) 2024 12/08/2022, 12/07/2021, 06/02/2021, Additional history exists Influenza [...] Procedure Name Priority Date/Time Associated Diagnosis Comments URINALYSIS MICROSCOPIC Routine 11:53 AM CDT Nocturia URINE CULTURE Routine 10/16/2024 11:53 AM CDT Nocturia URINALYSIS MACROSCOPIC - [facility] ONLY POC DIP ([facility]) Routine 10/16/2024 11:53 AM CDT Nocturia RED CELL MORPHOLOGY Routine 09/17/2024 7 :52 [...] 09/07/2024 9:2 3 PM CDT SCAN-CT INTERPRETATION 5 12:00 AM CDT SCAN-CT INTERPRETATION 5 12:00 AM CDT SCAN-CT INTERPRETATION 5 12:00 AM CDT SCAN-RADIOLOGY REPORT 09/07/2024 12:00 AM CDT SCAN-CT INTERPRETATION 12:00 AM CDT from Last 3 Months Results * POCT Urinalysis Dipstick Only [[id number]] (10/16/2024 11:53 AM CDT) Pathologist [facility] SPECIFIC GRAVITY 1.025 1.001 - 1.035 10/16/2024 12:06 PM CDT [facility] PROTEIN NEGATIVE NEGATIVE 10/16/2024 12:06 PM CDT [facility] GLUCOSE NEGATIVE NEGATIVE 10/16/2024 12:06 PM CDT [facility] KETONES NEGATIVE NEGATIVE 10/16/2024 12:06 PM CDT [facility] BILIRUBIN NEGATIVE NEGATIVE 10/16/2024 12:06 PM CDT [facility] OCCULT BLOOD NEGATIVE NEGATIVE 10/16/2024 12:06 PM CDT [facility] NITRITE NEGATIVE NEGATIVE 10/16/2024 12:06 PM CDT [facility] PH 6.0 5.0 - 8.0 10/16/2024 12:06 PM CDT [facility] LEUKOCYTE ESTERASE NEGATIVE NEGATIVE 10/16/2024 12:06 PM CDT [facility] Urine URINE SPECIMEN / Unknown Non-Blood / Unknown 10/16/2024 11:53 AM CDT 10/16/2024 11:59 AM CDT Mckinley Cheema MD URINE Final Resu lt [employer] [facility] [address] [place] [address], [place] [phone] [facility] [address] [place] [address], [place] [phone] * URINALYSIS MICROSCOPIC [59455.1] - routine (10/16/2024 11:53 AM CDT) RBC 0-2 0-2, None Seen /HPF 10/16/2024 11:26 PM CDT [facility] WBC 0-2 0-2, 3-5, None Seen /HPF 10/16/2024 11:26 PM CDT [facility] BACTERIA None Seen None Seen, Rare, Few Bacteria/ HPF 10/16/2024 11:26 PM CDT [facility] EPITHELIAL CELLS None Seen None Seen, Few Epi/HPF 10/16/2024 11:26 PM CDT [facility] HYALINE CASTS 0-2 0-2, 3-5 /LPF 10/16/2024 11:26 PM CDT [facility] Urine URINE SPECIMEN / Unknown Non-Blood / Unknown 10/16/2024 11:53 AM CDT 10/16/2024 11:59 AM CDT Mckinley Cheema MD URINE Final Resu lt [facility] [address] [place] [address], [place] * URINE CULTURE [[id number]] (10/16/2024 11:53 AM CDT) CULTURE No growth (<1,000 CFU/mL) 10/18/2024 12:38 PM CDT [facility] Urine URINE SPECIMEN / Unknown Non-Blood / Unknown 10/16/2024 11:53 AM CDT 10/16/2024 11:59 AM CDT us Mckinley Cheema MD MICROBIOLOGY Final Resu lt [facility] [address] [place] [address], * (ABNORMAL) CBC WITH AUTO DIFFERENTIAL (09/17/2024 7:52 AM CDT) WHITE BLOOD COUNT 13.1(H) 4.5 - 11.0 thou/cu mm 09/17/2024 10:17 AM [facility] RED BLOOD COUNT 4.59 4.30 - 5.90 mil/cu mm 09/17/2024 10:17 AM [facility] HEMOGLOBIN 13.2(L) 13.5 - 17.5 g/dL 09/17/2024 10:17 AM [facility] HEMATOCRIT 40.6 37.0 - 53.0 % 09/17/2024 10:17 AM [facility] MCV 89 80 - 100 fL 09/17/2024 10:17 AM [facility] MCH 28.8 26.0 - 34.0 pg 09/17/2024 10:17 AM [facility] MCHC 32.5 32.0 - 36.0 g/dL 09/17/2024 10:17 AM [facility] RDW 14.4 11.5 - 15.5 % 09/17/2024 10:17 AM [facility] PLATELET COUNT 186 140 - 440 thou/cu mm 09/17/2024 10:17 AM [facility] MPV 9.6 6.5 - 11.0 fL 09/17/2024 10:17 AM [facility] % NEUT 37.9 % 09/17/2024 10:17 AM [facility] % LYMPH 55.4 % 09/17/2024 10:17 AM [facility] % MONO 5.3 % 09/17/2024 10:17 AM [facility] % EOS 1.3 % 09/17/2024 10:17 AM [facility] % BASO 0.1 % 09/17/2024 10:17 AM [facility] ABSOLUTE NEUTROPHILS 5.0 1.7 - 7.0 thou/cu mm 09/17/2024 10:17 AM [facility] ABSOLUTE LYMPHOCYTES 7.3(H) 0.9 - 2.9 thou/cu mm 09/17/2024 10:17 AM [facility] ABSOLUTE MONOCYTES 0.7 <0.9 thou/cu mm 09/17/2024 10:17 AM [facility] ABSOLUTE EOSINOPHILS 0.2 <0.5 thou/cu mm 09/17/2024 10:17 AM [facility] ABSOLUTE BASOPHILS 0.0 <0.3 thou/cu mm 09/17/2024 10:17 AM [facility] Blood BLOOD SPECIMEN / Unknown Venipuncture / Unknown 09/17/2024 7:52 AM CDT 09/17/2024 9:10 AM CDT us Edilson Lau MD HEMATOLOGY Final Result [facility] [address] [place] [address] * (ABNORMAL) RED CELL MORPHOLOGY (09/17/2024 7:52 AM CDT) ACANTHOCYTES Many 09/17/2024 10:16 AM [facility] ELLIPTOCYTES Few 09/17/2024 10:16 AM [facility] RBC COMMENT Present(A) RBC morphology appears normal, RBC morphology within normal limits for newborns. 09/17/2024 10:16 AM CDT [facility] WBC SMUDGE CELLS Present 09/17/2024 10:16 AM CDT [facility] Blood BLOOD SPECIMEN / Unknown Venipuncture / Unknown 09/17/2024 7:52 AM CDT 09/17/2024 9:10 AM CDT Edilson Lau MD HEMATOLOGY Final Result Performing Organization Address City/[facility]/ZIP Co de Phone Number [facility] [address] [place] [address] * PLATELET ESTIMATE (09/17/2024 7:52 AM CDT) Pathologist [facility] PLATELET ESTIMATE Adequate Adequate, No estimate 09/17/2024 10:16 AM T [facility] Blood BLOOD SPECIMEN / Unknown Venipuncture / Unknown 09/17/2024 7:52 AM CDT 09/17/2024 9:10 AM CDT Edilson Lau MD HEMATOLOGY Final Result Performing Organization Address [facility] Co de Phone Number [facility] [address] [place] [address] * (ABNORMAL) BASIC METABOLIC PANEL (09/17/2024 7:52 AM CDT) Only the most recent of3 resultswithin the time period is included. SODIUM 139 136 - 145 mmol/L 09/17/2024 9:33 AM [facility] POTASSIUM 4.2 3.5 - 5.1 mmol/L 09/17/2024 9:33 AM [facility] CHLORIDE 105 98 - 107 mmol/L 09/17/2024 9:33 AM [facility] CO2,TOTAL 24 22 - 29 mmol/L 09/17/2024 9:33 AM [facility] ANION GAP 10 5 - 18 09/17/2024 9:33 AM [facility] GLUCOSE 94 70 - 99 mg/dL 09/17/2024 9:33 AM T [facility] CALCIUM 9.4 8.8 - 10.4 mg/dL 09/17/2024 9:33 AM [facility] Comment: Reference ranges for this test were updated on 12/19/2023 to reflect our healthy population more accurately. Reference range changes are not retroactively applied to results, but previous results using the same methodology can be interpreted in the context of the new reference range. BUN 12 8 - 23 mg/dL 09/17/2024 9:33 AM [facility] CREATININE 1.00 0.70 - 1.20 mg/dL 09/17/2024 9:33 AM [facility] BUN/CREAT RATIO 12 10 - 20 9:33 AM [facility] eGFR 72(L) >90 mL/min/1.7 3m2 09/17/2024 9:33 AM [facility] Comment:As of 2021, eG FR is [...] us Edilson Lau MD CHEMISTRY Final Result Performing Organization Address City/State/[facility] Co de Phone Number [facility] [address] [place] [phone] * XR VIDEO SWALLOW AND TREATMENT W [...] seconds Monica Chamorro PA-C [employer] Mariana Bryson MD FLUOROSCOPY Final Result * [...] 7:36 AM CDT 09/10/2024 8:03 AM CDT [facility] Amanda l Result [facility] [address] [place] [address], * POTASSIUM (09/10/2024 7:36 AM CDT) POTASSIUM 4.5 3.5 - 5.1 mmol/L 09/10/2024 8:37 AM CDT [facility] Blood BLOOD SPECIMEN / Unknown Butterfly / Unknown 09/10/2024 7:36 AM CDT 09/10/2024 8:04 AM CDT [facility] Amanda l Result [facility] [address] [address], [place] * (ABNORMAL) Creatinine AM (09/10/2024 7:36 AM CDT) Only the most recent of2 resultswithin the time period is included. Pathologist [facility] eGFR 64(L) >90 mL/min/1.7 3m2 09/10/2024 8:37 [...] AM CDT 09/10/2024 8:04 AM CDT [facility] [place] [facility] Amanda l Result Performing Organization Address [facility] Co de Phone Number [facility] [address] [address], [place] * SCAN CORRESP-EKG RESULTS (09/09/2024 12:31 [...] of4 resultswithin the time period is included. Pathologist [facility] MAGNESIUM 2.3 1.6 - 2.4 mg/dL 09/09/2024 11:45 AM CDT [facility] Blood BLOOD SPECIMEN / Unknown Butterfly / Unknown 09/09/2024 11:00 AM CDT 09/09/2024 11:09 AM CDT us Mariana Bryson MD CHEMISTRY Final Result [facility] [address] [place] [address], [place] * SCAN-CARDIAC STRIP (09/09/2024 2:34 AM [...] NOW QTc 515 ms BEYOND NOW P [place] degrees BEYOND NOW R [place] -2 degrees BEYOND NOW T [place] -30 degrees BEYOND NOW 09/09/2024 1:34 AM CDT 09/09/2024 11:03 PM CDT us Mariana Luu DO EKG ORD Final Result [facility] NOW [place], [place] * NM HEPATOBILIARY IMAGING WITH EF [...] a result of the Cures Act, medical imagingexams and procedure reports [...] PM (Electronically Signed) us Fadi Hopson MD [place] Final Resu lt * (ABNORMAL) CBC W PLT NO DIFF (09/08/2024 7:31 AM CDT) WHITE BLOOD COUNT 14.7(H) 4.5 - 11.0 thou/cu mm 09/08/2024 7:58 AM CDT [facility] RED BLOOD COUNT 4.65 4.30 - 5.90 mil/cu mm 09/08/2024 7:58 AM CDT [facility] HEMOGLOBIN 13.3(L) 13.5 - 17.5 g/dL 09/08/2024 7:58 AM CDT [facility] HEMATOCRIT 41.4 37.0 - 53.0 % 09/08/2024 7:58 AM CDT [facility] MCV 89 80 - 100 fL 09/08/2024 7:58 AM CDT [facility] MCH 28.6 26.0 - 34.0 pg 09/08/2024 7:58 AM CDT [facility] MCHC 32.1 32.0 - 36.0 g/dL 09/08/2024 7:58 AM CDT [facility] RDW 14.4 11.5 - 15.5 % 09/08/2024 7:58 AM CDT [facility] PLATELET COUNT 109(L) 140 - 440 thou/cu mm 09/08/2024 7:58 AM CDT [facility] MPV 9.7 6.5 - 11.0 fL 09/08/2024 7:58 AM CDT [facility] NRBC 0.0 % 09/08/2024 7:58 AM CDT [facility] ABS NRBC 0.0 thou /cu mm 09/08/2024 7:58 AM CDT [facility] Blood BLOOD SPECIMEN / Unknown Butterfly / Unknown 09/08/2024 7:31 AM CDT 09/08/2024 7:47 AM CDT Mariana Luu DO HEMATOLOGY Final Result [facility] [address] [place] [address], * (ABNORMAL) Hepatic function panel AM (09/08/2024 7:31 AM CDT) ALBUMIN 3.9(L) 4.0 - 4.9 g/dL 09/08/2024 8:17 AM CDT [facility] PROTEIN,TOTAL 5.9(L) 6.0 - 8.0 g/dL 09/08/2024 8:17 AM CDT [facility] BILIRUBIN,TOTAL 3.0(H) 0.0 - 1.2 mg/dL 09/08/2024 8:17 AM CDT [facility] BILIRUBIN,DIRECT 0.6(H) 0.0 - 0.2 mg/dL 09/08/2024 8:17 AM CDT [facility] BILIRUBIN,INDIRE CT 2.4(H) 0.2 - 0.8 mg/dL 09/08/2024 8:17 AM CDT [facility] ALK PHOSPHATASE 76 40 - 129 IU/L 09/08/2024 8:17 AM CDT [facility] ALT (SGPT) 13 10 - 50 IU/L 09/08/2024 8:17 AM CDT [facility] AST (SGOT) 25 10 - 50 IU/L 09/08/2024 8:17 AM CDT [facility] Blood BLOOD SPECIMEN / Unknown Butterfly / Unknown 09/08/2024 7:31 AM CDT 09/08/2024 7:47 AM CDT Mariana Luu DO CHEMISTRY Final Result [facility] [address] [place] [address], [place] * [place] ABDOMEN LIMITED RUQ PORTABLE [...] result of the Century Cures Act, medical imaging exams and procedure [...] vein: Patent. Ascites: None visualized. Procedure Note Alex San MD - 09/08/2024 For Patients: As a result of the Cures Act, medical imagingexams and procedure reports [...] MD @ 09/08/2024 7:41:17 AM (Electronically Signed) Mariana uLu DO US Final Result * SCAN-CARDIAC STRIP (09/08/2024 1:29 AM CDT) us Scanner OTHER Final Result * SCAN-CARDIAC STRIP (09/07/2024 10:18 PM CDT) us Scanner OTHER Final Result * (ABNORMAL) Pro Brain natriuretic peptide AM (09/07/2024 9:23 PM CDT) [facility] PRO-BNP 3,439(H) <450 pg/mL 09/07/2024 10:10 PM CDT [facility] Blood BLOOD SPECIMEN / Unknown Butterfly / Unknown 09/07/2024 9:23 PM CDT 09/07/2024 9:33 PM CDT [facility] - 09/07/2024 10:10 PM CDT The [...] Mariana Luu DO SEND OUTS Final Result [facility] 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 Directive 07/13/2011 10:15 AM [...] 1:25 PM 08/22/2018 5:28 PM Care Teams Boat Builder Relationship Specialty Start Date End Date Mckinley Cheema MD [address] [place] [id number] PCP - General Family Practice 11/26/12 Margaret Jung MD [address] [place] [phone] Dermatology 01/13/11 Lucio Duggan MD [address] [place] [phone] Cardiovascular Disease 03/25/11 Meño Marshall [address] [place] [phone] Hematology and Oncology 03/25/11 Narinder Wen MD [address] [place] [phone] Cardiology Cardiovascular Disease 03/21/12 Meño Hendricks [address] [place] [id number] Stain Sprayer 07/19/12
[2024-10-20 23:52] LABS: HCO3 VBG 27 mmol/L (21-28); Lactate Sepsis w/Reflex* 1.0 mmol/L (0.5-1.9); PCO2 VBG 44 mmHG (40-50); PO2 VBG < 30.1 mmHG (25-47); pH VBG 7.390 (7.32-7.43)
[2024-10-20 23:53] LABS: Hematocrit* 38.4 % (37.0-53.0); Hemoglobin* 12.3 gm/dL (13.5-17.5); Immature Granulocytes Pct Auto 0.7 %; Mean Corpuscular HGB Conc 32 gm/dL (32-36); Mean Corpuscular Hemoglobin 29 pg (26-34); Mean Corpuscular Volume 90 fL (80-100); RDW Coefficient of Variation % 15.0 % (11.5-15.5); Red Blood Count* 4.25 m/uL (4.30-5.90); White Blood Count* 15.24 K/uL (4.50-11.00)
[2024-10-20 23:54] LABS: Immature Granulocytes Abs Auto 0.10 K/uL (0.00-0.30); Lymphocytes Absolute Auto 5.90 K/uL (0.90-2.90)
[2024-10-20 23:55] LABS: Slide Review Reflex No
[2024-10-20 23:58] LABS: Albumin* 4.7 g/dL (3.3-5.0); Chloride* 104 mmol/L (96-114); Potassium* 4.6 mmol/L (3.6-5.1); Sodium* 138 mmol/L (135-149)
[2024-10-21] VITALS (23 sets, daily range): BP systolic 108–145; BP diastolic 55–94; PULSE 10–115; RESP 13–20; TEMP 36.5–37.3; O2SAT 92–99; BMI 24.2
--- NOTE | 2024-10-21 | CRLHL7_ITS ---
For Patients: As a result of the Century Cures Act, medical imaging exams and procedure reports are released immediately into your electronic medical record. You may view this report before your referring provider. If you have questions, please contact your health care provider. INDICATION: Altered mental status. Decubitus ulcer with redness. Abdominal pain. TECHNIQUE: CT abdomen and pelvis acquired with 95 cc Isovue 370 IV contrast. COMPARISON: CT chest abdomen pelvis 09/07/2024. FINDINGS: Lower chest: Please see separately dictated CTA of the chest for discussion of intrathoracic contents. Liver: Unremarkable. Gallbladder and bile ducts: Unremarkable. Pancreas: Unremarkable. Spleen: Unremarkable. Adrenal glands: Unremarkable. Kidneys: Symmetric renal enhancement. No hydronephrosis or hydroureter. No obstructing calculi. GI tract: Tiny hiatal hernia. No bowel obstruction. No suspicious bowel wall thickening. Normal appendix. Vasculature: Atherosclerotic calcifications. No abdominal aortic aneurysm. Lymph nodes: Enlarged left iliac chain lymph node measuring 1.5 cm in short axis (series 3, image 94), decreased in size compared to prior. Additional mildly prominent para-aortic retroperitoneal lymph nodes are also minimally decreased in size compared to prior. Peritoneum/Abdominal Wall: No ascites or pneumoperitoneum. No intra-abdominal/pelvic fluid collection. Mild superficial soft tissue edema/inflammatory stranding along the right gluteal cleft without discrete fluid collection/abscess appreciated. Pelvis: Mild bladder wall thickening. Mild prostatomegaly. Bones: No acute osseous abnormality. IMPRESSION: 1. Mild bladder wall thickening. Correlate for cystitis. 2. Left iliac chain lymphadenopathy, nonspecific, but minimally decreased in size compared to the previous examination. 3. Mild right gluteal superficial soft tissue edema/inflammatory stranding. Correlate for superficial soft tissue infection such as cellulitis. No well-delineated fluid collection/abscess. No CT evidence of underlying acute osteomyelitis. Please note that all CT scans at this facility use dose modulation, iterative reconstruction, and/or weight-based dosing when appropriate to reduce radiation dose to as low as reasonably achievable. Dictated by Luis Rosales MD @ 10/21/2024 1:18:11 AM (Electronically Signed)
--- NOTE | 2024-10-21 | CRLHL7_ITS ---
For Patients: As a result of the Century Cures Act, medical imaging exams and procedure reports are released immediately into your electronic medical record. You may view this report before your referring provider. If you have questions, please contact your health care provider. INDICATION: Pulmonary embolism (PE) suspected, tachycardia, generalized weakness, cough, and altered mental status. TECHNIQUE: CT chest PE was acquired with 95 cc Isovue 370 IV contrast. Multiplanar reformats performed including 3D MIP reconstructions. COMPARISON: CT chest abdomen and pelvis 09/07/2024. FINDINGS: Heart and vasculature: No pulmonary embolism identified. Main pulmonary artery normal in caliber. Ascending thoracic aortic aneurysm measuring 4.2 cm. Mild cardiomegaly. No pericardial effusion. There are coronary artery calcifications and atherosclerotic calcifications of the aorta. Lungs and pleura: Bibasilar atelectasis/scarring. Right lower lobe peripheral nodular consolidation measuring 8 mm (series 7, image 112) is grossly unchanged compared to previous examinations dating back to 2018. No acute consolidation appreciated. No pleural effusion or pneumothorax. Patent central airways. Lymph nodes/mediastinum: Prominent mediastinal lymph nodes are grossly unchanged. Chest wall: No suspicious chest wall mass or fluid collection. No axillary lymphadenopathy. Upper abdomen: Please see separately dictated CT of the abdomen/pelvis for discussion of intra-abdominal contents. Bones: No acute abnormality. IMPRESSION: 1. No pulmonary embolism appreciated. 2. No acute intrathoracic abnormality. 3. Ascending thoracic aortic aneurysm measuring 4.2 cm. 4. Coronary artery calcifications. 5. Stable prominent mediastinal lymph nodes. Please note that all CT scans at this facility use dose modulation, iterative reconstruction, and/or weight-based dosing when appropriate to reduce radiation dose to as low as reasonably achievable. Dictated by Luis Rosales MD @ 10/21/2024 1:12:22 AM (Electronically Signed)
--- NOTE | 2024-10-21 | CRLHL7_ITS ---
For Patients: As a result of the Century Cures Act, medical imaging exams and procedure reports are released immediately into your electronic medical record. You may view this report before your referring provider. If you have questions, please contact your health care provider. INDICATION: Altered mental status, ataxia, and generalized weakness. TECHNIQUE: CT head without contrast. COMPARISON: CT head 09/07/2024. FINDINGS: Examination is somewhat limited by motion. No definite acute intracranial hemorrhage. No degenerative acute territorial infarct. No hydrocephalus or midline shift. Stable diffuse parenchymal volume loss and chronic microvascular ischemic changes. Visualized paranasal sinuses and mastoid air cells are ventilated. No acute calvarial fracture. IMPRESSION: No acute intracranial abnormality identified. No significant change compared to prior CT of the head. Please note that all CT scans at this facility use dose modulation, iterative reconstruction, and/or weight-based dosing when appropriate to reduce radiation dose to as low as reasonably achievable. Dictated by Luis Rosales MD @ 10/21/2024 1:04:50 AM (Electronically Signed)
[2024-10-21 00:01] LABS: Alanine Aminotransferase* 17 U/L (4-50); Alkaline Phosphatase* 87 U/L (40-150); Anion Gap 8 mEq/L (7-15); Aspartate Amino Transferase* 31 U/L (12-35); Bilirubin Total* 3.2 mg/dL (0.1-1.5); Blood Urea Nitrogen* 18 mg/dL (7-30); Calcium* 9.8 mg/dL (8.4-10.6); Carbon Dioxide* 26 mmol/L (20-32); Creatinine* 1.1 mg/dL (0.5-1.5); Est. Creatinine Clearance* 49.97; Estimated Glomerular Filt Rate 64 ml/min; Glucose* 109 mg/dL (60-115); Total Protein* 7.7 g/dL (6.0-8.3)
[2024-10-21 00:15] LABS: NT Pro B Type NatriureticPept* 1280 pg/mL (See Note)
[2024-10-21 00:30] LABS: PCR FLU A Negative PCR FLU A (Negative); PCR FLU B Negative PCR FLU B (Negative); PCR RSV Negative PCR RSV (Negative); SARS PCR* Negative SARS-CoV-2 (Negative)
--- NOTE | 2024-10-21 01:07 | ED_ITS ---
HPI - General Adult General Chief complaint: Weakness Stated complaint: unable to walk, weakness Time Seen by Provider: 10/20/24 23:14 History of Present Illness HPI narrative: 89-year-old gentleman brought to the ER today by his and daughter from home for evaluation of altered mental status, generalized weakness, difficulty walking. They report that he does have a history of some dementia, also history of coronary disease, AFib,. He has been admitted a couple of times over the past few months with episodes similar to this. One of them was apparently related to coronavirus infection. The other 1 was related to an aspiration pneumonia. In review of his medical records it looks like his most recent hospitalization was in May 2024. He was admitted for confusion and fever in the setting of COVID. Neuro imaging including brain MRI wears normal. Urine culture was neg ative. Labs did show an elevated troponin at 0.49 and trended down to 0.06. Thought to be and non ST elevation MS related to demand ischemia. Echo on 05/22/2024 revealed normal LV size, borderline wall thickness, EF 55%. No valvular disease. He was discharged on Plavix, Imdur, Ranexa, Lipitor, metoprolol, ezatimbe. He also has AFib. Rate controlled on metoprolol. Eliquis for stroke prophylaxis. 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 He also did have some swallowing difficulty. Positive dysphagia. He did have a soft diet is on EGD 05/23/2024. History is obtained primarily from the patient's daughter and because the patient is confused. He is able to answer simple questions and follow simple commands but not provide any history. History from his and daughters that this morning he seemed to have a little bit of trouble walking when he went to [facility] but he was able to walk with his walker. This afternoon he was having more trouble walking. They did go to the chest see Kaz maldonado but he had to use his motorized scooter to get around. He also seemed a little more confused than normal. This evening he had increasing confusion increasing difficulty walking. It has gotten to the point now where they had a lot of difficulty getting him transferred into the car to bring him here. They also noted increasing confusion, decreased verbal communication. He is not having a fever. They do note he has a history of COVID an aspiration pneumonia causing this side during 2 separate admissions. He has not really had any cough but they do note some gurgling when he swallows. This far as they know he has not had any fall today but he did have a fall a couple of days ago. He has some bruising on his right buttock, according to his . She is pretty confident that he did not hit his head when he fell. He is not having any focal weakness. No definite facial droop. As far as we know is not having any chest pain. No abdominal pain. thinks his urine output has been normal. Stooling has been normal. He has not had a fever yet. Related Data Home Medications ?Medication ?Instructions ?Recorded ?Confirmed apixaban 2.5 mg tablet (Eliquis) 2.5 mg PO BID 3 07/16/24 atorvastatin 80 mg tablet 80 mg PO HS 02/15/22 5 donepezil 5 mg tablet 5 mg PO HS 02/15/22 07/16/24 metoprolol succinate 50 mg 50 mg PO DAILY 02/15/2205/07 tablet,extended release 24 hr clopidogrel 75 mg tablet 75 mg PO QAM 04/18/23 ezetimibe 10 mg tablet 10 mg PO DAILY 04/18/2305/07 isosorbide mononitrate 30 mg 30 mg PO DAILY 04/18/23 0 07/16/24 tablet,extended release 24 hr ranolazine 500 mg tablet,extended 500 mg PO BID 07/16/24 release,12 hr nitroglycerin 0.4 mg sublingual 0.4 mg sublingual Q5M PRN 05/21/24 07/16/24 tablet Previous Rx's ?Medication ?Instructions ?Recorded omeprazole 20 mg capsule,delayed 20 mg PO BID 30 days #60 caps 05/31/24 release Allergies Allergy/AdvReac Type Severity Reaction Status Date / Time niacin Allergy Mild Rash and Verified 07/16/24 10:53 Itching [facility] Medical History Thrombocytopenia ?D69.6 - Thrombocytopenia, unspecified (ICD-10) Elevated bilirubin ?R17 - Unspecified jaundice (ICD-10) Non-ST elevated myocardial infarction (non-STEMI) ?I21.4 - Non-ST elevation (NSTEMI) myocardial infarction (ICD-10) Osteoarthritis ?M19.90 - Unspecified osteoarthritis, unspecified site (ICD-10) Coronary atherosclerosis of [place] coronary vessel ?I25.10 - Atherosclerotic heart disease of [place] coronary artery without angina pectoris (ICD-10) Acute pericarditis ?I30.9 - Acute pericarditis, unspecified (ICD-10) Dementia ?F03.90 - Unspecified dementia, unspecified severity, without behavioral disturbance, psychotic disturbance, mood disturbance, and anxiety (ICD-10) Chronic anticoagulation ?Z79.01 - intermediate card tender (current) use of anticoagulants (ICD-10) Coronary artery disease involving coronary bypass graft ?I25.810 - Atherosclerosis of coronary artery bypass graft(s) without angina pectoris (ICD-10) Mixed hyperlipidemia ?E78.2 - Mixed hyperlipidemia (ICD-10) Atrial fibrillation ?I48.91 - Unspecified atrial fibrillation (ICD-10) Chronic lymphoid leukemia ?C91.10 - Chronic lymphocytic leukemia of B-cell type not having achieved remission (ICD-10) Unspecified essential hypertension ?I10 - Essential (primary) hypertension (ICD-10) ASHD (arteriosclerotic heart disease) ?I25.10 - Atherosclerotic heart disease of [place] coronary artery without angina pectoris (ICD-10) Surgical History History of colonoscopy ?Z98.890 - Other specified postprocedural states (ICD-10) History of coronary artery bypass graft ?Z95.1 - Presence of aortocoronary bypass graft (ICD-10) History of vitrectomy ?Z98.890 - Other specified postprocedural states (ICD-10) History of ureter stent History of coronary artery stent placement ?Z95.5 - Presence of coronary angioplasty implant and graft (ICD-10) Family History Brother Diabetes Heart disease High blood pressure High cholesterol Mother Stroke Father Stroke Social History What is your current living situation?: unable to answer Problems where you live: unable to answer Problems where you live details: NA In the past 12 months, utilities in danger of being shut off: unable to answer In past 12 months, lack of transportation kept you from medical appts, meetings, work, or getting things needed for daily living: unable to answer In the past 12 mos, have been you worried that your food would run out before you had money to buy more?: unable to answer In the past 12 mos, the food you bought just didn't last and you didn't have money to buy more?: unable to answer Highest level of school completed/degree received: high school graduate Smoking Status: Never smoker Do you use any of these nicotine containing products: None Second hand tobacco smoke exposure: No How often do you have a drink containing alcohol: monthly or less How many standard drinks containing alcohol do you have on a typical day: 1 or 2 How often do you have six or more drinks on one occasion: Never AUDIT-C Alcohol total score: 1 Non-prescribed substance use: denies use Caffeine: Yes (pop) How often does anyone, including family, friends and others, physically hurt you : unable to answer How often does anyone, including family, friends and others, insult or talk down to you: unable to answer How often does anyone, including family, friends and others, threaten you with harm: unable to answer How often does anyone, including family, friends and others, scream or curse at you: unable to answer service: No Exam Narrative: Exam Narrative: Constitutional: Appears well-developed and well-nourished. Alert. He is awake and cooperates with simple requests but is not really able to follow complex commands or answer details of history. HENT: Head: Atraumatic. Nose: Nose normal. Mouth/Throat: Oral mucosa is clear but somewhat dry, not desiccated or cracked. no trismus. Pharynx normal. Tonsils symmetric. No tonsillar enlargement, erythema, or exudate. Eyes: Conjunctivae normal. EOM normal. Pupils equal, round, and reactive to light. No scleral icterus. Neck: Normal range of motion. Neck supple. No tracheal deviation present. Cardiovascular: Tachycardic, 104 on the monitor, regular rhythm. No gallop. No friction rub. No murmur heard. Symmetric radial artery pulses Pulmonary/Chest: Effort normal. No stridor. No respiratory distress. No wheezes. No rales. No rhonchi . No tenderness. Abdominal: Soft. Bowel sounds normal. No distension. No mass. No tenderness. No rebound. No guarding. Musculoskeletal: RUE: Normal range of motion. No tenderness. No deformity LUE: Normal range of motion. No tenderness. No deformity RLE: Normal range of motion in his hip, knee, ankle. No edema. No tenderness. No deformity LLE: Normal range of motion in his hip, knee, ankle. No edema. No tenderness. No deformity Lymph: No cervical adenopathy. Neurological: Alert and oriented to person, but not able to answer place or date orientation questions. Does have dementia but more confused than baseline.. Normal strength. CN II-VII intact. No sensory deficit. GCS eye subscore is 4. GCS verbal subscore is 5. GCS motor subscore is 6. Normal coordination Refractory Specialist strength 5/5 bilaterally. Biceps and triceps 5/5. No pronator drift or drooping of his upper extremities. He is able to flex both hips against gravity and then both hips and knees to about 45?. He is able to plantar and dorsiflex his feet bilaterally and wiggle his toes bilaterally. Intact sensory sensation light touch in all 4 extremities. No facial droop. Skin: He does have a few excoriations on his upper and mid back. He has had some itchy skin lately has been scratching. When we check on his sacral area he does have a small area of redness in the gluteal cleft about 4 cm in diameter. In the center this is a 1 cm purple area with an open area on the skin. This appears to be a superficial sacral ulcer. It is not draining any purulent fluid it. He also has fairly extensive ecchymosis on the right posterior buttock/posterior pelvis on the right side. Skin is warm and dry. No rash noted. No pallor. Normal capillary refill. Psychiatric: Normal mood. Flat affect. Cooperative. Not combative. Const: Vital Signs, click to edit/add: Vital Signs - 24 hr 10/20/24 22:39 Temperature 98 F Pulse Rate [Pulse Oximeter] 104 H Respiratory Rate 18 Blood Pressure [Ri ght Upper Arm] 135/83 Pulse Oximetry 96 Oxygen Delivery Me thod Room Air Course Vital Signs Vital signs: Initial Vital Signs Temperature 98 F 10/20/24 22:39 Temperature Source Temporal Artery Scan 10/20/24 22:39 Pulse Rate 104 H 10/20/24 22:39 Respiratory Rate 18 10/20/24 22:39 Blood Pressure 135/83 10/20/24 22:39 Blood Pressure Mean 100 10/20/24 22:39 Blood Pressure Position Sitting 10/20/24 22:39 Pulse Oximetry 96 10/20/24 22:39 Oxygen Delivery Method Room Air 10/20/24 22:39 Vital Signs Temperature 98 F 10/20/24 22:39 Pulse Rate 104 H 10/20/24 22:39 Respiratory Rate 18 10/20/24 22:39 Blood Pressure 135/83 10/20/24 22:39 Pulse Oximetry 96 10/20/24 22:39 Oxygen Delivery Method Room Air 10/20/24 22:39 Temperature 98 F 10/20/24 22:39 Pulse Rate 104 H 10/20/24 22:39 Respiratory Rate 18 10/20/24 22:39 Blood Pressure 135/83 10/20/24 22:39 Pulse Oximetry 96 10/20/24 22:39 Oxygen Delivery Method Room Air 10/20/24 22:39 Medications Administered Medications: Generic Name Dose Route Start Last Admin Trade Name Freq PRN Reason Stop Dose Admin Piperacillin Sod/Tazobactam 100 mls @ 200 mls/hr 10/20/24 23:30 10/21/24 01:54 Sod 4.5 gm/ Sodium Chloride IVPB 200 mls/hr Q6H FRANKIE Administration Discontinued Medications Generic Name Dose Route Start Last Admin Trade Name Freq PRN Reason Stop Dose Admin Sodium Chloride 1,000 mls @ 1,000 mls/hr 10/20/24 23:30 10/21/24 00:05 0.9 % Sodium Chloride 1000 Ml IV 10/21/24 00:29 1,000 mls/hr .Q1H FRANKIE Administration Vancomycin/PEG/NADA/Lysine/Water 1.5 gm in 300 mls @ 200 mls/hr 10/20/24 23:18 10/21/24 02:38 Vancomycin 1.5 Gm/300 Ml IVPB 10/21/24 00:47 200 mls/hr ONCE ONE Administration Protocol Medical Decision Making MDM Narrative Medical decision making narrative: 89-year-old gentleman with history of dementia brought to the ER today by his family with concern for progressively worsening grogginess today and generalized weakness and nonfocal altered mental status. Differential for his symptoms is broad. 1. Neuro. Consider possible stroke or intracranial hemorrhage. Patient does have risk factors for stroke since he has AFib and other vascular disease. However there was no clear focal component such as facial droop or unilateral weakness or neglect. Noncontrast head CT is obtained and is fortunately negative for any acute finding. He did have a mechanical fall yesterday and bruised his right hip but is confident that he did not hit his head. 2. Infectious disease. He has a history of similar episodes of altered mental status related to infections. One time he had an aspiration pneumonia and another time he was admitted for confusion related to COVID. We did do a workup for potential infections. He does have tachycardia with heart rate of 104 and elevated white count of 15. 2/4 sirs criteria plus suspected infection does qualify him for sepsis. However no evidence for acute sepsis related organ function to qualify him for severe sepsis in the absence of any acute kidney injury or acute change in bilirubin. 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 At this point does not have severe sepsis or septic shock per CMS guidelines. Did order 1 L of IV fluids because he had a mild tachycardia but wanted to avoid a full 30 mL/kg bolus because of his history of CHF and cardiovascular disease. He has mild tachycardia but normal to slightly hypertensive blood pressure. Venous lactic at his visit is normal at 1.0. Venous blood gas confirms normal pH. Patient was started on broad-spectrum antibiotics for sepsis when he arrived without a clear source initially identified. He has a history of aspiration pneumonia but there is no acute pulmonary infiltrate noted on his chest CT today. He has a history of COVID but COVID/influenza/RSV PCR is negative. I do not see any evidence for pharyngitis on his clinical exam. CT scan of his abdomen and pelvis does show bladder wall thickening which is potentially cystitis but urinalysis obtained through his peer wake is essential ly normal. No clear evidence for UTI at this time. CT scan of his abdomen pelvis suggest there is some edema and fat stranding in the soft tissue his right buttock. On clinical exam this correlates to an area of bruising and ecchymosis and is related to a fall that occurred yesterday. However, on his clinical exam he does have a decubitus ulcer in his gluteal cleft which is slightly red, but not draining purulent fluid. Unclear if this could be the source for his fever since it does not encompass a large area of tissue of his gluteal cleft. No other evidence for skin or soft tissue infection on his clinical exam. No evidence for septic arthritis on his clinical exam. With no headache or neck stiffness, I think the likelihood of meningitis or encephalitis is low. At this point the risk associated to diagnostic lumbar puncture would be far away but the benefit, especially risk of bleeding with his anticoagulant use. 3. Cardiac. EKG shows sinus tachycardia. No definite ischemia. Troponin is undetectable. Fortunately chest CT does not show fluid overload or pulmonary edema. BNP is mildly elevated at 12 80. He is on chronic Eliquis anticoagulation, sounds like for AFib. 4. Pulmonary. COVID negative. CT negative for pneumonia. No evidence for PE. No wheezing or bronchospasm. Venous blood gas shows no evidence for respiratory acidosis. 5. Renal/electrolytes. Sodium and potassium are normal. Kidney function normal. 6. Endocrine. Blood sugar normal. No history of diabetes. 7. Trauma. Did have a mechanical fall last night. Has bruising on his right buttock appreciable on clinical exam and correlated with some soft tissue findings on his CT scan. No other signs of acute traumatic injury. 8. Goals of care. Family confirms that in this 89-year-old gentleman with dementia that they would want him to be admitted for IV fluids and IV antibiotics if there were infection. They would potentially want simple medical procedures to be done if there is not causing too much discomfort and would not leave him in a persistently worse date. This certainly would not want CPR if his heart stops. They do not want any life-sustaining measures such as breat vidal tubes. They do not want any feeding tubes. However they would want simple medical treatments. Discussed with hospitalist, Dr. Skelton agrees to admit Lab Data Labs: Lab Results 10/20/24 10/20/24 Range/Units 01:55 23:50 WBC 15.24 H (4.50-11.00) K/uL RBC 4.25 L (4.30-5.90) m/uL Hgb 12.3 L (13.5-17.5) gm/dL Hct 38.4 (37.0-53.0) % MCV 90 (80-100) fL MCH 29 (26-34) pg MCHC 32 (32-36) gm/dL RDW Coeff of Joyce 15.0 (11.5-15.5) % Plt Count 137 L (140-440) K/uL Neut % (Auto) 51.4 (42.0-72.0) % Lymph % (Auto) 38.5 (20-44) % [place] % (Auto) 8.9 (0.0-11.0) % Eos % (Auto) 0.4 (0.0-7.0) % Baso % (Auto) 0.1 (0.0-3.0) % Neut # (Auto) 7.80 H (1.7-7.0) K/uL Lymph # (Auto) 5.90 H (0.90-2.90) K/uL [place] # (Auto) 1.40 H (0.00-0.90) K/UL Eos # (Auto) 0.10 (0.00-0.50) K/uL Baso # (Auto) 0.00 (0.00-0.30) K/uL Abs Immat Gran (auto) 0.10 (0.00-0.30) K/uL Imm/Tot Granulo (auto) 0.7 % VBG pH 7.390 (7.32-7.43) VBG pCO2 44 (40-50) mmHG VBG pO2 < 30.1 (25-47) mmHG VBG HCO3 27 (21-28) mmol/L Sodium 138 (135-149) mmol/L Potassium 4.6 (3.6-5.1) mmol/L Chloride 104 (96-114) mmol/L Carbon Dioxide 26 (20-32) mmol/L Anion Gap 8 (7-15) mEq/L BUN 18 (7-30) mg/dL Creatinine 1.1 (0.5-1.5) mg/dL Estimated Creat Clear 49.97 Estimated GFR 64 ml/min Glucose 109 (60-115) mg/dL Lactate 1.0 (0.5-1.9) mmol/L Calcium 9.8 (8.4-10.6) mg/dL Total Bilirubin 3.2 H (0.1-1.5) mg/dL AST 31 (12-35) U/L ALT 17 (4-50) U/L Alkaline Phosphatase 87 (40-150) U/L Troponin I < 0.01 (0.01-0.04) ng/mL NT-Pro-B Natriuret Pep 1280 H (See Note) pg/mL Total Protein 7.7 (6.0-8.3) g/dL Albumin 4.7 (3.3-5.0) g/dL Urine Color Yellow (Yellow) Urine Appearance Clear (Clear) Urine pH 5.0 (5.0-8.5) Ur Specific [place] 1.020 (1.000-1.030) Urine Protein Negative (Negative) Urine Glucose (UA) Negative (Negative) Urine Ketones Trace A (Negative) Urine Blood Negative (Negative) Urine Nitrite Negative (Negative) Urine Bilirubin Negative (Negative) Urine Urobilinogen 0.2 (0.2-1.0) Ur Leukocyte Esterase Negative (Negative) Urine RBC 0-2 (0-2) Urine WBC 0-2 (0-5) Ur Squamous Epith Cells None (None-Few) Urine Bacteria None (None) SARS-CoV-2 (PCR) Negative SARS-CoV-2 (Negative) Influenza Type A (PCR) Negative PCR FLU A (Negative) Influenza Type B (PCR) Negative PCR FLU B (Negative) RSV (PCR) Negative PCR RSV (Negative) Imaging Data CT scan - head: Attestation: I have reviewed the pertinent imaging results. Radiologist's impression: IMPRESSION: No acute intracranial abnormality identified. No significant change compared to prior CT of the head. CT scan - abdomen: Attestation: I have reviewed the pertinent imaging results. Radiologist's impression: IMPRESSION: 1. Mild bladder wall thickening. Correlate for cystitis. 2. Left iliac chain lymphadenopathy, nonspecific, but minimally decreased in size compared to the previous examination. 3. Mild right gluteal superficial soft tissue edema/inflammatory stranding. Correlate for superficial soft tissue infection such as cellulitis. No well-delineated fluid collection/abscess. No CT evidence of underlying acute osteomyelitis. CT scan - chest: Attestation: I have reviewed the pertinent imaging results. Radiologist's impression: IMPRESSION: 1. No pulmonary embolism appreciated. 2. No acute intrathoracic abnormality. 3. Ascending thoracic aortic aneurysm measuring 4.2 cm. 4. Coronary artery calcifications. 5. Stable prominent mediastinal lymph nodes. ECG Data Attestation: I personally reviewed and interpreted this ECG as follows: Discharge Plan Discharge Clinical Impression: Acute alteration in mental status, Sepsis, Abnormal bilirubin test, Sacral decubitus ulcer, Hematoma of right buttock Patient Disposition: Admitted As Inpatient Procedures ABG Interpretation ABG Results: 10/20/24 23:50 VBG pH 7.390 VBG pCO2 44 VBG pO2 < 30.1 VBG HCO3 27
[2024-10-21] MEDS: PIPERACILLIN/TAZOBACTAM 4.5 GM in 0.9 % SODIUM CHLORIDE Mini-bag 100 ML IVPB (01:54)
[2024-10-21 01:57] LABS: Appearance Urine Clear (Clear)
[2024-10-21] MEDS: VANCOMYCIN 1.5 GM/300 ML 1.5 GM/300 ML PIGGYBACK IVPB (02:38)
--- NOTE | 2024-10-21 04:14 | W.PM.TELEH&P ---
Telehealth- H&P: HPI History of Present Illness Date Seen: 10/21/24 Chief complaint: unable to walk, weakness Narrative: Reddy Gilbert is seen as an Interactive Telehealth visit. The patient is 89 with a past history for dementia, A-fib on chronic anticoagulation, CAD with prior history of NSTEMI, hypertension, Gilbert syndrome, hyperlipidemia, CLL who presented to the ER with worsening confusion and generalized weakness. He was brought into the emergency room by his and daughter for evaluation of worsening confusion and weakness. In the past he has had worsening confusion and weakness in the setting of infection including COVID-19 and aspiration pneumonia. On the day of admission he was a bit weaker than his baseline, he had a bit of trouble while he was trying to walk at [facility] but was still able to get around with his walker. Throughout the day the weakness progressed, when he went to the [facility] he had to use his motorized scooter to get around and they also noted that he was a bit more confused than his baseline. The evening of admission he became very confused and had worsening weakness to the point that he needed help being transferred from the car. He has not been talking as much. They did not notice any fevers. He has not had any cough. He did not have any falls a day of admission but he did have a several days prior to admission. They said it was not a true fall slid down and hit his right buttock as he was going down. Denies any head injury or loss of consciousness. He has not had any abdominal pain. They have not noticed any diarrhea or vomiting. This is patient did not have an obvious source of infection, he does have a small sacral wound with some surrounding erythema but it did not appear to be as severe cellulitis. Negative influenza and COVID. UA without signs of infection although he did have some no intra-abdominal process. On my interview the patient is very confused and unable to provide significant history. He denies feeling unwell. Review of Systems Status of ROS: Reports: unobtainable due to mental status [facility] Medical History Thrombocytopenia ?D69.6 - Thrombocytopenia, unspecified (ICD-10) Elevated bilirubin ?R17 - Unspecified jaundice (ICD-10) Non-ST elevated myocardial infarction (non-STEMI) ?I21.4 - Non-ST elevation (NSTEMI) myocardial infarction (ICD-10) Osteoarthritis ?M19.90 - Unspecified osteoarthritis, unspecified site (ICD-10) Coronary atherosclerosis of [place] coronary vessel ?I25.10 - Atherosclerotic heart disease of [place] coronary artery without angina pectoris (ICD-10) Acute pericarditis ?I30.9 - Acute pericarditis, unspecified (ICD-10) Dementia ?F03.90 - Unspecified dementia, unspecified severity, without behavioral disturbance, psychotic disturbance, mood disturbance, and anxiety (ICD-10) Chronic anticoagulation ?Z79.01 - jail (current) use of anticoagulants (ICD-10) Coronary artery disease involving coronary bypass graft ?I25.810 - Atherosclerosis of coronary artery bypass graft(s) without angina pectoris (ICD-10) Mixed hyperlipidemia ?E78.2 - Mixed hyperlipidemia (ICD-10) Atrial fibrillation ?I48.91 - Unspecified atrial fibrillation (ICD-10) Chronic lymphoid leukemia ?C91.10 - Chronic lymphocytic leukemia of B-cell type not having achieved remission (ICD-10) Unspecified essential hypertension ?I10 - Essential (primary) hypertension (ICD-10) ASHD (arteriosclerotic heart disease) ?I25.10 - Atherosclerotic heart disease of [place] coronary artery without angina pectoris (ICD-10) Surgical History History of colonoscopy ?Z98.890 - Other specified postprocedural states (ICD-10) History of coronary artery bypass graft ?Z95.1 - Presence of aortocoronary bypass graft (ICD-10) History of vitrectomy ?Z98.890 - Other specified postprocedural states (ICD-10) History of ureter stent History of coronary artery stent placement ?Z95.5 - Presence of coronary angioplasty implant and graft (ICD-10) Family History Brother Diabetes Heart disease High blood pressure High cholesterol Mother Stroke Father Stroke Social History What is your current living situation?: unable to answer Problems where you live: unable to answer Problems where you live details: NA In the past 12 months, utilities in danger of being shut off: unable to answer In past 12 months, lack of transportation kept you from medical appts, meetings, work, or getting things needed for daily living: unable to answer In the past 12 mos, have been you worried that your food would run out before you had money to buy more?: unable to answer In the past 12 mos, the food you bought just didn't last and you didn't have money to buy more?: unable to answer Highest level of school completed/degree received: high school graduate Smoking Status: Never smoker Do you use any of these nicotine containing products: None Second hand tobacco smoke exposure: No How often do you have a drink containing alcohol: monthly or less How many standard drinks containing alcohol do you have on a typical day: 1 or 2 How often do you have six or more drinks on one occasion: Never AUDIT-C Alcohol total score: 1 Non-prescribed substance use: denies use Caffeine: Yes (pop) How often does anyone, including family, friends and others, physically hurt you: unable to answer How often does anyone, including family, friends and others, insult or talk down to you: unable to answer How often does anyone, including family, friends and others, threaten you with harm: unable to answer How often does anyone, including family, friends and others, scream or curse at you: unable to answer service: No Meds Home Medications and Allergies Home Medications ?Medication ?Instructions ?Recorded ?Confirmed ?Type apixaban 2.5 mg tablet (Eliquis) 2.5 mg PO BID 02/15/22 07/16/24 History atorvastatin 80 mg tablet 80 mg PO 02/15/22 07/16/24 History donepezil 5 mg tablet 5 mg PO HS 02/15/22 07/16/24 History metoprolol succinate 50 mg 50 mg PO DAILY 02/15/22 07/16/24 History tablet,extended release 24 hr clopidogrel 75 mg tablet 75 mg PO QAM 04/18/23 07/16/24 History ezetimibe 10 mg tablet 10 mg PO DAILY 04/18/23 07/16/24 History isosorbide mononitrate 30 mg 30 mg PO DAILY 04/18/23 07/16/24 History tablet,extended release 24 hr ranolazine 500 mg tablet,extended 500 mg PO BID 04/18/23 07/16/24 History release,12 hr nitroglycerin 0.4 mg sublingual 0.4 mg sublingual Q5M PRN 05/21/24 07/16/24 History tablet omeprazole 20 mg capsule,delayed 20 mg PO BID 30 days #60 caps 05/31/24 07/16/24 Rx release Allergies Allergy/AdvReac Type Severity Reaction Status Date / Time niacin Allergy Mild Rash and Verified 07/16/24 10:53 Itching Exam Narrative Exam Narrative: GENERAL: vital signs reviewed, well developed and nourished, in no distress HEENT: pupils are equal and round, extraocular movements are grossly within normal limits and oral mucosa is dry NECK: Supple without lymphadenopathy or thyromegaly according to nursing staff examination observation HEART: Regular rate and rhythm without any rubs, murmurs or gallops. LUNGS: Clear to auscultation bilaterally with good air movement throughout ABDOMEN: Observation from nurse assisted exam, abdomen appears soft, nontender, and nondistended with Positive bowel sounds noted. EXTREMITIES: Strength and sensation is observed to be grossly within normal limits in the upper and lower extremities. No focal strength deficit is observed SKIN: Right buttock hematoma, see nursing documentation for sacral wound some surrounding erythema without drainage NEURO: Awakens to voice but falls asleep quickly. No obvious focal weakness PSYCH: Confused Const Vital Signs, click to edit/add: Vital Signs - 24 hr 10/20/24 22:39 10/21/24 00:00 10/21/24 00:48 Temperature 98 F Pulse Rate 113 H Pulse Rate [Pulse Oximeter] 104 H Respiratory Rate 18 18 Blood Pressure Blood Pressure [Right Arm] Blood Pressure [Right Upper Arm] 135/83 Pulse Oximetry 96 94 Oxygen Delivery Method Room Air 10/21/24 01:00 10/21/24 01:08 10/21/24 01:30 Temperature Pulse Rate 110 H 104 H 103 H Pulse Rate [Pulse Oximeter] Respiratory Rate 20 16 16 Blood Pressure 141/80 H Blood Pressure [Right Arm] Blood Pressure [Right Upper Arm] Pulse Oximetry 93 95 94 Oxygen Delivery Method 10/21/24 01:31 10/21/24 02:00 10/21/24 02:02 Temperature Pulse Rate 105 H 105 H 103 H Pulse Rate [Pulse Oximeter] Respiratory Rate 13 17 17 Blood Pressure 139/84 145/87 H Blood Pressure [Right Arm] Blood Pressure [Right Upper Arm] Pulse Oximetry 94 96 94 Oxygen Delivery Method 10/21/24 02:30 10/21/24 02:31 10/21/24 03:00 Temperature Pulse Rate 103 H 99 95 Pulse Rate [Pulse Oximeter] Respiratory Rate 16 18 17 Blood Pressure 134/75 Blood Pressure [Right Arm] Blood Pressure [Right Upper Arm] Pulse Oximetry 92 95 96 Oxygen Delivery Method 10/21/24 03:01 10/21/24 03:43 10/21/24 03:52 Temperature 98.7 F Pulse Rate 98 Pulse Rate [Pulse Oximeter] 99 Respiratory Rate 13 20 20 Blood Pressure 134/81 Blood Pressure [Right Arm] 141/79 H Blood Pressure [Right Upper Arm] Pulse Oximetry 97 98 98 Oxygen Delivery Method Room Air Room Air Hospitalist - H&P: Result Labs Labs: Short CBC 10/20/24 Range/Units 23:50 WBC 15.24 H (4.50-11.00) K/uL Hgb 12.3 L (13.5-17.5) gm/dL Hct 38.4 (37.0-53.0) % Plt Count 137 L (140-440) K/uL BMP 10/20/24 23:50 Sodium 138 Potassium 4.6 Chloride 104 Carbon Dioxide 26 BUN 18 Creatinine 1.1 Glucose 109 Calcium 9.8 Cardiac Enzymes 10/20/24 Range/Units 23:50 Troponin I < 0.01 (0.01-0.04) ng/mL Liver Function 10/20/24 Range/Units 23:50 Total Bilirubin 3.2 H (0.1-1.5) mg/dL AST 31 (12-35) U/L ALT 17 (4-50) U/L Alkaline Phosphatase 87 (40-150) U/L Albumin 4.7 (3.3-5.0) g/dL Urine 10/20/24 Range/Units 01:55 Urine Color Yellow (Yellow) Urine Appearance Clear (Clear) Urine pH 5.0 (5.0-8.5) Ur Specific [place] 1.020 (1.000-1.030) Urine Protein Negative (Negative) Urine Glucose (UA) Negative (Negative) Assessment and Plan Assessment and plan (1) Hematoma of right buttock: Status: Acute (2) Sacral decubitus ulcer: Status: Acute (3) Acute alteration in mental status: Status: Acute (4) Dementia: Problem comment: - on Donepezil as an outpatient - 05/18 on MiniCog with PCP fall 2023 - 02/11 on [facility] ([place] [facility]); 05/28 with OT Status: Acute (5) Atrial fibrillation: Problem comment: - rate controlled on Metoprolol, anticoagulated on Eliquis as outpatient - HELD Eliquis starting 05/21/24 for EGD - restarted Eliquis 05/24 Status: Acute (6) Chronic lymphoid leukemia: Problem comment: - Chronic, stable, baseline WBC 13-35; likely cause of elevated lymphocytes and thrombocytopenia - Followed by hematology Status: Acute Plan Assessment and Plan Acute metabolic encephalopathy Likely related to infection No focal deficits CT head personally reviewed: No acute bleed Cellulitis Sacral wound Started on vancomycin and Zosyn in the ER Will continue vancomycin and ceftriaxone MRSA PCR Patient had leukocytosis without fever No hypotension Follow-up blood culture UA without any pyuria No lactic acidosis CT chest with no evidence of pneumonia. Paroxysmal atrial fibrillation Currently in sinus tachycardia CLL follows w/ heme, chronic thromobycytopenia Ascending thoracic aortic aneurysm Noted 4.2 cm Mediastinal lymphadenopathy Iliac chain lymphadenopathy Chronic Outpatient evaluation if consistent with goals of care Right gluteal hematoma Secondary to fall Will trend hemoglobin due to chronic anticoagulation Gilbert's syndrome Patient has mild elevation of bilirubin without an acute process on CT of the abdomen Elevated proBNP Unclear significance CAD No recent chest pain ECG personally reviewed: Sinus tachycardia without ST elevation Resume home medications when verified Prior to admission home medications that were felt to be needed immediately have been ordered. The remainder of the home medications will await pharmacy reconciliation and will be ordered by the attending provider in the a.m. Telehealth Visit: Today's History and Physical is provided via interactive telehealth by Dr. Fadi Skelton MD. Patient is located at [facility]. Provider is located at [facility]. Nursing staff assisted with the patient's exam. The visit being done today meets criteria for a telehealth visit and the patient or patients parent/guardian is aware the visit is a telehealth visit. Camera Start Time: 408 Camera End Time: 413 Medical Complexity: High ~~~~~~~~~~~~~~~~ Dr. Fadi Skelton Telehealth: Statement Statement Telehealth Visit: Today's History and Physical is provided via interactive telehealth by Fadi Skelton MD.? Patient is located at [facility] staff assisted with the patient's exam. The visit being done today meets criteria for a telehealth visit and the patient or patient?s parent/guardian is aware the visit is a telehealth visit. Camera Start Time: 04:08 Camera End Time: 04:13
[2024-10-21] MEDS: cefTRIAXone 2 GM in 0.9 % SODIUM CHLORIDE Mini-bag 100 ML IVPB (04:39)
[2024-10-21 06:35] LABS: Hematocrit* 36.8 % (37.0-53.0); Hemoglobin* 11.8 gm/dL (13.5-17.5); Immature Granulocytes Abs Auto 0.01 K/uL (0.00-0.30); Immature Granulocytes Pct Auto 0.1 %; Lymphocytes Absolute Auto 3.52 K/uL (0.90-2.90); Mean Corpuscular HGB Conc 32 gm/dL (32-36); Mean Corpuscular Hemoglobin 29 pg (26-34); Mean Corpuscular Volume 91 fL (80-100); RDW Coefficient of Variation % 14.9 % (11.5-15.5); Red Blood Count* 4.06 m/uL (4.30-5.90); White Blood Count* 10.63 K/uL (4.50-11.00)
[2024-10-21 06:44] LABS: Slide Review Reflex No
[2024-10-21 06:48] LABS: Chloride* 106 mmol/L (96-114); Potassium* 4.4 mmol/L (3.6-5.1); Sodium* 137 mmol/L (135-149)
[2024-10-21 06:51] LABS: Anion Gap 5 mEq/L (7-15); Blood Urea Nitrogen* 15 mg/dL (7-30); Calcium* 8.5 mg/dL (8.4-10.6); Carbon Dioxide* 26 mmol/L (20-32); Creatinine* 1.0 mg/dL (0.5-1.5); Est. Creatinine Clearance* 51.71; Estimated Glomerular Filt Rate 72 ml/min; Glucose* 113 mg/dL (60-115)
--- NOTE | 2024-10-21 07:34 | PC.NURSE ---
Pt arrived to the unit @ 0330 via bed. Pt arousable to name. Oriented to self. Pt was lethargic and sleeping during Min. Pt unable to answer admission question. NS running @ 100ml/hr. Purewick in place, patent, and draining. Repositioned and changed brief upon initial assessment. Denies pain. Call light within reach.
--- NOTE | 2024-10-21 11:03 | PC.SOCIAL ---
Discharge planning: Spoke with dtr, Janine Paez [phone], by phone regarding discharge plan. Dtr confirmed pt lives with his in their home in [place]. Dtr reports pt being mostly independent at home with a walker but that was always available to provide supervision and physical assistance with bathing, meals, medications and toileting. Dtr states pt was discharged home from a rehab stay at [facility] about three weeks ago with home care and family thought he had been doing well at home. Dtr states she is questioning whether pt's can do all the personal care needed at home, due to the wounds and states that if a rehab stay is needed at discharge, they would like pt to go back to [facility]. Dtr was provided with social science teacher's contact information. stock worker to follow up as needed.
--- NOTE | 2024-10-21 16:29 | PM.IMPN1 ---
Assessment and Plan Assessment and plan (1) Sepsis: Problem comment: Patient was started on broad-spectrum antibiotics because of concern of sepsis with acute altered mental status, acute bilirubin elevation, acute leukocytosis. No definite source for infection except for the ulceration and erythema in the gluteal cleft. Await cultures and clinical course. Status: Acute (2) Metabolic encephalopathy: Problem comment: Patient had acute change in mental status and mobility yesterday this is likely metabolic encephalopathy due to an infection. Continue to monitor with treatment. Status: Acute (3) Mobility poor: Problem comment: First problem identified yesterday was his inability to walk. That has already improved some today. Continue to evaluate with therapy and treat infection Status: Acute (4) Sacral decubitus ulcer: Problem comment: Unclear if this is pressure ulcer. Continue to treat. If Not resolving may need biopsy. Status: Acute (5) Hematoma of right buttock: Problem comment: Does not appear to be significantly disabling. Status: Acute (6) Dementia: Problem comment: - on Donepezil as an outpatient - 05/18 on MiniCog with PCP fall 2023 - 02/11 on MoCA ([place] Cognitive Assessment); 05/28 with OT Status: Acute (7) Elevated bilirubin: Problem comment: - chronic noted intermittently since 2018 per chart review, rest of LFTs wnl - presumably Gilbert's, asymptomatic, stable - consider further outpatient workup if within goals of care Abdominal imaging not concerning for biliary disease. Increase in bilirubin over baseline is probably due to acute illness Status: Acute (8) Risk for falls: Problem comment: Patient has had recurrent falls since coming home from the [place] [facility] recently. Therapy to evaluate Status: Acute (9) Discharge planning issues: Problem comment: With dementia and fall risk patient may need higher level of care. Unclear how well is able to manage as care provider due to his high needs and her own frailty Status: Acute Plan Continue in hospital for evaluation management of possible sepsis, metabolic encephalopathy, sacral ulcer and disability. Total Time Spent Total Time Spent: Total time spent today is 60 minutes in reviewing outside records, coordination of care and discussing with patient, family and other providers ongoing management of above medical problems Subjective Date Seen: 10/21/24 Interval history: Admission HPI: The patient is 89 with a past history for dementia, A-fib on chronic anticoagulation, CAD with prior history of NSTEMI, hypertension, Gilbert syndrome, hyperlipidemia, CLL who presented to the ER with worsening confusion and generalized weakness. He was brought into the emergency room by his and daughter for evaluation of worsening confusion and weakness. In the past he has had worsening confusion and weakness in the setting of infection including COVID-19 and aspiration pneumonia. He was hospitalized 6 weeks ago at [facility] for aspiration pneumonia. He was felt to have some swallowing problems. Treated with Unasyn and Augmentin. Had encephalopathy during that admission. On the day of admission he was a bit weaker than his baseline, he had a bit of trouble while he was trying to walk at [employer] but was still able to get around with his walker. Throughout the day the weakness progressed, when he went to the [employer] parade he had to use his motorized scooter to get around and they also noted that he was a bit more confused than his baseline. The evening of admission he became very confused and had worsening weakness to the point that he needed help being transferred from the car. He has not been talking as much. They did not notice any fevers. He has not had any cough. He did not have any falls a day of admission but he did have a several days prior to admission. They said it was not a true fall slid down and hit his right buttock as he was going down. Denies any head injury or loss of consciousness. He has not had any abdominal pain. They have not noticed any diarrhea or vomiting. This is patient did not have an obvious source of infection, he does have a small sacral wound with some surrounding erythema but it did not appear to be as severe cellulitis. Negative influenza and COVID. UA without signs of infection although he did have some no intra-abdominal process. On my interview the patient is very confused and unable to provide significant history. He denies feeling unwell. 10/21/2024: I see the patient with his and son. Patient is unable to give any history. He does recognize he is in the hospital but otherwise has no idea how or when he got here or why he came. He has no current concerns. gives history of events of yesterday though she has trouble recalling significant details. She did not recall much detail about his recent hospitalization at [facility] or subsequent stay at [address] [place] [address] or a recent fall causing a bruise on his right buttock. She does remember he fell but could not remember when. She reported that it was a month ago but the appearance would suggested it was happening in the last week. Exam Narrative: Exam Narrative: He is alert and appears in no distress. Unable to give any significant history about recent events. Speech is fluent. Denies any symptoms currently. Head is without trauma. Eyes are normal. No facial asymmetry. Oropharynx with dry mucous membranes. Neck is supple without mass or adenopathy. Respirations are clear to auscultation. Breathing is unlabored. Cardiovascular: S1, S2, regular rate and rhythm. No murmur gallop or rub. Abdomen: Bowel sounds active. Abdomen is soft without tenderness or mass. External genitalia normal. He does have some hyperpigmentation in the inguinal folds without erythema or other acute inflammatory skin changes. Examination is buttocks she has prominent bruising over the right upper buttock. This is mostly purple in color with minimal transition to greenish yellow indicating relatively recent injury. No significant tenderness. In the gluteal cleft he has an 1 x 2 cm erythematous papule with an ulcer that is oozing bloody serous fluid. This is surrounded by some erythema extending through the gluteal cleft about 5 cm at its maximum width and about 15 cm long. This is tender to palpation and warm to touch. Lower extremities with trace edema and no tenderness. He moves all 4 extremities well. Const: Vital Signs, click to edit/add: Vital Signs - 24 hr 10/20/24 22:39 10/21/24 00:00 10/21/24 00:48 Temperature 98 F Pulse Rate 113 H Pulse Rate [Pulse Oximeter] 104 H Respiratory Rate 18 18 Blood Pressure Blood Pressure [Le ft Arm] Blood Pressure [Ri ght Arm] Blood Pressure [Ri ght Upper Arm] 135/83 Pulse Oximetry 96 94 Oxygen Delivery Me thod Room Air 10/21/24 01:00 10/21/24 01:08 10/21/24 01:30 Temperature Pulse Rate 110 H 104 H 103 H Pulse Rate [Pulse Oximeter] Respiratory Rate 20 16 16 Blood Pressure 141/80 H Blood Pressure [Le ft Arm] Blood Pressure [Ri ght Arm] Blood Pressure [Ri ght Upper Arm] Pulse Oximetry 93 95 94 Oxygen Delivery Me thod 10/21/24 01:31 10/21/24 02:00 10/21/24 02:02 Temperature Pulse Rate 105 H 105 H 103 H Pulse Rate [Pulse Oximeter] Respiratory Rate 13 17 17 Blood Pressure 139/84 145/87 H Blood Pressure [Le ft Arm] Blood Pressure [Ri ght Arm] Blood Pressure [Ri ght Upper Arm] Pulse Oximetry 94 96 94 Oxygen Delivery Me thod 10/21/24 02:30 10/21/24 02:31 10/21/24 03:00 Temperature Pulse Rate 103 H 99 95 Pulse Rate [Pulse Oximeter] Respiratory Rate 16 18 17 Blood Pressure 134/75 Blood Pressure [Le ft Arm] Blood Pressure [Ri ght Arm] Blood Pressure [Ri ght Upper Arm] Pulse Oximetry 92 95 96 Oxygen Delivery Me thod 10/21/24 03:01 10/21/24 03:43 10/21/24 03:52 Temperature 98.7 F Pulse Rate 98 Pulse Rate [Pulse Oximeter] 99 Respiratory Rate 13 20 20 Blood Pressure 134/81 Blood Pressure [Le ft Arm] Blood Pressure [Ri ght Arm] 141/79 H Blood Pressure [Ri ght Upper Arm] Pulse Oximetry 97 98 [facility] 10/21/24 07:00 10/21/24 07:00 10/21/24 07:00 Temperature 97.9 F Pulse Rate Pulse Rate [Pulse Oximeter] 103 H 10 L Respiratory Rate 18 Blood Pressure Blood Pressure [Le ft Arm] Blood Pressure [Ri ght Arm] 128/72 Blood Pressure [Ri ght Upper Arm] Pulse Oximetry 96 96 [facility] 10/21/24 07:00 10/21/24 07:00 10/21/24 10:25 Temperature 97.9 F Pulse Rate 95 94 Pulse Rate [Pulse Oximeter] 103 H Respiratory Rate 18 Blood Pressure 108/79 Blood Pressure [Le ft Arm] Blood Pressure [Ri ght Arm] 128/72 Blood Pressure [Ri ght Upper Arm] Pulse Oximetry 96 98 Oxygen Delivery Me thod Room Air 10/21/24 11:00 10/21/24 11:00 10/21/24 15:00 Temperature 97.7 F 97.7 F Pulse Rate 95 Pulse Rate [Pulse Oximeter] 87 87 Respiratory Rate 14 14 Blood Pressure Blood Pressure [Le ft Arm] 125/68 125/68 Blood Pressure [Ri ght Arm] Blood Pressure [Ri ght Upper Arm] Pulse Oximetry 99 99 Oxygen Delivery Me thod Room Air Room Air 10/21/24 15:00 10/21/24 15:00 10/21/24 15:00 Temperature 97.7 F Pulse Rate Pulse Rate [Pulse Oximeter] 89 89 Respiratory Rate 20 Blood Pressure Blood Pressure [Le ft Arm] 136/94 H Blood Pressure [Ri ght Arm] Blood Pressure [Ri ght Upper Arm] Pulse Oximetry 97 97 Oxygen Delivery Me thod Room Air Labs Labs: Laboratory Results - last 24 hr 10/20/24 10/20/24 10/21/24 01:55 23:50 06:02 WBC 15.24 H 10.63 RBC 4.25 L 4.06 L Hgb 12.3 L 11.8 L Hct 38.4 36.8 L MCV 90 91 MCH 29 29 MCHC 32 32 RDW Coeff of Joyce 15.0 14.9 Plt Count 137 L 116 L Neut % (Auto) 51.4 57.2 Lymph % (Auto) 38.5 33.1 Sumner % (Auto) 8.9 9.1 Eos % (Auto) 0.4 0.5 Baso % (Auto) 0.1 0.0 Neut # (Auto) 7.80 H 6.08 Lymph # (Auto) 5.90 H 3.52 H Sumner # (Auto) 1.40 H 1.00 H Eos # (Auto) 0.10 0.05 Baso # (Auto) 0.00 0.00 Abs Immat Gran (auto) 0.10 0.01 Imm/Tot Granulo (auto) 0.7 0.1 VBG pH 7.390 VBG pCO2 44 VBG pO2 < 30.1 VBG HCO3 27 Sodium 138 137 Potassium 4.6 4.4 Chloride 104 106 Carbon Dioxide 26 26 Anion Gap 8 5 L BUN 18 15 Creatinine 1.1 1.0 Estimated Creat Clear 49.97 51.71 Estimated GFR 64 72 Glucose 109 113 Lactate 1.0 Calcium 9.8 8.5 Total Bilirubin 3.2 H AST 31 ALT 17 Alkaline Phosphatase 87 Troponin I < 0.01 NT-Pro-B Natriuret Pep 1280 H Total Protein 7.7 Albumin 4.7 Urine Color Yellow Urine Appearance Clear Urine pH 5.0 Ur Specific Blair 1.020 Urine Protein Negative Urine Glucose (UA) Negative Urine Ketones Trace A Urine Blood Negative Urine Nitrite Negative Urine Bilirubin Negative Urine Urobilinogen 0.2 Ur Leukocyte Esterase Negative Urine RBC 0-2 Urine WBC 0-2 Ur Squamous Epith Cells None Urine Bacteria None SARS-CoV-2 (PCR) Negative SARS-CoV-2 Influenza Type A (PCR) Negative PCR FLU A Influenza Type B (PCR) Negative PCR FLU B RSV (PCR) Negative PCR RSV
--- NOTE | 2024-10-21 18:57 | PC.NURSE ---
End of Shift Note (CCU2)? Patient became more alert as the day went by. Mental status back to baseline as per daughter observation while visiting. He walked SBA with gait belt and walker on hallway. Activity tolerated well. VSS. Afebrile. No pain reported. Purewick removed during daytime. Brief in place. Mepilex in sacral/right buttock area. ?
[2024-10-21] MEDS: METOPROLOL TARTRATE 50 MG TABLET 25 MG PO (19:09)
[2024-10-21] MEDS: DONEPEZIL 5 MG TABLET PO (21:27)
[2024-10-21] MEDS: APIXABAN 5 MG TABLET 2.5 MG PO (21:28)
[2024-10-21] MEDS: SODIUM CHLORIDE 0.9 % (FLUSH) 10 ML SYRINGE 5 ML IVF (21:28)
[2024-10-22] VITALS (8 sets, daily range): BP systolic 101–138; BP diastolic 69–93; PULSE 74–103; RESP 16–20; TEMP 36.3–36.8; O2SAT 92–100
[2024-10-22] MEDS: VANCOMYCIN 1.25 GM/250 ML 1.25 GM/250 ML PIGGYBACK IVPB (02:18)
[2024-10-22] MEDS: cefTRIAXone 2 GM in 0.9 % SODIUM CHLORIDE Mini-bag 100 ML IVPB (05:00)
--- NOTE | 2024-10-22 06:59 | PC.NURSE ---
Arrived to find the patient sitting in their chair alert but pleasantly confused. He was not able to retain information for very long at this time. The patient looked tired at this time and was positioned as if had been trying to stand himself up out of the low sitting chair, and so we transferred back to bed. The patient is however incontinent of urine and has frequently used the restroom. Transferring the patient requires a full assist of one with a rolling walker with gait belt due to instability and the need to redirect attention. Skin is in poor condition. Area of the lower back above buttock is pink. There is a wound covered with a foam dressing here and a large bruise that is disappearing. Skin elsewhere is very thin and fragile. The bed alarm and frequent checks has been essential. Poking my head in the room once found them trying to find a way to get out of their bed to stand.?Awaking the patient occasionally causes irritation but I do not believe them to be a violence risk while in delirium, at this time. The patient was given a partial bath while seated, gown changed, and bedding replaced in the teletype adjuster due to an incontinence episode. Not a great candidate for an external catheter due to their anatomy. ?
[2024-10-22 08:02] LABS: Hematocrit* 37.0 % (37.0-53.0); Hemoglobin* 11.9 gm/dL (13.5-17.5); Immature Granulocytes Abs Auto 0.02 K/uL (0.00-0.30); Immature Granulocytes Pct Auto 0.2 %; Lymphocytes Absolute Auto 3.99 K/uL (0.90-2.90); Mean Corpuscular HGB Conc 32 gm/dL (32-36); Mean Corpuscular Hemoglobin 29 pg (26-34); Mean Corpuscular Volume 91 fL (80-100); RDW Coefficient of Variation % 14.9 % (11.5-15.5); Red Blood Count* 4.08 m/uL (4.30-5.90); White Blood Count* 10.97 K/uL (4.50-11.00)
[2024-10-22 08:07] LABS: Slide Review Reflex No
[2024-10-22 08:20] LABS: Albumin* 3.5 g/dL (3.3-5.0); Chloride* 107 mmol/L (96-114); Potassium* 4.3 mmol/L (3.6-5.1); Sodium* 138 mmol/L (135-149)
[2024-10-22 08:22] LABS: Blood Urea Nitrogen* 11 mg/dL (7-30); Creatinine* 0.9 mg/dL (0.5-1.5); Est. Creatinine Clearance* 51.71; Estimated Glomerular Filt Rate 82 ml/min
[2024-10-22 08:23] LABS: Alanine Aminotransferase* 14 U/L (4-50); Alkaline Phosphatase* 78 U/L (40-150); Anion Gap 6 mEq/L (7-15); Aspartate Amino Transferase* 25 U/L (12-35); Bilirubin Total* 2.7 mg/dL (0.1-1.5); Calcium* 8.9 mg/dL (8.4-10.6); Carbon Dioxide* 25 mmol/L (20-32); Glucose* 99 mg/dL (60-115); Total Protein* 6.0 g/dL (6.0-8.3)
[2024-10-22] MEDS: ISOSORBIDE MONONITRATE ER 30 MG TAB PO (09:05)
[2024-10-22] MEDS: CLOPIDOGREL 75 MG TABLET PO (09:05)
[2024-10-22] MEDS: METOPROLOL TARTRATE 25 MG TABLET PO ×2 (09:06→20:45)
[2024-10-22] MEDS: APIXABAN 5 MG TABLET 2.5 MG PO ×2 (09:06→20:45)
[2024-10-22] MEDS: EZETIMIBE 10 MG TABLET PO (09:06)
--- NOTE | 2024-10-22 09:47 | PC.SOCIAL ---
Addendum entered by RAAD Felix 10/22/24 11:28: Secure emailed referral to [facility] at request of dtr in case the family decides to do rehab placement instead of taking pt home as is now their plan. mission worker to follow up as needed. Original Note: Discharge planning: Received message from [facility], stating they are unable to accept this pt for rehab admission as he has been admitted twice recently and they were uncomfortable with the discharge plans home at that time. Spoke with dtr, Janine Paez [phone], by phone regarding discharge plan.Informed her of decision of [facility]. Dtr states this is not a surprise to her. Dtr states the family is hoping for him to return home with care provided by family. Prior to admission, pt was going to [facility] twice a week for out-pt PT services. Dtr hopes to resume this out-pt PT service if needed at discharge. Per dtr, pt has had home health services previously and she will look up to see which agency this was through if home health care is needed at discharge. Dtr requested social work program coordinator find out if there is a bed for pt at [facility] in case the family changes their mind and want placement. mission worker to follow up as needed.
--- NOTE | 2024-10-22 12:24 | PM.IMPN1 ---
Assessment and Plan Assessment and plan (1) Sepsis: Problem comment: Patient was started on broad-spectrum antibiotics because of concern of sepsis with acute altered mental status, acute bilirubin elevation, acute leukocytosis. No definite source for infection except for the ulceration and erythema in the gluteal cleft. Await cultures and clinical course. Clinically improving Status: Acute (2) Metabolic encephalopathy: Problem comment: Patient had acute change in mental status and mobility yesterday this is likely metabolic encephalopathy due to an infection. Continue to monitor with treatment. Status: Acute (3) Mobility poor: Problem comment: First problem identified yesterday was his inability to walk. Appears a little stronger today. Still's requiring a gait belt and standby assistance to ambulate Status: Acute (4) Sacral decubitus ulcer: Problem comment: Unclear if this is pressure ulcer. Continue to treat. If Not resolving may need biopsy. Status: Acute (5) Hematoma of right buttock: Problem comment: Does not appear to be significantly disabling. Appears to be resolving Status: Acute (6) Dementia: Problem comment: - on Donepezil as an outpatient - 05/18 on MiniCog with PCP fall 2023 - 02/11 on MoCA ([place] Cognitive Assessment); 05/28 with OT Status: Acute (7) Elevated bilirubin: Problem comment: - chronic noted intermittently since 2018 per chart review, rest of LFTs wnl - presumably Gilbert's, asymptomatic, stable - consider further outpatient workup if within goals of care Abdominal imaging not concerning for biliary disease. Increase in bilirubin over baseline is probably due to acute illness Status: Acute (8) Risk for falls: Problem comment: Patient has had recurrent falls since coming home from [facility]. Therapy to evaluate Status: Acute (9) Discharge planning issues: Problem comment: With dementia and fall risk patient may need higher level of care. Unclear how well is able to manage as care provider due to his high care needs and her own frailty Status: Acute Plan Continue in-hospital for antibiotics pending culture and clinical course. Continued therapy to evaluate. Likely will need [facility] facility for rehab. Total Time Spent Total Time Spent: Total time spent today is 35 minutes in coordination of care and discussing with patient and other providers ongoing management of his infection, disability and chronic medical problems noted above. Subjective Date Seen: 10/22/24 Interval history: Admission HPI: The patient is 89 with a past history for dementia, A-fib on chronic anticoagulation, CAD with prior history of NSTEMI, hypertension, Gilbert syndrome, hyperlipidemia, CLL who presented to the ER with worsening confusion and generalized weakness. He was brought into the emergency room by his and daughter for evaluation of worsening confusion and weakness. In the past he has had worsening confusion and weakness in the setting of infection including COVID-19 and aspiration pneumonia. He was hospitalized 6 weeks ago at [facility] for aspiration pneumonia. He was felt to have some swallowing problems. Treated with Unasyn and Augmentin. Had encephalopathy during that admission. On the day of admission he was a bit weaker than his baseline, he had a bit of trouble while he was trying to walk at [employer] but was still able to get around with his walker. Throughout the day the weakness progressed, when he went to the [employer] parade he had to use his motorized scooter to get around and they also noted that he was a bit more confused than his baseline. The evening of admission he became very confused and had worsening weakness to the point that he needed help being transferred from the car. He has not been talking as much. They did not notice any fevers. He has not had any cough. He did not have any falls a day of admission but he did have a several days prior to admission. They said it was not a true fall slid down and hit his right buttock as he was going down. Denies any head injury or loss of consciousness. He has not had any abdominal pain. They have not noticed any diarrhea or vomiting. This is patient did not have an obvious source of infection, he does have a small sacral wound with some surrounding erythema but it did not appear to be as severe cellulitis. Negative influenza and COVID. UA without signs of infection although he did have some no intra-abdominal process. On my interview the patient is very confused and unable to provide significant history. He denies feeling unwell. 10/21/2024: I see the patient with his and son. Patient is unable to give any history. He does recognize he is in the hospital but otherwise has no idea how or when he got here or why he came. He has no current concerns. gives history of events of yesterday though she has trouble recalling significant details. She did not recall much detail about his recent hospitalization at [facility] or subsequent stay at [address] [place] [address] or a recent fall causing a bruise on his right buttock. She does remember he fell but could not remember when. She reported that it was a month ago but the appearance would suggested it was happening in the last week. 10/22/2024: Patient reports no concerns today. He is disoriented to his circumstances. Nursing staff report consistent confusion He is requiring is full assist of 1 with a gait belt to walk with a walker. Continues to be incontinent of urine. Exam Narrative: Exam Narrative: He is alert and appears in no distress. Speech is normal though memory is quite poor. Respirations are clear to auscultation. Cardiovascular: S1, S2, regular rate and rhythm. Abdomen is soft. Bowel sounds are active. There is no tenderness. Extremities with 1+ edema bilaterally in the feet and ankles. Wound in the gluteal cleft is examined and appears about the same in amount of erythema and the size of papule on ulcer. Const: Vital Signs, click to edit/add: Vital Signs - 24 hr 10/21/24 15:00 10/21/24 15:00 10/21/24 15:00 Temperature Pulse Rate 95 Pulse Rate [Pulse Oximeter] 89 Respiratory Rate Blood Pressure [Le ft Arm] Blood Pressure [Ri ght Arm] Pulse Oximetry 97 Oxygen Delivery Me thod 10/21/24 15:00 10/21/24 19:10 10/21/24 19:45 Temperature 97.7 F 99.1 F Pulse Rate Pulse Rate [Pulse Oximeter] 89 115 H 76 Respiratory Rate 20 18 16 Blood Pressure [Le ft Arm] 136/94 H 127/87 Blood Pressure [Ri ght Arm] 128/64 Pulse Oximetry 97 95 94 Oxygen Delivery Me thod Room Air Room Air Room Air 10/21/24 21:42 10/21/24 23:00 10/21/24 23:00 Temperature 98.6 F Pulse Rate 103 H Pulse Rate [Pulse Oximeter] 104 H Respiratory Rate 18 Blood Pressure [Le ft Arm] 123/78 Blood Pressure [Ri ght Arm] Pulse Oximetry 97 97 Oxygen Delivery Me thod Room Air 10/21/24 23:10 10/22/24 02:16 10/22/24 07:00 Temperature 98.1 F Pulse Rate Pulse Rate [Pulse Oximeter] 85 100 Respiratory Rate 18 20 Blood Pressure [Le ft Arm] 118/55 L 138/93 H Blood Pressure [Ri ght Arm] Pulse Oximetry 99 100 96 Oxygen Delivery Me thod Room Air Room Air 10/22/24 07:00 10/22/24 07:31 10/22/24 10:25 Temperature 97.3 F L 97.5 F L Pulse Rate 89 Pulse Rate [Pulse Oximeter] 83 85 Respiratory Rate 16 16 Blood Pressure [Le ft Arm] 125/82 119/73 Blood Pressure [Ri ght Arm] Pulse Oximetry 92 96 Oxygen Delivery Me thod Room Air Room Air Documenting provider has reviewed patient's vital signs: yes Labs Labs: Laboratory Results - last 24 hr 10/22/24 07:50 WBC 10.97 RBC 4.08 L Hgb 11.9 L Hct 37.0 MCV 91 MCH 29 MCHC 32 RDW Coeff of Joyce 14.9 Plt Count 125 L Neut % (Auto) 54.3 Lymph % (Auto) 36.4 Porter % (Auto) 7.4 Eos % (Auto) 1.5 Baso % (Auto) 0.2 Neut # (Auto) 5.97 Lymph # (Auto) 3.99 H Porter # (Auto) 0.80 Eos # (Auto) 0.16 Baso # (Auto) 0.02 Abs Immat Gran (auto) 0.02 Imm/Tot Granulo (auto) 0.2 Sodium 138 Potassium 4.3 Chloride 107 Carbon Dioxide 25 Anion Gap 6 L BUN 11 Creatinine 0.9 Estimated Creat Clear 51.71 Estimated GFR 82 Glucose 99 Calcium 8.9 Total Bilirubin 2.7 H AST 25 ALT 14 Alkaline Phosphatase 78 C-Reactive Protein 7.9 H Total Protein 6.0 Albumin 3.5
--- NOTE | 2024-10-22 20:00 | PC.NURSE ---
End of shift [id number] - Pt alert, oriented to self only during shift. Incontinent of bladder during shift, continent of bowels. Up with assistance x1 and walker/gait belt, pt required extensive queuing and direction from RN. Tolerating RA and regular diet/fluids. Denies pain, SOB, n/v. Pt noted to become mildly impulsive at end of shift, attempting to get out of bed and chair without assistance. Edema wear applied to bilat LE per MD order. Family at bedside, pt appears to be resting comfortably with call light within reach at end of shift.
[2024-10-22] MEDS: SODIUM CHLORIDE 0.9 % (FLUSH) 10 ML SYRINGE 5 ML IVF (20:44)
[2024-10-22] MEDS: DONEPEZIL 5 MG TABLET PO (20:45)
[2024-10-22] MEDS: ATORVASTATIN CALCIUM 40 MG TABLET 80 MG PO (20:45)
[2024-10-23] VITALS (8 sets, daily range): BP systolic 106–126; BP diastolic 55–81; PULSE 71–101; RESP 16–18; TEMP 36.3–36.7; O2SAT 94–100
[2024-10-23] MEDS: VANCOMYCIN 1.25 GM/250 ML 1.25 GM/250 ML PIGGYBACK IVPB (02:06)
[2024-10-23] MEDS: cefTRIAXone 2 GM in 0.9 % SODIUM CHLORIDE Mini-bag 100 ML IVPB (04:57)
[2024-10-23] MEDS: EZETIMIBE 10 MG TABLET PO (09:12)
[2024-10-23] MEDS: APIXABAN 5 MG TABLET 2.5 MG PO ×2 (09:12→21:00)
[2024-10-23] MEDS: CLOPIDOGREL 75 MG TABLET PO (09:12)
[2024-10-23] MEDS: ISOSORBIDE MONONITRATE ER 30 MG TAB PO (09:12)
[2024-10-23] MEDS: METOPROLOL TARTRATE 25 MG TABLET PO ×2 (09:12→20:59)
[2024-10-23] MEDS: SODIUM CHLORIDE 0.9 % (FLUSH) 10 ML SYRINGE 5 ML IVF ×2 (09:13→21:00)
--- NOTE | 2024-10-23 12:38 | P.IMPN_ITS ---
Assessment and Plan Assessment and plan (1) Sepsis: Problem comment: Patient was started on broad-spectrum antibiotics because of concern of sepsis with acute altered mental status, acute bilirubin elevation, acute leukocytosis. No definite source for infection except for the ulceration and erythema in the gluteal cleft. Await cultures and clinical course. Clinically improving Status: Acute (2) Metabolic encephalopathy: Problem comment: Patient had acute change in mental status and mobility yesterday this is likely metabolic encephalopathy due to an infection. Continue to monitor with tr eatment. Appears back to baseline. Pushmataha score on October 22 is 11 out of 30 Status: Acute (3) Mobility poor: Problem comment: First problem identified yesterday was his inability to walk. Appears a little stronger today. Still's requiring a gait belt and standby assistance to ambulate Status: Acute (4) Sacral decubitus ulcer: Problem comment: Unclear if this is pressure ulcer. MRSA positive. Switch from vancomycin to doxycycline. Wound cultures pending. This is likely to be slow healing. Will treat with oral antibiotics. Consider [facility] as outpatient. Consider biopsy if not healing over the next few weeks. Status: Acute (5) Hematoma of right buttock: Problem comment: Does not appear to be significantly disabling. Appears to be resolving Status: Acute (6) Dementia: Problem comment: - on Donepezil as an outpatient - 4/ on MiniCog with PCP fall 2023 - 02/11 on MoCA (Stevo Cognitive Assessment); 05/28 with OT. Pushmataha score 11/30 on October 22 2024 Status: Acute (7) Elevated bilirubin: Problem comment: - chronic noted intermittently since 2018 per chart review, rest of LFTs wnl - presumably Gilbert's, asymptomatic, stable - consider further outpatient workup if within goals of care Abdominal imaging not concerning for biliary disease. Increase in bilirubin over baseline is probably due to acute illness Status: Acute (8) Risk for falls: Problem comment: Patient has had recurrent falls since coming home from the longterm recently. Therapists recommend standby assistance for safety Status: Acute (9) Discharge planning issues: Problem comment: With dementia and fall risk patient may need higher level of care. Unclear how well is able to manage as care provider due to his high care needs and her own frailty Status: Acute Plan Continue in hospital for evaluation and treatment of his sacral ulcer and cellulitis with MRSA, monitoring vital signs, looking for safe discharge plan. Total Time Spent Total Time Spent: Total time spent today is 45 minutes in coordination of care and discussion with family and other providers about discharge plan. Subjective Date Seen: 10/23/24 Interval history: Admission HPI: The patient is 89 with a past history for dementia, A-fib on chronic anticoagulation, CAD with prior history of NSTEMI, hypertension, Gilbert syndrome, hyperlipidemia, CLL who presented to the ER with worsening confusion and generalized weakness. He was brought into the emergency room by his and daughter for evaluation of worsening confusion and weakness. In the past he has had worsening confusion and weakness in the setting of infection including COVID-19 and aspiration pneumonia. He was hospitalized 6 weeks ago at [place] for aspiration pneumonia. He was felt to have some swallowing problems. Treated with Unasyn and Augmentin. Had encephalopathy during that admission. On the day of admission he was a bit weaker than his baseline, he had a bit of trouble while he was trying to walk at [employer] but was still able to get around with his walker. Throughout the day the weakness progressed, when he went to the [employer] parade he had to use his motorized scooter to get around and they also noted that he was a bit more confused than his baseline. The evening of admission he became very confused and had worsening weakness to the point that he needed help being transferred from the car. He has not been talking as much. They did not notice any fevers. He has not had any cough. He did not have any falls a day of admission but he did have a several days prior to admission. They said it was not a true fall slid down and hit his right buttock as he was going down. Denies any head injury or loss of consciousness. He has not had any abdominal pain. They have not noticed any diarrhea or vomiting. This is patient did not have an obvious source of infection, he does have a small sacral wound with some surrounding erythema but it did not appear to be as severe cellulitis. Negative influenza and COVID. UA without signs of infection although he did have some no intra-abdominal process. On my interview the patient is very confused and unable to provide significant history. He denies feeling unwell. 10/21/2024: I see the patient with his and son. Patient is unable to give any history. He does recognize he is in the hospital but otherwise has no idea how or when he got here or why he came. He has no current concerns. gives history of events of yesterday though she has trouble recalling significant details. She did not recall much detail about his recent hospitalization at [place] or subsequent stay at [address] [place] [address] or a recent fall causing a bruise on his right buttock. She does remember he fell but could not remember when. She reported that it was a month ago but the appearance would suggested it was happening in the last week. 10/22/2024: Patient reports no concerns today. He is disoriented to his circumstances. Nursing staff report consistent confusion He is requiring is full assist of 1 with a gait belt to walk with a walker. Continues to be incontinent of urine. 10/23/2024: Patient is seen today with no concerns. He is not oriented to circumstances. He is seen with daughter and . The daughter and wanted to take him home. We have recommended 247 supervision at home. There was concern about the 's ability to provide this level of assistance and alternative arrangements are being considered. The daughter is encouraging the to look at options. Exam Narrative: Exam Narrative: He is not oriented to his circumstances. Respirations are clear to auscultation. Cardiovascular: S1, S2, regular rate and rhythm. Abdomen: Bowel sounds active. Abdomen is soft without tenderness or mass. Buttock is examined. The gluteal cleft erythema is less intense. The papule that had an ulceration on it is now primarily just an ulceration of about 1 x 2 cm. Minimal serosanguineous drainage is occurring. There is no obvious fluctuance. Mild tenderness. MRSA positive. Const: Vital Signs, click to edit/add: Vital Signs - 24 hr 10/22/24 15:00 10/22/24 15:00 10/22/24 16:45 Temperature 97.4 F L Pulse Rate 74 Pulse Rate [Apical ] Pulse Rate [Pulse Oximeter] 85 Respiratory Rate 18 Blood Pressure [Le ft Arm] 101/69 Pulse Oximetry 95 95 Oxygen Delivery Me thod Room Air 10/22/24 19:56 10/22/24 23:00 10/22/24 23:00 Temperature 98.2 F 97.8 F Pulse Rate Pulse Rate [Apical ] Pulse Rate [Pulse Oximeter] 95 85 Respiratory Rate 20 16 Blood Pressure [Le ft Arm] 120/80 108/80 Pulse Oximetry 95 96 92 Oxygen Delivery Me thod Room Air Room Air 10/22/24 23:00 10/22/24 23:00 10/23/24 02:07 Temperature 98.0 F Pulse Rate 85 Pulse Rate [Apical ] Pulse Rate [Pulse Oximeter] 103 H 101 H Respiratory Rate 18 Blood Pressure [Le ft Arm] 106/55 L Pulse Oximetry 96 Oxygen Delivery Me thod Room Air 10/23/24 07:00 10/23/24 07:00 10/23/24 11:19 Temperature 98.0 F 97.7 F Pulse Rate Pulse Rate [Apical ] 74 Pulse Rate [Pulse Oximeter] 88 Respiratory Rate 18 16 Blood Pressure [Le ft Arm] 126/81 111/66 Pulse Oximetry 100 100 94 Oxygen Delivery Me thod Room Air Room Air Documenting provider has reviewed patient's vital signs: yes
[2024-10-23] MEDS: DOXYCYCLINE HYCLATE 100 MG PO ×2 (14:10→20:59)
--- NOTE | 2024-10-23 16:28 | PC.SOCIAL ---
Discharge planning: Met with pt, dtr Janine Paez, and in room regarding d/c plans. Dtr is now requesting placement in a facility in [place] for care short term while they decide if taking him home with increased care is an option or if they need longterm placement. Dtr initially was interested in trying to talk with [facility] again but later decided to have pt evaluated for the [facility] unit at [facility]. Dtr is aware this is a private pay facility and that pt would have met criteria for [place] coverage in a [place] [facility] [place] at discharge tomorrow. Dtr states pt's can not drive outside of [place], and keeping pt in [place] is more important than the insurance coverage of a nusing home outside of [place]. Called Enedelia, admissions nurse at [facility] [phone] and secure emailed information on pt. Enedelia came to facility and met with pt and family for [id number] evaluation for admit to the unit. After evaluation, Enedelia ogden pt has been accedpted for admit tomorrow 10/24/24 to a memory care bed at the [facility]. Met with dtr who confirmed this decision and that she and her brother will transport pt to the facility tomorrow morning at 10:00. mechanical maintenance worker to follow up as needed.
[2024-10-23] MEDS: ATORVASTATIN CALCIUM 40 MG TABLET 80 MG PO (20:59)
[2024-10-23] MEDS: DONEPEZIL 5 MG TABLET PO (20:59)
[2024-10-24 06:00] VITALS: RESP 16
--- NOTE | 2024-10-24 06:46 | PC.NURSE ---
End of shift report [id number]: Pt is oriented to self. Pt was on restful night vitals. Afebrile. Mepilex is C/D/I to coccyx. Denies pain. Pt was incontinent of urine overnight. Pt ambulates 1A, GB, and W to the BR. Bed alarm on, call light within reach.?
[2024-10-24 07:00] VITALS: BP 132/90; PULSE 86; RESP 18; O2SAT 98
[2024-10-24] MEDS: METOPROLOL TARTRATE 25 MG TABLET PO (08:36)
[2024-10-24] MEDS: EZETIMIBE 10 MG TABLET PO (08:36)
[2024-10-24] MEDS: ISOSORBIDE MONONITRATE ER 30 MG TAB PO (08:36)
[2024-10-24] MEDS: DOXYCYCLINE HYCLATE 100 MG PO (08:36)
[2024-10-24] MEDS: CLOPIDOGREL 75 MG TABLET PO (08:36)
[2024-10-24] MEDS: APIXABAN 5 MG TABLET 2.5 MG PO (08:36)
--- NOTE | 2024-10-24 11:17 | PC.SOCIAL ---
Discharge planning: Prior to discharge secure emailed discharge orders to [facility] and confirmed with RN pt will be arriving this morning. Met with pt's family upon arrival who are pleased with discharge plan for today to the [facility]. Family to provide transport.
--- NOTE | 2024-10-24 11:40 | PC.NURSE ---
Nurse Care Hours: [id number] Pt this shift alert and oriented to self. No c/o pain. Assisted with set up of food otherwise independent with eating. VSS. IV removed for discharge before shower. IV site bled, Coban wrapped over gauze. CMS checked frequently. Nurse to nurse report given over the phone. Family transfer to [facility], pt left in stable condition.
--- NOTE | 2024-10-24 15:06 | P.DS_ITS ---
DS: Providers Provider Date Seen: 10/24/24 Date of admission: 10/21/24 03:30 Primary care physician: Mckinley Cheema MD Admitting Clinician: Fadi Skelton MD Attending Physician on discharge: Andrea Seay MD Date of Discharge: 10/24/24 DS: Diagnosis Discharge Diagnosis (1) Sepsis: Status: Acute Problem details: Patient was started on broad-spectrum antibiotics because of concern of sepsis with acute altered mental status, acute bilirubin elevation, acute leukocytosis. No definite source for infection except for the ulceration and erythema in the gluteal cleft. Await cultures and clinical course. Clinically improving. (2) Metabolic encephalopathy: Status: Acute Problem details: Patient had acute change in mental status and mobility yesterday this is likely metabolic encephalopathy due to an infection. Continue to monitor with treatment. Appears back to baseline. Gillespie score on October 22 is 11 out of 30 (3) Mobility poor: Status: Acute Problem details: First problem identified yesterday was his inability to walk. Improved mobility but still requiring standby assistance primarily to direct him . (4) Sacral decubitus ulcer: Status: Acute Problem details: Unclear if this is pressure ulcer. MRSA positive. Switch from vancomycin to doxycycline. Wound cultures pending. This is likely to be slow healing. Recommend Mepilex dressing over the wound. Change as necessary for keeping the dressing clean. Clean the area daily. If this wound is not improving over the next few weeks consider referral to Wound Care Clinic and possible biopsy. Monitor for evidence of abscess which would require I&D (5) Hematoma of right buttock: Status: Acute Problem details: Does not appear to be significantly disabling. Appears to be resolving (6) Dementia: Status: Acute Problem details: - on Donepezil as an outpatient - 4/ on MiniCog with PCP fall 2023 - 02/11 on MoCA (Stevo Cognitive Assessment); 05/28 with OT. Gillespie score 01/12 on October 22 2024 (7) Elevated bilirubin: Status: Acute Problem details: - chronic noted intermittently since 2018 per chart review, rest of LFTs wnl - presumably Gilbert's, asymptomatic, stable - consider further outpatient workup if within goals of care Abdominal imaging not concerning for biliary disease. Increase in bilirubin over baseline is probably due to acute illness (8) Risk for falls: Status: Acute Problem details: Patient has had recurrent falls since coming home [facility] recently. Therapists recommend standby assistance for safety (9) Discharge planning issues: Status: Acute Problem details: With dementia and fall risk patient may need higher level of care. 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 He has mild lymphocytosis and mild thrombocytopenia longstanding. DS: Summary Hospital Course Hospital Course: Admission HPI: The patient is 89 with a past history for dementia, A-fib on chronic anticoagulation, CAD with prior history of NSTEMI, hypertension, Gilbert syndrome, hyperlipidemia, CLL who presented to the ER with worsening confusion and generalized weakness. He was brought into the emergency room by his and daughter for evaluation of worsening confusion and weakness. In the past he has had worsening confusion and weakness in the setting of infection including COVID-19 and aspiration pneumonia. He was hospitalized 6 weeks ago at [place] for aspiration pneumonia. He was felt to have some swallowing problems. Treated with Unasyn and Augmentin. Had encephalopathy during that admission. On the day of admission he was a bit weaker than his baseline, he had a bit of trouble while he was trying to walk at [employer] but was still able to get around with his walker. Throughout the day the weakness progressed, when he went to the [employer] parade he had to use his motorized scooter to get around and they also noted that he was a bit more confused than his baseline. The evening of admission he became very confused and had worsening weakness to the point that he needed help being transferred from the car. He has not been talking as much. They did not notice any fevers. He has not had any cough. He did not have any falls a day of admission but he did have a several days prior to admission. They said it was not a true fall slid down and hit his right buttock as he was going down. Denies any head injury or loss of consciousness. He has not had any abdominal pain. They have not noticed any diarrhea or vomiting. This is patient did not have an obvious source of infection, he does have a small sacral wound with some surrounding erythema but it did not appear to be as severe cellulitis. Negative influenza and COVID. UA without signs of infection although he did have some no intra-abdominal process. On my interview the patient is very confused and unable to provide significant history. He denies feeling unwell. 10/21/2024: I see the patient with his and son. Patient is unable to give any history. He does recognize he is in the hospital but otherwise has no idea how or when he got here or why he came. He has no current concerns. gives history of events of yesterday though she has trouble recalling significant details. She did not recall much detail about his recent hospitalization at [place] or subsequent stay at [address] [place] [address] or a recent fall causing a bruise on his right buttock. She does remember he fell but could not remember when. She reported that it was a month ago but the appearance would suggested it was happening in the last week. 10/22/2024: Patient reports no concerns today. He is disoriented to his circumstances. Nursing staff report consistent confusion He is requiring is full assist of 1 with a gait belt to walk with a walker. Continues to be incontinent of urine. 10/23/2024: Patient is seen today with no concerns. He is not oriented to circumstances. He is seen with daughter and . The daughter and wanted to take him home. We have recommended 247 supervision at home. There was concern about the 's ability to provide this level of assistance and alternative arrangements are being considered. The daughter is encouraging the to look at options. 10/24/2024: Patient is seen today with no new concerns. He reports otherwise feeling well. Status at Discharge Overall status at discharge: patient is progressing back to baseline Time Spent with Patient Time attestation: Total time spent providing and/or coordinating discharge services: 40 minutes Exam Narrative: Exam Narrative: He is alert pleasant in no distress. Respirations are clear to auscultation. Cardiovascular: S1, S2, regular rate and rhythm. Abdomen is soft without tenderness. Buttock is examined. The ulcerated papule at the top of his gluteal cleft is appears less inflamed top of than previously. The erythema is less intense around it as well. No significant tenderness to palpation today. He is observed to walk with a walker but requiring standby assistance to direct him. Const: Vital Signs, click to edit/add: Vital Signs - 24 hr 10/23/24 19:00 10/23/24 20:24 10/23/24 22:28 Temperature 97.3 F L Pulse Rate [Pulse Oximeter] 87 Respiratory Rate 16 16 Blood Pressure [Le ft Arm] Blood Pressure [Ri ght Arm] 113/58 L Pulse Oximetry 98 99 Oxygen Delivery Me thod Room Air 10/23/24 22:59 10/24/24 06:00 10/24/24 07:00 Temperature Pulse Rate [Pulse Oximeter] Respiratory Rate 18 16 Blood Pressure [Le ft Arm] Blood Pressure [Ri ght Arm] Pulse Oximetry 98 Oxygen Delivery Me thod 10/24/24 07:00 Temperature Pulse Rate [Pulse Oximeter] 86 Respiratory Rate 18 Blood Pressure [Le ft Arm] 132/90 H Blood Pressure [Ri ght Arm] Pulse Oximetry 98 Oxygen Delivery Me thod Room Air Documenting provider has reviewed patient's vital signs: yes DS: Data Data Completed and Pending Completed studies during hospitalization: Procedures Excision of Esophagus, Via Natural or Artificial Opening Endoscopic, Diagnostic (05/21/24) Labs on day of discharge: Preliminary micro results at discharge 10/23/24 07:20 Wound Culture - Preliminary Buttock Gram negative keena 10/20/24 23:50 Blood Culture - Preliminary Blood NO GROWTH AFTER 72 HOURS Discharge Plan Discharge Disposition: [facility] Date of Admission: 10/21/24 03:30 Attending Provider on Discharge: Sam Seay Primary Care Provider: Mckinley Cheema Discharge Medications: New doxycycline hyclate 100 mg tablet 100 mg PO BID Qty: 24 0RF Continued Eliquis 2.5 mg tablet 2.5 mg PO BID atorvastatin 80 mg tablet 80 mg PO HS donepezil 5 mg tablet 5 mg PO HS nitroglycerin 0.4 mg tablet, sublingual 0.4 mg sublingual Q5M PRN Rx Instructions: Place 1 Tablet (0.4 mg) under the tongue every 5 minutes if needed for Chest Pain. isosorbide mononitrate 30 mg tablet extended release 24 hr 30 mg PO DAILY clopidogrel 75 mg tablet 75 mg PO QAM ezetimibe 10 mg tablet 10 mg PO DAILY ranolazine 500 mg tablet extended release 12 hr 500 mg PO BID metoprolol tartrate 25 mg tablet 25 mg PO BID Discharge Orders: Discharge Order (Routine); Ordered 10/24/24 Ordered By: Sam Seay Activity Level: Up with assist and Use Walker Discharge Diet: Heart Healthy (2 gm sodium, low fat) Follow Up Appointments: Mckinley Cheema MD [Primary Care Provider, Family Practice] Forms: Patient Belongings, [facility] Info Instructions Wound Care: Patient has a ulcer in the gluteal cleft. This area should be kept clean and covered with a Mepilex dressing. Change as needed if getting soiled. If this wound is not healing over the next few weeks consider wound care consult or biopsy. Admit to: SNF Discharge Potential: Fair Rehab Potential: Fair Therapy: Physical Therapy and Occupational Therapy Therapy Orders: Evaluate and Treat Oxygen: No
== END 2024-10-24 10:59 | DRG 871 ==
LOC: ED 10-21 02:40 → MEDSURG 10-21 03:30
PROVIDERS: Family Medicine; Admitting Provider Internal Medicine; Emergency Provider Emergency Medicine; PCP Surgery; Visit Provider Internal Medicine
DX: A41.9 Sepsis, unspecified organism (principal); G93.41 Metabolic encephalopathy; C91.10 Chronic lymphocytic leukemia of B-cell type not having achieved remission; L03.317 Cellulitis of buttock; L02.31 Cutaneous abscess of buttock; L89.151 Pressure ulcer of sacral region, stage 1; R26.2 Difficulty in walking, not elsewhere classified; S30.0XXA Contusion of lower back and pelvis, initial encounter; W19.XXXA Unspecified fall, initial encounter; F03.90 Unspecified dementia, unspecified severity, without behavioral disturbance, psychotic disturbance, mood disturbance, and anxiety; I48.0 Paroxysmal atrial fibrillation; E80.4 Gilbert syndrome; Z91.81 History of falling; Z79.01 Long term (current) use of anticoagulants; I10 Essential (primary) hypertension; I71.21 Aneurysm of the ascending aorta, without rupture; I25.10 Atherosclerotic heart disease of native coronary artery without angina pectoris; I25.2 Old myocardial infarction; Z95.1 Presence of aortocoronary bypass graft; Z95.5 Presence of coronary angioplasty implant and graft
CPT/HCPCS: 36415; 70450; 71275; 74177; 80048; 80053; 81001; 82803; 83605; 83880; 84484; 85025; 86140; 87040; 87070; 87081; 87186; 87637; 93005; 94761; 97110; 97116; 97161; 97165; 97530; 97535; 99285; A9270; J0696; J2543; J3375; J7030; J7050; Q9967